=== PATIENT | female | born 1975 | race Caucasian/White ===

== ENCOUNTER → 2019-07-01 12:49 | Outpatient (CLI) | payer MEDICAID, SELFPAY | PROVIDERS: PCP Family Medicine; Referring Provider Physician Assistant; Visit Provider Physician Assistant | DX: R00.2 Palpitations (principal) | CPT/HCPCS: 93225; 93226 ==

== ENCOUNTER → 2019-07-08 13:19 | Outpatient (CLI) | payer MEDICAID, SELFPAY ==
[2015-08-18 11:45] VITALS: BMI 30.5
--- NOTE | 2019-07-08 13:21 | STE_ITS ---
Reason For Study: Palpitations, Chest Pain Stress Results Protocol: Gumaro Protocol Maximum Predicted HR: 176 bpm Target HR: 150 bpm % Maximum Predicted HR: 89 % Heart Stage Duration Rate BP Comment (mm:ss) (bpm) Baseline 70 114/70No Chest Pain Gumaro Protocol Stage I 3:00 117 120/72No Chest Pain Gumaro Protocol Stage II 3:00 134 146/62No Chest Pain Gumaro Protocol Stage III 3:00 151 160/58No Chest Pain; Mild Silverio Leg Pain Gumaro Protocol Stage IV 0:30 157 / No Chest Pain; Silverio Leg Pain Mild Chest Pain During Post Pictures, Resolved 2 Recovery 86 120/70Minutes Into Recovery Stress Duration: 9:30 mm:ss Maximum Stress HR: 157 bpm METS: 11 Baseline Echocardiogram Findings The estimated ejection fraction is 60 %. Stress Echo Wall motion Data Resting WM Intermediate WM Stress WM Resting Wall Motion Wall Motion Stress No regional wall motion No regional wall motion abnormalities noted. abnormalities noted. Ejection Fraction 65 %. EKG Data The baseline ECG displays normal sinus rhythm. During stress, there were no ST or T wave changes noted to suggest ischemia. Interpretation Summary The estimated ejection fraction is 60 %. Stress echo is negative for stress induced CP or EKG or echocardiographic changes of ischemia. Ordering Physician: Javier Duncan Referring Physician: Verónica Jamil Performed By: Syeda Linares, GENOVEVA
== END ==
PROVIDERS: PCP Family Medicine; Referring Provider Physician Assistant; Visit Provider Physician Assistant
DX: R07.2 Precordial pain (principal)
CPT/HCPCS: 93017; 93350

== ENCOUNTER 2020-11-10 14:15 | Emergency (ER) | payer MEDICAID, SELFPAY ==
[2020-11-10 14:18] VITALS: BP 127/93; PULSE 87; RESP 16; TEMP 36.2; O2SAT 98; BMI 28.8
--- NOTE | 2020-11-10 14:29 | EDS_ITS ---
HPI History of Present Illness Chief Complaint: Numb/Ting Informant: patient and EMS Onset/Context/Timing Onset: Today Context: Gradual Onset Timing: Continuous Quality: nausea, tingling Location: face, arms, legs Current Severity: Mild Maximum Severity: Severe Worsened by: unk Relieved by: nothing in particular Associated Symptoms Associated Symptoms: anxious but that came later Narrative Narrative: Patient has a significant history of anxiety and has been on 7 different medications for it, and as a result of that and weight gain and some other issues, her doctor had her discontinue buspirone, she stopped it 3 or 4 days ago. She had been feeling fine until today when she started feeling nauseated, then gradually started feeling tingling in her arms and legs then it went to her face, bilaterally simultaneously, no weakness or loss of consciousness, she started feeling anxious and hyperventilating but that came later. She states she only knew that she was anxious and hyperventilating because EMS told her. She thinks that she was feeling anxious due to her symptoms. She denies any palpitations or racing heartbeat or chest discomfort or shortness of breath. No recent illness except for one bout of loose diarrhea today nonbloody. No vomiting. [facility] Medical History Anxiety SLE (systemic lupus erythematosus) Home Medications albuterol sulfate [Ventolin HFA] 1 - 2 puff INHALATION Q4H PRN PRN #1 inhaler 01/29/15 [Rx Last Taken Unknown] citalopram 15 mg PO DAILY 01/29/15 [History Last Taken Unknown] Wellbutrin 08/18/15 [History Last Taken Unknown] hydroxyzine pamoate 25 - 50 mg PO TID PRN PRN #20 capsule 08/18/15 [Rx Last Taken Unknown] Allergy/AdvReac Type Severity Reaction Status Date / Time No Known Allergies Allergy Verified 08/18/15 11:48 Social History Smoking Status: Former smoker ROS ROS ED Constitutional Constitutional ED: Denies chills or fever(s) Eyes Eyes: Denies change in vision or diplopia ENT ENT ED: Denies rhinorrhea or sore throat Cardiovascular Cardiovascular: Denies chest pain or palpitations Respiratory/Chest Respiratory/Chest: Denies cough or dyspnea Gastrointestinal Gastrointestinal: Reports nausea; Denies abdominal pain, diarrhea or vomiting Genitourinary Genitourinary ED: Denies dysuria or hematuria Musculoskeletal Musculoskeletal: Denies back pain or neck pain Integumentary Denies abscess or rash Neurologic Neurologic: Reports paresthesias and tingling; Denies headache(s), syncope or weakness Psychiatric Psychiatric: Reports as per HPI and anxiety; Denies auditory hallucinations or suicidal thoughts EXAM Physical Exam Const Vital Signs: 11/10/20 14:18 Temperature 97.2 F L Temperature Source Temporal Pulse Rate 87 Respiratory Rate 16 Blood Pressure 127/93 H Blood Pressure Mean 104 Pulse Ox 98 Oxygen Delivery Method Room Air Positive well nourished and well developed General Appearance ED: well developed and NAD HEENT Reports moist mucous membranes normocephalic and atraumatic Eyes PERRL and EOMs intact bilaterally Neck full ROM and supple Resp normal respiratory effort and clear to auscultation bilaterally Cardio regular rate, regular rhythm and no murmurs GI non-tender and non-distended Auscultation: normoactive bowel sounds Palpation: soft Back/Spine no CVA tenderness General Back: other FROM Extremity normal to inspection General Extremety ED: Negative for edema, pulses abnormal or tenderness General Extremity: Negative for edema or pulses abnormal Neuro oriented x3, CN's II-XII intact bilaterally and no sensory deficits noted Sensorium / Orientation: awake and alert Motor Exam: strength 5/5 throughout Psych mental status grossly normal, thought process normal, cooperative, affect normal, speech normal and activity/motor behavior normal Attitude: calm and engaged Skin no rashes or lesions noted and no wounds MDM MDM MDM Narrative Medical decision making narrative: With time and some Zofran patient is feeling much better. Her potassium is 3.3, she states this has been the case before. I discussed with her the possibility of an acute respiratory alkalosis due to her hyperventilating and feeling anxious, but to err on the side of caution she was given a dose of potassium 40 mEq orally. We will discharge her home, I suppose it is possible she is having some mild withdrawal symptoms from the buspirone that she stopped 3 days ago, this is the right time frame to experience that, however I am not sure if she would experience that with her other psychiatric medication she is taking. I think it is fine to continue staying off of it along with her doctor's orders, if it is minor withdrawal symptoms they will not be dangerous and they will pass within several days. Lab Data Attestation: I reviewed the patient's lab results. Labs: Laboratory Results - last 24 hr 11/10/20 11/10/20 14:40 14:40 WBC 6.5 RBC 3.81 L Hgb 11.5 L Hct 34.6 L MCV 90.8 MCH 30.2 MCHC 33.2 RDW Std Deviation 41.3 RDW Coeff of Larry 12.5 Plt Count 245 MPV 9.5 Immature Gran % (Auto) 0.600 Neut % (Auto) 77.3 H Lymph % (Auto) 12.8 L [place] % (Auto) 6.5 Eos % (Auto) 2.0 Baso % (Auto) 0.8 Absolute Neuts (auto) 5.0 Absolute Lymphs (auto) 0.83 Nucleated RBC % 0 Sodium 138 Potassium 3.3 L Chloride 104 Carbon Dioxide 29.0 Anion Gap 5 BUN 17 Creatinine 0.77 Estim Creat Clear Calc 85.46 Est GFR (MDRD) Af Amer 103 Est GFR (MDRD) Non-Af 85 BUN/Creatinine Ratio 22.0 H Glucose 113 H Calcium 8.7 Discharge Plan Triage Chief Complaint: Numb/Ting ED Provider: King Chow Dx/Rx/DC Orders Clinical Impression: Paresthesias, Hypokalemia Instructions: ED Hypokalemia, ED Paraesthesias Prescriptions: No Action citalopram 20 MG tablet 15 mg PO DAILY RF: 0 albuterol sulfate [Ventolin HFA] 1 INHALER inhaler 1 - 2 puff inhalation Q4H PRN PRN (Reason: Wheezing) Qty: 1 RF: 0 Wellbutrin RF: 0 hydroxyzine pamoate 25 MG capsule 25 - 50 mg PO TID PRN PRN (Reason: Anxiety) Qty: 20 RF: 0 Primary Care Provider: Jus Gage Referrals: Jus Gage MD [Primary Care Provider] - 1 Week if not improving Disposition Disposition: Home, Self Care
[2020-11-10] MEDS: Ondansetron 4 MG/2 ML Vial IV (14:39)
[2020-11-10 14:49] LABS: Absolute Lymphocyte Count 0.83 X10^3/uL (0.83-4.51); Basophil# 0.05 X10^3/uL; Basophil% 0.8 % (0-1); Eosinophil# 0.13 X10^3/uL; Hematocrit 34.6 % (37-47); Hemoglobin 11.5 g/dL (12.0-15.0); Lymphocyte # 0.83 X10^3/ul (0.83-4.51); Lymphocyte % 12.8 % (19-41); Mean Corp Hgb Conc 33.2 g/dL (32-36); Mean Corpuscular Hgb 30.2 pg (27.0-32.0); Mean Corpuscular Volume 90.8 fL (81-99); Mean Platelet Vol. 9.5 fl (6.2-12.0); Monocyte# 0.42 X10^3/uL; Monocyte% 6.5 % (0-10); NRBC Flagged by Analyzer 0 % (0-5); Neutrophil # 5.01 X10^3/uL (2.7-7.7); Neutrophil % 77.3 % (47-70); Platelet Count 245 K/mm3 (150-450); RBC Distribution Width CV 12.5 % (11.6-14.6); RBC Distribution Width SD 41.3 fl (35.1-43.9); Red Blood Count 3.81 M/mm3 (4.2-5.4); White Blood Count 6.5 K/mm3 (4.4-11.0)
[2020-11-10 15:07] LABS: Anion Gap 5 (5-15); BUN 17 mg/dL (7-18); Calcium,Total 8.7 mg/dL (8.5-10.1); Chloride 104 mmol/L (98-107); Creatinine, Serum 0.77 mg/dL (0.55-1.02); EST Glomerular Filtration Rate 85 mL/min (>60); Est Glom Filt Rate - Afr Amer 103 mL/min (>60); Estimated Creatinine Clearance 85.46 ml/min; Glucose 113 mg/dL (74-106); Potassium 3.3 mmol/L (3.5-5.1); Sodium Level 138 mmol/L (136-145)
[2020-11-10] MEDS: Potassium Chloride Oral Tablet 20 MEQ 40 MEQ PO (16:03)
[2020-11-10 16:04] VITALS: BP 130/81; PULSE 104; RESP 16; O2SAT 99
== END 2020-11-10 16:06 | disposition home or self-care (01) ==
PROVIDERS: Emergency Provider Emergency Medicine; PCP Family Medicine
DX: E87.6 Hypokalemia (principal); R20.2 Paresthesia of skin; M32.9 Systemic lupus erythematosus, unspecified; F41.9 Anxiety disorder, unspecified; Z79.899 Other long term (current) drug therapy; Z87.891 Personal history of nicotine dependence
CPT/HCPCS: 80048; 85025; 96374; 99284; A4216; J2405

== ENCOUNTER 2021-10-12 15:49 | Emergency (ER) | payer OTHER, MEDICAID, SELFPAY ==
[2021-10-12 15:50] VITALS: BP 154/96; PULSE 95; RESP 18; TEMP 37.1; O2SAT 99; BMI 30.7
--- NOTE | 2021-10-12 16:21 | EKG12_ITS ---
Test Reason : HEAT EXHAUSTION Blood Pressure : / mmHG Vent. Rate : 073 BPM Atrial Rate : 073 BPM P-R Int : 152 ms QRS Dur : 094 ms QT Int : 372 ms P-R-T Axes : 038 020 065 degrees QTc Int : 409 ms Normal sinus rhythm with sinus arrhythmia Normal ECG Confirmed by VICKI ORTEGA, NICOLE ([id number]), mapping editor EULALIA ORTEZ ([id number]) on 10/14/2021 11:37:40 AM Referred By: LEV Confirmed By:NICOLE COHEN MD
--- NOTE | 2021-10-12 16:23 | EDS_ITS ---
HPI History of Present Illness Chief Complaint: Weakness Informant: patient Onset/Context/Timing Onset: Today Context: Gradual Onset Current Severity: Mild Maximum Severity: Moderate Narrative Narrative: Patient presents with generalized weakness that she believes is secondary to heat exhaustion. 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 She states there was no air conditioning in her truck today. Around noon she noted she had stopped sweating and was very hot. She stopped one of her customers homes and cooled off for about 15 minutes. -S-he then continued her route but again noted she stopped sweating, became lightheaded, and had tingling in her fingers. She felt like she was going to throw up. She stopped at another customer's home and cooled off there for approximately 1 hour. When she attempted to restart her route she was extremely nauseated and felt she could not continue. She arrived via EMS after receiving a liter of IV fluids. She states she still feels somewhat nauseated now but overall improved. [facility] Medical History Anxiety Depression SLE (systemic lupus erythematosus) Home Medications belimumab 200 mg/mL subcutaneous auto-injector (Benlysta) 1 ea subcut FR 10/12/21 [History Last Taken Unknown] cyclobenzaprine 10 mg tablet 0.5 tab PO QHS PRN Sleep 10/12/21 [History Last Taken Unknown] hydroxychloroquine 200 mg tablet 1.5 tab PO DAILY 10/12/21 [History Last Taken Unknown] hydroxyzine pamoate 25 mg capsule 25 mg PO 4X/DAY PRN Anxiety 10/12/21 [History Last Taken Unknown] mometasone 0.1 % topical cream 1 applic topical DAILY 10/12/21 [History Last Taken Unknown] multivit with minerals-iron 18 mg-folic ac 400 mcg-vit K 25 mcg tablet (One Daily Women's) 1 tab PO DAILY 10/12/21 [History Last Taken Unknown] oxaprozin 600 mg tablet 2 tab PO DAILY 10/12/21 [History Last Taken Unknown] oxybutynin chloride 10 mg tablet,extended release 24 hr 1 tab PO DAILY 10/12/21 [History Last Taken Unknown] venlafaxine 150 mg capsule,extended release 24 hr 150 cap PO DAILY 10/12/21 [History Last Taken Unknown] Allergy/AdvReac Type Severity Reaction Status Date / Time No Known Allergies Allergy Verified 10/12/21 15:50 Social History Smoking Status: Former smoker ROS ROS ED Constitutional Constitutional ED: Denies chills or fever(s) Eyes Eyes: Denies change in vision or discharge from eye(s) ENT ENT ED: Denies discharge from eye(s), rhinorrhea or sore throat Cardiovascular Cardiovascular: Denies chest pain or palpitations Respiratory/Chest Respiratory/Chest: Denies cough or dyspnea Gastrointestinal Gastrointestinal: Reports nausea; Denies abdominal pain, diarrhea or vomiting Genitourinary Genitourinary ED: Denies difficulty urinating or dysuria Musculoskeletal Musculoskeletal: Denies back pain or extremity pain Integumentary Denies Abrasions or rash Neurologic Neurologic: Reports paresthesias and weakness; Denies headache(s) Psychiatric Psychiatric: Denies anxiety or depression Allergic/Immunologic Allergic/Immunologic ED: Denies lip swelling or urticaria EXAM Physical Exam Const Vital Signs: 10/12/21 15:50 10/12/21 16:17 Temperature 98.7 F Temperature Source Temporal Pulse Rate 95 Respiratory Rate 18 Respiratory Effort Normal Non-Labored Respiratory Pattern Normal Blood Pressure 154/96 H Blood Pressure Mean 115 Pulse Ox 99 Oxygen Delivery Method Room Air Positive well nourished and well developed General Appearance ED: well developed HEENT Reports dry mucous membranes Mouth ED: Yes dry mucous membranes Mouth: dry mucous membranes Eyes PERRL and EOMs intact bilaterally Neck no lymphadenopathy Chest Wall inspection of chest normal and palpation of chest normal Resp normal respiratory effort and clear to auscultation bilaterally Cardio regular rate and regular rhythm GI non-tender Auscultation: normoactive bowel sounds Palpation: soft Neuro oriented x3, CN's II-XII intact bilaterally and no sensory deficits noted Motor Exam: strength 5/5 throughout Skin no rashes or lesions noted MDM MDM MDM Narrative Medical decision making narrative: Patient already received 1 L of IV fluid. IV fluids were run at 150 an hour. EKG and lab work obtained. Lab Data Attestation: I reviewed the patient's lab results. Labs: Laboratory Results - last 24 hr 10/12/21 10/12/21 16:47 16:47 WBC 8.0 RBC 3.95 L Hgb 12.0 Hct 35.0 L MCV 88.6 MCH 30.4 MCHC 34.3 RDW Std Deviation 42.2 RDW Coeff of Larry 12.9 Plt Count 256 MPV 9.3 Immature Gran % (Auto) 0.500 Neut % (Auto) 83.8 H Lymph % (Auto) 8.7 L [place] % (Auto) 5.9 Eos % (Auto) 0.4 Baso % (Auto) 0.7 Absolute Neuts (auto) 6.7 Absolute Lymphs (auto) 0.70 L Nucleated RBC % 0 Sodium 140 Potassium 3.5 Chloride 108 H Carbon Dioxide 25.0 Anion Gap 7 BUN 14 Creatinine 0.76 Estim Creat Clear Calc 86.59 Est GFR (MDRD) Af Amer 104 Est GFR (MDRD) Non-Af 86 BUN/Creatinine Ratio 18.3 Glucose 114 H Calcium 9.0 EKG Initial EKG: Attestation: I personally reviewed and interpreted this EKG as follows: Interpretation: Sinus Rhythm (Sinus at 73 with no acute ischemia.) Treatment and Re-Evaluation Narrative: Lab work is unremarkable. EKG is normal. On repeat evaluation patient feels back to baseline. She will be discharged home with family. Discharge Plan Triage Chief Complaint: Weakness ED Provider: Emily Ashley Dx/Rx/DC Orders Clinical Impression: Weakness, Nausea Instructions: ED Heat Exhaustion Prescriptions: No Action cyclobenzaprine 10 mg tablet 0.5 tab PO QHS PRN (Reason: Sleep) Label Comments: TAKE 1/2 TABLET BY MOUTH AT BEDTIME NEEDED oxybutynin chloride 10 mg tablet extended release 24hr 1 tab PO DAILY Label Comments: TAKE 1 TABLET BY MOUTH EVERY DAY venlafaxine 150 mg capsule,extended release 24hr 150 cap PO DAILY Label Comments: TAKE 1 CAPSULE BY MOUTH EVERY DAY hydroxychloroquine 200 mg tablet 1.5 tab PO DAILY Label Comments: TAKE 1 AND 1/2 TABLETS BY MOUTH ONCE DAILY oxaprozin 600 mg tablet 2 tab PO DAILY Label Comments: TAKE 2 TABLETS BY MOUTH EVERY DAY mometasone 0.1 % cream 1 applic TOPICAL DAILY One Daily Women's 18 mg iron-400 mcg-25 mcg Tablet 1 tab PO DAILY Benlysta 200 mg/mL auto-injector 1 ea SUBCUT FR hydroxyzine pamoate 25 MG capsule 25 mg PO 4X/DAY PRN (Reason: Anxiety) Primary Care Provider: Jus Gage Referrals: Jus Gage MD [Primary Care Provider] - As Needed Disposition Disposition: Home, Self Care
[2021-10-12] MEDS: 0.9% Normal Saline 1,000 ML 150 ML IV (16:53)
[2021-10-12 16:55] LABS: Absolute Neutrophil Count 6.7 X10^3/uL (2.0-7.7); Basophil# 0.06 X10^3/uL; Basophil% 0.7 % (0-1); Eosinophil# 0.03 X10^3/uL; Eosinophils% 0.4 % (0-5); Lymphocyte % 8.7 % (19-41); Mean Corp Hgb Conc 34.3 g/dL (32-36); Mean Corpuscular Hgb 30.4 pg (27.0-32.0); Mean Corpuscular Volume 88.6 fL (81-99); Mean Platelet Vol. 9.3 fl (6.2-12.0); Monocyte# 0.47 X10^3/uL; Monocyte% 5.9 % (0-10); NRBC Flagged by Analyzer 0 % (0-5); Neutrophil # 6.71 X10^3/uL (2.7-7.7); Neutrophil % 83.8 % (47-70); Platelet Count 256 K/mm3 (150-450); RBC Distribution Width CV 12.9 % (11.6-14.6); RBC Distribution Width SD 42.2 fl (35.1-43.9); Red Blood Count 3.95 M/mm3 (4.2-5.4)
[2021-10-12 17:09] LABS: Anion Gap 7 (5-15); BUN 14 mg/dL (7-18); BUN/Creat Ratio 18.3 RATIO (10-20); Chloride 108 mmol/L (98-107); Creatinine, Serum 0.76 mg/dL (0.55-1.02); EST Glomerular Filtration Rate 86 mL/min (>60); Est Glom Filt Rate - Afr Amer 104 mL/min (>60); Estimated Creatinine Clearance 86.59 ml/min; Glucose 114 mg/dL (74-106); Potassium 3.5 mmol/L (3.5-5.1); Sodium Level 140 mmol/L (136-145)
[2021-10-12 18:08] VITALS: PULSE 88; RESP 17; O2SAT 99
== END 2021-10-12 18:10 | disposition home or self-care (01) ==
PROVIDERS: Emergency Provider Emergency Medicine; PCP Family Medicine; Visit Provider Emergency Medicine
DX: R53.1 Weakness (principal); M32.9 Systemic lupus erythematosus, unspecified; F41.9 Anxiety disorder, unspecified; F32.A Depression, unspecified; Z79.899 Other long term (current) drug therapy; Z87.891 Personal history of nicotine dependence; R11.0 Nausea; T67.5XXA Heat exhaustion, unspecified, initial encounter; X30.XXXA Exposure to excessive natural heat, initial encounter
CPT/HCPCS: 80048; 85025; 93005; 96361; 96374; 99284; J7030; A4216; J2405

== ENCOUNTER → 2023-05-17 | Outpatient (CLI) | payer OTHER, SELFPAY ==
--- OUTSIDE RECORDS SUMMARY | 2023-05-17 09:19 | XMS RPT_ITS | CCD ---
Author Name Unknown Address [id number] [place] [address] Organization [facility] Care Team Providers Care Director Title Name Role Phone JAMESCONSUELOMASSIEL Unavailable Unavailable JUS PÉREZ Unavailable Unavailable Ollie ORTEGA, Ta Gibson Unavailable [phone] Jus Pérez MD Primary Care Provider Jus Pérez MD Primary Care Provider Jus Pérez MD Primary Care Provider Jus Pérez MD Primary Care Provider JUS PÉREZ Primary Care Unavailable FAWN SON Referring Unavailable CHON NEGRON Attending Unavailable JUS PÉREZ Primary Care Unavailable JUS PÉREZ Primary Care Unavailable FAWN SON Referring Unavailable JUS PÉREZ Primary Care Unavailable FAWN SON Referring Unavailable JUS PÉREZ Primary Care Unavailable FAWN SON Attending Unavailable CHON NEGRON Referring Unavailable JUS PÉREZ Primary Care Unavailable MAGDI ARRIAGA Attending Unavailable JUS PÉREZ Primary Care Unavailable JUS PÉREZ Referring Unavailable JUS PÉREZ Primary Care Unavailable FAWN SON Referring Unavailable JUS PÉREZ Primary Care Unavailable FAWN SON Attending Unavailable LISSET RIVERS Attending Unavailable JUS PÉREZ Primary Care Unavailable JSU PÉREZ Referring Unavailable MAGDI ARRIAGA Attending Unavailable JUS PÉREZ Primary Care Unavailable JUS PÉREZ Referring Unavailable MAGDI ARRIAGA Attending Unavailable JUS PÉREZ Primary Care Unavailable JUS PÉREZ Referring Unavailable JUS PÉREZ Primary Care Unavailable JUS PÉREZ Attending Unavailable JUS PÉREZ Referring Unavailable CHRISTINE RODRIGUEZ Referring Unavailable CAYLA ALVAREZ Attending Unavailable JUS PÉREZ Primary Care Unavailable BETO, JUS Blunt Primary Care Unavailable FAWN SON Referring Unavailable BETO, JUS Blunt Primary Care Unavailable BETO, JUS Blunt Referring Unavailable BETO, JUS Blunt Primary Care Unavailable FAWN SON Referring Unavailable LISSET RIVERS Referring Unavailable BETO, JUS Blunt Primary Care Unavailable BETO, JUS Blunt Primary Care Unavailable BETO, JUS Blunt Attending Unavailable CHRISTINE RODRIGUEZ Attending Unavailable BETO, JUS Blunt Primary Care Unavailable BETO, JUS Blunt Referring Unavailable BETO, JUS Blunt Primary Care Unavailable FAWN SON Referring Unavailable BETO, JUS Blunt Primary Care Unavailable FAWN SON Referring Unavailable MAGDI ARRIAGA Attending Unavailable BETO, JUS Blunt Primary Care Unavailable BETO, JUS Blunt Referring Unavailable CORINA, MAGDI Attending Unavailable BETO, JUS Blunt Primary Care Unavailable BETO, JUS Blunt Referring Unavailable CORINA, MAGDI Attending Unavailable BETO, JUS Blunt Primary Care Unavailable BETO, JUS Blunt Referring Unavailable CORINA, MAGDI Attending Unavailable BETO, JUS Blunt Primary Care Unavailable BETO, JUS Blunt Referring Unavailable BETO, JUS Blunt Primary Care Unavailable FAWN SON Referring Unavailable BETO, JUS Blunt Primary Care Unavailable FAWN SON Referring Unavailable BETO, JUS Blunt Primary Care Unavailable FAWN SON Referring Unavailable CHON NEGRON Attending Unavailable BETO, JUS Blunt Primary Care Unavailable BETO, JUS Blunt Referring Unavailable BETO, JUS Blunt Primary Care Unavailable DORCAS DÍAZ Referring Unavailable DORCAS DÍAZ Attending Unavailable BETO, JUS Blunt Primary Care Unavailable BETO, JUS Blunt Primary Care Unavailable FAWN SON Referring Unavailable BETO, JUS Blunt Primary Care Unavailable FAWN SON Referring Unavailable BETO, JUS Blunt Primary Care Unavailable FAWN SON Referring Unavailable Medications Current Medications Medication Drug Class(es) Dates Sig (Normalized) Sig (Original) famotidine 20 mg oral tablet (6 sources) Histamine-2 Receptor Antagonist Start: 12-05-2021 End: 01-04-2022 take 1 tablet by mouth at bedtime as needed famotidine (PEPCID) 20 mg tablet Indications: GERD without esophagitis Take 1 tablet by mouth at bedtime as needed. 30 tablet 0 12/05/2021 01/04/2022 Active Completed/Discontinued Medications Medication Drug Class(es) Dates Sig (Normalized) Sig (Original) 1 ml belimumab 200 mg/ml auto-injector (20 sources) B Lymphocyte Stimulator-specif ic Inhibitor Start: 11-10-2021 End: 12-13-2021 inject 200 mg by subcutaneous injection every week belimumab (BENLYSTA) 200 mg/mL Indications: Systemic lupus erythematosus, unspecified SLE type, unspecified organ involvement status (HCC) INJECT 200MG SUBCUTANEOUSLY WEEKLY 12 mL 3 12/13/2021 Active Problems Active Problems Problem Classification Problem Date Documented Date Episodic/Chronic Allergic reactions (2 sources) Inflammatory dermatosis; Translations: [Dermatitis, unspecified] Episodic Anxiety disorders (20 sources) Anxiety state; Translations: [Generalized anxiety disorder] Onset: 05-31-2006 06-08-2015 Chronic Cardiac dysrhythmias (20 sources) Supraventricular tachycardia; Translations: [Supraventricular tachycardia] Onset: 05-02-2022 05-02-2022 Chronic Cardiac dysrhythmias (3 sources) Palpitations; Translations: [Palpitations] Episodic Disorders of lipid metabolism (20 sources) Mixed hyperlipidemia; Translations: [Mixed hyperlipidemia] Onset: 08-19-2009 08-19-2009 Chronic Esophageal disorders (1 source) Gastroesophageal reflux disease without esophagitis; Translations: [Gastro-esophageal reflux disease without esophagitis] Chronic Essential hypertension (20 sources) Essential hypertension; Translations: [Essential (primary) hypertension] Onset: 03-30-2022 Chronic Headache; including migraine (20 sources) Migraine; Translations: [Migraine, unspecified, not intractable, without status migrainosus] Onset: 03-23-2010 04-18-2021 Chronic Intestinal infection (1 source) Viral gastroenteritis; Translations: [Viral intestinal infection, unspecified] Episodic Miscellaneous mental health disorders (3 sources) Chronic insomnia; Translations: [Psychophysiologic insomnia] Chronic Mood disorders (20 sources) Recurrent major depression in partial remission; Translations: [Major depressive disorder, recurrent, in partial remission] Onset: 05-31-2006 06-08-2015 Chronic Osteoarthritis (20 sources) Osteoarthritis of left hip joint; Translations: [Unilateral primary osteoarthritis, left hip] Onset: 08-10-2022 Chronic Other acquired deformities (1 source) Spondylolisthesis; Translations: [Spondylolisthesis, lumbar region] Onset: 02-28-2018 02-28-2018 Chronic Other aftercare (19 sources) Patient encounter status; Translations: [Other buttermaker continuous churn (current) drug therapy] Episodic Other aftercare (1 source) Drug therapy finding; Translations: [Other buttermaker continuous churn (current) drug therapy] Episodic Other aftercare (1 source) Long-term current use of immunosuppressive drug; Translations: [Long-term use of immunosuppressant medication] Episodic Other aftercare (1 source) Other buttermaker continuous churn (current) drug therapy; Translations: [Encounter for long-term (current) use of high-risk medication] Onset: 03-23-2023 Episodic Other circulatory disease (1 source) Elevated blood-pressure reading without diagnosis of hypertension; Translations: [Elevated blood-pressure reading, without diagnosis of hypertension] Episodic Other connective tissue disease (3 sources) Muscle pain; Translations: [Myalgia, unspecified site] Episodic Other hereditary and degenerative nervous system conditions (20 sources) Restless legs; Translations: [Restless legs syndrome] Onset: 04-07-2015 04-07-2015 Chronic Other non-traumatic joint disorders (2 sources) Hip pain; Translations: [Pain in left hip] Episodic Other non-traumatic joint disorders (1 source) Pain in left hip; Translations: [Pain in left hip] Onset: 05-07-2023 Episodic Other nutritional; endocrine; and metabolic disorders (20 sources) Obesity; Translations: [Obesity, unspecified] Onset: 03-22-2007 08-19-2009 Chronic Systemic lupus erythematosus and connective tissue disorders (20 sources) Systemic lupus erythematosus; Translations: [Systemic lupus erythematosus, unspecified] Onset: 08-30-2017 Chronic Unclassified (1 source) History of lumbar fusion; Translations: [Arthrodesis status] Onset: 07-05-2018 07-05-2018 Past or Other Problems Problem Classification Problem Date Documented Da te Episodic/Chronic Fluid and electrolyte disorders (20 sources) Hypokalemia; Translations: [Hypokalemia] Onset: 08-02-2022 08-02-2022 Episodic Immunizations and screening for infectious disease (2 sources) Needs influenza immunization; Translations: [Encounter for immunization] Onset: 02-06-2023 Episodic Other acquired deformities (20 sources) Spondylolisthesis; Translations: [Spondylolisthesis, site unspecified] Onset: 02-28-2018 08-02-2022 Episodic Other connective tissue disease (1 source) Synovial cyst of lumbar spine; Translations: [Other bursal cyst, other site] Onset: 02-28-2018 02-28-2018 Episodic Other connective tissue disease (20 sources) History of lumbar fusion; Translations: [Arthrodesis status] Onset: 07-05-2018 08-02-2022 Episodic Other connective tissue disease (1 source) Myalgia, unspecified site; Translations: [Myalgia] Onset: 09-27-2022 Episodic Other nervous system disorders (20 sources) Paresthesia; Translations: [Paresthesia of skin] Onset: 08-02-2022 08-02-2022 Episodic Other screening for suspected conditions (not mental disorders or infectious disease) (6 sources) Cancer cervix screening status; Translations: [Encounter for screening for malignant neoplasm of cervix] Onset: 08-08-2022 Episodic Residual codes; unclassified (20 sources) Family history of diabetes mellitus; Translations: [Family history of diabetes mellitus] Onset: 03-30-2009 08-19-2009 Episodic Spondylosis; intervertebral disc disorders; other back problems (20 sources) Spinal stenosis of lumbar region; Translations: [Sciatica] Onset: 11-12-2017 02-28-2018 Episodic Unclassified (1 source) Problem Results Test Name Value Interpretation Reference Range Facil ity Vital Signs Date Time Vital Sign Value Performing Clinician Facility 04-03-2023 13:24-0500 Diastolic blood pressure 61 mm[Hg] Treatment Wstr Work Phone: [facility] 04-03-2023 13:24-0500 Heart rate 81 /min Treatment Wstr Work Phone: [facility] 04-03-2023 13:24-0500 Systolic blood pressure 128 mm[Hg] Treatment Wstr Work Phone: [facility] 03-06-2023 13:54-0500 Body temperature 97 [degF] Treatment Wstr Work Phone: [facility] 03-06-2023 13:54-0500 Diastolic blood pressure 84 mm[Hg] Treatment Wstr Work Phone: [facility] 03-06-2023 13:54-0500 Heart rate 86 /min Treatment Wstr Work Phone: [facility] 03-06-2023 13:54-0500 Systolic blood pressure 135 mm[Hg] Treatment Wstr Work Phone: [facility] 02-06-2023 14:44-0400 Body height 167.6 cm Jus Pérez MD Work Phone: [facility] 02-06-2023 14:44-0400 Body weight 88.18 kg Jus Pérez MD Work Phone: [facility] 02-06-2023 14:44-0400 Diastolic blood pressure 74 mm[Hg] Jus Pérez MD Work Phone: [facility] 02-06-2023 14:44-0400 Heart rate 83 /min Jus Pérez MD Work Phone: [facility] 02-06-2023 14:44-0400 SaO2% (BldA) [Mass fraction] 97 % Jus Pérez MD Work Phone: [facility] 02-06-2023 14:44-0400 Systolic blood pressure 130 mm[Hg] Jus Pérez MD Work Phone: [facility] 02-05-2023 14:37-0400 Body temperature 96.8 [degF] Treatment Wstr Work Phone: [facility] 02-05-2023 14:37-0400 Diastolic blood pressure 74 mm[Hg] Treatment Wstr Work Phone: [facility] 02-05-2023 14:37-0400 Heart rate 88 /min Treatment Wstr Work Phone: [facility] 02-05-2023 14:37-0400 Systolic blood pressure 133 mm[Hg] Treatment Wstr Work Phone: [facility] 12-11-2022 14:07-0400 Body temperature 98.01 [degF] Treatment Wstr Work Phone: [facility] 12-11-2022 14:07-0400 Body weight 86.18 kg Treatment Wstr Work Phone: [facility] 12-11-2022 14:07-0400 Diastolic blood pressure 70 mm[Hg] Treatment Wstr Work Phone: [facility] 12-11-2022 14:07-0400 Heart rate 82 /min Treatment Wstr Work Phone: [facility] 12-11-2022 14:07-0400 Respiratory rate 18 /min Treatment Wstr Work Phone: [facility] 12-11-2022 14:07-0400 SaO2% (BldA) [Mass fraction] 99 % Treatment Wstr Work Phone: [facility] 12-11-2022 14:07-0400 Systolic blood pressure 132 mm[Hg] Treatment Wstr Work Phone: [facility] 11-28-2022 15:19-0400 Body height 167.6 cm Chon Negron MD Work Phone: [facility] 11-28-2022 15:19-0400 Body weight 85.23 kg Chon Negron MD Work Phone: [facility] 11-28-2022 15:19-0400 Diastolic blood pressure 79 mm[Hg] Chon Negron MD Work Phone: [facility] 11-28-2022 15:19-0400 Heart rate 91 /min Chon Negron MD Work Phone: [facility] 11-28-2022 15:19-0400 SaO2% (BldA) [Mass fraction] 100 % Chon Negron MD Work Phone: [facility] 11-28-2022 15:19-0400 Systolic blood pressure 120 mm[Hg] Chon Negron MD Work Phone: [facility] 11-07-2022 13:00-0400 Body temperature 98.1 [degF] Treatment Wstr Work Phone: [facility] 11-07-2022 13:00-0400 Diastolic blood pressure 78 mm[Hg] Treatment Wstr Work Phone: [facility] 11-07-2022 13:00-0400 Heart rate 90 /min Treatment Wstr Work Phone: [facility] 11-07-2022 13:00-0400 Systolic blood pressure 128 mm[Hg] Treatment Wstr Work Phone: [facility] 10-10-2022 13:45-0400 Body temperature 97.3 [degF] Treatment Wstr Work Phone: [facility] 10-10-2022 13:45-0400 Diastolic blood pressure 82 mm[Hg] Treatment Wstr Work Phone: [facility] 10-10-2022 13:45-0400 Heart rate 89 /min Treatment Wstr Work Phone: [facility] 10-10-2022 13:45-0400 Systolic blood pressure 144 mm[Hg] Treatment Wstr Work Phone: [facility] 10-03-2022 12:10-0400 Diastolic blood pressure 64 mm[Hg] Cayla Alvarez MD Work Phone: [facility] 10-03-2022 12:10-0400 Heart rate 72 /min Cayla Alvarez MD Work Phone: [facility] 10-03-2022 12:10-0400 Respiratory rate 16 /min Cayla Alvarez MD Work Phone: [facility] 10-03-2022 12:10-0400 SaO2% (BldA) [Mass fraction] 97 % Cayla Alvarez MD Work Phone: [facility] 10-03-2022 12:10-0400 Systolic blood pressure 122 mm[Hg] Cayla Alvarez MD Work Phone: [facility] 10-03-2022 10:05-0400 Body temperature 97.59 [degF] Cayla Alvarez MD Work Phone: [facility] 10-03-2022 10:05-0400 Body weight 91.6 kg Cayla Alvarez MD Work Phone: [facility] 08-15-2022 14:00-0400 Body temperature 98.1 [degF] Treatment Wstr Work Phone: [facility] 08-15-2022 14:00-0400 Body weight 91.63 kg Treatment Wstr Work Phone: [facility] 08-15-2022 14:00-0400 Diastolic blood pressure 73 mm[Hg] Treatment Wstr Work Phone: [facility] 08-15-2022 14:00-0400 Heart rate 76 /min Treatment Wstr Work Phone: [facility] 08-15-2022 14:00-0400 Respiratory rate 16 /min Treatment Wstr Work Phone: [facility] 08-15-2022 14:00-0400 SaO2% (BldA) [Mass fraction] 96 % Treatment Wstr Work Phone: [facility] 08-15-2022 14:00-0400 Systolic blood pressure 126 mm[Hg] Treatment Wstr Work Phone: [facility] 08-08-2022 15:31-0400 Body height 167.6 cm Christine Dona Ana PA-C Work Phone: [facility] 08-08-2022 15:31-0400 Body temperature 97.59 [degF] Christine Jaswinder PA-C Work Phone: [facility] 08-08-2022 15:31-0400 Body weight 91.17 kg Christine Dona Ana PA-C Work Phone: [facility] 08-08-2022 15:31-0400 Diastolic blood pressure 78 mm[Hg] Christine Jaswinder PA-C Work Phone: [facility] 08-08-2022 15:31-0400 Heart rate 118 /min Christine Jaswinder PA-C Work Phone: [facility] 08-08-2022 15:31-0400 SaO2% (BldA) [Mass fraction] 100 % Christine Dona Ana PA-C Work Phone: [facility] 08-08-2022 15:31-0400 Systolic blood pressure 130 mm[Hg] Christine Dona Ana PA-C Work Phone: [facility] 08-02-2022 10:24-0400 Body height 167.6 cm Jus Pérez MD Work Phone: [facility] 08-02-2022 10:24-0400 Body weight 89.99 kg Jus Pérez MD Work Phone: [facility] 08-02-2022 10:24-0400 Diastolic blood pressure 84 mm[Hg] Jus Pérez MD Work Phone: [facility] 08-02-2022 10:24-0400 Heart rate 76 /min Jus Pérez MD Work Phone: [facility] 08-02-2022 10:24-0400 Systolic blood pressure 135 mm[Hg] Jus Pérez MD Work Phone: [facility] 07-18-2022 14:00-0400 Body temperature 98.01 [degF] Treatment Wstr Work Phone: [facility] 07-18-2022 14:00-0400 Diastolic blood pressure 55 mm[Hg] Treatment Wstr Work Phone: [facility] 07-18-2022 14:00-0400 Heart rate 94 /min Treatment Wstr Work Phone: [facility] 07-18-2022 14:00-0400 Respiratory rate 18 /min Treatment Wstr Work Phone: [facility] 07-18-2022 14:00-0400 SaO2% (BldA) [Mass fraction] 100 % Treatment Wstr Work Phone: [facility] 07-18-2022 14:00-0400 Systolic blood pressure 121 mm[Hg] Treatment Wstr Work Phone: [facility] 06-20-2022 14:32-0500 Body temperature 98.29 [degF] Treatment Wstr Work Phone: [facility] 06-20-2022 14:32-0500 Diastolic blood pressure 70 mm[Hg] Treatment Wstr Work Phone: [facility] 06-20-2022 14:32-0500 Heart rate 94 /min Treatment Wstr Work Phone: [facility] 06-20-2022 14:32-0500 Systolic blood pressure 158 mm[Hg] Treatment Wstr Work Phone: [facility] 05-30-2022 15:15-0500 Body height 167.6 cm Chon Negron MD Work Phone: [facility] 05-30-2022 15:15-0500 Body weight 93.26 kg Chon Negron MD Work Phone: [facility] 05-30-2022 15:15-0500 Diastolic blood pressure 83 mm[Hg] Chon Negron MD Work Phone: [facility] 05-30-2022 15:15-0500 Heart rate 101 /min Chon Negron MD Work Phone: [facility] 05-30-2022 15:15-0500 SaO2% (BldA) [Mass fraction] 100 % Chon Negron MD Work Phone: [facility] 05-30-2022 15:15-0500 Systolic blood pressure 134 mm[Hg] Chon Negron MD Work Phone: [facility] 05-23-2022 14:45-0500 Body temperature 97.39 [degF] Treatment Wstr Work Phone: [facility] 05-23-2022 14:45-0500 Body weight 92.53 kg Treatment Wstr Work Phone: [facility] 05-23-2022 14:45-0500 Diastolic blood pressure 78 mm[Hg] Treatment Wstr Work Phone: [facility] 05-23-2022 14:45-0500 Heart rate 97 /min Treatment Wstr Work Phone: [facility] 05-23-2022 14:45-0500 Respiratory rate 16 /min Treatment Wstr Work Phone: [facility] 05-23-2022 14:45-0500 Systolic blood pressure 147 mm[Hg] Treatment Wstr Work Phone: [facility] 04-25-2022 13:33-0500 Body temperature 97 [degF] Treatment Wstr Work Phone: [facility] 04-25-2022 13:33-0500 Diastolic blood pressure 80 mm[Hg] Treatment Wstr Work Phone: [facility] 04-25-2022 13:33-0500 Heart rate 93 /min Treatment Wstr Work Phone: [facility] 04-25-2022 13:33-0500 Systolic blood pressure 143 mm[Hg] Treatment Wstr Work Phone: [facility] 03-30-2022 14:24-0500 Body weight 92.99 kg Jus Pérez MD Work Phone: [facility] 03-30-2022 14:24-0500 Diastolic blood pressure 98 mm[Hg] Jus Pérez MD Work Phone: [facility] 03-30-2022 14:24-0500 Heart rate 63 /min Jus Pérez MD Work Phone: [facility] 03-30-2022 14:24-0500 Respiratory rate 16 /min Jus Pérez MD Work Phone: [facility] 03-30-2022 14:24-0500 SaO2% (BldA) [Mass fraction] 98 % Jus Pérez MD Work Phone: [facility] 03-30-2022 14:24-0500 Systolic blood pressure 158 mm[Hg] Jus Pérez MD Work Phone: [facility] 03-28-2022 14:31-0500 Diastolic blood pressure 89 mm[Hg] Treatment Wstr Work Phone: [facility] 03-28-2022 14:31-0500 Heart rate 114 /min Treatment Wstr Work Phone: [facility] 03-28-2022 14:31-0500 Systolic blood pressure 146 mm[Hg] Treatment Wstr Work Phone: [facility] 03-28-2022 14:20-0500 Body temperature 97.11 [degF] Treatment Wstr Work Phone: [facility] 02-28-2022 14:04-0500 Body temperature 97.81 [degF] Treatment Wstr Work Phone: [facility] 02-28-2022 14:04-0500 Body weight 90.27 kg Treatment Wstr Work Phone: [facility] 02-28-2022 14:04-0500 Diastolic blood pressure 93 mm[Hg] Treatment Wstr Work Phone: [facility] 02-28-2022 14:04-0500 Heart rate 90 /min Treatment Wstr Work Phone: [facility] 02-28-2022 14:04-0500 Respiratory rate 16 /min Treatment Wstr Work Phone: [facility] 02-28-2022 14:04-0500 SaO2% (BldA) [Mass fraction] 100 % Treatment Wstr Work Phone: [facility] 02-28-2022 14:04-0500 Systolic blood pressure 152 mm[Hg] Treatment Wstr Work Phone: [facility] 01-31-2022 14:13-0400 Body temperature 97.5 [degF] Treatment Wstr Work Phone: [facility] 01-31-2022 14:13-0400 Diastolic blood pressure 84 mm[Hg] Treatment Wstr Work Phone: [facility] 01-31-2022 14:13-0400 Heart rate 94 /min Treatment Wstr Work Phone: [facility] 01-31-2022 14:13-0400 Systolic blood pressure 163 mm[Hg] Treatment Wstr Work Phone: [facility] 12-05-2021 18:08-0400 Body weight 86.64 kg Jus Pérez MD Work Phone: [facility] 12-05-2021 18:08-0400 Diastolic blood pressure 82 mm[Hg] Jus Pérez MD Work Phone: [facility] 12-05-2021 18:08-0400 Heart rate 88 /min Jus Pérez MD Work Phone: [facility] 12-05-2021 18:08-0400 Systolic blood pressure 136 mm[Hg] Jus Pérez MD Work Phone: [facility] 09-13-2021 07:38-0400 Body height 163.8 cm Rhonda Garza APRN.GRAINING OPERATOR Work Phone: [facility] 09-13-2021 07:38-0400 Body weight 87.64 kg Rhonda Garza APRN.GRAINING OPERATOR Work Phone: [facility] 09-13-2021 07:38-0400 Diastolic blood pressure 64 mm[Hg] Rhonda Garza APRN.GRAINING OPERATOR Work Phone: [facility] 09-13-2021 07:38-0400 Systolic blood pressure 118 mm[Hg] Rhonda Garza APRN.GRAINING OPERATOR Work Phone: [facility] NEGATED: Highlighted [id number] 11:03-0400 BMI (Body Mass Index) 27.21 kg/m2 Lilly Jacqueline CARPENTERN [facility] Work Phone: NEGATED: Highlighted [id number] 11:03-0400 Body weight 76.2 kg Lilly Jacqueline HAND WELT [employer]TER [facility] Work Phone: NEGATED: Highlighted [id number] 11:03-0400 Body weight 76 kg Lilly Jacqueline HAND WEL[employer] [facility] Work Phone: NEGATED: Highlighted [id number] 11:03-0400 BP Diastolic 87 mm[Hg] Lillyyeison Phillips HAND [employer] [facility] Work Phone: NEGATED: Highlighted [id number] 11:03-0400 BP Systolic 126 mm[Hg] Lilly Phillips [employer] [facility] Work Phone: NEGATED: Highlighted [id number] 11:03-0400 Heart rate 2+ Lilly Jacqueline HAND [employer] [facility] Work Phone: NEGATED: Highlighted [id number] Height 167.64 cm Lilly Phillips LPN [facility] Work Phone: NEGATED: Highlighted [id number] 11:0400 Height 168 cm Lilly Phillips LPN [facility] Work Phone: NEGATED: Highlighted [id number] 11:03-0400 Pulse (Heart Rate) 69 /min Lilly Phillips LPN [facility] Work Phone: Encounters Encounter Date Encounter Type Care Provider Facility Start: 05-07-2023 End: 05-07-2023 ambulatory LISSET VETOJACKSON Facility:[facility] [facility] Start: 05-01-2023 End: 05-01-2023 ambulatory [facility] Facility:[facility] Start: 04-03-2023 End: 04-03-2023 ambulatory [facility] Facility:[facility] Start: 04-03-2023 End: 04-03-2023 ambulatory Treatment 8 [facility] Work Phone: Hematology/Oncology Procedures Date Procedure Procedure Detail Performing Clinician Start: 04-03-2023 Blood count complete auto&auto difrntl wbc Fawn Son AUTOMOTIVE SERVICE PORTER.GRAINING OPERATOR Work Phone: Start: 04-03-2023 C-reactive protein Raúl Son AUTOMOTIVE SERVICE PORTER.GRAINING OPERATOR Work Phone: Start: 04-03-2023 Urnls dip stick/tabl et rgnt auto w/o microscopy Fawn Son AUTOMOTIVE SERVICE PORTER.GRAINING OPERATOR Work Phone: Start: 04-03-2023 Lipid 1996 panel - S mary or Plasma [facility] Work Phone: Start: 02-06-2023 INFLUENZA VACCINE, A GE 6 MO - 64 YR, QUADRIVALENT (AFLURIA, FLULAVAL, FLUZONE) Jus Pérez MD Work Phone: Start: 10-12-2022 End: 10-12-2022 Mammography Jus Pérez MD Work Phone: Start: 10-03-2022 Colonoscopy flx dx w/collj spec when pfrmd Christine Rodriguez PA-C Work Phone: Start: 10-03-2022 Colonoscopy Rhonda Yolanda pace AUTOMOTIVE SERVICE PORTER.GRAINING OPERATOR Work Phone: Start: 06-20-2022 Urnls dip stick/tabl et rgnt auto w/o microscopy Fawn Son AUTOMOTIVE SERVICE PORTER.GRAINING OPERATOR Work Phone: Start: 06-20-2022 Transferase alanine amino alt sgpt Fawn Son AUTOMOTIVE SERVICE PORTER.GRAINING OPERATOR Work Phone: Start: 05-30-2022 Ecg routine ecg w/le ast 12 lds i&r only Chon Negron MD Work Phone: Start: 03-30-2022 INFLUENZA VACCINE QUADRIVALENT 6 MO - 64 YRS IM Jus Pérez MD Work Phone: Start: 09-30-2021 MIRNA SCREENING W SHARIFA Am y Greg AUTOMOTIVE SERVICE PORTER.GRAINING OPERATOR Work Phone: Start: 09-30-2021 Mammography Screen Wst r Start: 09-17-2020 Mammography Fawn pickett AUTOMOTIVE SERVICE PORTER.GRAINING OPERATOR Work Phone: Start: 01-02-2019 Lipid 1996 panel - S mary or Plasma Fawn Son AUTOMOTIVE SERVICE PORTER.GRAINING OPERATOR Work Phone: Start: 11-01-2018 End: 11-01-2018 Blood pressure within normal parameters - no follow-up required Ta Levin MD Work Phone: Start: 11-01-2018 End: 11-01-2018 BMI outside of normal parameters - no follow-up plan/reason not given Ta Levin MD Work Phone: Start: 11-01-2018 End: 11-01-2018 Documentation of current medications Ta Levin MD Work Phone: Start: 11-01-2018 End: 11-01-2018 Pain assessment documented as negative - follow-up not required Ta Levin MD Work Phone: Start: 11-01-2018 End: 11-01-2018 Radex spine lumbosacral 2/3 views Ta Levin MD Work Phone: Start: 11-01-2018 End: 11-01-2018 Tobacco non-user Ta Levin MD Work Phone: NEGATED: Highlighted rowStart: 11-01-2018 End: 11-01-2018 Documentation of current medications Lilly Phillips LPN Plan of Treatment Date Care Activity Detail Author Start: 10-03-2032 Colonoscopy COLONOSCOPY [facility] Start: 10-03-2032 COLORECTAL CANCER SCREENING COLORECTAL CANCER SCREENING [facility] Start: 10-03-2032 Screening for malign ant neoplasm of colon [facility] Start: 09-13-2026 HPV TESTING HPV TESTING [facility] Start: 09-13-2026 PAP TESTING PAP TESTING [facility] Start: 09-13-2026 Screening for malign ant neoplasm of cervix 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 Start: 02-07-2024 Covid-19 Vaccine (#1) Covid-19 Vacci ne (#1) [facility] Immunizations Immunization Date Immunization Notes Care Provider Fa cility 02-06-2023 influenza, injectabl e, quadrivalent, contains preservative Jus Pérez MD Work Phone: [facility] 03-30-2022 influenza, injectabl e, quadrivalent, contains preservative Jus Pérez MD Work Phone: [facility] 03-30-2022 influenza virus vaccine, unspecified formulation Fawn Son AUTOMOTIVE SERVICE PORTER.GRAINING OPERATOR Work Phone: [facility] 01-01-2019 influenza, injectabl e, quadrivalent, contains preservative Fawn Son APRN.[facility] Work Phone: [facility] 06-06-2018 influenza, injectabl e, quadrivalent, contains preservative Fawn Son APRN.GRAINING OPERATOR Work Phone: [facility] 01-16-2014 influenza, seasonal, injectable Fawn Son APRN.GRAINING OPERATOR Work Phone: [facility] 03-23-2010 influenza virus vaccine, unspecified formulation Fawn Son APRN.GRAINING OPERATOR Work Phone: [facility] Work Phone: 03-07-2010 tetanus and diphther ia toxoids, adsorbed, preservative free, for adult use (2 Lf of tetanus toxoid and 2 Lf of diphtheria toxoid) Fawn Son APRN.GRAINING OPERATOR Work Phone: [facility] Work Phone: 02-11-2009 influenza virus vaccine, unspecified formulation Fawn Son APRN.GRAINING OPERATOR Work Phone: [facility] Work Phone: 06-09-1999 diphtheria and tetan us toxoids, adsorbed for pediatric use Fawn Son APRN.[facility] Work Phone: [facility] Work Phone: Payers Date Payer Category Payer Medicaid [id number] 2022 Unknown [id number] 2021 Medicaid [id number] 2021 Private Health Insurance [id number] 2020 Private Health Insurance [id number] 2020 Private Health Insurance [id number] 2020 Unknown [id number] 2019 Medicaid [id number] 2017 Private Health Insurance [id number] Social History Date Type Detail Facility Start: 11-01-2018 End: 11-01-2018 Assertion Unknown if ever smoked [facility] Work Phone: Start: 12-12-2011 End: 12-05-2021 Tobacco smoking status NHIS Ex-smoker [facility] End: 04-23-1998 History of tobacco use Current smoker [facility] Start: 02-03-2021 End: 02-06-2023 Alcohol intake Current drinker of alcohol (finding) [facility] Start: 03-12-2020 End: 05-02-2022 History SDOH Alcohol Frequency 1 [facility] Start: 03-12-2020 End: 05-02-2022 History SDOH Alcohol Std Drinks 98 [facility] Start: 12-19-2019 End: 05-02-2022 History SDOH Social Connections Phone 5 [facility] Start: 03-12-2020 History SDOH Social Connections Get Together 3 [facility] Start: 12-19-2019 End: 05-02-2022 History SDOH Social Connections Membership 2 [facility] Start: 12-19-2019 End: 05-02-2022 History SDOH Social Connections Living 8 [facility] Start: 03-12-2020 History SDOH Physical Activity MPS 4 [facility] Start: 12-18-2019 Education 21 [facility] Start: 1975 Sex Assigned At Not on file [facility] Start: 08-26-2021 End: 12-05-2021 Exposure to SARS-CoV-2 (event) Not sure [facility] Work Phone: End: 04-23-1998 History of tobacco use Cigarette Smoker [facility] Work Phone: Start: 12-12-2011 End: 12-05-2021 Tobacco use and exposure Smokeless tobacco non-user [facility] Work Phone: Start: 12-05-2021 Tobacco Comment quit 5 and 1/2 yrs ago. [facility] Start: 05-02-2022 History SDOH Physical Activity DPW 6 [facility] Start: 05-01-2022 End: 08-29-2022 History of Social function [facility] Start: 05-01-2022 End: 08-29-2022 Social connection and isolation panel [facility] How often do you get together with friends or relatives? Patient refused [facility] Do you belong to any clubs or organizations such as restorationist groups, unions, fraternal or athletic groups, or school groups? No [facility] Are you now , , , , never or living with a partner? Living with partner [facility] How often to you hav e a drink containing alcohol? Monthly or less [facility] How many standard dr inks containing alcohol do you have on a typical day? 1 or 2 [facility] How often do you hav e 6 or more drinks on 1 occasion? Never [facility] Do you feel stress - tense, restless, nervous, or anxious, or unable to sleep at night because your mind is troubled all the time - these days [OSQ] Very much [facility] (I/We) worried whe er (my/our) food would run out before (I/we) got money to buy more. Never true [facility] Clinical Notes 12-01-2014 to 05-07-2023 Telephone Encounter - Chace Modi - 03/12/2023 11:23 AM ESTTelephone Encounter - Azalea Medina LPN - 02/19/2023 12:57 PM Jus Bowie MD - 02/06/2023 2:40 PM EDT Note Date & Type Note Facility 05-07-2023 Note HNO ID: [id number] Author: ?, ?, ? Service: ? Author Type: ? Type: Progress Notes Filed: 05/08/2023 13:48 Note Text: Order faxed to [facility] scheduling, radiology and pharmacy. Referral done in computer. [facility] 05-07-2023 Note HNO ID: [id number] Author: LISSET RIVERS PA-C Service: ? Author Type: Physician Monomer Purification Operator Type: Progress Notes Filed: 05/08/2023 13:48 Note Text: Lisset Rviers PA-C Department of Orthopaedics Orthopaedics [address] [facility] [address] Dept: [phone] Dept May 07, 2023 CHIEF COMPLAINT: Pain and New of the Left Hip Ms. Char Madera is a 47 year old female who presents with pain in her left groin area which has been getting progressively worse over the past several months. 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 She has lupus, she already takes Plaquenil and Daypro on a regular basis. She did participate in physical therapy did get some relief with some of the traction exercises. About 1 year ago she had a L4-L5 lumbar fusion. She is getting this coming spring and is concerned as she does not want to have difficulties walking down the aisle. ASSESSMENT: M16.12 Primary osteoarthritis of left hip (primary encounter diagnosis) PLAN: She has left hip osteoarthritis, she is already on a regular oral NSAID. We discussed trying a corticosteroid injection into the hip. We also briefly discussed her options as far as a total hip arthroplasty. Ms. Char Madera was advised as to contrast therapies and/or to take analgesics/anti-inflammatories as needed and all contraindications were reviewed. OBJECTIVE: Ms. Char Madera is a pleasant 47 year old in no apparent distress. Gen:Ht 5' 6.5 (1.69m) Wt 190 lb (86.2kg) LMP 07/14/2019 BMI 30.21 kg/(m2). nl development, obese, no deformities ENT: Normocephalic, normal hearing, moist mucosa CV: Pulses:DP/PT= 2+ and symmetric, capillary refill < 2 secs, no peripheral edema/varicosities Skin: no rash, bruising or lesions. Good turgor. Psych: cooperative and appropriate, alert and oriented x 3, good mood and affect. Musculoskeletal: HIP EXAM: Left: ROM: Extension: full extension Flexion: 100 degrees Internal Rotation: 25 degrees External Rotation: 30 degrees Abduction: 30 degrees Adduction: 25 degrees Strength: Pain with resisted abduction and Pain with resisted hip flexion Palpation: Tenderness over left greater trochanter Log roll: non-painful. Straight leg raise: Negative Neurovascular Status: Sensation Intact, Moves foot and ankle up AND down, and 2+ dorsalis pedis Imaging: * * *Final Report* * * DATE OF EXAM: May 07 2023 12:41PM [id number] - XR HIP 3V PELV+ AP/LAT LT / PROCEDURE REASON: Pain in left hip * * * * Physician Interpretation * * * * Examination: XR HIP 3V PELV+ AP/LAT LT History: Pain in left hip Technique: XR HIP 3V PELV+ AP/LAT LT Comparison: 03/30/2022 RESULT: Progression of degenerative change. Moderate degenerative change involving the left hip with moderate joint space narrowing is now seen, with osteophytosis. No fracture or focal bony abnormality. Normal mineralization and alignment. Mild degenerative change involving the right hip. Postoperative change involving the lower lumbar region with pedicle plate and screw device at L4 and L5. IMPRESSION IMPRESSION: PROGRESSION OF DEGENERATIVE CHANGE INVOLVING THE LEFT HIP. MODERATE JOINT SPACE NARROWING Security Intern: WARREN Transcribe Date/Time: May 08 2023 1:34P Dictated by : JANI QUIROZ MD This examination was interpreted and the report reviewed and electronically signed by: JANI QUIROZ MD on May 08 2023 1:36PM EST Supporting Subjective Information Below: Past Surgical History: PAST SURGICAL HISTORY Procedure Laterality Date BACK SURGERY HX CARPAL TUNNEL RIGHT WRIST 04/23/2005 COLONOSCOPY 10/03/2022 repeat in 10 years COLPOSCOPY CERVIX UPPER/ADJACENT VAGINA 04/23/1998 WITH A BIOPSY DILATION AND CURETTAGE DXAND/THER NONOBSTETRIC EYE SURGERY HX INCISION THROMBOSED HEMORRHOID EXTERNAL 01/22/2013 Exc. left lateral thrombosed hemorrhoid, local LEEP PROCEDURE ([employer] DEPT)_*FL 04/23/2002 ERLINDA 1 PAST SURGICAL HISTORY OF 89, 99 planned AB X2 PAST SURGICAL HISTORY OF WISDOM TEETH REMOVAL S DEV ENOCH ENDOMETRIAL ABLATION N/A 2020 hysteroscopy, ablation in office with removal IUD Medications: Current Outpatient Medications Medication Sig metoprolol succinate ER (TOPROL XL) 25 mg 24 hr tablet Take 1 tablet by mouth once daily. melatonin 3 mg tablet Take 1 tablet by mouth at bedtime as needed for insomnia. hydrOXYzine HCl (ATARAX) 25 mg tablet Take 1 tablet by mouth four times a day as needed for anxiety. cyclobenzaprine (FLEXERIL) 10 mg tablet TAKE 1/2 TABLET BY MOUTH AT BEDTIME NEEDED venlafaxine ER (EFFEXOR XR) 150 mg 24 hr capsule Take 1 capsule by mouth once daily. hydrOXYchloroQUINE (PLAQUENIL) 200 mg tablet take 1 and 1/2 tablets by mouth once (more content not included)... [facility] 05-07-2023 Note HNO ID: [id number] Author: ?, ?, ? Service: ? Author Type: ? Type: Progress Notes Filed: 05/08/2023 13:48 Note Text: Patient presents with: Left Hip - Pain, New AMB ROOMING INTAKE FLOWSHEET DATA Pain Pain Level: 5 Pain Location: Hip-Left Description: Aching, Sharp Duration Amount of Time: 10 Duration Units: Months Frequency: Continuous Intervention/Comfort measure: Reposition Patient states her left hip pain has gotten progressively worse. She has pain daily now instead of occasionally. Her pain is deep into her groin. She is having difficulty getting up out of bed or a chair and pain will increase to a 7-8 on the pain scale. She is unable to lay in bed on her back if her left leg is straight out. 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 Taking Daypro for the pain and does not but does not take it completely away. She also takes Flexeril every night at bedtime. X-rays done today. [facility] 05-07-2023 Note HNO ID: [id number] Author: KYMBERLY FRAZIER RT(James) Service: ? Author Type: Defensive Secondary Coach Type: Progress Notes Filed: 05/07/2023 12:40 Note Text: Radiology Service Progress Note PATIENT NAME: Char Madera DATE OF SERVICE: May 07, 2023 TIME: 12:39 PM PATIENT IDENTITY VERIFICATION COMPLETED USING TWO (2) IDENTIFIERS: Name and Date of confirmed by patient verbally. FALL SCREENING: Has the patient had 2 falls in the last year or 1 fall with injury or currently using an Ambulatory Assistive Device (Walker, Cane, Wheelchair, Crutches, etc.)? No PATIENT GENDER DATA: Female. status: : No status: NO. PATIENT RELEVANT IMPLANT DATA REVIEWED: Yes RADIOLOGY DEPARTMENT: General X-ray: Exam(s) Completed: Pelvis X-Ray: Pelvis with Hip Left PERIPHERAL IV DATA: Not applicable SIGNED BY: RT Ryan(R) May 07, 2023 12:39 PM [facility] 03-23-2023 Note HNO ID: [id number] Author: Fawn Son APRN.DENISSE Service: ? Author Type: Nurse Practitioner Type: Progress Notes Filed: 03/23/2023 7:43 AM Note Text: HPI: To review, Char Tomas is a 47 year old female - In Dec, diagnosed with SLE per inflammatory arthritis (elbows, wrists, hands, knees, and feet) in the setting of a positive MATTHEW 1:640 and positive chromatin >8. - In Jan, started on HCQ 200mg bid - In Apr, stable - In Apr, reported 50-60% improvement in joint pain with HCQ. Continued to have pain in the L wrist, MCPs and PIP. Advised to decrease HCQ dose to keep in line with dosing guidelines. Also advised to consider MTX which she deferred. - In September, reported no change with HCQ dose decrease - In Jan, reported that joint pain and swelling had been progressing in the PIPs>>MCPs, knees (up stairs) and ankles. Also with worsened brain fog. Advised to start MTX PO. Stopped MTX after 4-6 weeks due to ARELLANO, fatigue, GERD and increased anxiety (did help joint pain some) - In June, started arava but stopped in August for weight gain and inefficacy - In August, advised to start AZA but she decided to hold off on starting it due to c/f potential side effects and FHx of cancer - In the interim, saw PCP for lupus rash, flare. Started on prednisone which helped by 40-45% - In Mar, reported that the left side was more painful: shoulder, elbow, hip and knee. Both hips felt like they're catching with a popping sensation when going to stand up. Knees had been painful for several years, progressively worsening. Remained on HCQ. - In August, started benlysta SC - In Dec, reported 65-75% improvement with benlysta. Said insurance will no longer cover benlysta SC so advised to do IV - In Jan, started first benlysta IV - in 05/2022, reports the benlysta IV is helping but taking longer to help than the SC - Last benlysta IV was 05/23/22 - Last plaquenil eye exam normal in August PAST MEDICAL HISTORY Diagnosis Date Abnormal Papanicolaou smear of vagina and vaginal HPV Arthritis Human papillomavirus in conditions classified elsewhere and of unspecified site Hyperlipidemia Irregular menstrual cycle PMH - PAST MEDICAL HISTORY OF POST DEPRESSION Premenstrual tension syndromes Reflex sympathetic dystrophy, unspecified RLS (restless legs syndrome) SLE (systemic lupus erythematosus) ([facility]) PAST SURGICAL HISTORY Procedure Laterality Date BACK SURGERY HX CARPAL TUNNEL RIGHT WRIST 04/23/2005 COLONOSCOPY 10/03/2022 repeat in 10 years COLPOSCOPY CERVIX UPPER/ADJACENT VAGINA 04/23/1998 WITH A BIOPSY DILATION AND CURETTAGE DXAND/THER NONOBSTETRIC EYE SURGERY HX INCISION THROMBOSED HEMORRHOID EXTERNAL 01/22/2013 Exc. left lateral thrombosed hemorrhoid, local LEEP PROCEDURE ([employer] DEPT)_*FL 04/23/2002 ERLINDA 1 PAST SURGICAL HISTORY OF 92, 99 planned AB X2 PAST SURGICAL HISTORY OF WISDOM TEETH REMOVAL S DEV ENOCH ENDOMETRIAL ABLATION N/A 2020 hysteroscopy, ablation in office with removal IUD ALLERGIES No Known Allergies INTERVAL HISTORY This Team Access Model visit is a virtual encounter. It required patient-provider interaction for the medical decision making as documented below. I have communicated my name and active licensure. The patient's identity and physical location were verified at the time of this visit. Either the patient or their legal support representative has been informed of the risks and benefits of -- and alternatives to -- treatment through a remote evaluation and consents to proceed with the evaluation remotely. She reports good and bad days. She is following with ortho for L hip pain. She reports fatigue the day of the benlysta infusion. Otherwise she tolerates it well. Sites of pain: L hip, pain rated 4/10 Joint swelling: fingers EMS: yes, lasting 30 minutes to two hours No recent infections. Tolerating meds. Answers submitted by the patient for this visit: Review of Systems Rheumatology (Submitted on 03/23/2023) Fever : No Recent unintentional weight change: No Eye pain: No Eye redness: No Vision Disturbance: No Eye Dryness: No Nosebleeds: No Sores in your mouth: No Trouble Swallowing: No Dry Mouth: No Chest pain: No Leg Swelling: Yes A cough: Yes Blood when you cough: No Shortness of breath: No Pain with breathing: No Heartburn: Yes Abdominal pain: No Diarrhea: No Black tarry stools: No Blood in urine: No Pain or burning with urination: No Joint pain or stiffness: Yes Muscle weakness: Yes Muscle aches: Yes Joint swelling: Yes Morning Stiffness in Joints: Yes A rash: No Skin Color Changes: No Hair Loss: No Nail Changes: No Headaches: No Numbness: No Memory Loss: No Swollen Glands: No Current Outpatient Medications Medication Sig hydrOXYchloroQUINE (PLAQUENIL) 200 mg tablet take 1 and 1/2 tablets by mouth once daily (more content not included)... [facility] 03-12-2023 Miscellaneous Notes Patient phones requesting refills as follows: Requested Prescriptions Pending Prescriptions Disp Refills hydrOXYzine HCl (ATARAX) 25 mg tablet 120 tablet 11 Sig: Take 1 tablet by mouth four times a day as needed for anxiety. [facility] 02/06/23 NOV 08/14/23 Please review and advise. Chace Modi documented in this encounter [facility] 02-19-2023 Miscellaneous Notes Patient has been identified by name and date of : Yes Requested Prescriptions Pending Prescriptions Disp Refills venlafaxine ER (EFFEXOR XR) 150 mg 24 hr capsule 90 capsule 1 Sig: Take 1 capsule by mouth once daily. RX INSTRUCTIONS: Patient aware RX will be sent to pharmacy. No need to notify patient. [facility] 02/06/23 Azalea Medina LPN documented in this encounter [facility] 02-06-2023 Note HNO ID: [id number] Author: Jus Pérez MD Service: ? Author Type: Physician Type: Progress Notes Filed: 02/06/2023 4:33 PM Note Text: Patient presents with: 6 Month Exam HPI: Patient presents today for office visit for follow up. LUPUS: Sees Rheum and follows with Hem/Onc for infusions. Had infusion on 02/05/23. Just had her eye exam with plaquenil. Completed PT on 11/10/22 for osteoarthritis left hip/pain. Continuing home exercises but still with pain. Refers to tired of being in pain. Would like to discuss other options Followed by Cardiology. Seen yearly. Palpitations have improved. Continues on Metoprolol. No syncope. HTN: Monitors BP occ Stable Denies chest pain No shortness of breath No headaches or dizziness PSYCH: Continues on Effexor 150 mg daily along with Hydroxyzine prn. Tolerating meds. Emotionally is doing well. MEDICATIONS: Current Outpatient Medications Medication Sig melatonin 3 mg tablet Take 1 tablet by mouth at bedtime as needed for for insomnia. hydrOXYchloroQUINE (PLAQUENIL) 200 mg tablet TAKE 1 AND 1/2 TABLETS BY MOUTH ONCE DAILY oxybutynin ER (DITROPAN XL) 10 mg 24 hr tablet Take 1 tablet by mouth once daily. oxaprozin (DAYPRO) 600 mg tablet Take 2 tablets by mouth once daily. venlafaxine ER (EFFEXOR XR) 150 mg 24 hr capsule Take 1 capsule by mouth once daily. belimumab (BENLYSTA INTRAVENOUS) Inject intravenously. metoprolol succinate ER (TOPROL XL) 25 mg 24 hr tablet Take 1 tablet by mouth once daily. Blood Pressure Monitor (BLOOD PRESSURE KIT) 1 Each once daily. cyclobenzaprine (FLEXERIL) 10 mg tablet Take 0.5 tablets by mouth at bedtime as needed. hydrOXYzine HCl (ATARAX) 25 mg tablet Take 1 tablet by mouth four times daily as needed for anxiety. mv-min/iron/folic/calcium/vitK (WOMEN'S MULTIVITAMIN ORAL) Take by mouth once daily. Pt takes bio cleanse by [facility] Current Facility-Administered Medications Medication Dose Route Frequency perflutren lipid microspheres 1.3 mL in NaCl (PF) 0.9% 10 mL injection (DEFINITY) INTRAVENOUS DIRECTED PRN sodium chloride 0.9 % (flush) 10 mL (BD POSIFLUSH) 10 mL INTRAVENOUS DIRECTED PRN ALLERGIES: ALLERGIES No Known Allergies PAST MEDICAL HISTORY Diagnosis Date Abnormal Papanicolaou smear of vagina and vaginal HPV Arthritis Human papillomavirus in conditions classified elsewhere and of unspecified site Hyperlipidemia Irregular menstrual cycle PMH - PAST MEDICAL HISTORY OF POST DEPRESSION Premenstrual tension syndromes Reflex sympathetic dystrophy, unspecified RLS (restless legs syndrome) SLE (systemic lupus erythematosus) ([facility]) PAST SURGICAL HISTORY Procedure Laterality Date BACK SURGERY HX CARPAL TUNNEL RIGHT WRIST 04/23/2005 COLONOSCOPY 10/03/2022 repeat in 10 years COLPOSCOPY CERVIX UPPER/ADJACENT VAGINA 04/23/1998 WITH A BIOPSY DILATION AND CURETTAGE DXAND/THER NONOBSTETRIC EYE SURGERY HX INCISION THROMBOSED HEMORRHOID EXTERNAL 01/22/2013 Exc. left lateral thrombosed hemorrhoid, local LEEP PROCEDURE ([employer])_*FL 04/23/2002 ERLINDA 1 PAST SURGICAL HISTORY OF 89, 99 planned AB X2 PAST SURGICAL HISTORY OF WISDOM TEETH REMOVAL S DEV ENOCH ENDOMETRIAL ABLATION N/A 2020 hysteroscopy, ablation in office with removal IUD FAMILY HISTORY Problem Relation Age of Onset Diabetes Mother Arthritis Mother Lipids Mother high other (Pre-cancerous breast tissue) Mother Bilateral mastectomies in her 50s other (MYOFACIAL PAIN SYNDROME) Mother other (neuropathy) Mother other (htn) Mother other (Migraine) Mother other (depression) Mother other (fibromyalgia) Mother Hypertension Father other (Migraine) Father other (depression) Father Prostate Cancer Father dx 50s Alcohol abuse Father Kidney Disease Brother Kidney transplant Brother Diabetes Maternal Grandmother Arthritis Maternal Grandmother Heart Maternal Grandfather Fibromyalgia Paternal Grandmother Colon Cancer Paternal Grandfather uncertain about this diagnosis other (Migraine) Daughter other (Migraine) Daughter other (Migraine) Daughter other (depression) Daughter 3 daughters diagnosed other (Migraine) Son Breast Cancer Other MATERNAL COUSIN WITH CERVICAL CA ALSO other (DOWNS SYNDROME) Other MATERNAL COUSIN Social History Tobacco Use Smoking status: Former Types: Cigarettes Quit date: 04/23/1998 Years since quittin.8 Smokeless tobacco: Never Tobacco comments: quit 5 and 1/2 yrs ago. Vaping Use Vaping Use: Never used Substance Use Topics Alcohol use: Yes Comment: RARELY Drug use: No Reviewed current medications, allergies, past medical history, surgical history, family history and social history today. REVIEW OF SYSTEMS All other reviewed and negative other than HPI. HEALTH MAINTENANCE: Reviewed health maintenance issues today and recommended the following in detail. Hepatitis (more content not included)... [facility] 02-06-2023 History of Presen t illness Narrative Patient presents with: 6 Month Exam HPI: Patient presents today for office visit for follow up. LUPUS: Sees Rheum and follows with Hem/Onc for infusions. Had infusion on 02/05/23. Just had her eye exam with plaquenil. Completed PT on 11/10/22 for osteoarthritis left hip/pain. Continuing home exercises but still with pain. Refers to tired of being in pain. Would like to discuss other options Followed by Cardiology. Seen yearly. Palpitations have improved. Continues on Metoprolol. No syncope. HTN: Monitors BP occ Stable Denies chest pain No shortness of breath No headaches or dizziness PSYCH: Continues on Effexor 150 mg daily along with Hydroxyzine prn. Tolerating meds. Emotionally is doing well. MEDICATIONS: Current Outpatient Medications Medication Sig melatonin 3 mg tablet Take 1 tablet by mouth at bedtime as needed for for insomnia. hydrOXYchloroQUINE (PLAQUENIL) 200 mg tablet TAKE 1 AND 1/2 TABLETS BY MOUTH ONCE DAILY oxybutynin ER (DITROPAN XL) 10 mg 24 hr tablet Take 1 tablet by mouth once daily. oxaprozin (DAYPRO) 600 mg tablet Take 2 tablets by mouth once daily. venlafaxine ER (EFFEXOR XR) 150 mg 24 hr capsule Take 1 capsule by mouth once daily. belimumab (BENLYSTA INTRAVENOUS) Inject intravenously. metoprolol succinate ER (TOPROL XL) 25 mg 24 hr tablet Take 1 tablet by mouth once daily. Blood Pressure Monitor (BLOOD PRESSURE KIT) 1 Each once daily. cyclobenzaprine (FLEXERIL) 10 mg tablet Take 0.5 tablets by mouth at bedtime as needed. hydrOXYzine HCl (ATARAX) 25 mg tablet Take 1 tablet by mouth four times daily as needed for anxiety. mv-min/iron/folic/calcium/vitK (WOMEN'S MULTIVITAMIN ORAL) Take by mouth once daily. Pt takes bio cleanse by [facility] Current Facility-Administered Medications Medication Dose Route Frequency perflutren lipid microspheres 1.3 mL in NaCl (PF) 0.9% 10 mL injection (DEFINITY) INTRAVENOUS DIRECTED PRN sodium chloride 0.9 % (flush) 10 mL (BD POSIFLUSH) 10 mL INTRAVENOUS DIRECTED PRN ALLERGIES: ALLERGIES No Known Allergies PAST MEDICAL HISTORY Diagnosis Date Abnormal Papanicolaou smear of vagina and vaginal HPV Arthritis Human papillomavirus in conditions classified elsewhere and of unspecified site Hyperlipidemia Irregular menstrual cycle PMH - PAST MEDICAL HISTORY OF POST DEPRESSION Premenstrual tension syndromes Reflex sympathetic dystrophy, unspecified RLS (restless legs syndrome) SLE (systemic lupus erythematosus) (HCC) PAST SURGICAL HISTORY Procedure Laterality Date BACK SURGERY HX CARPAL TUNNEL RIGHT WRIST 04/23/2005 COLONOSCOPY 10/03/2022 repeat in 10 years COLPOSCOPY CERVIX UPPER/ADJACENT VAGINA 04/23/1998 WITH A BIOPSY DILATION & CURETTAGE DX&/THER NONOBSTETRIC EYE SURGERY HX INCISION THROMBOSED HEMORRHOID EXTERNAL 01/22/2013 Exc. left lateral thrombosed hemorrhoid, local LEEP PROCEDURE ([employer])_*FL 04/23/2002 ERLINDA 1 PAST SURGICAL HISTORY OF 89, 99 planned AB X2 PAST SURGICAL HISTORY OF WISDOM TEETH REMOVAL S DEV ENOCH ENDOMETRIAL ABLATION N/A 2020 hysteroscopy, ablation in office with removal IUD FAMILY HISTORY Problem Relation Age of Onset Diabetes Mother Arthritis Mother Lipids Mother high other (Pre-cancerous breast tissue) Mother Bilateral mastectomies in her 50s other (MYOFACIAL PAIN SYNDROME) Mother other (neuropathy) Mother other (htn) Mother other (Migraine) Mother other (depression) Mother other (fibromyalgia) Mother Hypertension Father other (Migraine) Father other (depression) Father Prostate Cancer Father dx 50s Alcohol abuse Father Kidney Disease Brother Kidney transplant Brother Diabetes Maternal Grandmother Arthritis Maternal Grandmother Heart Maternal Grandfather Fibromyalgia Paternal Grandmother Colon Cancer Paternal Grandfather uncertain about this diagnosis other (Migraine) Daughter other (Migraine) Daughter other (Migraine) Daughter other (depression) Daughter 3 daughters diagnosed other (Migraine) Son Breast Cancer Other MATERNAL COUSIN WITH CERVICAL CA ALSO other (DOWNS SYNDROME) Other MATERNAL COUSIN Social History Tobacco Use Smoking status: Former Types: Cigarettes Quit date: 04/23/1998 Years since quittin.8 Smokeless tobacco: Never Tobacco comments: quit 5 and 1/2 yrs ago. Vaping Use Vaping Use: Never used Substance Use Topics Alcohol use: Yes Comment: RARELY Drug use: No Reviewed current medications, allergies, past medical history, surgical history, family history and social history today. REVIEW OF SYSTEMS All other reviewed and negative other than HPI. HEALTH MAINTENANCE: Reviewed health maintenance issues today and recommended the following in detail. Hepatitis B Vaccine(1 of 3 - 3-dose series) Never done Covid-19 Vaccine(1) Never done DTaP,Tdap,Td Vaccine(3 - Tdap) due on 03/07/2020 Influenza Vaccine(1) due on 12/22/2022 VITALS: BP 130/74 Pulse 83 Ht 167.6 cm (5' 6 ) Wt 88.2 kg (194 lb 6.4 oz) LMP 07/14/2019 SpO2 97% BMI 31.38 kg/m Last 4 Encounter Wt Readings: Date: Wt: 01/17/2023 86.2 kg (190 lb) 12/11/2022 86.2 kg (190 lb) 11/28/2022 85.2 kg (187 lb 14.4 oz) 10/03/2022 91.6 kg (201 lb 15.1 oz) PHYSICAL EXAMINATION: General appearance: Well appearing, alert, in no acute distress, well-hydrated, well nourished. Skin: Skin color, texture, turgor normal, no suspicious rashes or lesions Head: Normocephalic, no masses, lesions, tenderness or abnormalities Neck: Supple, no adenopathy; thyroid symmetric, normal size, no bruits Lungs: Lungs clear to auscultation. No wheezing, rhonchi, rales Heart: RRR without murmur, gallop, or rubs. No ectopy Abdomen: Normal abdominal exam, Abdomen soft, non-tender. Bowel sounds normal. No masses, organomegaly Extremities: No deformities, edema, skin discoloration, clubbing or cyanosis. Good capillary refill. Musculoskeletal: No joint swelling, deformity, or tenderness ASSESSMENT/PLAN: 1. Primary hypertension - ICD9: 401.9, ICD10: I10 (primary diagnosis) - Controlled - Continue current medications 2. Encounter for immunization - ICD9: V03.89, ICD10: Z23 - INFLUENZA VACCINE, AGE 6 MO - 64 YR, QUADRIVALENT (AFLURIA, FLULAVAL, FLUZONE) 3. RLS (restless legs syndrome) - ICD9: 333.94, ICD10: G25.81 - stable. 4. Paresthesia - ICD9: 782.0, ICD10: R20.2 - stablel. 5. Mixed hyperlipidemia - ICD9: 272.2, ICD10: E78.2 - Controlled - Continue current medications - Counseled on healthy diet and regular exercise 6. SVT (supraventricular tachycardia) - ICD9: 427.89, ICD10: I47.10 - stable. 7. Drug-induced systemic lupus erythematosus, unspecified organ involvement status (HCC) - ICD9: 710.0, E980.5, ICD10: M32.0 - per rheum. 8. Recurrent major depression in partial remission (HCC) - ICD9: 296.35, ICD10: F33.41 - continue meds. 9. Anxiety state - ICD9: 300.00, ICD10: F41.1 - continue meds. 10: hip oa See ortho Jus Pérez MD RTO in six months and prn. documented in this encounter [facility] 01-29-2023 Note HNO ID: [id number] Author: Magdi Arriaga PT Service: ? Author Type: Physical Therapist Type: Progress Notes Filed: 01/29/2023 2:27 PM Note Text: 01/29/2023 [facility] PHYSICAL THERAPY DISCONTINUANCE OF CARE Plan of Care Period: Start of Care Date: 08/10/22 Last Visit Date: 11/10/2022 Therapy Program: The following is a summary of the interventions provided for this episode of care; Therapeutic exercise, Manual therapy, and Self-nursing home management Assessment: The following is the goal status: Goals updated 11/10/2022 Goals for Episode of Care: created on 08/10/22 through 10/05/22 [place] in home exercise program. - Met so far Increase ROM of L hip by 10 degrees of flexion and IR for decreased pain and improved joint mechanics - Progressing , will continue Increased strength of LLE to 4+/5 via MMT for decreased pain with joint LoadingProgressing, will continue Normal gait. - Progressing , will continue Patient Goals: Take as much of the pain out of the hip as possible Based on the most recent progress report, patient was progressing as expected toward functional goals based on home exercise program compliance, documented subjective information on progress, and documented objective information regarding ADL's, range of motion, and strength. Reason for Discontinuation of Care: Patient has not returned to therapy or scheduled additional follow-up appointments. Magdi Arriaga PT [facility] 01-17-2023 Note HNO ID: [id number] Author: Chong Eller MD Service: ? Author Type: Physician Type: Progress Notes Filed: 01/17/2023 1:58 PM Note Text: Patient presents with: Sinus Problem: sinus pressure, drainage, headache, cough and right ear itching x 2 days HPI: Feeling sick starting 2 nights ago. She has a wedding to go to this weekend. Positive symptoms: Cough, Sinus pressure, Nasal Congestion, Rhinorrhea, Post nasal drainage, Headache, right ear pruritic, Chest tightness, Negative symptoms: Fever, Vomiting, Diarrhea, OTC: Mucinex for cough Her daughter was sick with croup and asthma recently, her COVID test was negative. MEDICATIONS: Current Outpatient Medications Medication Sig melatonin 3 mg tablet Take 1 tablet by mouth at bedtime as needed for for insomnia. hydrOXYchloroQUINE (PLAQUENIL) 200 mg tablet TAKE 1 AND 1/2 TABLETS BY MOUTH ONCE DAILY oxybutynin ER (DITROPAN XL) 10 mg 24 hr tablet Take 1 tablet by mouth once daily. oxaprozin (DAYPRO) 600 mg tablet Take 2 tablets by mouth once daily. venlafaxine ER (EFFEXOR XR) 150 mg 24 hr capsule Take 1 capsule by mouth once daily. belimumab (BENLYSTA INTRAVENOUS) Inject intravenously. metoprolol succinate ER (TOPROL XL) 25 mg 24 hr tablet Take 1 tablet by mouth once daily. Blood Pressure Monitor (BLOOD PRESSURE KIT) 1 Each once daily. cyclobenzaprine (FLEXERIL) 10 mg tablet Take 0.5 tablets by mouth at bedtime as needed. hydrOXYzine HCl (ATARAX) 25 mg tablet Take 1 tablet by mouth four times daily as needed for anxiety. mv-min/iron/folic/calcium/vitK (WOMEN'S MULTIVITAMIN ORAL) Take by mouth once daily. Pt takes bio cleanse by [facility] Current Facility-Administered Medications Medication Dose Route Frequency perflutren lipid microspheres 1.3 mL in NaCl (PF) 0.9% 10 mL injection (DEFINITY) INTRAVENOUS DIRECTED PRN sodium chloride 0.9 % (flush) 10 mL (BD POSIFLUSH) 10 mL INTRAVENOUS DIRECTED PRN ALLERGIES: ALLERGIES No Known Allergies VITALS: BP 128/70 Pulse 100 Temp 36.8 ?C (98.3 ?F) Resp 16 Wt 86.2 kg (190 lb) LMP 07/14/2019 SpO2 98% BMI 30.67 kg/m? PHYSICAL EXAM: GEN: mildly ill appearing HEENT: PERRL, EOMI, conjunctiva clear Ears: canals clear. TMs without erythema, bulge, or effusion Sinuses: tender frontal sinus, tender maxillary sinuses Throat: moist mucous membranes, mild erythema, no exudate Neck: supple, no thyromegaly, no lymphadenopathy HEART: regular rate and rhythm, no murmurs LUNGS: clear to auscultation, no wheezes or crackles, no increased WOB ASSESSMENT/PLAN: 1. URI, acute - ICD9: 465.9, ICD10: J06.9 - suspect viral URI, differential includes COVID-19. - Discussed supportive care treatment with home isolation/contagiousness, rest, cold medicine, and analgesia. - Red flags to seek further treatment include chest pain, shortness of breath, and lethargy; in the ER if severe. - COVID NAAT, UPPER RESPIRATORY, ROUTINE. Schedule virtual follow-up for antiviral treatment discussion if positive. Chong Eller MD [facility] 12-13-2022 Nurse Note PLQ eye exam done on 12/12/2022 at [facility]. No evidence of PLQ toxicity. Report sent for scanning. Floresita Coreas MA documented in this encounter [facility] 11-28-2022 Note HNO ID: [id number] Author: Chon Negron MD Service: ? Author Type: Physician Type: Progress Notes Filed: 11/28/2022 3:42 PM Note Text: PRIMARY CARE PHYSICIAN: Jus Pérez MD REFERRING PHYSICIAN: PCP CHIEF COMPLAINT: Patient presents with: Follow Up: Six month follow up. HISTORY OF PRESENT ILLNESS: Ms. Madera is a 47 year old female who presents today for cardiac follow up. She was referred because of SVT/atrial tachycardia. She wore 2-week patch monitor which showed short run of SVT and PVC burden of 4%. It was reported as 17 beat long but appears to be shorter Patient has a history of lupus and underlying depression and anxiety disorder. Palpitations are now improved, on metoprolol. . She drinks less than 16 ounces of coffee in the morning now, instead of 32. Denies any excessive alcohol use Patient is doing well from cardiac standpoint and denies having any chest pain, shortness of breath, orthopnea, PND, edema, lightheadedness, dizziness, near syncope or syncope. PAST CARDIAC HISTORY: Nonsustained SVT/atrial tachycardia seen on monitor, 17 beat Frequent PVCs, 4% Hyperlipidemia Anxiety Lupus PAST MEDICAL HISTORY Diagnosis Date Abnormal Papanicolaou smear of vagina and vaginal HPV Arthritis Human papillomavirus in conditions classified elsewhere and of unspecified site Hyperlipidemia Irregular menstrual cycle PMH - PAST MEDICAL HISTORY OF POST DEPRESSION Premenstrual tension syndromes Reflex sympathetic dystrophy, unspecified RLS (restless legs syndrome) SLE (systemic lupus erythematosus) (HCC) PAST SURGICAL HISTORY Procedure Laterality Date BACK SURGERY HX CARPAL TUNNEL RIGHT WRIST 04/23/2005 COLONOSCOPY 10/03/2022 repeat in 10 years COLPOSCOPY CERVIX UPPER/ADJACENT VAGINA 04/23/1998 WITH A BIOPSY DILATION AND CURETTAGE DXAND/THER NONOBSTETRIC EYE SURGERY HX INCISION THROMBOSED HEMORRHOID EXTERNAL 01/22/2013 Exc. left lateral thrombosed hemorrhoid, local LEEP PROCEDURE ([employer])_*FL 04/23/2002 ERLINDA 1 PAST SURGICAL HISTORY OF 89, 99 planned AB X2 PAST SURGICAL HISTORY OF WISDOM TEETH REMOVAL S DEV ENOCH ENDOMETRIAL ABLATION N/A 2020 hysteroscopy, ablation in office with removal IUD SOCIAL HISTORY Social History Tobacco Use Smoking status: Former Types: Cigarettes Quit date: 04/23/1998 Years since quittin.6 Smokeless tobacco: Never Tobacco comments: quit 5 and 1/2 yrs ago. Vaping Use Vaping Use: Never used Substance Use Topics Alcohol use: Yes Comment: RARELY Drug use: No FAMILY HISTORY Problem Relation Age of Onset Diabetes Mother Arthritis Mother Lipids Mother high other (Pre-cancerous breast tissue) Mother Bilateral mastectomies in her 50s other (MYOFACIAL PAIN SYNDROME) Mother other (neuropathy) Mother other (htn) Mother other (Migraine) Mother other (depression) Mother other (fibromyalgia) Mother Hypertension Father other (Migraine) Father other (depression) Father Prostate Cancer Father dx 50s Alcohol abuse Father Kidney Disease Brother Kidney transplant Brother Diabetes Maternal Grandmother Arthritis Maternal Grandmother Heart Maternal Grandfather Fibromyalgia Paternal Grandmother Colon Cancer Paternal Grandfather uncertain about this diagnosis other (Migraine) Daughter other (Migraine) Daughter other (Migraine) Daughter other (depression) Daughter 3 daughters diagnosed other (Migraine) Son Breast Cancer Other MATERNAL COUSIN WITH CERVICAL CA ALSO other (DOWNS SYNDROME) Other MATERNAL COUSIN ALLERGIES: ALLERGIES No Known Allergies MEDICATIONS: melatonin 3 mg tabletTake 1 tablet by mouth at bedtime as needed for for insomnia.Disp: 30 tabletRfl: 2 hydrOXYchloroQUINE (PLAQUENIL) 200 mg tabletTAKE 1 AND 1/2 TABLETS BY MOUTH ONCE DAILYDisp: 135 tabletRfl: 0 oxybutynin ER (DITROPAN XL) 10 mg 24 hr tabletTake 1 tablet by mouth once daily.Disp: 90 tabletRfl: 0 oxaprozin (DAYPRO) 600 mg tabletTake 2 tablets by mouth once daily.Disp: 60 tabletRfl: 11 venlafaxine ER (EFFEXOR XR) 150 mg 24 hr capsuleTake 1 capsule by mouth once daily.Disp: 90 capsuleRfl: 1 belimumab (BENLYSTA INTRAVENOUS)Inject intravenously.Disp: Rfl: metoprolol succinate ER (TOPROL XL) 25 mg 24 hr tabletTake 1 tablet by mouth once daily.Disp: 30 tabletRfl: 11 Blood Pressure Monitor (BLOOD PRESSURE KIT)1 Each once daily.Disp: 1 KitRfl: 0 cyclobenzaprine (FLEXERIL) 10 mg tabletTake 0.5 tablets by mouth at bedtime as needed.Disp: 30 tabletRfl: 5 hydrOXYzine HCl (ATARAX) 25 mg tabletTake 1 tablet by mouth four times daily as needed for anxiety.Disp: 120 tabletRfl: 11 mv-min/iron/folic/calcium/vitK (WOMEN'S MULTIVITAMIN ORAL)Take by mouth once daily. Pt takes bio cleanse by [facility] for bowel healthDisp: Rfl: REVIEW OF SYSTEMS: GENERAL: Negative for: Weight loss or gain, Fever or Chills, Weakness and Sleep difficulties and Fatigue. HEENT: Neg (more content not included)... [facility] 11-28-2022 History of Presen t illness Narrative PRIMARY CARE PHYSICIAN: Jus Pérez MD REFERRING PHYSICIAN: PCP CHIEF COMPLAINT: Patient presents with: Follow Up: Six month follow up. HISTORY OF PRESENT ILLNESS: Ms. Madera is a 47 year old female who presents today for cardiac follow up. She was referred because of SVT/atrial tachycardia. She wore 2-week patch monitor which showed short run of SVT and PVC burden of 4%. It was reported as 17 beat long but appears to be shorter Patient has a history of lupus and underlying depression and anxiety disorder. Palpitations are now improved, on metoprolol. . She drinks less than 16 ounces of coffee in the morning now, instead of 32. Denies any excessive alcohol use Patient is doing well from cardiac standpoint and denies having any chest pain, shortness of breath, orthopnea, PND, edema, lightheadedness, dizziness, near syncope or syncope. PAST CARDIAC HISTORY: Nonsustained SVT/atrial tachycardia seen on monitor, 17 beat Frequent PVCs, 4% Hyperlipidemia Anxiety Lupus PAST MEDICAL HISTORY Diagnosis Date Abnormal Papanicolaou smear of vagina and vaginal HPV Arthritis Human papillomavirus in conditions classified elsewhere and of unspecified site Hyperlipidemia Irregular menstrual cycle PMH - PAST MEDICAL HISTORY OF POST DEPRESSION Premenstrual tension syndromes Reflex sympathetic dystrophy, unspecified RLS (restless legs syndrome) SLE (systemic lupus erythematosus) (HCC) PAST SURGICAL HISTORY Procedure Laterality Date BACK SURGERY HX CARPAL TUNNEL RIGHT WRIST 04/23/2005 COLONOSCOPY 10/03/2022 repeat in 10 years COLPOSCOPY CERVIX UPPER/ADJACENT VAGINA 04/23/1998 WITH A BIOPSY DILATION & CURETTAGE DX&/THER NONOBSTETRIC EYE SURGERY HX INCISION THROMBOSED HEMORRHOID EXTERNAL 01/22/2013 Exc. left lateral thrombosed hemorrhoid, local LEEP PROCEDURE ([employer])_*FL 04/23/2002 ERLINDA 1 PAST SURGICAL HISTORY OF 89, 99 planned AB X2 PAST SURGICAL HISTORY OF WISDOM TEETH REMOVAL S DEV ENOCH ENDOMETRIAL ABLATION N/A 2020 hysteroscopy, ablation in office with removal IUD SOCIAL HISTORY Social History Tobacco Use Smoking status: Former Types: Cigarettes Quit date: 04/23/1998 Years since quittin.6 Smokeless tobacco: Never Tobacco comments: quit 5 and 1/2 yrs ago. Vaping Use Vaping Use: Never used Substance Use Topics Alcohol use: Yes Comment: RARELY Drug use: No FAMILY HISTORY Problem Relation Age of Onset Diabetes Mother Arthritis Mother Lipids Mother high other (Pre-cancerous breast tissue) Mother Bilateral mastectomies in her 50s other (MYOFACIAL PAIN SYNDROME) Mother other (neuropathy) Mother other (htn) Mother other (Migraine) Mother other (depression) Mother other (fibromyalgia) Mother Hypertension Father other (Migraine) Father other (depression) Father Prostate Cancer Father dx 50s Alcohol abuse Father Kidney Disease Brother Kidney transplant Brother Diabetes Maternal Grandmother Arthritis Maternal Grandmother Heart Maternal Grandfather Fibromyalgia Paternal Grandmother Colon Cancer Paternal Grandfather uncertain about this diagnosis other (Migraine) Daughter other (Migraine) Daughter other (Migraine) Daughter other (depression) Daughter 3 daughters diagnosed other (Migraine) Son Breast Cancer Other MATERNAL COUSIN WITH CERVICAL CA ALSO other (DOWNS SYNDROME) Other MATERNAL COUSIN ALLERGIES: ALLERGIES No Known Allergies MEDICATIONS: melatonin 3 mg tablet^Take 1 tablet by mouth at bedtime as needed for for insomnia.^Disp: 30 tablet^Rfl: 2 hydrOXYchloroQUINE (PLAQUENIL) 200 mg tablet^TAKE 1 AND 1/2 TABLETS BY MOUTH ONCE DAILY^Disp: 135 tablet^Rfl: 0 oxybutynin ER (DITROPAN XL) 10 mg 24 hr tablet^Take 1 tablet by mouth once daily.^Disp: 90 tablet^Rfl: 0 oxaprozin (DAYPRO) 600 mg tablet^Take 2 tablets by mouth once daily.^Disp: 60 tablet^Rfl: 11 venlafaxine ER (EFFEXOR XR) 150 mg 24 hr capsule^Take 1 capsule by mouth once daily.^Disp: 90 capsule^Rfl: 1 belimumab (BENLYSTA INTRAVENOUS)^Inject intravenously.^Disp: ^Rfl: metoprolol succinate ER (TOPROL XL) 25 mg 24 hr tablet^Take 1 tablet by mouth once daily.^Disp: 30 tablet^Rfl: 11 Blood Pressure Monitor (BLOOD PRESSURE KIT)^1 Each once daily.^Disp: 1 Kit^Rfl: 0 cyclobenzaprine (FLEXERIL) 10 mg tablet^Take 0.5 tablets by mouth at bedtime as needed.^Disp: 30 tablet^Rfl: 5 hydrOXYzine HCl (ATARAX) 25 mg tablet^Take 1 tablet by mouth four times daily as needed for anxiety.^Disp: 120 tablet^Rfl: 11 mv-min/iron/folic/calcium/vitK (WOMEN'S MULTIVITAMIN ORAL)^Take by mouth once daily. Pt takes bio cleanse by [facility] for bowel [facility]^Disp: ^Rfl: REVIEW OF SYSTEMS: GENERAL: Negative for: Weight loss or gain, Fever or Chills, Weakness and Sleep difficulties and Fatigue. HEENT: Negative for: Headache, Impaired Vision, Glasses, Hearing Impairment, Ringing in Ears, Nosebleeds, Poor dental care, Bleeding Gums, Dentures NECK: Negative for: Swelling, Pain, Stiffness RESPIRATORY: Negative for: Cough, Blood in Sputum, Shortness of breath, Wheezing, Apnea CARDIOVASCULAR: As noted in HPI GASTROINTESTINAL: Negative for: Trouble swallowing, Heartburn, Change in bowel habits, Blood in stool, Dark black stools MUSCULOSKELETAL: Negative for: Muscle or joint pain, Stiffness , Joint swelling NEUROLOGIC/PSYCHIATRIC: + depression and anxiety SKIN: Negative for: Rashes, Itching HEMATOLOGICAL/LYMPHATIC: Negative for: Easy bruising , Easy bleeding ENDOCRINE: Negative for: Heat or cold intolerance, Excessive sweating, Frequent urination, Frequent thirst PHYSICAL EXAMINATION: BP 120/79 Pulse 91 Ht 167.6 cm (5' 6 ) Wt 85.2 kg (187 lb 14.4 oz) LMP 07/14/2019 SpO2 100% BMI 30.33 kg/m General: Well appearing, in no acute distress. Skin: No clubbing, no cyanosis. Eyes: No conjunctival pallor or scleral icterus Oropharynx: Mucous membranes are moist Neck: No jugular venous distention, no carotid bruits, carotids have a normal upstroke, no palpable thyromegaly. Lungs: Clear to auscultation bilaterally, no wheezing or rhonchi. Heart: Regular rhythm, PMI not displaced, S1, S2 normal, no S3, no S4, no heaves, no rub and no murmur. Abdomen: Soft, nontender, bowel sounds normal, no palpable organomegaly, no bruits. Extremities: No peripheral edema . Grade 2/4 distal pulses bilaterally. Neuro: Oriented to person, place and time, alert, cooperative, gait coordinated. CARDIOVASCULAR MEDICINE TESTING: Electrocardiogram: 05/30/2022: Normal sinus rhythm, normal ECG I have personally reviewed the Electrocardiogram. [employer] heart monitor report, 12 days, March 2022: Predominantly sinus rhythm short run of nonsustained SVT/AT, frequent PVCs, 4% Echo 05/2022: CONCLUSIONS: - Exam indication: SVT - The left ventricle is normal in size. Left ventricular systolic function is normal. EF = 61 5% (2D biplane) Indeterminate left ventricular diastolic dysfunction. - The right ventricle is normal in size. Right ventricular systolic function is normal. - There are no significant valvular abnormalities. - The patient has not had a prior CC echocardiographic exam for comparison. Component Latest Ref Rng & Units 02/21/2022 03/30/2022 05/02/2022 WBC 3.70 - 11.00 k/uL 9.11 RBC 3.90 - 5.20 m/uL 4.29 Hemoglobin 11.5 - 15.5 g/dL 12.8 Hematocrit 36.0 - 46.0 % 38.8 MCV 80.0 - 100.0 fL 90.4 MCH 26.0 - 34.0 pg 29.8 MCHC 30.5 - 36.0 g/dL 33.0 RDW-CV 11.5 - 15.0 % 14.1 Platelet Count 150 - 400 k/uL 307 MPV 9.0 - 12.7 fL 10.0 Neut% % 47.8 Abs Neut (ANC) 1.45 - 7.50 k/uL 4.34 Lymph% % 28.6 Abs Lymph 1.00 - 4.00 k/uL 2.61 [place]% % 8.3 Abs [place] <0.87 k/uL 0.76 Eosin% % 13.6 Abs Eosin <0.46 k/uL 1.24 (H) Baso% % 1.5 Abs Baso <0.11 k/uL 0.14 (H) Immature Gran % % 0.2 IMMATURE GRANS (ABS) <0.10 k/uL <0.03 NRBC /100 WBC 0.0 Absolute nRBC <0.01 k/uL <0.01 DTYPE Auto Glucose 74 - 99 mg/dL 89 BUN 7 - 21 mg/dL 11 Creatinine 0.58 - 0.96 mg/dL 0.71 0.85 Sodium 136 - 144 mmol/L 140 Potassium 3.7 - 5.1 mmol/L 3.6 (L) 4.7 Chloride 97 - 105 mmol/L 100 CO2 22 - 30 mmol/L 27 Anion Gap 9 - 18 mmol/L 13 Calcium 8.5 - 10.2 mg/dL 9.7 eGFR >=60 mL/min/1.73m 106 85 AST 13 - 35 U/L 16 ALT 7 - 38 U/L 14 Albumin 3.9 - 4.9 g/dL 4.7 WSR 0 - 20 mm/hr 8 CRP <0.9 mg/dL <0.3 C3 86 - 166 mg/dL 150 C4 13 - 46 mg/dL 25 DNA Antibody <30 IU/mL <12 TSH 0.270 - 4.200 mIU/L 0.868 Cholesterol, Total (mg/dL) Date Value 01/02/2019 201 06/03/2018 242 HDL Cholesterol (mg/dL) Date Value 01/02/2019 51 06/03/2018 54 LDL Cholesterol (mg/dL) Date Value 01/02/2019 143 06/03/2018 177 Triglyceride (mg/dL) Date Value 01/02/2019 35 06/03/2018 54 IMPRESSION: Ms. Madera is a 47 year old female with the following cardiac issues. PLAN AND RECOMMENDATIONS: 1. Palpitations - ICD9: 785.1, ICD10: R00.2 (primary diagnosis) Patient wore a 2-week patch monitor which revealed short run of SVT/atrial tachycardia and frequent PVCs with a burden of 4%. She drinks less than 16 ounces of coffee a day now, down from 32 Normal echo May 2022 Advised to stay well-hydrated Symptoms are under control and improved. Continue with metoprolol 2. Atrial tachycardia (HCC) - ICD9: 427.89, ICD10: I47.1 Nonsustained, benign 3. Systemic lupus erythematosus, unspecified SLE type, unspecified organ involvement status (HCC) - ICD9: 710.0, ICD10: M32.9 On Plaquenil 4. PVC (premature ventricular contraction) - ICD9: 427.69, ICD10: I49.3 PVC burden 4%, symptomatic Cut down caffeine Stay well-hydrated Normal echo Continue with metoprolol Follow-up in 1 year Some elements were copied from my note dated 05/30/22 , which have been updated where appropriate, and all reflect current medical decision making from TODAY Chon Negron MD Please note: This note has been produced using speech recognition software and may contain errors related to that system including grammar, punctuation, spelling, gender and words and phrases that may be inappropriate. documented in this encounter [facility] 11-10-2022 Note HNO ID: [id number] Author: Magdi Arriaga PT Service: ? Author Type: Physical Therapist Type: Progress Notes Filed: 11/10/2022 3:11 PM Note Text: Episode Visit Count: 7 Therapist That Will Accept/Oversee The Plan Of Care: Magdi Arriaga Start of Care Date: 08/10/22 Onset Date: 08/10/21 Plan of Care Certification Date: 11/10/22 Next Certification Due Date: 12/15/22 Patient Identified by Name and Date of : Yes REHABILITATION AND SPORTS THERAPY PHYSICAL THERAPY PROGRESS REPORT PLAN OF CARE UPDATE: Assessment: Char Madera demonstrates difficulty with standing, walking in the house, and working and improvements in rising from a chair and walking. She has progressed toward goals. Patient continues to present with impairments in independence in exercise, range of motion, and strength that interfere with walking . Current prognosis is Good due to: current objective clinical presentation, good support system/ coping skills . She will benefit from continued skilled therapy services to meet the updated goals for this plan of care as noted below. Goals updated 10/13/2022 Goals for Episode of Care: created on 08/10/22 through 10/05/22 [employer] in home exercise program. - Met so far Increase ROM of L hip by 10 degrees of flexion and IR for decreased pain and improved joint mechanics - Progressing , will continue Increased strength of LLE to 4+/5 via MMT for decreased pain with joint LoadingProgressing, will continue Normal gait. - Progressing , will continue Patient Goals: Take as much of the pain out of the hip as possible Patient Goals: Take as much of the pain out of the hip as possible Planned Interventions, Frequency, and Duration: 1x every other week, 4 weeks Total Number of Visits Planned: 2 Patient to be seen for Therapeutic exercise (20953), Neuromuscular re-education (45004), Manual therapy (59449), Self-nursing home management (25597), Patient/Family/Caregiver Education PLAN FOR NEXT VISIT: Manual hip traction and strengthening exercises SUBJECTIVE: Patient Reason for Visit: Stood for a few hours and this really increased the pain. It feels like the hip is on fire. Patient Goals: Take as much of the pain out of the hip as possible Functional Limitations: walking Prior Level of Function: Independent without limitations Intake Information: Prescription present Previous Treatment: NSAIDs Pain: Pain Pain Level: 3 Pain Location: Hip - Left PROMIS Scales Higher is Better 10/25/2022 09/27/2022 05/30/2022 Phys Func - Score 41 (mild dysfunction) 39 (moderate dysfunction) 39 (moderate dysfunction) Phys Func - Percentile 18 % 14 % 14 % Self-Eff Symptom - Score 48 (Average) - - Self-Eff Symptom - Percentile 42 % - - T-scores: mean of general population = 50. 5 points is clinically meaningfully difference Percentiles provide an indication of how the patient's score ranks in relation to the general population. Higher percentile rankings indicate better function/quality of life. 50th percentile is the average of the general population and indicates half of respondents had a worse score. OBJECTIVE MEASURES WITH LEVEL OF FUNCTION: LE PROM L Hip Flexion: 85 Degrees L Hip Internal Rotation: 8 Degrees L Hip External Rotation: 55 Degrees LE Flexibility Flexibility: Hamstring Flexibility R Hamstring Flexibility: WNL L Hamstring Flexibility: WNL R Piriformis Flexibility: WNL L Piriformis Flexibility: WNL LE Strength L Hip Flexion (L2): 4/5 L Hip ABduction: 4/5 L Hip External Rotation: 4/5 TREATMENT: Therapeutic Exercise: 1: Squats with lateral band pool 3 x 10 reps 2: All objective measures taken this session Skilled Intervention: Patient was educated in proper exercise technique and purpose for exercises. Provided written instruction for home exercise program to facilitate proper performance and compliance. Correct performance of therapeutic exercises was facilitated with verbal and visual cuing. Manual Therapy: 1: FA traction in supine with strap assist around therapist's hands 3 x 5 min each Skilled Intervention: Manual skills to improve joint mobility, ROM, and decrease pain. Utilized anatomy knowledge of the therapist, and assessment of patient's response to intervention. Billing Therapeutic Exercise Treatment Minutes: 30 Manual TherapyTreatment Minutes: 15 Total Treatment Time Minutes (timed/untimed): 45 Session Start Time : 1414 Session Stop Time : 1455 Magdi Arriaga PT [facility] 10-27-2022 Note HNO ID: [id number] Author: Magdi Arriaga PT Service: ? Author Type: Physical Therapist Type: Progress Notes Filed: 10/27/2022 8:40 AM Note Text: Episode Visit Count: 6 Therapist That Will Accept/Oversee The Plan Of Care: Magdi Arriaga Start of Care Date: 08/10/22 Onset Date: 08/10/21 Plan of Care Certification Date: 10/13/22 Next Certification Due Date: 11/17/22 Patient Identified by Name and Date of : Yes REHABILITATION AND SPORTS THERAPY PHYSICAL THERAPY TREATMENT NOTE ASSESSMENT: Char Madera tolerated the session with expected muscle soreness. She demonstrated good tolerance to today's therapeutic exercises. The patient will continue to benefit from ongoing skilled physical therapy to progress toward set goals. PLAN FOR NEXT VISIT: Continue with strengthening exercises SLR, clamshell, squats SUBJECTIVE: Patient Reason for Visit: The side-stepping exercise feels like it increased pt's pain. Does get a catch in the hip with squats. Just doing on lately. Pain: Pain Pain Level: 4 Pain Location: Hip - Left OBJECTIVE MEASURES WITH LEVEL OF FUNCTION: Lateral pull with band during squats decreases the catch in the L FA joint TREATMENT: Therapeutic Exercise: 1: Squats with lateral band pool 3 x 10 reps 2: Supine SLR on bolster 1# on ankle 3 x 10 3: Hooklying bridge with strap assist 3 x 10 reps 4: Side-lying clamshell GTB 3 x 12 reps Skilled Intervention: Patient was educated in proper exercise technique and purpose for exercises. Provided written instruction for home exercise program to facilitate proper performance and compliance. Correct performance of therapeutic exercises was facilitated with verbal and visual cuing. Manual Therapy: 1: FA traction in supine with strap assist around therapist's hands 3 x 4 min each Skilled Intervention: Manual skills to improve joint mobility, ROM, and decrease pain. Utilized anatomy knowledge of the therapist, and assessment of patient's response to intervention. Billing Therapeutic Exercise Treatment Minutes: 30 Manual TherapyTreatment Minutes: 12 Total Treatment Time Minutes (timed/untimed): 42 Magdi Arriaga, PT [facility] 10-27-2022 History of Presen t illness Narrative Episode Visit Count: 6 Therapist That Will Accept/Oversee The Plan Of Care: Magdi Arriaga Start of Care Date: 08/10/22 Onset Date: 08/10/21 Plan of Care Certification Date: 10/13/22 Next Certification Due Date: 11/17/22 Patient Identified by Name and Date of : Yes REHABILITATION AND SPORTS THERAPY PHYSICAL THERAPY TREATMENT NOTE ASSESSMENT: Char Parker Vincentshan tolerated the session with expected muscle soreness. She demonstrated good tolerance to today's therapeutic exercises. The patient will continue to benefit from ongoing skilled physical therapy to progress toward set goals. PLAN FOR NEXT VISIT: Continue with strengthening exercises SLR, clamshell, squats SUBJECTIVE: Patient Reason for Visit: The side-stepping exercise feels like it increased pt's pain. Does get a catch in the hip with squats. Just doing on lately. Pain: Pain Pain Level: 4 Pain Location: Hip - Left OBJECTIVE MEASURES WITH LEVEL OF FUNCTION: Lateral pull with band during squats decreases the catch in the L FA joint TREATMENT: Therapeutic Exercise: 1: Squats with lateral band pool 3 x 10 reps 2: Supine SLR on bolster 1# on ankle 3 x 10 3: Hooklying bridge with strap assist 3 x 10 reps 4: Side-lying clamshell GTB 3 x 12 reps Skilled Intervention: Patient was educated in proper exercise technique and purpose for exercises. Provided written instruction for home exercise program to facilitate proper performance and compliance. Correct performance of therapeutic exercises was facilitated with verbal and visual cuing. Manual Therapy: 1: FA traction in supine with strap assist around therapist's hands 3 x 4 min each Skilled Intervention: Manual skills to improve joint mobility, ROM, and decrease pain. Utilized anatomy knowledge of the therapist, and assessment of patient's response to intervention. Billing Therapeutic Exercise Treatment Minutes: 30 Manual TherapyTreatment Minutes: 12 Total Treatment Time Minutes (timed/untimed): 42 Magdi Arriaga PT documented in this encounter [facility] 10-13-2022 Note HNO ID: [id number] Author: Magdi Arriaga PT Service: ? Author Type: Physical Therapist Type: Progress Notes Filed: 10/13/2022 3:47 PM Note Text: Episode Visit Count: 5 Therapist That Will Accept/Oversee The Plan Of Care: Magdi Arriaga Start of Care Date: 08/10/22 Onset Date: 08/10/21 Plan of Care Certification Date: 10/13/22 Next Certification Due Date: 11/17/22 Patient Identified by Name and Date of : Yes REHABILITATION AND SPORTS THERAPY PHYSICAL THERAPY PROGRESS REPORT PLAN OF CARE UPDATE: Assessment: Char Madera demonstrates difficulty with rising from a chair, walking, and working and improvements in LE strength and ROM. She has progressed toward goals. Patient continues to present with impairments in gait, independence in exercise, range of motion, and strength that interfere with walking . Current prognosis is Good due to: current objective clinical presentation, good support system/ coping skills . She will benefit from continued skilled therapy services to meet the updated goals for this plan of care as noted below. Goals updated 10/13/2022 Goals for Episode of Care: created on 08/10/22 through 10/05/22 [employer] in home exercise program. - Met so far Increase ROM of L hip by 10 degrees of flexion and IR for decreased pain and improved joint mechanics - Progressing , will continue Increased strength of LLE to 4+/5 via MMT for decreased pain with joint LoadingProgressing, will continue Normal gait. - Progressing , will continue Patient Goals: Take as much of the pain out of the hip as possible Patient Goals: Take as much of the pain out of the hip as possible Planned Interventions, Frequency, and Duration: 1x every other week, 4 weeks Total Number of Visits Planned: 2 Patient to be seen for Therapeutic exercise (70568), Neuromuscular re-education (29988), Manual therapy (23461), Self-nursing home management (95945), Patient/Family/Caregiver Education PLAN FOR NEXT VISIT: Continue with hip strengthening SUBJECTIVE: Patient Reason for Visit: Not feeling horrible. Some days are better than others. Does not want to let things get back like it was. Pt feels that she is 50% overall improvement. Dull aching consistent pain with occasional flare-ups. Patient Goals: Take as much of the pain out of the hip as possible Functional Limitations: walking Prior Level of Function: Independent without limitations Intake Information: Prescription present Previous Treatment: NSAIDs Pain: Pain Pain Level: 4 Pain Location: Hip - Left PROMIS Scales Higher is Better 09/27/2022 05/30/2022 01/11/2022 Phys Func - Score 39 (moderate dysfunction) 39 (moderate dysfunction) 42 (mild dysfunction) Phys Func - Percentile 14 % 14 % 21 % T-scores: mean of general population = 50. 5 points is clinically meaningfully difference Percentiles provide an indication of how the patient's score ranks in relation to the general population. Higher percentile rankings indicate better function/quality of life. 50th percentile is the average of the general population and indicates half of respondents had a worse score. OBJECTIVE MEASURES WITH LEVEL OF FUNCTION: LE PROM L Hip Flexion: 90 Degrees L Hip Internal Rotation: 10 Degrees L Hip External Rotation: 55 Degrees LE Strength L Hip Flexion (L2): 4/5 L Hip ABduction: 4-/5 L Hip External Rotation: 4/5 TREATMENT: Therapeutic Exercise: 1: All objective measures taken this session 2: Squats 2 x 10 3: Side-stepping to fatigue each way with BTB x 2 sets Skilled Intervention: Patient was educated in proper exercise technique and purpose for exercises. Correct performance of therapeutic exercises was facilitated with verbal and visual cuing. Billing Therapeutic Exercise Treatment Minutes: 45 Total Treatment Time Minutes (timed/untimed): 45 Magdi Arriaga PT [facility] 10-13-2022 History of Presen t illness Narrative Episode Visit Count: 5 Therapist That Will Accept/Oversee The Plan Of Care: Magdi Arriaga Start of Care Date: 08/10/22 Onset Date: 08/10/21 Plan of Care Certification Date: 10/13/22 Next Certification Due Date: 11/17/22 Patient Identified by Name and Date of : Yes REHABILITATION AND SPORTS THERAPY PHYSICAL THERAPY PROGRESS REPORT PLAN OF CARE UPDATE: Assessment: Char Madera demonstrates difficulty with rising from a chair, walking, and working and improvements in LE strength and ROM. She has progressed toward goals. Patient continues to present with impairments in gait, independence in exercise, range of motion, and strength that interfere with walking . Current prognosis is Good due to: current objective clinical presentation, good support system/ coping skills . She will benefit from continued skilled therapy services to meet the updated goals for this plan of care as noted below. Goals updated 10/13/2022 Goals for Episode of Care: created on 08/10/22 through 10/05/22 [employer] in home exercise program. - Met so far Increase ROM of L hip by 10 degrees of flexion and IR for decreased pain and improved joint mechanics - Progressing , will continue Increased strength of LLE to 4+/5 via MMT for decreased pain with joint LoadingProgressing, will continue Normal gait. - Progressing , will continue Patient Goals: Take as much of the pain out of the hip as possible Patient Goals: Take as much of the pain out of the hip as possible Planned Interventions, Frequency, and Duration: 1x every other week, 4 weeks Total Number of Visits Planned: 2 Patient to be seen for Therapeutic exercise (38313), Neuromuscular re-education (28428), Manual therapy (18270), Self-nursing home management (17616), Patient/Family/Caregiver Education PLAN FOR NEXT VISIT: Continue with hip strengthening SUBJECTIVE: Patient Reason for Visit: Not feeling horrible. Some days are better than others. Does not want to let things get back like it was. Pt feels that she is 50% overall improvement. Dull aching consistent pain with occasional flare-ups. Patient Goals: Take as much of the pain out of the hip as possible Functional Limitations: walking Prior Level of Function: Independent without limitations Intake Information: Prescription present Previous Treatment: NSAIDs Pain: Pain Pain Level: 4 Pain Location: Hip - Left PROMIS Scales Higher is Better 09/27/2022 05/30/2022 01/11/2022 Phys Func - Score 39 (moderate dysfunction) 39 (moderate dysfunction) 42 (mild dysfunction) Phys Func - Percentile 14 % 14 % 21 % T-scores: mean of general population = 50. 5 points is clinically meaningfully difference Percentiles provide an indication of how the patient's score ranks in relation to the general population. Higher percentile rankings indicate better function/quality of life. 50th percentile is the average of the general population and indicates half of respondents had a worse score. OBJECTIVE MEASURES WITH LEVEL OF FUNCTION: LE PROM L Hip Flexion: 90 Degrees L Hip Internal Rotation: 10 Degrees L Hip External Rotation: 55 Degrees LE Strength L Hip Flexion (L2): 4/5 L Hip ABduction: 4-/5 L Hip External Rotation: 4/5 TREATMENT: Therapeutic Exercise: 1: All objective measures taken this session 2: Squats 2 x 10 3: Side-stepping to fatigue each way with BTB x 2 sets Skilled Intervention: Patient was educated in proper exercise technique and purpose for exercises. Correct performance of therapeutic exercises was facilitated with verbal and visual cuing. Billing Therapeutic Exercise Treatment Minutes: 45 Total Treatment Time Minutes (timed/untimed): 45 Magdi Arriaga PT documented in this encounter [facility] 10-13-2022 Miscellaneous Notes October 16, 2022 PID: [id number] Char Madera [address] [place] [address] Dear Ms. Madera, We are pleased to inform you that the results of your recent breast imaging exam on 10/12/2022 are normal. Your mammogram demonstrates that you have dense breast tissue, which could hide abnormalities. Dense breast tissue, in and of itself, is a relatively common condition. Therefore, this information is not provided to cause undue concern; rather, it is to raise your awareness and promote discussion with your health care provider regarding the presence of dense breast tissue in addition to other risk factors. Early detection of cancer is very important. We also understand recommendations regarding breast cancer screening are controversial. Please discuss with your primary care provider which strategy is best for you and whether a mammogram is right for you. Your imaging studies and report will be kept on file at [facility] as part of your permanent medical record and are available for your continuing care. Thank you for allowing us to help in meeting your health care needs. Sincerely, Dr. Morales Interpreting Radiologist [facility] (Normal over 40) documented in this encounter [facility] 10-12-2022 Note HNO ID: [id number] Author: RT Alison(R) Service: ? Author Type: Technologist Type: Progress Notes Filed: 10/12/2022 2:33 PM Note Text: Radiology Service Progress Note PATIENT NAME: Char Madera DATE OF SERVICE: October 12, 2022 TIME: 2:32 PM PATIENT IDENTITY VERIFICATION COMPLETED USING TWO (2) IDENTIFIERS: Name and Date of confirmed by patient verbally. FALL SCREENING: Has the patient had 2 falls in the last year or 1 fall with injury or currently using an Ambulatory Assistive Device (Walker, Cane, Wheelchair, Crutches, etc.)? No PATIENT GENDER DATA: Female. status: : No status: NO. PATIENT RELEVANT IMPLANT DATA REVIEWED: Not Applicable RADIOLOGY DEPARTMENT: Mammography PERIPHERAL IV DATA: Not applicable SIGNED BY: RT Alison(R) October 12, 2022 2:32 PM [facility] 10-12-2022 History of Presen t illness Narrative Radiology Service Progress Note PATIENT NAME: Char Madera DATE OF SERVICE: October 12, 2022 TIME: 2:32 PM PATIENT IDENTITY VERIFICATION COMPLETED USING TWO (2) IDENTIFIERS: Name and Date of confirmed by patient verbally. FALL SCREENING: Has the patient had 2 falls in the last year or 1 fall with injury or currently using an Ambulatory Assistive Device (Walker, Cane, Wheelchair, Crutches, etc.)? No PATIENT GENDER DATA: Female. status: : No status: NO. PATIENT RELEVANT IMPLANT DATA REVIEWED: Not Applicable RADIOLOGY DEPARTMENT: Mammography PERIPHERAL IV DATA: Not applicable SIGNED BY: RT Alison(R) October 12, 2022 2:32 PM documented in this encounter [facility] 10-03-2022 Nurse Note Pt. arrived in left lateral position. Resting, abd soft, non-tender. Will Continue to monitor. Carrie Mena RN documented in this encounter [facility] 10-03-2022 History and physical note UPDATED PROCEDURAL SEDATION HISTORY AND PHYSICAL EXAMINATION SERVICE DATE: 10/03/2022 SERVICE TIME: 10:01 AM PHYSICAL EXAM MUST BE COMPLETED ON ADMISSION PROCEDURE: Procedure Indications: The History and Physical (completed in the past 30 days) has been reviewed and the patient has been examined. The contents accurately reflect the patient's condition with the following additions or revisions since the H&P was completed. ASA Class: ASA Class:: Patient with mild systemic disease Examination indicates no changes. AIRWAY: Airway Visualization of Uvula: Yes Mouth opening greater than 2 fingerbreadths: Yes Neck Full Range of Motion: Yes LUNGS: Lungs clear to auscultation CARDIAC: Regular rhythm,Regular rate Provisional Diagnosis/Treatment Plan: screening colonoscopy SEDATION GOAL: Moderate This H&P can be found in the attached. SIGNATURE: Cayla Alvarez MD PATIENT NAME: Char Kaurshan DATE: October 03, 2022 TIME: 10:01 AM Source Note - Cayla Alvarez MD - 10/03/2022 10:30 AM EDT Images from the original note were not included. HISTORY AND PHYSICAL Char A Santy 1975 REFERRING PHYSICIAN: Jus Pérez MD CHIEF COMPLAINT: Consult (colonoscopy) HPI: The patient is a 46 year old female referred for endoscopy. Char notes no colon complaints. Patient denies any change in bowel habits, weight changes, blood in stools, black tarry stools or abdominal pain. Denies family history of colon issues. The patient notes no upper GI complaints. Char has not undergone prior endoscopy. PAST MEDICAL HISTORY PAST MEDICAL HISTORY Diagnosis Date Abnormal Papanicolaou smear of vagina and vaginal HPV Human papillomavirus in conditions classified elsewhere and of unspecified site Hyperlipidemia Irregular menstrual cycle PMH - PAST MEDICAL HISTORY OF POST DEPRESSION Premenstrual tension syndromes Reflex sympathetic dystrophy, unspecified RLS (restless legs syndrome) SLE (systemic lupus erythematosus) ([facility]) PAST SURGICAL HISTORY PAST SURGICAL HISTORY Procedure Laterality Date CARPAL TUNNEL RIGHT WRIST 04/23/2005 COLPOSCOPY CERVIX UPPER/ADJACENT VAGINA 04/23/1998 WITH A BIOPSY DILATION & CURETTAGE DX&/THER NONOBSTETRIC INCISION THROMBOSED HEMORRHOID EXTERNAL 01/22/2013 Exc. left lateral thrombosed hemorrhoid, local LEEP PROCEDURE ([facility])_*FL 04/23/2002 ERLINDA 1 PAST SURGICAL HISTORY OF 92, 99 planned AB X2 PAST SURGICAL HISTORY OF WISDOM TEETH REMOVAL S DEV ENOCH ENDOMETRIAL ABLATION N/A 2020 hysteroscopy, ablation in office with removal IUD CURRENT MEDICATIONS Current Outpatient Medications Medication Sig melatonin 3 mg tablet Take 1 tablet by mouth at bedtime as needed for for insomnia. belimumab (BENLYSTA INTRAVENOUS) Inject intravenously. oxybutynin ER (DITROPAN XL) 10 mg 24 hr tablet TAKE 1 TABLET BY MOUTH EVERY DAY metoprolol succinate ER (TOPROL XL) 25 mg 24 hr tablet Take 1 tablet by mouth once daily. Blood Pressure Monitor (BLOOD PRESSURE KIT) 1 Each once daily. venlafaxine ER (EFFEXOR XR) 150 mg 24 hr capsule Take 1 capsule by mouth once daily. oxaprozin (DAYPRO) 600 mg tablet Take 1,200 mg by mouth once daily. cyclobenzaprine (FLEXERIL) 10 mg tablet Take 0.5 tablets by mouth at bedtime as needed. hydrOXYchloroQUINE (PLAQUENIL) 200 mg tablet Take 1.5 tablets by mouth once daily. hydrOXYzine HCl (ATARAX) 25 mg tablet Take 1 tablet by mouth four times daily as needed for anxiety. mv-min/iron/folic/calcium/vitK (WOMEN'S MULTIVITAMIN ORAL) Take by mouth once daily. Pt takes bio cleanse by plexus for bowel health Current Facility-Administered Medications Medication Dose Route Frequency perflutren lipid microspheres 1.3 mL in NaCl (PF) 0.9% 10 mL injection (DEFINITY) INTRAVENOUS DIRECTED PRN sodium chloride 0.9 % (flush) 10 mL (BD POSIFLUSH) 10 mL INTRAVENOUS DIRECTED PRN ALLERGIES: Patient has no known allergies. PERSONAL HISTORY: SOCIAL HISTORY Social History Tobacco Use Smoking status: Former Types: Cigarettes Quit date: 04/23/1998 Years since quittin.3 Smokeless tobacco: Never Tobacco comments: quit 5 and 1/2 yrs ago. Vaping Use Vaping Use: Never used Substance Use Topics Alcohol use: Yes Comment: RARELY Drug use: No FAMILY HISTORY: FAMILY HISTORY FAMILY HISTORY Problem Relation Age of Onset Diabetes Mother Arthritis Mother Lipids Mother high other (Pre-cancerous breast tissue) Mother Bilateral mastectomies in her 50s other (MYOFACIAL PAIN SYNDROME) Mother other (neuropathy) Mother other (htn) Mother other (Migraine) Mother other (depression) Mother other (fibromyalgia) Mother Hypertension Father other (Migraine) Father other (depression) Father Prostate Cancer Father dx 50s Alcohol abuse Father Kidney Disease Brother Kidney transplant Brother Diabetes Maternal Grandmother Arthritis Maternal Grandmother Heart Maternal Grandfather Fibromyalgia Paternal Grandmother Colon Cancer Paternal Grandfather uncertain about this diagnosis other (Migraine) Daughter other (Migraine) Daughter other (Migraine) Daughter other (depression) Daughter 3 daughters diagnosed other (Migraine) Son Breast Cancer Other MATERNAL COUSIN WITH CERVICAL CA ALSO other (DOWNS SYNDROME) Other MATERNAL COUSIN REVIEW OF SYMPTOMS: The review of systems data was entered by the nurse and reviewed by wv Nursing Notes: Leyla De Leon RN 08/08/2022 3:30 PM Signed REVIEW OF SYSTEMS: General: The patient NOTES fatigue, denies weight loss, denies weight gain, NOTES feeling hot, and NOTES feelings of cold. Eyes: The patient denies glaucoma, NOTES eye injury/surgery, does not wear glasses or contacts. Ear/Nose/Throat: The patient denies allergies, denies hayfever, denies ear infections, and denies bloody noses. Cardiovascular: The patient denies chest pain, denies heart disease, denies high blood pressure,denies cardiac stent, denies prior heart attack, NOTES irregular heart beat, denies high cholesterol, denies poor circulation, denies heart failure, other cardiac issues, denies claudication, denies cold feet, denies peripheral arterial stent. Respiratory: The patient denies tuberculosis, denies pneumonia, denies frequent cough, denies pulmonary embolism, denies shortness of breath, and denies coughing up blood. Gastrointestinal: The patient denies difficulty swallowing, denies acid reflux, denies ulcers, denies vomiting, denies jaundice/hepatitis, denies gallbladder problems, denies black or tarry stools, NOTES hemorrhoids, denies bleeding from rectum, denies diverticulitis, NOTES constipation, denies diarrhea, denies loss of stool control, and denies hernias. Kidney/Bladder: The patient denies kidney stones, denies urine infections, and denies bloody urine. Skin: The patient denies a history of skin cancer, denies bleeding/changing moles, and denies a history of skin rash. Neurologic: The patient denies a history of epilepsy/convulsions, denies headaches, denies head/spinal injuries, and denies stroke/TIA. Psychiatric: The patient denies psychiatric medications, denies depression, and denies voices, denies substance abuse. Endocrine: The patient denies thyroid disorders, denies diabetes, and denies hormonal problems. Hematologic: The patient denies a history of bruising, denies bleeding, and denies anemia, denies blood clots. Infections: The patient denies a history of measles and mumps, denies rheumatic fever, and denies sexually transmitted diseases. Musculoskeletal: The patient denies back pain/injury, NOTES back problems, denies sciatica, denies knee/foot trouble, NOTES arthritis, or denies gout. When was patient's last Mammogram screening? 2021 Last Colonoscopy: NONE Leyla De Leon RN I have confirmed and edited as necessary, the PFSH and ROS obtained by others. Christine Rodriguez PA-C PHYSICAL EXAMINATION: General: The patient is 46 year old female, well nourished, well hydrated in no acute distress. The patient is oriented to time, place, and person. VITALS: Last menstrual period 07/14/2019. There is no height or weight on file to calculate BMI. HEENT: Normal cephalic, ataumatic, pupils are equally round, sclera are anicteric, mucous membranes are moist, oropharynx is clear. Neck has no masses, asymmetry or lymphadenopathy. Respiratory: Clear to auscultation and percussion. Normal respiratory excursion and pattern. Cardiac: Examination is regular rate and rhythm. Normal S1/S2 Abdominal exam: Soft, nontender, with no palpable masses. No hepatosplenomegaly. No palpable hernias. Extremities: no clubbing, cyanosis or edema. No adenopathy. LABORATORY VALUES: As Noted RADIOLOGIC STUDIES: As Noted Assessment IMPRESSION: encounter for screening colonoscopy PLAN: I have reviewed my findings with the surgeon. Will plan for lower endoscopy. We discussed the risks and benefits of the planned endoscopy. I have informed the patient that complications can occur including failure to complete the endoscopy and perforation. The patient had the opportunity to ask questions concerning the planned endoscopy. My staff has also explained the procedure to the patient in understandable terms and has given the patient printed material concerning the procedure. The patient freely consents to surgery. The patient was offered a surgery/procedure at a [facility] facility. I have counseled the patient regarding the risk of exposure to and/or potential harm posed by the COVID-19 virus with having a surgery/procedure at this time versus the risk of delaying the surgery/procedure. It is not possible to know either the risk of delaying the surgery or procedure or chance of getting an infection with perfect accuracy, but a joint decision was made between the patient and myself to proceed at this time with endoscopy. I plan to use Golytely bowel preparation I have explained to the patient the difference between IV conscious sedation and MAC anesthesia - and I have offered either, according to the patient's wishes. I have explained that with IV conscious sedation there is no anesthesia provider available and therefore there is a limitation of the amount of IV medications that can be given and that the patient may wake up in the middle of the procedure and/or experience pain/discomfort during the procedure. Further discussion was done and the patient was given the opportunity to ask questions and all questions were answered. The patient chooses IV conscious sedation. Patient requesting no fentanyl d/t losing son to overdose. Does not want to travel for MAC. Patient to receive Demerol, no Fentanyl-reviewed with Dr. Alvarez Diagnoses: (Z12.11) Screening for colon cancer Consultation requested by Dr. Pérez for an opinion regarding screening colonoscopy. My final recommendations will be communicated back to the requesting physician by way of shared Medical record or letter to requesting physician via US mail. Christine Rodriguez PA-C Images from the original note were not included. HISTORY AND PHYSICAL Char Kaurshan 1975 REFERRING PHYSICIAN: Jus Pérez MD CHIEF COMPLAINT: Consult (colonoscopy) HPI: The patient is a 46 year old female referred for endoscopy. Char notes no colon complaints. Patient denies any change in bowel habits, weight changes, blood in stools, black tarry stools or abdominal pain. Denies family history of colon issues. The patient notes no upper GI complaints. Char has not undergone prior endoscopy. PAST MEDICAL HISTORY PAST MEDICAL HISTORY Diagnosis Date Abnormal Papanicolaou smear of vagina and vaginal HPV Human papillomavirus in conditions classified elsewhere and of unspecified site Hyperlipidemia Irregular menstrual cycle PMH - PAST MEDICAL HISTORY OF POST DEPRESSION Premenstrual tension syndromes Reflex sympathetic dystrophy, unspecified RLS (restless legs syndrome) SLE (systemic lupus erythematosus) ([facility]) PAST SURGICAL HISTORY PAST SURGICAL HISTORY Procedure Laterality Date CARPAL TUNNEL RIGHT WRIST 04/23/2005 COLPOSCOPY CERVIX UPPER/ADJACENT VAGINA 04/23/1998 WITH A BIOPSY DILATION & CURETTAGE DX&/THER NONOBSTETRIC INCISION THROMBOSED HEMORRHOID EXTERNAL 01/22/2013 Exc. left lateral thrombosed hemorrhoid, local LEEP PROCEDURE ([facility])_*FL 04/23/2002 ERLINDA 1 PAST SURGICAL HISTORY OF 92, 99 planned AB X2 PAST SURGICAL HISTORY OF WISDOM TEETH REMOVAL S DEV ENOCH ENDOMETRIAL ABLATION N/A 2020 hysteroscopy, ablation in office with removal IUD CURRENT MEDICATIONS Current Outpatient Medications Medication Sig melatonin 3 mg tablet Take 1 tablet by mouth at bedtime as needed for for insomnia. belimumab (BENLYSTA INTRAVENOUS) Inject intravenously. oxybutynin ER (DITROPAN XL) 10 mg 24 hr tablet TAKE 1 TABLET BY MOUTH EVERY DAY metoprolol succinate ER (TOPROL XL) 25 mg 24 hr tablet Take 1 tablet by mouth once daily. Blood Pressure Monitor (BLOOD PRESSURE KIT) 1 Each once daily. venlafaxine ER (EFFEXOR XR) 150 mg 24 hr capsule Take 1 capsule by mouth once daily. oxaprozin (DAYPRO) 600 mg tablet Take 1,200 mg by mouth once daily. cyclobenzaprine (FLEXERIL) 10 mg tablet Take 0.5 tablets by mouth at bedtime as needed. hydrOXYchloroQUINE (PLAQUENIL) 200 mg tablet Take 1.5 tablets by mouth once daily. hydrOXYzine HCl (ATARAX) 25 mg tablet Take 1 tablet by mouth four times daily as needed for anxiety. mv-min/iron/folic/calcium/vitK (WOMEN'S MULTIVITAMIN ORAL) Take by mouth once daily. Pt takes bio cleanse by plexus for bowel health Current Facility-Administered Medications Medication Dose Route Frequency perflutren lipid microspheres 1.3 mL in NaCl (PF) 0.9% 10 mL injection (DEFINITY) INTRAVENOUS DIRECTED PRN sodium chloride 0.9 % (flush) 10 mL (BD POSIFLUSH) 10 mL INTRAVENOUS DIRECTED PRN ALLERGIES: Patient has no known allergies. PERSONAL HISTORY: SOCIAL HISTORY Social History Tobacco Use Smoking status: Former Types: Cigarettes Quit date: 04/23/1998 Years since quittin.3 Smokeless tobacco: Never Tobacco comments: quit 5 and 1/2 yrs ago. Vaping Use Vaping Use: Never used Substance Use Topics Alcohol use: Yes Comment: RARELY Drug use: No FAMILY HISTORY: FAMILY HISTORY FAMILY HISTORY Problem Relation Age of Onset Diabetes Mother Arthritis Mother Lipids Mother high other (Pre-cancerous breast tissue) Mother Bilateral mastectomies in her 50s other (MYOFACIAL PAIN SYNDROME) Mother other (neuropathy) Mother other (htn) Mother other (Migraine) Mother other (depression) Mother other (fibromyalgia) Mother Hypertension Father other (Migraine) Father other (depression) Father Prostate Cancer Father dx 50s Alcohol abuse Father Kidney Disease Brother Kidney transplant Brother Diabetes Maternal Grandmother Arthritis Maternal Grandmother Heart Maternal Grandfather Fibromyalgia Paternal Grandmother Colon Cancer Paternal Grandfather uncertain about this diagnosis other (Migraine) Daughter other (Migraine) Daughter other (Migraine) Daughter other (depression) Daughter 3 daughters diagnosed other (Migraine) Son Breast Cancer Other MATERNAL COUSIN WITH CERVICAL CA ALSO other (DOWNS SYNDROME) Other MATERNAL COUSIN REVIEW OF SYMPTOMS: The review of systems data was entered by the nurse and reviewed by me Nursing Notes: Leyla De Leon RN 08/08/2022 3:30 PM Signed REVIEW OF SYSTEMS: General: The patient NOTES fatigue, denies weight loss, denies weight gain, NOTES feeling hot, and NOTES feelings of cold. Eyes: The patient denies glaucoma, NOTES eye injury/surgery, does not wear glasses or contacts. Ear/Nose/Throat: The patient denies allergies, denies hayfever, denies ear infections, and denies bloody noses. Cardiovascular: The patient denies chest pain, denies heart disease, denies high blood pressure,denies cardiac stent, denies prior heart attack, NOTES irregular heart beat, denies high cholesterol, denies poor circulation, denies heart failure, other cardiac issues, denies claudication, denies cold feet, denies peripheral arterial stent. Respiratory: The patient denies tuberculosis, denies pneumonia, denies frequent cough, denies pulmonary embolism, denies shortness of breath, and denies coughing up blood. Gastrointestinal: The patient denies difficulty swallowing, denies acid reflux, denies ulcers, denies vomiting, denies jaundice/hepatitis, denies gallbladder problems, denies black or tarry stools, NOTES hemorrhoids, denies bleeding from rectum, denies diverticulitis, NOTES constipation, denies diarrhea, denies loss of stool control, and denies hernias. Kidney/Bladder: The patient denies kidney stones, denies urine infections, and denies bloody urine. Skin: The patient denies a history of skin cancer, denies bleeding/changing moles, and denies a history of skin rash. Neurologic: The patient denies a history of epilepsy/convulsions, denies headaches, denies head/spinal injuries, and denies stroke/TIA. Psychiatric: The patient denies psychiatric medications, denies depression, and denies voices, denies substance abuse. Endocrine: The patient denies thyroid disorders, denies diabetes, and denies hormonal problems. Hematologic: The patient denies a history of bruising, denies bleeding, and denies anemia, denies blood clots. Infections: The patient denies a history of measles and mumps, denies rheumatic fever, and denies sexually transmitted diseases. Musculoskeletal: The patient denies back pain/injury, NOTES back problems, denies sciatica, denies knee/foot trouble, NOTES arthritis, or denies gout. When was patient's last Mammogram screening? 2021 Last Colonoscopy: NONE Leyla De Leon RN I have confirmed and edited as necessary, the PFSH and ROS obtained by others. Christine Rodriguez PA-C PHYSICAL EXAMINATION: General: The patient is 46 year old female, well nourished, well hydrated in no acute distress. The patient is oriented to time, place, and person. VITALS: Last menstrual period 07/14/2019. There is no height or weight on file to calculate BMI. HEENT: Normal cephalic, ataumatic, pupils are equally round, sclera are anicteric, mucous membranes are moist, oropharynx is clear. Neck has no masses, asymmetry or lymphadenopathy. Respiratory: Clear to auscultation and percussion. Normal respiratory excursion and pattern. Cardiac: Examination is regular rate and rhythm. Normal S1/S2 Abdominal exam: Soft, nontender, with no palpable masses. No hepatosplenomegaly. No palpable hernias. Extremities: no clubbing, cyanosis or edema. No adenopathy. LABORATORY VALUES: As Noted RADIOLOGIC STUDIES: As Noted Assessment IMPRESSION: encounter for screening colonoscopy PLAN: I have reviewed my findings with the surgeon. Will plan for lower endoscopy. We discussed the risks and benefits of the planned endoscopy. I have informed the patient that complications can occur including failure to complete the endoscopy and perforation. The patient had the opportunity to ask questions concerning the planned endoscopy. My staff has also explained the procedure to the patient in understandable terms and has given the patient printed material concerning the procedure. The patient freely consents to surgery. The patient was offered a surgery/procedure at a [facility] facility. I have counseled the patient regarding the risk of exposure to and/or potential harm posed by the COVID-19 virus with having a surgery/procedure at this time versus the risk of delaying the surgery/procedure. It is not possible to know either the risk of delaying the surgery or procedure or chance of getting an infection with perfect accuracy, but a joint decision was made between the patient and myself to proceed at this time with endoscopy. I plan to use Golytely bowel preparation I have explained to the patient the difference between IV conscious sedation and MAC anesthesia - and I have offered either, according to the patient's wishes. I have explained that with IV conscious sedation there is no anesthesia provider available and therefore there is a limitation of the amount of IV medications that can be given and that the patient may wake up in the middle of the procedure and/or experience pain/discomfort during the procedure. Further discussion was done and the patient was given the opportunity to ask questions and all questions were answered. The patient chooses IV conscious sedation. Patient requesting no fentanyl d/t losing son to overdose. Does not want to travel for MAC. Patient to receive Demerol, no Fentanyl-reviewed with Dr. Alvarez Diagnoses: (Z12.11) Screening for colon cancer Consultation requested by Dr. Pérez for an opinion regarding screening colonoscopy. My final recommendations will be communicated back to the requesting physician by way of shared Medical record or letter to requesting physician via US mail. Christine Rodriguez PA-C documented in this encounter [facility] 09-27-2022 Note HNO ID: [id number] Author: Fawn Son APRN.GRAINING OPERATOR Service: ? Author Type: Nurse Practitioner Type: Progress Notes Filed: 09/27/2022 8:14 AM Note Text: HPI: To review, Char Tomas is a 46 year old female - In Dec, diagnosed with SLE per inflammatory arthritis (elbows, wrists, hands, knees, and feet) in the setting of a positive MATTHEW 1:640 and positive chromatin >8. - In Jan, started on HCQ 200mg bid - In Apr, stable - In Apr, reported 50-60% improvement in joint pain with HCQ. Continued to have pain in the L wrist, MCPs and PIP. Advised to decrease HCQ dose to keep in line with dosing guidelines. Also advised to consider MTX which she deferred. - In September, reported no change with HCQ dose decrease - In Jan, reported that joint pain and swelling had been progressing in the PIPs>>MCPs, knees (up stairs) and ankles. Also with worsened brain fog. Advised to start MTX PO. Stopped MTX after 4-6 weeks due to ARELLANO, fatigue, GERD and increased anxiety (did help joint pain some) - In June, started arava but stopped in August for weight gain and inefficacy - In August, advised to start AZA but she decided to hold off on starting it due to c/f potential side effects and FHx of cancer - In the interim, saw PCP for lupus rash, flare. Started on prednisone which helped by 40-45% - In Mar, reported that the left side was more painful: shoulder, elbow, hip and knee. Both hips felt like they're catching with a popping sensation when going to stand up. Knees had been painful for several years, progressively worsening. Remained on HCQ. - In August, started benlysta SC - In Dec, reported 65-75% improvement with benlysta. Said insurance will no longer cover benlysta SC so advised to do IV - In Jan, started first benlysta IV - at [facility], reports the benlysta IV is helping but taking longer to help than the SC - Last benlysta IV was 05/23/22 - Last plaquenil eye exam normal in August PAST MEDICAL HISTORY Diagnosis Date Abnormal Papanicolaou smear of vagina and vaginal HPV Human papillomavirus in conditions classified elsewhere and of unspecified site Hyperlipidemia Irregular menstrual cycle PMH - PAST MEDICAL HISTORY OF POST DEPRESSION Premenstrual tension syndromes Reflex sympathetic dystrophy, unspecified RLS (restless legs syndrome) SLE (systemic lupus erythematosus) ([facility]) PAST SURGICAL HISTORY Procedure Laterality Date CARPAL TUNNEL RIGHT WRIST 04/23/2005 COLPOSCOPY CERVIX UPPER/ADJACENT VAGINA 04/23/1998 WITH A BIOPSY DILATION AND CURETTAGE DXAND/THER NONOBSTETRIC INCISION THROMBOSED HEMORRHOID EXTERNAL 01/22/2013 Exc. left lateral thrombosed hemorrhoid, local LEEP PROCEDURE ([facility] [facility])_*FL 04/23/2002 ERLINDA 1 PAST SURGICAL HISTORY OF 92, 99 planned AB X2 PAST SURGICAL HISTORY OF WISDOM TEETH REMOVAL S DEV ENOCH ENDOMETRIAL ABLATION N/A 2020 hysteroscopy, ablation in office with removal IUD ALLERGIES No Known Allergies INTERVAL HISTORY This Team Access Model visit is a virtual encounter. It required patient-provider interaction for the medical decision making as documented below. I have communicated my name and active licensure. The patient's identity and physical location were verified at the time of this visit. Either the patient or their legal support representative has been informed of the risks and benefits of -- and alternatives to -- treatment through a remote evaluation and consents to proceed with the evaluation remotely. She feels a little better since the CARLOS. She reports fatigue the day of the benlysta infusion. Otherwise she tolerates it well and feels it is helping. Pain is worst in the morning. She is not taking anything for pain. Sites of pain: knees, ankles, fingers, wrists, L hip, pain rated 4/10 Joint swelling: ankles, fingers EMS: yes, lasting 30-60 minutes No recent infections. Tolerating meds. Answers submitted by the patient for this visit: Review of Systems Rheumatology (Submitted on 09/27/2022) Fever : No Recent Unintentional Weight Change: No Eye Pain: No Eye Redness: No Vision Disturbance: No Eye Dryness: No Nose Bleeds: No Sores in your Mouth: No Trouble Swallowing: No Dry Mouth: No A Cough: Yes Blood when you Cough: No Shortness of Breath: No Pain with Breathing: No Heartburn: No Abdominal Pain: No Diarrhea: No Black Tarry Stools: No Blood in Urine: No Pain or Burning with Urination: No Joint Pain or Stiffness: Yes Muscle Weakness: Yes Muscle Aches: Yes Joint Swelling: Yes Morning Stiffness in Joints: Yes A Rash: Yes-no current rash Do you have sun sensitive rashes?: Yes Skin Color Changes: No Hair Loss: No Nail Changes: No Memory Loss: Yes Swollen Glands: No Current Outpatient Medications Medication Sig venlafaxine ER (EFFEXOR XR) 150 mg 24 hr capsule Take 1 capsule by mouth once daily. melatonin 3 mg tablet T (more content not included)... [facility] 09-27-2022 History of Presen t illness Narrative HPI: To review, Char Tomas is a 46 year old female - In Dec, diagnosed with SLE per inflammatory arthritis (elbows, wrists, hands, knees, and feet) in the setting of a positive MATTHEW 1:640 and positive chromatin >8. - In Jan, started on HCQ 200mg bid - In Apr, stable - In Apr, reported 50-60% improvement in joint pain with HCQ. Continued to have pain in the L wrist, MCPs and PIP. Advised to decrease HCQ dose to keep in line with dosing guidelines. Also advised to consider MTX which she deferred. - In September, reported no change with HCQ dose decrease - In Jan, reported that joint pain and swelling had been progressing in the PIPs>>MCPs, knees (up stairs) and ankles. Also with worsened brain fog. Advised to start MTX PO. Stopped MTX after 4-6 weeks due to ARELLANO, fatigue, GERD and increased anxiety (did help joint pain some) - In June, started arava but stopped in August for weight gain and inefficacy - In August, advised to start AZA but she decided to hold off on starting it due to c/f potential side effects and FHx of cancer - In the interim, saw PCP for lupus rash, flare. Started on prednisone which helped by 40-45% - In Mar, reported that the left side was more painful: shoulder, elbow, hip and knee. Both hips felt like they're catching with a popping sensation when going to stand up. Knees had been painful for several years, progressively worsening. Remained on HCQ. - In August, started benlysta SC - In Dec, reported 65-75% improvement with benlysta. Said insurance will no longer cover benlysta SC so advised to do IV - In Jan, started first benlysta IV - at [facility], reports the benlysta IV is helping but taking longer to help than the SC - Last benlysta IV was 05/23/22 - Last plaquenil eye exam normal in August PAST MEDICAL HISTORY Diagnosis Date Abnormal Papanicolaou smear of vagina and vaginal HPV Human papillomavirus in conditions classified elsewhere and of unspecified site Hyperlipidemia Irregular menstrual cycle PMH - PAST MEDICAL HISTORY OF POST DEPRESSION Premenstrual tension syndromes Reflex sympathetic dystrophy, unspecified RLS (restless legs syndrome) SLE (systemic lupus erythematosus) ([facility]) PAST SURGICAL HISTORY Procedure Laterality Date CARPAL TUNNEL RIGHT WRIST 04/23/2005 COLPOSCOPY CERVIX UPPER/ADJACENT VAGINA 04/23/1998 WITH A BIOPSY DILATION & CURETTAGE DX&/THER NONOBSTETRIC INCISION THROMBOSED HEMORRHOID EXTERNAL 01/22/2013 Exc. left lateral thrombosed hemorrhoid, local LEEP PROCEDURE ([facility] [facility])_*[place] 04/23/2002 ERLINDA 1 PAST SURGICAL HISTORY OF 89, 99 planned AB X2 PAST SURGICAL HISTORY OF WISDOM TEETH REMOVAL S DEV ENOCH ENDOMETRIAL ABLATION N/A 2020 hysteroscopy, ablation in office with removal IUD ALLERGIES No Known Allergies INTERVAL HISTORY This Team Access Model visit is a virtual encounter. It required patient-provider interaction for the medical decision making as documented below. I have communicated my name and active licensure. The patient's identity and physical location were verified at the time of this visit. Either the patient or their legal support representative has been informed of the risks and benefits of -- and alternatives to -- treatment through a remote evaluation and consents to proceed with the evaluation remotely. She feels a little better since the CARLOS. She reports fatigue the day of the benlysta infusion. Otherwise she tolerates it well and feels it is helping. Pain is worst in the morning. She is not taking anything for pain. Sites of pain: knees, ankles, fingers, wrists, L hip, pain rated 4/10 Joint swelling: ankles, fingers EMS: yes, lasting 30-60 minutes No recent infections. Tolerating meds. Answers submitted by the patient for this visit: Review of Systems Rheumatology (Submitted on 09/27/2022) Fever : No Recent Unintentional Weight Change: No Eye Pain: No Eye Redness: No Vision Disturbance: No Eye Dryness: No Nose Bleeds: No Sores in your Mouth: No Trouble Swallowing: No Dry Mouth: No A Cough: Yes Blood when you Cough: No Shortness of Breath: No Pain with Breathing: No Heartburn: No Abdominal Pain: No Diarrhea: No Black Tarry Stools: No Blood in Urine: No Pain or Burning with Urination: No Joint Pain or Stiffness: Yes Muscle Weakness: Yes Muscle Aches: Yes Joint Swelling: Yes Morning Stiffness in Joints: Yes A Rash: Yes-no current rash Do you have sun sensitive rashes?: Yes Skin Color Changes: No Hair Loss: No Nail Changes: No Memory Loss: Yes Swollen Glands: No Current Outpatient Medications Medication Sig venlafaxine ER (EFFEXOR XR) 150 mg 24 hr capsule Take 1 capsule by mouth once daily. melatonin 3 mg tablet Take 1 tablet by mouth at bedtime as needed for for insomnia. belimumab (BENLYSTA INTRAVENOUS) Inject intravenously. oxybutynin ER (DITROPAN XL) 10 mg 24 hr tablet TAKE 1 TABLET BY MOUTH EVERY DAY metoprolol succinate ER (TOPROL XL) 25 mg 24 hr tablet Take 1 tablet by mouth once daily. Blood Pressure Monitor (BLOOD PRESSURE KIT) 1 Each once daily. oxaprozin (DAYPRO) 600 mg tablet Take 1,200 mg by mouth once daily. cyclobenzaprine (FLEXERIL) 10 mg tablet Take 0.5 tablets by mouth at bedtime as needed. hydrOXYchloroQUINE (PLAQUENIL) 200 mg tablet Take 1.5 tablets by mouth once daily. hydrOXYzine HCl (ATARAX) 25 mg tablet Take 1 tablet by mouth four times daily as needed for anxiety. mv-min/iron/folic/calcium/vitK (WOMEN'S MULTIVITAMIN ORAL) Take by mouth once daily. Pt takes bio cleanse by plexus for bowel health Current Facility-Administered Medications Medication Dose Route Frequency perflutren lipid microspheres 1.3 mL in NaCl (PF) 0.9% 10 mL injection (DEFINITY) INTRAVENOUS DIRECTED PRN sodium chloride 0.9 % (flush) 10 mL (BD POSIFLUSH) 10 mL INTRAVENOUS DIRECTED PRN FAMILY HISTORY Problem Relation Age of Onset Diabetes Mother Arthritis Mother Lipids Mother high other (Pre-cancerous breast tissue) Mother Bilateral mastectomies in her 50s other (MYOFACIAL PAIN SYNDROME) Mother other (neuropathy) Mother other (htn) Mother other (Migraine) Mother other (depression) Mother other (fibromyalgia) Mother Hypertension Father other (Migraine) Father other (depression) Father Prostate Cancer Father dx 50s Alcohol abuse Father Kidney Disease Brother Kidney transplant Brother Diabetes Maternal Grandmother Arthritis Maternal Grandmother Heart Maternal Grandfather Fibromyalgia Paternal Grandmother Colon Cancer Paternal Grandfather uncertain about this diagnosis other (Migraine) Daughter other (Migraine) Daughter other (Migraine) Daughter other (depression) Daughter 3 daughters diagnosed other (Migraine) Son Breast Cancer Other MATERNAL COUSIN WITH CERVICAL CA ALSO other (DOWNS SYNDROME) Other MATERNAL COUSIN SOCIAL HISTORY: Lives in [place]. 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 Has grandkids. Tobacco: none Alcohol: none PHYSICAL EXAM: CONSTITUTIONAL: Well-appearing, in NAD. SKIN: No rash. EYES: No scleral icterus or conjunctivitis NEURO: Awake, alert and oriented Labs reviewed and discussed with the patient: Component Latest Ref Rng & Units 06/20/2022 WBC 3.70 - 11.00 k/uL 9.45 RBC 3.90 - 5.20 m/uL 4.61 Hemoglobin 11.5 - 15.5 g/dL 14.0 Hematocrit 36.0 - 46.0 % 41.3 MCV 80.0 - 100.0 fL 89.6 MCH 26.0 - 34.0 pg 30.4 MCHC 30.5 - 36.0 g/dL 33.9 RDW-CV 11.5 - 15.0 % 13.8 Platelet Count 150 - 400 k/uL 304 MPV 9.0 - 12.7 fL 9.2 Neut% % 61.7 Abs Neut (ANC) 1.45 - 7.50 k/uL 5.83 Lymph% % 25.6 Abs Lymph 1.00 - 4.00 k/uL 2.42 [place]% % 6.6 Abs [place] <0.87 k/uL 0.62 Eosin% % 4.3 Abs Eosin <0.46 k/uL 0.41 Baso% % 1.2 Abs Baso <0.11 k/uL 0.11 (H) Immature Gran % % 0.6 IMMATURE GRANS (ABS) <0.10 k/uL 0.06 NRBC /100 WBC 0.0 Absolute nRBC <0.01 k/uL <0.01 DTYPE Auto Color Yellow Colorless Clarity Clear Clear Glucose, Urine Trace, Negative Negative Bilirubin, Urine Negative Negative Ketones, Urine Trace, Negative Negative Specific [place], Ur 1.005 - 1.030 1.012 Hemoglobin/Blood,Ur Negative, Trace Negative pH, Urine 5.0 - 8.0 6.5 Protein, Urine Trace, Negative Negative Urobilinogen Negative Negative Nitrites Negative Negative Leukest Negative, 25 Francine/uL Negative Protein, Urine Random 0 - 20 mg/dL 5 Creatinine, Ur Random (UCRR) 20.0 - 300.0 mg/dL 37.3 Protein/Creat Ratio <0.15 mg/mg 0.13 Creatinine 0.58 - 0.96 mg/dL 0.76 eGFR >=60 mL/min/1.73m 97 AST 13 - 35 U/L 23 ALT 7 - 38 U/L 27 Albumin 3.9 - 4.9 g/dL 4.7 WSR 0 - 20 mm/hr 15 CRP <0.9 mg/dL 0.3 C3 86 - 166 mg/dL 190 (H) C4 13 - 46 mg/dL 28 DNA Antibody <30 IU/mL <12 Component Latest Ref Rng & Units 05/23/2019 06/15/2020 TB Nil IU/mL 0.05 TB1 Ag minus Nil <0.35 IU/mL 0.00 TB2 Ag minus Nil <0.35 IU/mL 0.00 Mitogen minus Nil >10 TB Result Negative Negative TB Interpretation No evidence of current or previous infection with Mycobacterium tuberculosis. Hep B Core Ab, Total Negative Negative Hep C Antibody IA Negative Positive (A) Hep B Surface Ag Negative Negative Hep B Surface Ab, Qual Negative Negative Component Latest Ref Rng & Units 12/12/2011 05/23/2019 Hep B Core Ab, Total Negative Negative Hep C Antibody IA Negative Positive (A) Hep B Surface Ag Negative Negative Hep B Surface Ab, Qual Negative Negative HCV RNA by PCR IU/mL Negative for HCV RNA by PCR. HCV RNA not detected by PCR. Component Latest Ref Rng & Units 01/08/2017 05/23/2017 PT Sec 9.7 - 13.0 sec 10.2 PT INR 0.9 - 1.3 1.0 APTT 23.0 - 32.4 sec 29.5 Platelet Neut Negative Negative DRVVT Screen 32.7 - 46.7 sec 38.2 DRVVT Confirm Ratio <1.21 1.07 DRVVT 1:1 Mix 32.7 - 46.7 sec 38.2 Hex Phase Screen 48.9 - 70.2 sec 58.2 Hex Phase Confirm 45.1 - 64.1 sec 56.2 Hex Phase Delta <9.0 delta sec 2.0 APTT Screen 24.4 - 33.4 sec 31.9 Immediate PTT 1:1 Mix <33.5 sec 29.8 Incubated PTT 1:1 Mix <37.3 sec 32.6 Thrombin Time <18.6 sec 17.0 Interpretation(Lupus Anticoagulant) (NOTE) Cardiolipin Ab, IgG 0 - 9 GPL <9 Cardiolipin Ab, IgM 0 - 11 MPL <9 Cardiolipin Ab, IgA 0 - 11 APL <9 Beta 2 Glycoprotein, IgG <20 SGU 32 (H) Beta 2 Glycoprotein, IgM <20 SMU <9 Sm Antibody <1.0 AI <0.2 COMMERCIAL LOAN MANAGER Antibody <1.0 AI <0.2 SSA Antibody <1.0 AI <0.2 SSB Antibody <1.0 AI <0.2 Centromere Ab <1.0 AI <0.2 Scleroderma Ab, IgG <1.0 AI <0.2 Teresa 1 Antibody <1.0 AI <0.2 Ribosomal COMMERCIAL LOAN MANAGER <1.0 AI <0.2 Chromatin Antibody <1.0 AI >8.0 (H) MATTHEW Negative Positive (A) MATTHEW Titer Negative 1:640 (A) MATTHEW Pattern Homogeneous CCP Antibody, IgG <20 Units <15 Rheumatoid Factor <16 IU/mL <10 WSR 0 - 20 mm/hr 29 (H) CRP <0.9 mg/dL 1.3 (H) DNA Antibody w/Confirmation <30 IU/mL <12 STUDIES: *Nov CXR- no acute changes *Apr xray hands- normal *October xray L hand- no acute changes IMPRESSION and PLAN: 1. SLE: Inflammatory arthritis (elbows, wrists, hands, knees, and feet) in the setting of a positive MATTHEW 1:640 and positive chromatin >8. Lack other typically associated features including rash, photosensitivity, mouth sores and hair loss but will still pursue treatment as such given that inflammatory arthritis is clearly present. HCQ with partial improvement, MTX with SE/some improvement and arava without improvement. Declined AZA initiation given FHx cancer. Stable. - Continue HCQ 300mg/day along with routine monitoring eye exams, last normal in August. She states she is scheduled for another exam in 10/2022. - Continue benlysta IV every 4 weeks - r/b/a of meds discussed - Check labs now. Notify of results via [facility] - Strongly advised sun protective measures in the past 2. Myalgia: She is concerned she has fibromyalgia especially as her mother has the condition with similar symptoms as she does. Sometimes flexeril helps - Continue flexeril 5mg qhs. 3. L hip pain: Center of joint, sometimes pops and feels better. X-ray with mild OA. - continue PT 4. General health maintenance: - Advised to continue follow-up with PCP for routine health maintenance and malignancy screening Follow-up in 4 months or sooner if needed. Patient was instructed to call if any questions or concerns. Thank you for allowing me to participate in the care of your patient. Visit time was 8 minutes Fawn Son APRN.CNP documented in this encounter [facility] 09-26-2022 Miscellaneous Notes Patient has been identified by name and date of : Yes Patient phones for refill(s): Requested Prescriptions Pending Prescriptions Disp Refills oxaprozin (DAYPRO) 600 mg tablet Sig: Take 2 tablets by mouth once daily. Date of last office visit in primary care: 08/02/2022 Please advise. Thank you. Hetal Mattson LPN documented in this encounter [facility] 09-05-2022 Note HNO ID: [id number] Author: Magdi Arriaga PT Service: ? Author Type: Physical Therapist Type: Progress Notes Filed: 09/05/2022 3:00 PM Note Text: Episode Visit Count: 4 Therapist That Will Accept/Oversee The Plan Of Care: Magdi Arriaga Start of Care Date: 08/10/22 Onset Date: 08/10/21 Plan of Care Certification Date: 08/10/22 Next Certification Due Date: 09/14/22 Patient Identified by Name and Date of : Yes REHABILITATION AND SPORTS THERAPY PHYSICAL THERAPY TREATMENT NOTE ASSESSMENT: Char Madera tolerated the session with no issues. She demonstrated good tolerance to newly added therapeutic exercises. The patient will continue to benefit from ongoing skilled physical therapy to progress toward set goals and for reassessment by supervising therapist. PLAN FOR NEXT VISIT: POC update SUBJECTIVE: Patient Reason for Visit: Pretty painful after putting together a swing set. Been working on the swingset for days now. Pain: Pain Pain Location: Hip - Left OBJECTIVE MEASURES WITH LEVEL OF FUNCTION: TREATMENT: Therapeutic Exercise: 1: *Sidelying hip abd, 3 x 10 reps 2: *Sidelying hip clamshell GTB 3: Supine Hip SLR modified height (bolster) 3 x 10 reps Skilled Intervention: Patient was educated in proper exercise technique and purpose for exercises. Correct performance of therapeutic exercises was facilitated with verbal and visual cuing. Manual Therapy: 1: FA traction in supine with strap assist around therapist's hands 3 x 4 min each Skilled Intervention: Manual skills to improve joint mobility, ROM, and decrease pain. Utilized anatomy knowledge of the therapist, and assessment of patient's response to intervention. Billing Therapeutic Exercise Treatment Minutes: 30 Manual TherapyTreatment Minutes: 12 Total Treatment Time Minutes (timed/untimed): 42 Magdi Arriaga PT [facility] 08-29-2022 Note HNO ID: [id number] Author: Magdi Arriaga PT Service: ? Author Type: Physical Therapist Type: Progress Notes Filed: 08/29/2022 5:10 PM Note Text: Episode Visit Count: 3 Therapist That Will Accept/Oversee The Plan Of Care: Magdi Arriaga Start of Care Date: 08/10/22 Onset Date: 08/10/21 Plan of Care Certification Date: 08/10/22 Next Certification Due Date: 09/14/22 Patient Identified by Name and Date of : Yes REHABILITATION AND SPORTS THERAPY PHYSICAL THERAPY TREATMENT NOTE ASSESSMENT: Char Madera tolerated the session with no issues. She demonstrated decreased pain with long-axis distraction of the L FA joint. The patient will continue to benefit from ongoing skilled physical therapy to progress toward set goals. PLAN FOR NEXT VISIT: MT as needed. L hip mobility exercises SUBJECTIVE: Patient Reason for Visit: Doing better this week. Execises are good for the most part. Pain: Pain Pain Level: 3 Pain Location: Hip - Left OBJECTIVE MEASURES WITH LEVEL OF FUNCTION: TREATMENT: Therapeutic Exercise: 1: Supine SLR (bolster under heel for modified range of motion) x 10 then 2 x 5 reps reps 2: Supine heel slides 2 x 10 with strap assist 3: Hip ABD/ADD slides knee bent 65 degrees approx x 20 4: Hip IR/ER with lateral ban pull 3 x 10 Skilled Intervention: Patient was educated in proper exercise technique and purpose for exercises. Correct performance of therapeutic exercises was facilitated with verbal cuing. Manual Therapy: 1: Inferior glide with fip flexion x 15 2: Long axis distraction sustained x 3 min x 2 rounds Skilled Intervention: Manual skills to improve joint mobility, ROM, and decrease pain. Utilized anatomy knowledge of the therapist, and assessment of patient's response to intervention. Billing Therapeutic Exercise Treatment Minutes: 31 Manual TherapyTreatment Minutes: 10 Total Treatment Time Minutes (timed/untimed): 41 Magdi Arriaga PT [facility] 08-29-2022 History of Presen t illness Narrative Episode Visit Count: 3 Therapist That Will Accept/Oversee The Plan Of Care: Magdi Arriaga Start of Care Date: 08/10/22 Onset Date: 08/10/21 Plan of Care Certification Date: 08/10/22 Next Certification Due Date: 09/14/22 Patient Identified by Name and Date of : Yes REHABILITATION AND SPORTS THERAPY PHYSICAL THERAPY TREATMENT NOTE ASSESSMENT: Char Madera tolerated the session with no issues. She demonstrated decreased pain with long-axis distraction of the L FA joint. The patient will continue to benefit from ongoing skilled physical therapy to progress toward set goals. PLAN FOR NEXT VISIT: MT as needed. L hip mobility exercises SUBJECTIVE: Patient Reason for Visit: Doing better this week. Execises are good for the most part. Pain: Pain Pain Level: 3 Pain Location: Hip - Left OBJECTIVE MEASURES WITH LEVEL OF FUNCTION: TREATMENT: Therapeutic Exercise: 1: Supine SLR (bolster under heel for modified range of motion) x 10 then 2 x 5 reps reps 2: Supine heel slides 2 x 10 with strap assist 3: Hip ABD/ADD slides knee bent 65 degrees approx x 20 4: Hip IR/ER with lateral ban pull 3 x 10 Skilled Intervention: Patient was educated in proper exercise technique and purpose for exercises. Correct performance of therapeutic exercises was facilitated with verbal cuing. Manual Therapy: 1: Inferior glide with fip flexion x 15 2: Long axis distraction sustained x 3 min x 2 rounds Skilled Intervention: Manual skills to improve joint mobility, ROM, and decrease pain. Utilized anatomy knowledge of the therapist, and assessment of patient's response to intervention. Billing Therapeutic Exercise Treatment Minutes: 31 Manual TherapyTreatment Minutes: 10 Total Treatment Time Minutes (timed/untimed): 41 Magdi Arriaga PT documented in this encounter [facility] 08-24-2022 Miscellaneous Notes MUNIR ling has been approved through 08/24/2023. Approval letter send to scanning. Anjelica Peter MA Clinical notes faxed to [facility]. Confirmation received. Anjelica Peter MA Caller looking for additional information relating to prior authorization: Chart notes of positive clinical response to the medication - Benlysta. MUNIR No.: [id number] documented in this encounter [facility] 08-22-2022 Note HNO ID: [id number] Author: Magdi Arriaga PT Service: ? Author Type: Physical Therapist Type: Progress Notes Filed: 08/22/2022 4:26 PM Note Text: Episode Visit Count: 2 Therapist That Will Accept/Oversee The Plan Of Care: Magdi Arriaga Start of Care Date: 08/10/22 Onset Date: 08/10/21 Plan of Care Certification Date: 08/10/22 Next Certification Due Date: 09/14/22 Patient Identified by Name and Date of : Yes REHABILITATION AND SPORTS THERAPY PHYSICAL THERAPY TREATMENT NOTE ASSESSMENT: Char Madera tolerated the session with no issues. She demonstrated better tolerance to today's therapeutic exercises. The patient will continue to benefit from ongoing skilled physical therapy to progress toward set goals. PLAN FOR NEXT VISIT: Assess reaction to HEP. MT as needed SUBJECTIVE: Patient Reason for Visit: The hip fired up in pain after the last session and was more painful for days. Feeling not as painful now. Still limping. Could not remember what to do with the band with the exercises. Pain: Pain Pain Level: 5 Pain Location: Hip - Left OBJECTIVE MEASURES WITH LEVEL OF FUNCTION: Antalgic gait pattern on the LLE TREATMENT: Therapeutic Exercise: 1: Heel slides 2 x 10 reps focusing more ext 2: Heel slides strap assist 2 x 10 through hip flexion bias 3: Hip ABD/ADD slides knee bent 65 degrees approx x 20 4: Hip IR/ER with lateral ban pull 2 x 10 Skilled Intervention: Patient was educated in proper exercise technique and purpose for exercises. Correct performance of therapeutic exercises was facilitated with verbal and visual cuing. Manual Therapy: 1: Long axis distraction mabs x 20 2: Long axis distraction sustained x 2 min x 2 rounds (this is preferred method) Skilled Intervention: Manual skills to improve joint mobility, ROM, and decrease pain. Utilized anatomy knowledge of the therapist, and assessment of patient's response to intervention. Billing Therapeutic Exercise Treatment Minutes: 30 Manual TherapyTreatment Minutes: 15 Total Treatment Time Minutes (timed/untimed): 45 Magdi Arriaga PT [facility] 08-18-2022 Miscellaneous Notes Patient has been identified by name and date of : Yes, Patient phones for refill(s): Requested Prescriptions Pending Prescriptions Disp Refills venlafaxine ER (EFFEXOR XR) 150 mg 24 hr capsule 90 capsule 1 Sig: Take 1 capsule by mouth once daily. Date of last office visit in primary care: CARLOS 08/02/22 Appointment scheduled 02/06/23 Last 2 Encounter Wt Readings: Date: Wt: 08/15/2022 91.6 kg (202 lb) 08/08/2022 91.2 kg (201 lb) Please advise. Thank you. WEI Gunter documented in this encounter [facility] 08-10-2022 Note HNO ID: [id number] Author: Magdi Arriaga PT Service: ? Author Type: Physical Therapist Type: Progress Notes Filed: 08/10/2022 2:44 PM Note Text: Episode Visit Count: 1 Therapist That Will Accept/Oversee The Plan Of Care: Magdi Arriaga Start of Care Date: 08/10/22 Onset Date: 08/10/21 Plan of Care Certification Date: 08/10/22 Next Certification Due Date: 09/14/22 Patient Identified by Name and Date of : Yes REHABILITATION AND SPORTS THERAPY PHYSICAL THERAPY EVALUATION PLAN OF CARE: Assessment: Char Madera presents with chief complaint of L hip pain that interferes with walking . She presents with impairments in gait, joint mobility, range of motion, and strength. Patient did not complete the PROMIS? (Patient Reported Outcome Measures Information System). Prognosis for therapy is Good due to: current objective clinical presentation, good support system/ coping skills . Pt demonstrates hypomobility and pain at the L FA joint at end ranges of motion and WB. Pt may benefit from a hip mobility program and strengthening program. She will benefit from skilled therapy services to meet the goals established for this plan of care as noted below. Goals for Episode of Care: created on 08/10/22 through 10/05/22 [place] in home exercise program. Increase ROM of L hip by 10 degrees of flexion and IR for decreased pain and improved joint mechanics Increased strength of LLE to 4+/5 via MMT for decreased pain with joint loading Normal gait. Patient Goals: Take as much of the pain out of the hip as possible Planned Interventions, Frequency, and Duration: Current Frequency: 1x/week Duration: 4 weeks Total Number of Visits Planned: 4 Planned Treatment Interventions: Therapeutic exercise (48200), Neuromuscular re-education (80553), Manual therapy (59319), Self-nursing home management (58346), Patient/Family/Caregiver Education PLAN FOR NEXT VISIT: Assess reaction to HEP. Trial clamshells with pillow between the knees and do if tolerated. Pt may benefit from manual therapy using belt to distract the FA joint. Patient demonstrates good understanding of plan of care and treatment. The above goals and plan of care were discussed and agreed upon by patient/family. SUBJECTIVE: Char Madera is a 46 year old female seen today for L hip pain for 1 year. Consistent pain right in the joint. Numbness in the LLE due to back. Did have back surgery. Typically limping on the L side. Pain causes the limp. 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 Sleeps with a pillow between the legs to keep the hip with a separation keeps her more comfortable. Patient Goals: Take as much of the pain out of the hip as possible Functional Limitations: walking Prior Level of Function: Independent without limitations Intake Information: Prescription present Previous Treatment: NSAIDs Pain: Pain Pain Level: 0 (when sitting 3-4/10 when walking) Pain Location: Hip - Left Description: Sharp PROMIS Scales Higher is Better 05/30/2022 01/11/2022 10/10/2021 Phys Func - Score 39 (moderate dysfunction) 42 (mild dysfunction) 41 (mild dysfunction) Phys Func - Percentile 14 % 21 % 18 % T-scores: mean of general population = 50. 5 points is clinically meaningfully difference Percentiles provide an indication of how the patient's score ranks in relation to the general population. Higher percentile rankings indicate better function/quality of life. 50th percentile is the average of the general population and indicates half of respondents had a worse score. OBJECTIVE MEASURES WITH LEVEL OF FUNCTION: LE AROM Lumbar Spine Evaluated?: Yes LE PROM L Hip Flexion: 90 Degrees (pain at end range) L Hip Internal Rotation: 5 Degrees (pain at end range) L Hip External Rotation: 55 Degrees (Pain at end range) LE Flexibility Flexibility: Hamstring Flexibility R Hamstring Flexibility: WNL L Hamstring Flexibility: WNL Joint Mobility - Hip Hip Joint Mobility Comments: Hypomobile LE Strength L Hip Extension: 3+/5 L Hip Flexion (L2): 3+/5 L Hip ABduction: 3+/5 L Hip External Rotation: 3+/5 Special Tests - Hip and Spine Hip and Spine Special Tests: WILLIAM Test, FADDIR Test WILLIAM Test: Left Positive FADDIR Test: Left Positive Gait Gait Observation: LLE antalgic gait pattern Education: Education Learning Preferences: Demonstration, Explanation, Performance, Printed Materials Barriers: None Learning/educational needs: Home exercise program, Plan of Care Education Provided: Yes, see treatment interventions for education provided Education Provided To: Patient Education Mode/Type: Demonstration, Explanation/Discussion, Literature/Printed Materials, Performance Response to Education/Teach Back: States/Identifies, Return Demonstration TREATMENT: PT Treatment Interventions: Therapeutic Exercise Evaluation Therapeutic Exercise: 1: Discussed therapy goals, exam findings, purpose of the HEP. Discussed (more content not included)... [facility] 08-10-2022 History of Presen t illness Narrative Episode Visit Count: 1 Therapist That Will Accept/Oversee The Plan Of Care: Magdi Arriaga Start of Care Date: 08/10/22 Onset Date: 08/10/21 Plan of Care Certification Date: 08/10/22 Next Certification Due Date: 09/14/22 Patient Identified by Name and Date of : Yes [facility] PHYSICAL THERAPY EVALUATION PLAN OF CARE: Assessment: Char Madera presents with chief complaint of L hip pain that interferes with walking . She presents with impairments in gait, joint mobility, range of motion, and strength. Patient did not complete the PROMIS (Patient Reported Outcome Measures Information System). Prognosis for therapy is Good due to: current objective clinical presentation, good support system/ coping skills . Pt demonstrates hypomobility and pain at the L FA joint at end ranges of motion and WB. Pt may benefit from a hip mobility program and strengthening program. She will benefit from skilled therapy services to meet the goals established for this plan of care as noted below. Goals for Episode of Care: created on 08/10/22 through 10/05/22 [place] in home exercise program. Increase ROM of L hip by 10 degrees of flexion and IR for decreased pain and improved joint mechanics Increased strength of LLE to 4+/5 via MMT for decreased pain with joint loading Normal gait. Patient Goals: Take as much of the pain out of the hip as possible Planned Interventions, Frequency, and Duration: Current Frequency: 1x/week Duration: 4 weeks Total Number of Visits Planned: 4 Planned Treatment Interventions: Therapeutic exercise (57708), Neuromuscular re-education (52554), Manual therapy (29798), Self-nursing home management (08014), Patient/Family/Caregiver Education PLAN FOR NEXT VISIT: Assess reaction to HEP. Trial clamshells with pillow between the knees and do if tolerated. Pt may benefit from manual therapy using belt to distract the FA joint. Patient demonstrates good understanding of plan of care and treatment. The above goals and plan of care were discussed and agreed upon by patient/family. SUBJECTIVE: Char Madera is a 46 year old female seen today for L hip pain for 1 year. Consistent pain right in the joint. Numbness in the LLE due to back. Did have back surgery. Typically limping on the L side. Pain causes the limp. 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 Sleeps with a pillow between the legs to keep the hip with a separation keeps her more comfortable. Patient Goals: Take as much of the pain out of the hip as possible Functional Limitations: walking Prior Level of Function: Independent without limitations Intake Information: Prescription present Previous Treatment: NSAIDs Pain: Pain Pain Level: 0 (when sitting 3-4/10 when walking) Pain Location: Hip - Left Description: Sharp PROMIS Scales Higher is Better 05/30/2022 01/11/2022 10/10/2021 Phys Func - Score 39 (moderate dysfunction) 42 (mild dysfunction) 41 (mild dysfunction) Phys Func - Percentile 14 % 21 % 18 % T-scores: mean of general population = 50. 5 points is clinically meaningfully difference Percentiles provide an indication of how the patient's score ranks in relation to the general population. Higher percentile rankings indicate better function/quality of life. 50th percentile is the average of the general population and indicates half of respondents had a worse score. OBJECTIVE MEASURES WITH LEVEL OF FUNCTION: LE AROM Lumbar Spine Evaluated?: Yes LE PROM L Hip Flexion: 90 Degrees (pain at end range) L Hip Internal Rotation: 5 Degrees (pain at end range) L Hip External Rotation: 55 Degrees (Pain at end range) LE Flexibility Flexibility: Hamstring Flexibility R Hamstring Flexibility: WNL L Hamstring Flexibility: WNL Joint Mobility - Hip Hip Joint Mobility Comments: Hypomobile LE Strength L Hip Extension: 3+/5 L Hip Flexion (L2): 3+/5 L Hip ABduction: 3+/5 L Hip External Rotation: 3+/5 Special Tests - Hip and Spine Hip and Spine Special Tests: WILLIAM Test, FADDIR Test WILLIAM Test: Left Positive FADDIR Test: Left Positive Gait Gait Observation: LLE antalgic gait pattern Education: Education Learning Preferences: Demonstration, Explanation, Performance, Printed Materials Barriers: None Learning/educational needs: Home exercise program, Plan of Care Education Provided: Yes, see treatment interventions for education provided Education Provided To: Patient Education Mode/Type: Demonstration, Explanation/Discussion, Literature/Printed Materials, Performance Response to Education/Teach Back: States/Identifies, Return Demonstration TREATMENT: PT Treatment Interventions: Therapeutic Exercise Evaluation Therapeutic Exercise: 1: Discussed therapy goals, exam findings, purpose of the HEP. Discussed need to increase L hip mobility and strengthen gluteal muscles to decrease pain with ADL's. 2: Prone lying hip IR/ER in tolerated ROM with purple TB providing distraction at the FA joint x 10 3: Prone hip ext knee bent 80 degrees x 10 Skilled Intervention: Patient was educated in proper exercise technique and purpose for exercises. Skilled judgment was provided in selection of appropriate interventions. Provided written instruction for home exercise program to facilitate proper performance and compliance. Correct performance of therapeutic exercises was facilitated with verbal cuing. Billing * Evaluation Low Complexity: 1 Unit Therapeutic Exercise Treatment Minutes: 24 Total Treatment Time Minutes (timed/untimed): 42 Magdi Arriaga PT documented in this encounter [facility] 08-08-2022 Note HNO ID: [id number] Author: Christine Rodriguez PA-C Service: ? Author Type: Physician Monomer Purification Operator Type: Progress Notes Filed: 08/13/2022 10:59 PM Note Text: HISTORY AND PHYSICAL Char Madera 1975 REFERRING PHYSICIAN: Jus Pérez MD CHIEF COMPLAINT: Consult (colonoscopy) HPI: The patient is a 46 year old female referred for endoscopy. Char notes no colon complaints. Patient denies any change in bowel habits, weight changes, blood in stools, black tarry stools or abdominal pain. Denies family history of colon issues. The patient notes no upper GI complaints. Char has not undergone prior endoscopy. PAST MEDICAL HISTORY Diagnosis Date Abnormal Papanicolaou smear of vagina and vaginal HPV Human papillomavirus in conditions classified elsewhere and of unspecified site Hyperlipidemia Irregular menstrual cycle PMH - PAST MEDICAL HISTORY OF POST DEPRESSION Premenstrual tension syndromes Reflex sympathetic dystrophy, unspecified RLS (restless legs syndrome) SLE (systemic lupus erythematosus) ([facility]) PAST SURGICAL HISTORY Procedure Laterality Date CARPAL TUNNEL RIGHT WRIST 04/23/2005 COLPOSCOPY CERVIX UPPER/ADJACENT VAGINA 04/23/1998 WITH A BIOPSY DILATION AND CURETTAGE DXAND/THER NONOBSTETRIC INCISION THROMBOSED HEMORRHOID EXTERNAL 01/22/2013 Exc. left lateral thrombosed hemorrhoid, local LEEP PROCEDURE ([facility])_*FL 04/23/2002 ERLINDA 1 PAST SURGICAL HISTORY OF 92, 99 planned AB X2 PAST SURGICAL HISTORY OF WISDOM TEETH REMOVAL S DEV ENOCH ENDOMETRIAL ABLATION N/A 2020 hysteroscopy, ablation in office with removal IUD Current Outpatient Medications Medication Sig melatonin 3 mg tablet Take 1 tablet by mouth at bedtime as needed for for insomnia. belimumab (BENLYSTA INTRAVENOUS) Inject intravenously. oxybutynin ER (DITROPAN XL) 10 mg 24 hr tablet TAKE 1 TABLET BY MOUTH EVERY DAY metoprolol succinate ER (TOPROL XL) 25 mg 24 hr tablet Take 1 tablet by mouth once daily. Blood Pressure Monitor (BLOOD PRESSURE KIT) 1 Each once daily. venlafaxine ER (EFFEXOR XR) 150 mg 24 hr capsule Take 1 capsule by mouth once daily. oxaprozin (DAYPRO) 600 mg tablet Take 1,200 mg by mouth once daily. cyclobenzaprine (FLEXERIL) 10 mg tablet Take 0.5 tablets by mouth at bedtime as needed. hydrOXYchloroQUINE (PLAQUENIL) 200 mg tablet Take 1.5 tablets by mouth once daily. hydrOXYzine HCl (ATARAX) 25 mg tablet Take 1 tablet by mouth four times daily as needed for anxiety. mv-min/iron/folic/calcium/vitK (WOMEN'S MULTIVITAMIN ORAL) Take by mouth once daily. Pt takes bio cleanse by plexus for bowel health Current Facility-Administered Medications Medication Dose Route Frequency perflutren lipid microspheres 1.3 mL in NaCl (PF) 0.9% 10 mL injection (DEFINITY) INTRAVENOUS DIRECTED PRN sodium chloride 0.9 % (flush) 10 mL (BD POSIFLUSH) 10 mL INTRAVENOUS DIRECTED PRN ALLERGIES: Patient has no known allergies. PERSONAL HISTORY: Social History Tobacco Use Smoking status: Former Types: Cigarettes Quit date: 04/23/1998 Years since quittin.3 Smokeless tobacco: Never Tobacco comments: quit 5 and 1/2 yrs ago. Vaping Use Vaping Use: Never used Substance Use Topics Alcohol use: Yes Comment: RARELY Drug use: No FAMILY HISTORY: FAMILY HISTORY Problem Relation Age of Onset Diabetes Mother Arthritis Mother Lipids Mother high other (Pre-cancerous breast tissue) Mother Bilateral mastectomies in her 50s other (MYOFACIAL PAIN SYNDROME) Mother other (neuropathy) Mother other (htn) Mother other (Migraine) Mother other (depression) Mother other (fibromyalgia) Mother Hypertension Father other (Migraine) Father other (depression) Father Prostate Cancer Father dx 50s Alcohol abuse Father Kidney Disease Brother Kidney transplant Brother Diabetes Maternal Grandmother Arthritis Maternal Grandmother Heart Maternal Grandfather Fibromyalgia Paternal Grandmother Colon Cancer Paternal Grandfather uncertain about this diagnosis other (Migraine) Daughter other (Migraine) Daughter other (Migraine) Daughter other (depression) Daughter 3 daughters diagnosed other (Migraine) Son Breast Cancer Other MATERNAL COUSIN WITH CERVICAL CA ALSO other (DOWNS SYNDROME) Other MATERNAL COUSIN REVIEW OF SYMPTOMS: The review of systems data was entered by the nurse and reviewed by wv Nursing Notes: Leyla De Leon RN 08/08/2022 3:30 PM Signed REVIEW OF SYSTEMS: General: The patient NOTES fatigue, denies weight loss, denies weight gain, NOTES feeling hot, and NOTES feelings of cold. Eyes: The patient denies glaucoma, NOTES eye injury/surgery, does not wear glasses or contacts. Ear/Nose/Throat: The patient denies allergies, denies hayfever, denies ear infections, and denies bloody noses. Cardiovascular: The patient denies chest pain, denies heart disease, denies high blood pressure,denies cardiac stent, kylie (more content not included)... [facility] 08-08-2022 History of Presen t illness Narrative HISTORY AND PHYSICAL Char Madera 1975 REFERRING PHYSICIAN: Jus Pérez MD CHIEF COMPLAINT: Consult (colonoscopy) HPI: The patient is a 46 year old female referred for endoscopy. Char notes no colon complaints. Patient denies any change in bowel habits, weight changes, blood in stools, black tarry stools or abdominal pain. Denies family history of colon issues. The patient notes no upper GI complaints. Char has not undergone prior endoscopy. PAST MEDICAL HISTORY Diagnosis Date Abnormal Papanicolaou smear of vagina and vaginal HPV Human papillomavirus in conditions classified elsewhere and of unspecified site Hyperlipidemia Irregular menstrual cycle PMH - PAST MEDICAL HISTORY OF POST DEPRESSION Premenstrual tension syndromes Reflex sympathetic dystrophy, unspecified RLS (restless legs syndrome) SLE (systemic lupus erythematosus) ([facility]) PAST SURGICAL HISTORY Procedure Laterality Date CARPAL TUNNEL RIGHT WRIST 04/23/2005 COLPOSCOPY CERVIX UPPER/ADJACENT VAGINA 04/23/1998 WITH A BIOPSY DILATION & CURETTAGE DX&/THER NONOBSTETRIC INCISION THROMBOSED HEMORRHOID EXTERNAL 01/22/2013 Exc. left lateral thrombosed hemorrhoid, local LEEP PROCEDURE ([facility])_*FL 04/23/2002 ERLINDA 1 PAST SURGICAL HISTORY OF 92, 99 planned AB X2 PAST SURGICAL HISTORY OF WISDOM TEETH REMOVAL S DEV ENOCH ENDOMETRIAL ABLATION N/A 2020 hysteroscopy, ablation in office with removal IUD Current Outpatient Medications Medication Sig melatonin 3 mg tablet Take 1 tablet by mouth at bedtime as needed for for insomnia. belimumab (BENLYSTA INTRAVENOUS) Inject intravenously. oxybutynin ER (DITROPAN XL) 10 mg 24 hr tablet TAKE 1 TABLET BY MOUTH EVERY DAY metoprolol succinate ER (TOPROL XL) 25 mg 24 hr tablet Take 1 tablet by mouth once daily. Blood Pressure Monitor (BLOOD PRESSURE KIT) 1 Each once daily. venlafaxine ER (EFFEXOR XR) 150 mg 24 hr capsule Take 1 capsule by mouth once daily. oxaprozin (DAYPRO) 600 mg tablet Take 1,200 mg by mouth once daily. cyclobenzaprine (FLEXERIL) 10 mg tablet Take 0.5 tablets by mouth at bedtime as needed. hydrOXYchloroQUINE (PLAQUENIL) 200 mg tablet Take 1.5 tablets by mouth once daily. hydrOXYzine HCl (ATARAX) 25 mg tablet Take 1 tablet by mouth four times daily as needed for anxiety. mv-min/iron/folic/calcium/vitK (WOMEN'S MULTIVITAMIN ORAL) Take by mouth once daily. Pt takes bio cleanse by plexus for bowel health Current Facility-Administered Medications Medication Dose Route Frequency perflutren lipid microspheres 1.3 mL in NaCl (PF) 0.9% 10 mL injection (DEFINITY) INTRAVENOUS DIRECTED PRN sodium chloride 0.9 % (flush) 10 mL (BD POSIFLUSH) 10 mL INTRAVENOUS DIRECTED PRN ALLERGIES: Patient has no known allergies. PERSONAL HISTORY: Social History Tobacco Use Smoking status: Former Types: Cigarettes Quit date: 04/23/1998 Years since quittin.3 Smokeless tobacco: Never Tobacco comments: quit 5 and 1/2 yrs ago. Vaping Use Vaping Use: Never used Substance Use Topics Alcohol use: Yes Comment: RARELY Drug use: No FAMILY HISTORY: FAMILY HISTORY Problem Relation Age of Onset Diabetes Mother Arthritis Mother Lipids Mother high other (Pre-cancerous breast tissue) Mother Bilateral mastectomies in her 50s other (MYOFACIAL PAIN SYNDROME) Mother other (neuropathy) Mother other (htn) Mother other (Migraine) Mother other (depression) Mother other (fibromyalgia) Mother Hypertension Father other (Migraine) Father other (depression) Father Prostate Cancer Father dx 50s Alcohol abuse Father Kidney Disease Brother Kidney transplant Brother Diabetes Maternal Grandmother Arthritis Maternal Grandmother Heart Maternal Grandfather Fibromyalgia Paternal Grandmother Colon Cancer Paternal Grandfather uncertain about this diagnosis other (Migraine) Daughter other (Migraine) Daughter other (Migraine) Daughter other (depression) Daughter 3 daughters diagnosed other (Migraine) Son Breast Cancer Other MATERNAL COUSIN WITH CERVICAL CA ALSO other (DOWNS SYNDROME) Other MATERNAL COUSIN REVIEW OF SYMPTOMS: The review of systems data was entered by the nurse and reviewed by wv Nursing Notes: Leyla De Leon RN 08/08/2022 3:30 PM Signed REVIEW OF SYSTEMS: General: The patient NOTES fatigue, denies weight loss, denies weight gain, NOTES feeling hot, and NOTES feelings of cold. Eyes: The patient denies glaucoma, NOTES eye injury/surgery, does not wear glasses or contacts. Ear/Nose/Throat: The patient denies allergies, denies hayfever, denies ear infections, and denies bloody noses. Cardiovascular: The patient denies chest pain, denies heart disease, denies high blood pressure,denies cardiac stent, denies prior heart attack, NOTES irregular heart beat, denies high cholesterol, denies poor circulation, denies heart failure, other cardiac issues, denies claudication, denies cold feet, denies peripheral arterial stent. Respiratory: The patient denies tuberculosis, denies pneumonia, denies frequent cough, denies pulmonary embolism, denies shortness of breath, and denies coughing up blood. Gastrointestinal: The patient denies difficulty swallowing, denies acid reflux, denies ulcers, denies vomiting, denies jaundice/hepatitis, denies gallbladder problems, denies black or tarry stools, NOTES hemorrhoids, denies bleeding from rectum, denies diverticulitis, NOTES constipation, denies diarrhea, denies loss of stool control, and denies hernias. Kidney/Bladder: The patient denies kidney stones, denies urine infections, and denies bloody urine. Skin: The patient denies a history of skin cancer, denies bleeding/changing moles, and denies a history of skin rash. Neurologic: The patient denies a history of epilepsy/convulsions, denies headaches, denies head/spinal injuries, and denies stroke/TIA. Psychiatric: The patient denies psychiatric medications, denies depression, and denies voices, denies substance abuse. Endocrine: The patient denies thyroid disorders, denies diabetes, and denies hormonal problems. Hematologic: The patient denies a history of bruising, denies bleeding, and denies anemia, denies blood clots. Infections: The patient denies a history of measles and mumps, denies rheumatic fever, and denies sexually transmitted diseases. Musculoskeletal: The patient denies back pain/injury, NOTES back problems, denies sciatica, denies knee/foot trouble, NOTES arthritis, or denies gout. When was patient's last Mammogram screening? 2021 Last Colonoscopy: NONE Leyla De Leon RN I have confirmed and edited as necessary, the PFSH and ROS obtained by others. Christine Rodriguez PA-C PHYSICAL EXAMINATION: General: The patient is 46 year old female, well nourished, well hydrated in no acute distress. The patient is oriented to time, place, and person. VITALS: Last menstrual period 07/14/2019. There is no height or weight on file to calculate BMI. HEENT: Normal cephalic, ataumatic, pupils are equally round, sclera are anicteric, mucous membranes are moist, oropharynx is clear. Neck has no masses, asymmetry or lymphadenopathy. Respiratory: Clear to auscultation and percussion. Normal respiratory excursion and pattern. Cardiac: Examination is regular rate and rhythm. Normal S1/S2 Abdominal exam: Soft, nontender, with no palpable masses. No hepatosplenomegaly. No palpable hernias. Extremities: no clubbing, cyanosis or edema. No adenopathy. LABORATORY VALUES: As Noted RADIOLOGIC STUDIES: As Noted Assessment IMPRESSION: encounter for screening colonoscopy PLAN: I have reviewed my findings with the surgeon. Will plan for lower endoscopy. We discussed the risks and benefits of the planned endoscopy. I have informed the patient that complications can occur including failure to complete the endoscopy and perforation. The patient had the opportunity to ask questions concerning the planned endoscopy. My staff has also explained the procedure to the patient in understandable terms and has given the patient printed material concerning the procedure. The patient freely consents to surgery. The patient was offered a surgery/procedure at a [facility] facility. I have counseled the patient regarding the risk of exposure to and/or potential harm posed by the COVID-19 virus with having a surgery/procedure at this time versus the risk of delaying the surgery/procedure. It is not possible to know either the risk of delaying the surgery or procedure or chance of getting an infection with perfect accuracy, but a joint decision was made between the patient and myself to proceed at this time with endoscopy. I plan to use Golytely bowel preparation I have explained to the patient the difference between IV conscious sedation and MAC anesthesia - and I have offered either, according to the patient's wishes. I have explained that with IV conscious sedation there is no anesthesia provider available and therefore there is a limitation of the amount of IV medications that can be given and that the patient may wake up in the middle of the procedure and/or experience pain/discomfort during the procedure. Further discussion was done and the patient was given the opportunity to ask questions and all questions were answered. The patient chooses IV conscious sedation. Patient requesting no fentanyl d/t losing son to overdose. Does not want to travel for MAC. Patient to receive Demerol, no Fentanyl-reviewed with Dr. Alvarez Diagnoses: (Z12.11) Screening for colon cancer Consultation requested by Dr. Pérez for an opinion regarding screening colonoscopy. My final recommendations will be communicated back to the requesting physician by way of shared Medical record or letter to requesting physician via [place] mail. Christine Rodriguez PA-C documented in this encounter [facility] 08-08-2022 Nurse Note REVIEW OF SYSTEMS: General: The patient NOTES fatigue, denies weight loss, denies weight gain, NOTES feeling hot, and NOTES feelings of cold. Eyes: The patient denies glaucoma, NOTES eye injury/surgery, does not wear glasses or contacts. Ear/Nose/Throat: The patient denies allergies, denies hayfever, denies ear infections, and denies bloody noses. Cardiovascular: The patient denies chest pain, denies heart disease, denies high blood pressure,denies cardiac stent, denies prior heart attack, NOTES irregular heart beat, denies high cholesterol, denies poor circulation, denies heart failure, other cardiac issues, denies claudication, denies cold feet, denies peripheral arterial stent. Respiratory: The patient denies tuberculosis, denies pneumonia, denies frequent cough, denies pulmonary embolism, denies shortness of breath, and denies coughing up blood. Gastrointestinal: The patient denies difficulty swallowing, denies acid reflux, denies ulcers, denies vomiting, denies jaundice/hepatitis, denies gallbladder problems, denies black or tarry stools, NOTES hemorrhoids, denies bleeding from rectum, denies diverticulitis, NOTES constipation, denies diarrhea, denies loss of stool control, and denies hernias. Kidney/Bladder: The patient denies kidney stones, denies urine infections, and denies bloody urine. Skin: The patient denies a history of skin cancer, denies bleeding/changing moles, and denies a history of skin rash. Neurologic: The patient denies a history of epilepsy/convulsions, denies headaches, denies head/spinal injuries, and denies stroke/TIA. Psychiatric: The patient denies psychiatric medications, denies depression, and denies voices, denies substance abuse. Endocrine: The patient denies thyroid disorders, denies diabetes, and denies hormonal problems. Hematologic: The patient denies a history of bruising, denies bleeding, and denies anemia, denies blood clots. Infections: The patient denies a history of measles and mumps, denies rheumatic fever, and denies sexually transmitted diseases. Musculoskeletal: The patient denies back pain/injury, NOTES back problems, denies sciatica, denies knee/foot trouble, NOTES arthritis, or denies gout. When was patient's last Mammogram screening? 2021 Last Colonoscopy: NONE Leyla De Leon RN documented in this encounter [facility] documented as of this encounter (statuses as of 08/03/2022) [facility]04-12-2023 History of Past illness Narrative* Problem Noted Date Resolved Date Nausea 08/02/2022 08/02/2022 Left carpal tunnel syndrome 12/01/201405/25 Hip pain, left 12/29/2013 06/06/2018 Low back pain 12/29/2013 06/06/2018 Thrombosed hemorrhoids 01/22/2013 9 Routine general medical exam ination at a health care facility 01/20/2009 12/08/2011 Overview: 01/21/09, from Dr. Saravia (retired) Routine gynecological examination 01/20/2009 12/08/2011 Overview: [facility] [place] documented as of this encounter (statuses as of 08/11/2022) [facility]04-12-2023 History of Past illness Narrative* Problem Noted Date Resolved Date Nausea 08/02/2022 08/02/2022 Left carpal tunnel syndrome 12/01/201405/25 Hip pain, left 12/29/2013 06/06/2018 Low back pain 12/29/2013 06/06/2018 Thrombosed hemorrhoids 01/22/2013 9 Routine general medical exam ination at a health care facility 01/20/2009 12/08/2011 Overview: 01/21/09, from Dr. Saravia (retired) Routine gynecological examination 01/20/2009 12/08/2011 Overview: [facility] documented as of this encounter (statuses as of 08/14/2022) [facility]04-12-2023 History of Past illness Narrative* Problem Noted Date Resolved Date Nausea 08/02/2022 08/02/2022 Left carpal tunnel syndrome 12/01/201405/25 Hip pain, left 12/29/2013 06/06/2018 Low back pain 12/29/2013 06/06/2018 Thrombosed hemorrhoids 01/22/2013 9 Routine general medical exam ination at a health care facility 01/20/2009 12/08/2011 Overview: 01/21/09, from Dr. Saravia (retired) Routine gynecological examination 01/20/2009 12/08/2011 Overview: [facility], [facility] documented as of this encounter (statuses as of 08/16/2022) [facility]04-12-2023 History of Past illness Narrative* Problem Noted Date Resolved Date Nausea 08/02/2022 08/02/2022 Left carpal tunnel syndrome 12/01/201405/25 Hip pain, left 12/29/2013 06/06/2018 Low back pain 12/29/2013 06/06/2018 Thrombosed hemorrhoids 01/22/2013 9 Routine general medical exam ination at a health care facility 01/20/2009 12/08/2011 Overview: 01/21/09, from Dr. Saravia (retired) Routine gynecological examination 01/20/2009 12/08/2011 Overview: [facility] documented as of this encounter (statuses as of 08/18/2022) [facility]04-12-2023 History of Past illness Narrative* Problem Noted Date Resolved Date Nausea 08/02/2022 08/02/2022 Left carpal tunnel syndrome 12/01/201405/25 Hip pain, left 12/29/2013 06/06/2018 Low back pain 12/29/2013 06/06/2018 Thrombosed hemorrhoids 01/22/2013 9 Routine general medical exam ination at a health care facility 01/20/2009 12/08/2011 Overview: 01/21/09, from Dr. Saravia (retired) Routine gynecological examination 01/20/2009 12/08/2011 Overview: [facility], [facility] documented as of this encounter (statuses as of 08/24/2022) [facility]04-12-2023 History of Past illness Narrative* Problem Noted Date Resolved Date Nausea 08/02/2022 08/02/2022 Left carpal tunnel syndrome 12/01/201405/25 Hip pain, left 12/29/2013 06/06/2018 Low back pain 12/29/2013 06/06/2018 Thrombosed hemorrhoids 01/22/2013 9 Routine general medical exam ination at a health care facility 01/20/2009 12/08/2011 Overview: 01/21/09, from Dr. Saravia (retired) Routine gynecological examination 01/20/2009 12/08/2011 Overview: [facility], [facility] documented as of this encounter (statuses as of 08/30/2022) [facility]04-12-2023 History of Past illness Narrative* Problem Noted Date Resolved Date Nausea 08/02/2022 08/02/2022 Left carpal tunnel syndrome 12/01/201405/25 Hip pain, left 12/29/2013 06/06/2018 Low back pain 12/29/2013 06/06/2018 Thrombosed hemorrhoids 01/22/2013 9 Routine general medical exam ination at a health care facility 01/20/2009 12/08/2011 Overview: 01/21/09, from Dr. Saravia (retired) Routine gynecological examination 01/20/2009 12/08/2011 Overview: [facility] documented as of this encounter (statuses as of 09/26/2022) [facility]04-12-2023 History of Past illness Narrative* Problem Noted Date Resolved Date Nausea 08/02/2022 08/02/2022 Left carpal tunnel syndrome 12/01/201405/25 Hip pain, left 12/29/2013 06/06/2018 Low back pain 12/29/2013 06/06/2018 Thrombosed hemorrhoids 01/22/2013 9 Routine general medical exam ination at a health care facility 01/20/2009 12/08/2011 Overview: 01/21/09, from Dr. Saravia (retired) Routine gynecological examination 01/20/2009 12/08/2011 Overview: [facility], [facility] documented as of this encounter (statuses as of 09/27/2022) [facility]04-12[facility]20[facility] History of Past illness Narrative* Problem Noted Date Resolved Date Nausea 08/02/2022 08/02/2022 Left carpal tunnel syndrome 12/01/201405/25 Hip pain, left 12/29/2013 06/06/2018 Low back pain 12/29/2013 06/06/2018 Thrombosed hemorrhoids 01/22/2013 9 Routine general medical exam ination at a health care facility 01/20/2009 12/08/2011 Overview: 01/21/09, from Dr. Saravia (retired) Routine gynecological examination 01/20/2009 12/08/2011 Overview: [facility] documented as of this encounter (statuses as of 10/04/2022) [facility]04-12-20[facility] History of Past illness Narrative* Problem Noted Date Resolved Date Nausea 08/02/2022 08/02/2022 Left carpal tunnel syndrome 12/01/201405/25 Hip pain, left 12/29/2013 06/06/2018 Low back pain 12/29/2013 06/06/2018 Thrombosed hemorrhoids 01/22/2013 9 Routine general medical exam ination at a health care facility 01/20/2009 12/08/2011 Overview: 01/21/09, from Dr. Saravia (retired) Routine gynecological examination 01/20/2009 12/08/2011 Overview: [facility] documented as of this encounter (statuses as of 10/11/2022) [facility]04-12-20[facility] History of Past illness Narrative* Problem Noted Date Resolved Date Nausea 08/02/2022 08/02/2022 Left carpal tunnel syndrome 12/01/201405/25 Hip pain, left 12/29/2013 06/06/2018 Low back pain 12/29/2013 06/06/2018 Thrombosed hemorrhoids 01/22/2013 9 Routine general medical exam ination at a health care facility 01/20/2009 12/08/2011 Overview: 01/21/09, from Dr. Saravia (retired) Routine gynecological examination 01/20/2009 12/08/2011 Overview: [facility] documented as of this encounter (statuses as of 10/13/2022) [facility]04[facility]12[facility]20[facility] History of Past illness Narrative* Problem Noted Date Resolved Date Nausea 08/02/2022 08/02/2022 Left carpal tunnel syndrome 12/01/201405/25 Hip pain, left 12/29/2013 06/06/2018 Low back pain 12/29/2013 06/06/2018 Thrombosed hemorrhoids 01/22/2013 9 Routine general medical exam ination at a health care facility 01/20/2009 12/08/2011 Overview: 01/21/09, from Dr. Saravia (retired) Routine gynecological examination 01/20/2009 12/08/2011 Overview: [facility] documented as of this encounter (statuses as of 10/17/2022) [facility]04-12-20[facility] History of Past illness Narrative* Problem Noted Date Resolved Date Nausea 08/02/2022 08/02/2022 Left carpal tunnel syndrome 12/01/201405/25 Hip pain, left 12/29/2013 06/06/2018 Low back pain 12/29/2013 06/06/2018 Thrombosed hemorrhoids 01/22/2013 9 Routine general medical exam ination at a health care facility 01/20/2009 12/08/2011 Overview: 01/21/09, from Dr. Saravia (retired) Routine gynecological examination 01/20/2009 12/08/2011 Overview: [facility] documented as of this encounter (statuses as of 10/27/2022) [facility]04-12[facility]20[facility] History of Past illness Narrative* Problem Noted Date Diagnosed Date Resolved Date Nausea 08/02/2022 08/02/2022 Left carpal tunnel syndrome 12/01/2014 06/19/2016 Hip pain, left 12/29/2013 06/06/2018 Low back pain 12/29/2013 06/06/2018 Thrombosed hemorrhoids 01/22/201306/06 Routine general medical exam ination at a health care facility 01/20/2009 12/08/2011 Overview: 01/21/09, from Dr. Saravia (retired) Routine gynecological examination 01/20/2009 12/08/2011 Overview: [facility] documented as of this encounter (statuses as of 11/08/2022) [facility]04-12-2023 History of Past illness Narrative* Problem Noted Date Diagnosed Date Resolved Date Nausea 08/02/2022 08/02/2022 Left carpal tunnel syndrome 12/01/2014 06/19/2016 Hip pain, left 12/29/2013 06/06/2018 Low back pain 12/29/2013 06/06/2018 Thrombosed hemorrhoids 01/22/201306/06 Routine general medical exam ination at a health care facility 01/20/2009 12/08/2011 Overview: 01/21/09, from Dr. Saravia (retired) Routine gynecological examination 01/20/2009 12/08/2011 Overview: [facility] documented as of this encounter (statuses as of 11/27/2022) [facility]04-12[facility]20[facility] History of Past illness Narrative* Problem Noted Date Diagnosed Date Resolved Date Nausea 08/02/2022 08/02/2022 Left carpal tunnel syndrome 12/01/2014 06/19/2016 Hip pain, left 12/29/2013 06/06/2018 Low back pain 12/29/2013 06/06/2018 Thrombosed hemorrhoids 01/22/201306/06 Routine general medical exam ination at a health care facility 01/20/2009 12/08/2011 Overview: 01/21/09, from Dr. Saravia (retired) Routine gynecological examination 01/20/2009 12/08/2011 Overview: [facility] documented as of this encounter (statuses as of 11/28/2022) [facility]04-12[facility]2023 History of Past illness Narrative* Problem Noted Date Diagnosed Date Resolved Date Nausea 08/02/2022 08/02/2022 Left carpal tunnel syndrome 12/01/2014 06/19/2016 Hip pain, left 12/29/2013 06/06/2018 Low back pain 12/29/2013 06/06/2018 Thrombosed hemorrhoids 01/22/201306/06 Routine general medical exam ination at a health care facility 01/20/2009 12/08/2011 Overview: 01/21/09, from Dr. Saravia (retired) Routine gynecological examination 01/20/2009 12/08/2011 Overview: [facility] documented as of this encounter (statuses as of 11/29/2022) [facility]04[facility]12[facility]20[facility] History of Past illness Narrative* Problem Noted Date Diagnosed Date Resolved Date Nausea 08/02/2022 08/02/2022 Left carpal tunnel syndrome 12/01/2014 06/19/2016 Hip pain, left 12/29/2013 06/06/2018 Low back pain 12/29/2013 06/06/2018 Thrombosed hemorrhoids 01/22/201306/06 Routine general medical exam ination at a health care facility 01/20/2009 12/08/2011 Overview: 01/21/09, from Dr. Saravia (retired) Routine gynecological examination 01/20/2009 12/08/2011 Overview: [facility] documented as of this encounter (statuses as of 12/12/2022) [facility]04[facility]20[facility] History of Past illness Narrative* Problem Noted Date Diagnosed Date Resolved Date Nausea 08/02/2022 08/02/2022 Left carpal tunnel syndrome 12/01/2014 06/19/2016 Hip pain, left 12/29/2013 06/06/2018 Low back pain 12/29/2013 06/06/2018 Thrombosed hemorrhoids 01/22/201306/06 Routine general medical exam ination at a health care facility 01/20/2009 12/08/2011 Overview: 01/21/09, from Dr. Saravia (retired) Routine gynecological examination 01/20/2009 12/08/2011 Overview: [facility] documented as of this encounter (statuses as of 12/13/2022) [facility]04[facility]12[facility]20[facility] History of Past illness Narrative* Problem Noted Date Diagnosed Date Resolved Date Nausea 08/02/2022 08/02/2022 Left carpal tunnel syndrome 12/01/2014 06/19/2016 Hip pain, left 12/29/2013 06/06/2018 Low back pain 12/29/2013 06/06/2018 Thrombosed hemorrhoids 01/22/201306/06 Routine general medical exam ination at a health care facility 01/20/2009 12/08/2011 Overview: 01/21/09, from Dr. Saravia (retired) Routine gynecological examination 01/20/2009 12/08/2011 Overview: [facility] documented as of this encounter (statuses as of 01/03/2023) [facility]04[facility]12-20[facility] History of Past illness Narrative* Problem Noted Date Diagnosed Date Resolved Date Nausea 08/02/2022 08/02/2022 Left carpal tunnel syndrome 12/01/2014 06/19/2016 Hip pain, left 12/29/2013 06/06/2018 Low back pain 12/29/2013 06/06/2018 Thrombosed hemorrhoids 01/22/201306/06 Routine general medical exam ination at a health care facility 01/20/2009 12/08/2011 Overview: 01/21/09, from Dr. Saravia (retired) Routine gynecological examination 01/20/2009 12/08/2011 Overview: [facility] documented as of this encounter (statuses as of 01/11/2023) [facility]04[facility]12[facility]20[facility] History of Past illness Narrative* Problem Noted Date Diagnosed Date Resolved Date Nausea 08/02/2022 08/02/2022 Left carpal tunnel syndrome 12/01/2014 06/19/2016 Hip pain, left 12/29/2013 06/06/2018 Low back pain 12/29/2013 06/06/2018 Thrombosed hemorrhoids 01/22/201306/06 Routine general medical exam ination at a health care facility 01/20/2009 12/08/2011 Overview: 01/21/09, from Dr. Saravia (retired) Routine gynecological examination 01/20/2009 12/08/2011 Overview: [facility] documented as of this encounter (statuses as of 02/06/2023) [facility]04[facility]12[facility]20[facility] History of Past illness Narrative* Problem Noted Date Diagnosed Date Resolved Date Nausea 08/02/2022 08/02/2022 Anxiety with depression 03/12/202001/21 Left carpal tunnel syndrome 12/01/2014 06/19/2016 Hip pain, left 12/29/2013 06/06/2018 Low back pain 12/29/2013 06/06/2018 Thrombosed hemorrhoids 01/22/201306/06 Routine general medical exam ination at a health care facility 01/20/2009 12/08/2011 Overview: 01/21/09, from Dr. Saravia (retired) Routine gynecological examination 01/20/2009 12/08/2011 Overview: [facility] documented as of this encounter (statuses as of 02/07/2023) [facility]04-12-20[facility] History of Past illness Narrative* Problem Noted Date Diagnosed Date Resolved Date Nausea 08/02/2022 08/02/2022 Anxiety with depression 03/12/202001/21 Left carpal tunnel syndrome 12/01/2014 06/19/2016 Hip pain, left 12/29/2013 06/06/2018 Low back pain 12/29/2013 06/06/2018 Thrombosed hemorrhoids 01/22/201306/06 Routine general medical exam ination at a health care facility 01/20/2009 12/08/2011 Overview: 01/21/09, from Dr. Saravia (retired) Routine gynecological examination 01/20/2009 12/08/2011 Overview: [facility] documented as of this encounter (statuses as of 02/19/2023) [facility]04[facility] History of Past illness Narrative* Problem Noted Date Diagnosed Date Resolved Date Nausea 08/02/2022 08/02/2022 Anxiety with depression 03/12/202001/21 Left carpal tunnel syndrome 12/01/2014 06/19/2016 Hip pain, left 12/29/2013 06/06/2018 Low back pain 12/29/2013 06/06/2018 Thrombosed hemorrhoids 01/22/201306/06 Routine general medical exam ination at a health care facility 01/20/2009 12/08/2011 Overview: 01/21/09, from Dr. Saravia (retired) Routine gynecological examination 01/20/2009 12/08/2011 Overview: [facility] [place] documented as of this encounter (statuses as of 02/25/2023) [facility]04[facility]20[facility] History of Past illness Narrative* Problem Noted Date Diagnosed Date Resolved Date Nausea 08/02/2022 08/02/2022 Anxiety with depression 03/12/202001/21 Left carpal tunnel syndrome 12/01/2014 06/19/2016 Hip pain, left 12/29/2013 06/06/2018 Low back pain 12/29/2013 06/06/2018 Thrombosed hemorrhoids 01/22/201306/06 Routine general medical exam ination at a health care facility 01/20/2009 12/08/2011 Overview: 01/21/09, from Dr. Saravia (retired) Routine gynecological examination 01/20/2009 12/08/2011 Overview: [facility] documented as of this encounter (statuses as of 03/07/2023) [facility] History of Past illness Narrative* Problem Noted Date Diagnosed Date Resolved Date Nausea 08/02/2022 08/02/2022 Anxiety with depression 03/12/202001/21 Left carpal tunnel syndrome 12/01/2014 06/19/2016 Hip pain, left 12/29/2013 06/06/2018 Low back pain 12/29/2013 06/06/2018 Thrombosed hemorrhoids 01/22/201306/06 Routine general medical exam ination at a health care facility 01/20/2009 12/08/2011 Overview: 01/21/09, from Dr. Saravia (retired) Routine gynecological examination 01/20/2009 12/08/2011 Overview: [facility] documented as of this encounter (statuses as of 03/12/2023) [facility]04[facility] History of Past illness Narrative* Problem Noted Date Diagnosed Date Resolved Date Nausea 08/02/2022 08/02/2022 Anxiety with depression 03/12/202001/21 Left carpal tunnel syndrome 12/01/2014 06/19/2016 Hip pain, left 12/29/2013 06/06/2018 Low back pain 12/29/2013 06/06/2018 Thrombosed hemorrhoids 01/22/201306/06 Routine general medical exam ination at a health care facility 01/20/2009 12/08/2011 Overview: 01/21/09, from Dr. Saravia (retired) Routine gynecological examination 01/20/2009 12/08/2011 Overview: [facility] documented as of this encounter (statuses as of 03/30/2023) [facility]04[facility] History of Past illness Narrative* Problem Noted Date Diagnosed Date Resolved Date Nausea 08/02/2022 08/02/2022 Anxiety with depression 03/12/202001/21 Left carpal tunnel syndrome 12/01/2014 06/19/2016 Hip pain, left 12/29/2013 06/06/2018 Low back pain 12/29/2013 06/06/2018 Thrombosed hemorrhoids 01/22/201306/06 Routine general medical exam ination at a health care facility 01/20/2009 12/08/2011 Overview: 01/21/09, from Dr. Saravia (retired) Routine gynecological examination 01/20/2009 12/08/2011 Overview: [facility], [facility] documented as of this encounter (statuses as of 04/04/2023) [facility]04-12-2023 NoteHNO ID: [id number] Author: Jus Pérez MD Service: ? Author Type: Physician Type: Progress Notes Filed: 08/02/2022 1:28 PM Note Text: Patient presents with: Follow Up HPI: Patient presents today for office visit for follow up. HTN: occasional monitor Bp at home. States Bp was 150s/90s and is now back down to low 120-140s systolic. So has noticed an improvement. Denies chest pain, shortness of breath, headaches, dizziness Palpitations: Still getting occasional palpitations. Not as often as before. States beta blockers have helped. No syncope Follows with Dr. Negron, Cardiology. Last seen 05/30/22. Taking Metoprolol at bedtime due to it causes drowsiness. Okay'd per Dr. Negron for her to take 2 tablets if needed. Echo completed. Shows normal LV function with no significant valve disease. Denies any orthostatic complaints. PSYCH: Endorses tolerating effexor well, denies GI sideffects. States feels this dose is adequate and does not feel anythign should be added at this time. State has a good support system. Patient endorses difficulty with sleep- Both falling and staying asleep. Is getting 4-5 hrs without sleep aids. Is currently taking Nyquil- states has improved is sleeping closer 6-7 hrs. Rheum: Patient endorses intermittent pain all over. Patient endorses constant left hip pain.pain is localized in hip, denies radiation of pain down leg. States feels hip gets stuck and has trouble ambulating from sitting to standing. Recently had X ray left hip which showed mild degenerative arthritis in hip. Does not want Physical therapy, but would be willing to see ortho. Gait is antalgic upon physical exam. MEDICATIONS: Current Outpatient Medications Medication Sig belimumab (BENLYSTA INTRAVENOUS) Inject intravenously. oxybutynin ER (DITROPAN XL) 10 mg 24 hr tablet TAKE 1 TABLET BY MOUTH EVERY DAY metoprolol succinate ER (TOPROL XL) 25 mg 24 hr tablet Take 1 tablet by mouth once daily. Blood Pressure Monitor (BLOOD PRESSURE KIT) 1 Each once daily. venlafaxine ER (EFFEXOR XR) 150 mg 24 hr capsule Take 1 capsule by mouth once daily. oxaprozin (DAYPRO) 600 mg tablet Take 1,200 mg by mouth once daily. cyclobenzaprine (FLEXERIL) 10 mg tablet Take 0.5 tablets by mouth at bedtime as needed. hydrOXYchloroQUINE (PLAQUENIL) 200 mg tablet Take 1.5 tablets by mouth once daily. hydrOXYzine HCl (ATARAX) 25 mg tablet Take 1 tablet by mouth four times daily as needed for anxiety. mv-min/iron/folic/calcium/vitK (WOMEN'S MULTIVITAMIN ORAL) Take by mouth once daily. Current Facility-Administered Medications Medication Dose Route Frequency perflutren lipid microspheres 1.3 mL in NaCl (PF) 0.9% 10 mL injection (DEFINITY) INTRAVENOUS DIRECTED PRN sodium chloride 0.9 % (flush) 10 mL (BD POSIFLUSH) 10 mL INTRAVENOUS DIRECTED PRN ALLERGIES: ALLERGIES No Known Allergies PAST MEDICAL HISTORY Diagnosis Date Abnormal Papanicolaou smear of vagina and vaginal HPV Human papillomavirus in conditions classified elsewhere and of unspecified site Hyperlipidemia Irregular menstrual cycle PMH - PAST MEDICAL HISTORY OF POST DEPRESSION Premenstrual tension syndromes Reflex sympathetic dystrophy, unspecified RLS (restless legs syndrome) SLE (systemic lupus erythematosus) ([facility]) PAST SURGICAL HISTORY Procedure Laterality Date CARPAL TUNNEL RIGHT WRIST 04/23/2005 COLPOSCOPY CERVIX UPPER/ADJACENT VAGINA 04/23/1998 WITH A BIOPSY DILATION AND CURETTAGE DXAND/THER NONOBSTETRIC INCISION THROMBOSED HEMORRHOID EXTERNAL 01/22/2013 Exc. left lateral thrombosed hemorrhoid, local LEEP PROCEDURE ([facility])_*[place] 04/23/2002 ERLINDA 1 PAST SURGICAL HISTORY OF 89, 89 planned AB X2 PAST SURGICAL HISTORY OF WISDOM TEETH REMOVAL S DEV ENOCH ENDOMETRIAL ABLATION N/A 2020 hysteroscopy, ablation in office with removal IUD FAMILY HISTORY Problem Relation Age of Onset Diabetes Mother Arthritis Mother Lipids Mother high other (Pre-cancerous breast tissue) Mother Bilateral mastectomies in her 50s other (MYOFACIAL PAIN SYNDROME) Mother other (neuropathy) Mother other (htn) Mother other (Migraine) Mother other (depression) Mother other (fibromyalgia) Mother Hypertension Father other (Migraine) Father other (depression) Father Prostate Cancer Father dx 50s Alcohol abuse Father Kidney Disease Brother Kidney transplant Brother Diabetes Maternal Grandmother Arthritis Maternal Grandmother Heart Maternal Grandfather Fibromyalgia Paternal Grandmother Colon Cancer Paternal Grandfather uncertain about this diagnosis other (Migraine) Daughter other (Migraine) Daughter other (Migraine) Daughter other (depression) Daughter 3 daughters diagnosed other (Migraine) Son Breast Cancer Other MATERNAL COUSIN WITH CERVICAL CA ALSO other (DOWNS SYNDROME) Other MATERNAL COUSIN Social History Tobacco Use Smoking status: Former Types: [employer] (more content not included)...[facility]04-12-2023 History of Present illness Narrative* Jus Pérez MD - 08/02/2022 10:25 AM EDT Patient presents with: Follow Up HPI: Patient presents today for office visit for follow up. HTN: occasional monitor Bp at home. States Bp was 150s/90s and is now back down to low 120-140s systolic. So has noticed an improvement. Denies chest pain, shortness of breath, headaches, dizziness Palpitations: Still getting occasional palpitations. Not as often as before. States beta blockers have helped. No syncope Follows with Dr. Negron, Cardiology. Last seen 05/30/22. Taking Metoprolol at bedtime due to it causes drowsiness. Okay'd per Dr. Negron for her to take 2 tablets if needed. Echo completed. Shows normal LV function with no significant valve disease. Denies any orthostatic complaints. PSYCH: Endorses tolerating effexor well, denies GI sideffects. States feels this dose is adequate and does not feel anythign should be added at this time. State has a good support system. Patient endorses difficulty with sleep- Both falling and staying asleep. Is getting 4-5 hrs withoutsleep aids. Is currently taking Nyquil- states has improved is sleeping closer 6-7 hrs. Rheum: Patient endorses intermittent pain all over. Patient endorses constant left hip pain.pain islocalized in hip, denies radiation of pain down leg. States feels hip gets stuck and has trouble ambulating from sitting to standing. Recently had X ray left hip which showed mild degenerative arthritis in hip. Does not want Physical therapy, but would be willing to see ortho. Gait is antalgic upon physical exam. MEDICATIONS: Current Outpatient Medications Medication Sig belimumab (BENLYSTA INTRAVENOUS) Inject intravenously. oxybutynin ER (DITROPAN XL) 10 mg 24 hr tablet TAKE 1 TABLET BY MOUTH EVERY DAY metoprolol succinate ER (TOPROL XL) 25 mg 24 hr tablet Take 1 tablet by mouth once daily. Blood Pressure Monitor (BLOOD PRESSURE KIT) 1 Each once daily. venlafaxine ER (EFFEXOR XR) 150 mg 24 hr capsule Take 1 capsule by mouth once daily. oxaprozin (DAYPRO) 600 mg tablet Take 1,200 mg by mouth once daily. cyclobenzaprine (FLEXERIL) 10 mg tablet Take 0.5 tablets by mouth at bedtime as needed. hydrOXYchloroQUINE (PLAQUENIL) 200 mg tablet Take 1.5 tablets by mouth once daily. hydrOXYzine HCl (ATARAX) 25 mg tablet Take 1 tablet by mouth four times daily as needed for anxiety. mv-min/iron/folic/calcium/vitK (WOMEN'S MULTIVITAMIN ORAL) Take by mouth once daily. Current Facility-Administered Medications Medication Dose Route Frequency perflutren lipid microspheres 1.3 mL in NaCl (PF) 0.9% 10 mL injection (DEFINITY) INTRAVENOUS DIRECTED PRN sodium chloride 0.9 % (flush) 10 mL (BD POSIFLUSH) 10 mL INTRAVENOUS DIRECTED PRN ALLERGIES: ALLERGIES No Known Allergies PAST MEDICAL HISTORY Diagnosis Date Abnormal Papanicolaou smear of vagina and vaginal HPV Human papillomavirus in conditions classified elsewhere and of unspecified site Hyperlipidemia Irregular menstrual cycle PMH - PAST MEDICAL HISTORY OF POST DEPRESSION Premenstrual tension syndromes Reflex sympathetic dystrophy, unspecified RLS (restless legs syndrome) SLE (systemic lupus erythematosus) ([facility]) PAST SURGICAL HISTORY Procedure Laterality Date CARPAL TUNNEL RIGHT WRIST 04/23/2005 COLPOSCOPY CERVIX UPPER/ADJACENT VAGINA 04/23/1998 WITH A BIOPSY DILATION & CURETTAGE DX&/THER NONOBSTETRIC INCISION THROMBOSED HEMORRHOID EXTERNAL 01/22/2013 Exc. left lateral thrombosed hemorrhoid, local LEEP PROCEDURE ([employer] DEPT)_*FL 04/23/2002 ERLINDA 1 PAST SURGICAL HISTORY OF 92, 99 planned AB X2 PAST SURGICAL HISTORY OF WISDOM TEETH REMOVAL S DEV ENOCH ENDOMETRIAL ABLATION N/A 2020 hysteroscopy, ablation in office with removal IUD FAMILY HISTORY Problem Relation Age of Onset Diabetes Mother Arthritis Mother Lipids Mother high other (Pre-cancerous breast tissue) Mother Bilateral mastectomies in her 50s other (MYOFACIAL PAIN SYNDROME) Mother other (neuropathy) Mother other (htn) Mother other (Migraine) Mother other (depression) Mother other (fibromyalgia) Mother Hypertension Father other (Migraine) Father other (depression) Father Prostate Cancer Father dx 50s Alcohol abuse Father Kidney Disease Brother Kidney transplant Brother Diabetes Maternal Grandmother Arthritis Maternal Grandmother Heart Maternal Grandfather Fibromyalgia Paternal Grandmother Colon Cancer Paternal Grandfather uncertain about this diagnosis other (Migraine) Daughter other (Migraine) Daughter other (Migraine) Daughter other (depression) Daughter 3 daughters diagnosed other (Migraine) Son Breast Cancer Other MATERNAL COUSIN WITH CERVICAL CA ALSO other (DOWNS SYNDROME) Other MATERNAL COUSIN Social History Tobacco Use Smoking status: Former Types: Cigarettes Quit date: 04/23/1998 Years since quittin.2 Smokeless tobacco: Never Tobacco comments: quit 5 and 1/2 yrs ago. Vaping Use Vaping Use: Never used Substance Use Topics Alcohol use: Yes Comment: RARELY Drug use: No Reviewed current medications, allergies, past medical history, surgical history, family history andsocial history today. REVIEW OF SYSTEMS GENERAL: No weight loss, malaise or fevers HEENT: Negative for frequent or significant headaches, No changes in hearing or vision, no nose bleeds or other nasal problems NECK: Negative for lumps, goiter, pain and significant neck swelling RESPIRATORY: Negative for cough, hemoptysis, wheezing, COPD, dyspnea or shortness of breath CARDIOVASCULAR: Endorses chest pressure with palpitations, denies pain, denies radiation. GI: Intermittent nasuea with heart burn, denies constipation and diarrhea- no blood in stool : No history of dysuria, frequency or incontinence MUSCULOSKELETAL: Let hip pain- see HPI. SKIN: Negative for lesions, rash, and itching PSYCH: Patient endorses difficulty with sleep- Both falling and staying asleep. Is getting 4-5 hrs without sleep aids. Is currently taking Nyquil- states has improved is sleeping closer 6-7 hrs. HEMATOLOGY/LYMPHOLOGY: Negative for prolonged bleeding, bruising easily or swollen nodes ENDOCRINE: Negative for cold or heat intolerance, polyuria, polydipsia and goiter NEURO: No history of headaches, syncope, paralysis, seizures or tremors All other reviewed and negative other than HPI. HEALTH MAINTENANCE: Reviewed health maintenance issues today and recommended the following in detail. HEPATITIS B(1 of 3 - 3-dose series) Never done COVID-19 VACCINE(1) Never done BP CONTROLLED (<130/80) Never done COLORECTAL CANCER SCREENING Never done DTAP,TDAP,TD(3 - Tdap) due on 03/07/2020 MAMMOGRAM due on 09/30/2022 VITALS: BP 135/84 Pulse 76 Ht 167.6 cm (5' 6 ) Wt 90 kg (198 lb 6.4 oz) LMP 07/14/2019 BMI 32.02 kg/m Last 4 Encounter Wt Readings: Date: Wt: 05/30/2022 93.3 kg (205 lb 9.6 oz) 05/23/2022 92.5 kg (204 lb) 05/02/2022 93 kg (205 lb) 03/30/2022 93 kg (205 lb) PHYSICAL EXAMINATION: General appearance: Well appearing, alert, in no acute distress, well-hydrated, well nourished. Skin: Skin color, texture, turgor normal, no suspicious rashes or lesions Head: Normocephalic, no masses, lesions, tenderness or abnormalities Eyes: Anicteric sclera. Pupils are equally round and reactive to light. Extraocular movements are intact. Ears: External ears normal, canals clear Nose/Sinuses: Nares normal, septum midline, mucosa normal, no drainage or sinus tenderness Oropharynx: Lips, mucosa, and tongue normal, teeth and gums normal, oropharynx normal Neck: Supple, no adenopathy; thyroid symmetric, normal size, no bruits Back: Normal exam Lungs: Lungs clear to auscultation. No wheezing, rhonchi, rales Heart: RRR without murmur, gallop, or rubs. No ectopy Abdomen: Normal abdominal exam, Abdomen soft, non-tender. Bowel sounds normal. No masses, organomegaly Extremities: No deformities, edema, skin discoloration, clubbing or cyanosis. Good capillary refill. Musculoskeletal: Positive findings: joint location: on left hip pain, painful movement, loss of ROM, and stiffness, Joint pain: Hips. Tender over greater trochanter. Peripheral pulses: Normal Neuro: Sensations grossly intact. Gait is antalgic. ASSESSMENT/PLAN: 1. Mixed hyperlipidemia - ICD9: 272.2, ICD10: E78.2 (primary diagnosis) - stable. 2. Primary hypertension - ICD9: 401.9, ICD10: I10 - good control - Continue current medication(s) - Goal of BP <130/80 3. SVT (supraventricular tachycardia) (HCC) - ICD9: 427.89, ICD10: I47.1 - stable. 4. Drug-induced systemic lupus erythematosus, unspecified organ involvement status (HCC) - ICD9: 710.0, E980.5, ICD10: M32.0 - per rheum. 5. RLS (restless legs syndrome) - ICD9: 333.94, ICD10: G25.81 6. Anxiety with depression - ICD9: 300.4, ICD10: F41.8 - continue meds. 7. Anxiety state - ICD9: 300.00, ICD10: F41.1 Continue meds. 8. Encounter for screening mammogram for malignant neoplasm of breast - ICD9: V76.12, ICD10: Z12.31 - Follow up for annual exam in one year. - MIRNA SCREENING W SHARIFA 9. Osteoarthritis of left hip, unspecified osteoarthritis type - ICD9: 715.95, ICD10: M16.12 - CONSULT TO PHYSICAL THERAPY 10. Screening for colon cancer - ICD9: V76.51, ICD10: Z12.11 - CONSULT TO GENERAL SURGERY 11. Chronic insomnia - ICD9: 780.52, ICD10: F51.04 Discussed risks and benefits of new medication with the patient. Advised them to call if any side effects or questions. - MELATONIN 3 MG TABLET Jus Pérez MD [facility] Miscellaneous Notes* Telephone Encounter - Anjelica Peter MA - 06/06/2022 2:18 PM EST PA for Benlysta has been approved. Anjelica Peter MA * Telephone Encounter - Anjelica Peter MA - 06/05/2022 10:04 AM EST Email send to pharm auth team. Anjelica Peter MA * Telephone Encounter - Dorcas Díaz MD - 06/05/2022 9:58 AM EST Please verify that benlysta IV is approved (when I'm looking it up it says authorization is pending)-she gets them in [place]. Thanks. * Telephone Encounter - Dorcas Díaz MD - 06/05/2022 9:56 AM EST Please verify that benlysta IV is approved (says authorization is pending)-she gets them in [place]. Thanks. documented in this encounterJ[facility]. [facility] NoteHNO ID: [id number] Author: Dorcas Díaz MD Service: ? Author Type: Physician Type: Progress Notes Filed: 06/05/2022 9:56 AM Note Text: On 06/05/2022, I had the pleasure of evaluating Char Madera in a [facility]up [facility] for lupus. This Team Access Model visit is a virtual encounter utilizing both video and audio components. It required patient-provider interaction for the medical decision making as documented below. HPI: To review, Char Tomas is a 46 year old female - In Dec, diagnosed with SLE per inflammatory arthritis (elbows, wrists, hands, knees, and feet) in the setting of a positive MATTHEW 1:640 and positive chromatin >8. - In Jan, started on HCQ 200mg bid - In Apr, stable - In Apr, reported 50-60% improvement in joint pain with HCQ. Continued to have pain in the L wrist, MCPs and PIP. Advised to decrease HCQ dose to keep in line with dosing guidelines. Also advised to consider MTX which she deferred. - In September, reported no change with HCQ dose decrease - In Jan, reported that joint pain and swelling had been progressing in the PIPs>>MCPs, knees (up stairs) and ankles. Also with worsened brain fog. Advised to start MTX PO. Stopped MTX after 4-6 weeks due to ARELLANO, fatigue, GERD and increased anxiety (did help joint pain some) - In June, started arava but stopped in August for weight gain and inefficacy - In August, advised to start AZA but she decided to hold off on starting it due to c/f potential side effects and FHx of cancer - In the interim, saw PCP for lupus rash, flare. Started on prednisone which helped by 40-45% - In Mar, reported that the left side was more painful: shoulder, elbow, hip and knee. Both hips felt like they're catching with a popping sensation when going to stand up. Knees had been painful for several years, progressively worsening. Remained on HCQ. - In August, started benlysta SC - In Dec, reported 65-75% improvement with benlysta. Said insurance will no longer cover benlysta SC so advised to do IV - In Jan, started first benlysta IV - Today, reports the benlysta IV is helping but taking longer to help than the SC - Last benlysta IV was 05/23/22 - Last plaquenil eye exam normal in August PAST MEDICAL HISTORY Diagnosis Date Abnormal Papanicolaou smear of vagina and vaginal HPV Human papillomavirus in conditions classified elsewhere and of unspecified site Hyperlipidemia Irregular menstrual cycle PMH - PAST MEDICAL HISTORY OF POST DEPRESSION Premenstrual tension syndromes Reflex sympathetic dystrophy, unspecified RLS (restless legs syndrome) SLE (systemic lupus erythematosus) ([facility]) PAST SURGICAL HISTORY Procedure Laterality Date CARPAL TUNNEL RIGHT WRIST 04/23/2005 COLPOSCOPY CERVIX UPPER/ADJACENT VAGINA 04/23/1998 WITH A BIOPSY DILATION AND CURETTAGE DXAND/THER NONOBSTETRIC INCISION THROMBOSED HEMORRHOID EXTERNAL 01/22/2013 Exc. left lateral thrombosed hemorrhoid, local LEEP PROCEDURE ([employer] DEPT)_*FL 04/23/2002 ERLINDA 1 PAST SURGICAL HISTORY OF 92, 99 planned AB X2 PAST SURGICAL HISTORY OF WISDOM TEETH REMOVAL S DEV ENOCH ENDOMETRIAL ABLATION N/A 2020 hysteroscopy, ablation in office with removal IUD ALLERGIES No Known Allergies MEDICATIONS: Current Outpatient Medications Medication Sig belimumab (BENLYSTA INTRAVENOUS) Inject intravenously. oxybutynin ER (DITROPAN XL) 10 mg 24 hr tablet TAKE 1 TABLET BY MOUTH EVERY DAY metoprolol succinate ER (TOPROL XL) 25 mg 24 hr tablet Take 1 tablet by mouth once daily. Blood Pressure Monitor (BLOOD PRESSURE KIT) 1 Each once daily. venlafaxine ER (EFFEXOR XR) 150 mg 24 hr capsule Take 1 capsule by mouth once daily. oxaprozin (DAYPRO) 600 mg tablet Take 1,200 mg by mouth once daily. cyclobenzaprine (FLEXERIL) 10 mg tablet Take 0.5 tablets by mouth at bedtime as needed. hydrOXYchloroQUINE (PLAQUENIL) 200 mg tablet Take 1.5 tablets by mouth once daily. hydrOXYzine HCl (ATARAX) 25 mg tablet Take 1 tablet by mouth four times daily as needed for anxiety. mv-min/iron/folic/calcium/vitK (WOMEN'S MULTIVITAMIN ORAL) Take by mouth once daily. Current Facility-Administered Medications Medication Dose Route Frequency perflutren lipid microspheres 1.3 mL in NaCl (PF) 0.9% 10 mL injection (DEFINITY) INTRAVENOUS DIRECTED PRN sodium chloride 0.9 % (flush) 10 mL (BD POSIFLUSH) 10 mL INTRAVENOUS DIRECTED PRN FAMILY HISTORY Problem Relation Age of Onset Diabetes Mother Arthritis Mother Lipids Mother high other (Pre-cancerous breast tissue) Mother Bilateral mastectomies in her 50s other (MYOFACIAL PAIN SYNDROME) Mother other (neuropathy) Mother other (htn) Mother other (Migraine) Mother other (depression) Mother other (fibromyalgia) Mother Hypertension Father other (Migraine) Father other (depression) Father Prostate Cancer Father dx (more content not included)...[facility]02-13-2023 History of Present illness Narrative* Dorcas Díaz MD - 06/05/2022 9:36 AM EST On 06/05/2022, I had the pleasure of evaluating Char Madera in a [facility] for lupus. This Team Access Model visit is a virtual encounter utilizing both video and audio components. It required patient-provider interaction for the medical decision making as documented below. HPI: To review, Char Tomas is a 46 year old female - In Dec, diagnosed with SLE per inflammatory arthritis (elbows, wrists, hands, knees, and feet) in the setting of a positive MATTHEW 1:640 and positive chromatin >8. - In Jan, started on HCQ 200mg bid - In Apr, stable - In Apr, reported 50-60% improvement in joint pain with HCQ. Continued to have pain in the L wrist, MCPs and PIP. Advised to decrease HCQ dose to keep in line with dosing guidelines. Also advised to consider MTX which she deferred. - In September, reported no change with HCQ dose decrease - In Jan, reported that joint pain and swelling had been progressing in the PIPs>>MCPs, knees (up stairs) and ankles. Also with worsened brain fog. Advised to start MTX PO. Stopped MTX after 4-6 weeks due to ARELLANO, fatigue, GERD and increased anxiety (did help joint pain some) - In June, started arava but stopped in August for weight gain and inefficacy - In August, advised to start AZA but she decided to hold off on starting it due to c/f potential side effects and FHx of cancer - In the interim, saw PCP for lupus rash, flare. Started on prednisone which helped by 40-45% - In Mar, reported that the left side was more painful: shoulder, elbow, hip and knee. Both hips felt like they're catching with a popping sensation when going to stand up. Knees had been painfulfor several years, progressively worsening. Remained on HCQ. - In August, started benlysta SC - In Dec, reported 65-75% improvement with benlysta. Said insurance will no longer cover benlysta SC so advised to do IV - In Jan, started first benlysta IV - Today, reports the benlysta IV is helping but taking longer to help than the SC - Last benlysta IV was 05/23/22 - Last plaquenil eye exam normal in August PAST MEDICAL HISTORY Diagnosis Date Abnormal Papanicolaou smear of vagina and vaginal HPV Human papillomavirus in conditions classified elsewhere and of unspecified site Hyperlipidemia Irregular menstrual cycle PMH - PAST MEDICAL HISTORY OF POST DEPRESSION Premenstrual tension syndromes Reflex sympathetic dystrophy, unspecified RLS (restless legs syndrome) SLE (systemic lupus erythematosus) ([facility]) PAST SURGICAL HISTORY Procedure Laterality Date CARPAL TUNNEL RIGHT WRIST 04/23/2005 COLPOSCOPY CERVIX UPPER/ADJACENT VAGINA 04/23/1998 WITH A BIOPSY DILATION & CURETTAGE DX&/THER NONOBSTETRIC INCISION THROMBOSED HEMORRHOID EXTERNAL 01/22/2013 Exc. left lateral thrombosed hemorrhoid, local LEEP PROCEDURE ([employer] DEPT)_*FL 04/23/2002 ERILNDA 1 PAST SURGICAL HISTORY OF 92, 99 planned AB X2 PAST SURGICAL HISTORY OF WISDOM TEETH REMOVAL S DEV ENOCH ENDOMETRIAL ABLATION N/A 2020 hysteroscopy, ablation in office with removal IUD ALLERGIES No Known Allergies MEDICATIONS: Current Outpatient Medications Medication Sig belimumab (BENLYSTA INTRAVENOUS) Inject intravenously. oxybutynin ER (DITROPAN XL) 10 mg 24 hr tablet TAKE 1 TABLET BY MOUTH EVERY DAY metoprolol succinate ER (TOPROL XL) 25 mg 24 hr tablet Take 1 tablet by mouth once daily. Blood Pressure Monitor (BLOOD PRESSURE KIT) 1 Each once daily. venlafaxine ER (EFFEXOR XR) 150 mg 24 hr capsule Take 1 capsule by mouth once daily. oxaprozin (DAYPRO) 600 mg tablet Take 1,200 mg by mouth once daily. cyclobenzaprine (FLEXERIL) 10 mg tablet Take 0.5 tablets by mouth at bedtime as needed. hydrOXYchloroQUINE (PLAQUENIL) 200 mg tablet Take 1.5 tablets by mouth once daily. hydrOXYzine HCl (ATARAX) 25 mg tablet Take 1 tablet by mouth four times daily as needed for anxiety. mv-min/iron/folic/calcium/vitK (WOMEN'S MULTIVITAMIN ORAL) Take by mouth once daily. Current Facility-Administered Medications Medication Dose Route Frequency perflutren lipid microspheres 1.3 mL in NaCl (PF) 0.9% 10 mL injection (DEFINITY) INTRAVENOUS DIRECTED PRN sodium chloride 0.9 % (flush) 10 mL (BD POSIFLUSH) 10 mL INTRAVENOUS DIRECTED PRN FAMILY HISTORY Problem Relation Age of Onset Diabetes Mother Arthritis Mother Lipids Mother high other (Pre-cancerous breast tissue) Mother Bilateral mastectomies in her 50s other (MYOFACIAL PAIN SYNDROME) Mother other (neuropathy) Mother other (htn) Mother other (Migraine) Mother other (depression) Mother other (fibromyalgia) Mother Hypertension Father other (Migraine) Father other (depression) Father Prostate Cancer Father dx 50s Alcohol abuse Father Kidney Disease Brother Kidney transplant Brother Diabetes Maternal Grandmother Arthritis Maternal Grandmother Heart Maternal Grandfather Fibromyalgia Paternal Grandmother Colon Cancer Paternal Grandfather uncertain about this diagnosis other (Migraine) Daughter other (Migraine) Daughter other (Migraine) Daughter other (depression) Daughter 3 daughters diagnosed other (Migraine) Son Breast Cancer Other MATERNAL COUSIN WITH CERVICAL CA ALSO other (DOWNS SYNDROME) Other MATERNAL COUSIN SOCIAL HISTORY: Lives in [place]. 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 Has grandkids. Tobacco: none Alcohol: none REVIEW OF SYSTEMS: reviewed 02/03 systems, as above PHYSICAL EXAM: CONSTITUTIONAL: Well-appearing, in NAD. SKIN: No rash. EYES: No scleral icterus or conjunctivitis NEURO: Awake, alert and oriented LABORATORY: Component Latest Ref Rng & Units 02/21/2022 WBC 3.70 - 11.00 k/uL 9.11 RBC 3.90 - 5.20 m/uL 4.29 Hemoglobin 11.5 - 15.5 g/dL 12.8 Platelet Count 150 - 400 k/uL 307 Hemoglobin/Blood,Ur Negative Negative Protein, Urine Random 0 - 20 mg/dL 8 Creatinine, Ur Random (UCRR) 20.0 - 300.0 mg/dL 124.0 Protein/Creat Ratio <0.15 mg/mg 0.06 Creatinine 0.58 - 0.96 mg/dL 0.71 eGFR >=60 mL/min/1.73m 106 AST 13 - 35 U/L 16 ALT 7 - 38 U/L 14 WSR 0 - 20 mm/hr 8 CRP <0.9 mg/dL <0.3 C3 86 - 166 mg/dL 150 C4 13 - 46 mg/dL 25 DNA Antibody <30 IU/mL <12 Component Latest Ref Rng & Units 05/23/2019 06/15/2020 TB Nil IU/mL 0.05 TB1 Ag minus Nil <0.35 IU/mL 0.00 TB2 Ag minus Nil <0.35 IU/mL 0.00 Mitogen minus Nil >10 TB Result Negative Negative TB Interpretation No evidence of current or previous infection with Mycobacterium tuberculosis. Hep B Core Ab, Total Negative Negative Hep C Antibody IA Negative Positive (A) Hep B Surface Ag Negative Negative Hep B Surface Ab, Qual Negative Negative Component Latest Ref Rng & Units 12/12/2011 05/23/2019 Hep B Core Ab, Total Negative Negative Hep C Antibody IA Negative Positive (A) Hep B Surface Ag Negative Negative Hep B Surface Ab, Qual Negative Negative HCV RNA by PCR IU/mL Negative for HCV RNA by PCR. HCV RNA not detected by PCR. Component Latest Ref Rng & Units 01/08/2017 05/23/2017 PT Sec 9.7 - 13.0 sec 10.2 PT INR 0.9 - 1.3 1.0 APTT 23.0 - 32.4 sec 29.5 Platelet Neut Negative Negative DRVVT Screen 32.7 - 46.7 sec 38.2 DRVVT Confirm Ratio <1.21 1.07 DRVVT 1:1 Mix 32.7 - 46.7 sec 38.2 Hex Phase Screen 48.9 - 70.2 sec 58.2 Hex Phase Confirm 45.1 - 64.1 sec 56.2 Hex Phase Delta <9.0 delta sec 2.0 APTT Screen 24.4 - 33.4 sec 31.9 Immediate PTT 1:1 Mix <33.5 sec 29.8 Incubated PTT 1:1 Mix <37.3 sec 32.6 Thrombin Time <18.6 sec 17.0 Interpretation(Lupus Anticoagulant) (NOTE) Cardiolipin Ab, IgG 0 - 9 GPL <9 Cardiolipin Ab, IgM 0 - 11 MPL <9 Cardiolipin Ab, IgA 0 - 11 APL <9 Beta 2 Glycoprotein, IgG <20 SGU 32 (H) Beta 2 Glycoprotein, IgM <20 SMU <9 Sm Antibody <1.0 AI <0.2 COMMERCIAL LOAN MANAGER Antibody <1.0 AI <0.2 SSA Antibody <1.0 AI <0.2 SSB Antibody <1.0 AI <0.2 Centromere Ab <1.0 AI <0.2 Scleroderma Ab, IgG <1.0 AI <0.2 Teresa 1 Antibody <1.0 AI <0.2 Ribosomal COMMERCIAL LOAN MANAGER <1.0 AI <0.2 Chromatin Antibody <1.0 AI >8.0 (H) MATTHEW Negative Positive (A) MATTHEW Titer Negative 1:640 (A) MATTHEW Pattern Homogeneous CCP Antibody, IgG <20 Units <15 Rheumatoid Factor <16 IU/mL <10 WSR 0 - 20 mm/hr 29 (H) CRP <0.9 mg/dL 1.3 (H) DNA Antibody w/Confirmation <30 IU/mL <12 STUDIES: *Nov CXR- no acute changes *Apr xray hands- normal *October xray L hand- no acute changes IMPRESSION and PLAN: 1. SLE: Inflammatory arthritis (elbows, wrists, hands, knees, and feet) in the setting of a positive MATTHEW 1:640 and positive chromatin >8. Lack other typically associated features including rash, photosensitivity, mouth sores and hair loss but will still pursue treatment as such given that inflammatory arthritis is clearly present. HCQ with partial improvement, MTX with SE/some improvement and arava without improvement. Declined AZA initiation given FHx cancer. Benlysta SC with significant improvement, IV with some relief but not the same. - Continue HCQ 300mg/day along with routine monitoring eye exams, last normal in August. Reminded to have exam done in August this year. - Continue benlysta IV every 4 weeks - Check labs (advised orders are in the system by [facility] Son from Feb). Notify of results via [employer] - Strongly advised sun protective measures in the past 2. Myalgia: She is concerned she has fibromyalgia especially as her mother has the condition with similar symptoms as she does. Sometimes flexeril helps - Continue flexeril 5mg qhs. 3. L hip pain: Center of joint, sometimes pops and feels better. X-ray with mild OA - Advised that symptoms are not necessarily from OA but other soft tissue pathology that wouldn't show up on an x-ray. Advised to pursue PT, explained the benefits as she was reluctant about trying it-didn't help her back in the past. She'll think about it. Referral is in place by PCP (from Mar) 4. General health maintenance: - Advised to continue follow-up with PCP for routine health maintenance and malignancy screening Follow-up in 4, 8 & 16 months with [facility] and 12 months with me or sooner if needed. Patient was instructed to call if any questions or concerns. Thank you for allowing me to participate in the care of your patient. Dorcas Díaz MD documented in this encounterJ.W. [facility]-07-[facility]23 NoteHNO ID: [id number] Author: Chon Negron MD Service: ? Author Type: Physician Type: Progress Notes Filed: 05/30/2022 3:40 PM Note Text: PRIMARY CARE PHYSICIAN: Jus Pérez MD REFERRING PHYSICIAN: PCP CHIEF COMPLAINT: Patient presents with: New Patient: Feels like her heart is beating out of her chest and neck. Happens often throughout the week. Usually when lying down or her anxiety is high HISTORY OF PRESENT ILLNESS: Ms. Madera is a 46 year old female who presents today for cardiac evaluation. She has been referred because of SVT/atrial tachycardia. Patient has a history of lupus and underlying depression and anxiety disorder. Lately she has been having palpitations which she describes as heart pounding sensation. It occurs mainly at nighttime when things are quieter. Is short lasting and feels like heart racing and pounding. It happens on a daily basis. Denies any associated symptoms. She wore 2-week patch monitor which showed short run of SVT and PVC burden of 4%. It was reported as 17 beat long but appears to be shorter. She drinks less than 32 ounces of coffee in the morning. Denies any excessive alcohol use She denies chest pain, shortness of breath, orthopnea, cough, edema, , PND, lightheadedness or syncope. PAST CARDIAC HISTORY: Nonsustained SVT/atrial tachycardia seen on monitor, 17 beat Frequent PVCs, 4% Hyperlipidemia Anxiety Lupus PAST MEDICAL HISTORY Diagnosis Date Abnormal Papanicolaou smear of vagina and vaginal HPV Human papillomavirus in conditions classified elsewhere and of unspecified site Hyperlipidemia Irregular menstrual cycle PMH - PAST MEDICAL HISTORY OF POST DEPRESSION Premenstrual tension syndromes Reflex sympathetic dystrophy, unspecified RLS (restless legs syndrome) SLE (systemic lupus erythematosus) ([facility]) PAST SURGICAL HISTORY Procedure Laterality Date CARPAL TUNNEL RIGHT WRIST 04/23/2005 COLPOSCOPY CERVIX UPPER/ADJACENT VAGINA 04/23/1998 WITH A BIOPSY DILATION AND CURETTAGE DXAND/THER NONOBSTETRIC INCISION THROMBOSED HEMORRHOID EXTERNAL 01/22/2013 Exc. left lateral thrombosed hemorrhoid, local LEEP PROCEDURE ([employer]PT)_*FL 04/23/2002 ERLINDA 1 PAST SURGICAL HISTORY OF 92, 99 planned AB X2 PAST SURGICAL HISTORY OF WISDOM TEETH REMOVAL S DEV ENOCH ENDOMETRIAL ABLATION N/A 2020 hysteroscopy, ablation in office with removal IUD SOCIAL HISTORY Social History Tobacco Use Smoking status: Former Types: Cigarettes Quit date: 04/23/1998 Years since quittin.1 Smokeless tobacco: Never Tobacco comments: quit 5 and 1/2 yrs ago. Vaping Use Vaping Use: Never used Substance Use Topics Alcohol use: Yes Comment: RARELY Drug use: No FAMILY HISTORY Problem Relation Age of Onset Diabetes Mother Arthritis Mother Lipids Mother high other (Pre-cancerous breast tissue) Mother Bilateral mastectomies in her 50s other (MYOFACIAL PAIN SYNDROME) Mother other (neuropathy) Mother other (htn) Mother other (Migraine) Mother other (depression) Mother other (fibromyalgia) Mother Hypertension Father other (Migraine) Father other (depression) Father Prostate Cancer Father dx 50s Alcohol abuse Father Kidney Disease Brother Kidney transplant Brother Diabetes Maternal Grandmother Arthritis Maternal Grandmother Heart Maternal Grandfather Fibromyalgia Paternal Grandmother Colon Cancer Paternal Grandfather uncertain about this diagnosis other (Migraine) Daughter other (Migraine) Daughter other (Migraine) Daughter other (depression) Daughter 3 daughters diagnosed other (Migraine) Son Breast Cancer Other MATERNAL COUSIN WITH CERVICAL CA ALSO other (DOWNS SYNDROME) Other MATERNAL COUSIN ALLERGIES: ALLERGIES No Known Allergies MEDICATIONS: belimumab (BENLYSTA INTRAVENOUS) Inject intravenously. oxybutynin ER (DITROPAN XL) 10 mg 24 hr tablet TAKE 1 TABLET BY MOUTH EVERY DAY metoprolol succinate ER (TOPROL XL) 25 mg 24 hr tablet Take 1 tablet by mouth once daily. Blood Pressure Monitor (BLOOD PRESSURE KIT) 1 Each once daily. venlafaxine ER (EFFEXOR XR) 150 mg 24 hr capsule Take 1 capsule by mouth once daily. oxaprozin (DAYPRO) 600 mg tablet Take 1,200 mg by mouth once daily. cyclobenzaprine (FLEXERIL) 10 mg tablet Take 0.5 tablets by mouth at bedtime as needed. hydrOXYchloroQUINE (PLAQUENIL) 200 mg tablet Take 1.5 tablets by mouth once daily. hydrOXYzine HCl (ATARAX) 25 mg tablet Take 1 tablet by mouth four times daily as needed for anxiety. mv-min/iron/folic/calcium/vitK (WOMEN'S MULTIVITAMIN ORAL) Take by mouth once daily. REVIEW OF SYSTEMS: GENERAL: Negative for: Weight loss or gain, Fever or Chills, Weakness and Sleep difficulties and Fatigue. HEENT: Negative for: Headache, Impaired Vision, Glasses, Hearing Impairment, Ringing in Ears, Nosebleeds, Poor dental care, Bleeding Gums, Dentures NECK: Negative for: Swelling, Pain, St (more content not included)...[facility]02-07-2023 History of Present illness Narrative* Chon Negron MD - 05/30/2022 3:08 PM EST PRIMARY CARE PHYSICIAN: Jus Pérez MD REFERRING PHYSICIAN: PCP CHIEF COMPLAINT: Patient presents with: New Patient: Feels like her heart is beating out of her chest and neck. Happens often throughout the week. Usually when lying down or her anxiety is high HISTORY OF PRESENT ILLNESS: Ms. Madera is a 46 year old female who presents today for cardiac evaluation. She has been referredbecause of SVT/atrial tachycardia. Patient has a history of lupus and underlying depression and anxiety disorder. Lately she has been having palpitations which she describes as heart pounding sensation. It occurs mainly at nighttime when things are quieter. Is short lasting and feels like heart racing and pounding. It happens on a daily basis. Denies any associated symptoms. She wore 2-week patch monitor which showed short run of SVT and PVC burden of 4%. It was reported as 17 beat long but appears to be shorter. She drinks less than 32 ounces of coffee in the morning. Denies any excessive alcohol use She denies chest pain, shortness of breath, orthopnea, cough, edema, , PND, lightheadedness or syncope. PAST CARDIAC HISTORY: Nonsustained SVT/atrial tachycardia seen on monitor, 17 beat Frequent PVCs, 4% Hyperlipidemia Anxiety Lupus PAST MEDICAL HISTORY Diagnosis Date Abnormal Papanicolaou smear of vagina and vaginal HPV Human papillomavirus in conditions classified elsewhere and of unspecified site Hyperlipidemia Irregular menstrual cycle PMH - PAST MEDICAL HISTORY OF POST DEPRESSION Premenstrual tension syndromes Reflex sympathetic dystrophy, unspecified RLS (restless legs syndrome) SLE (systemic lupus erythematosus) ([facility]) PAST SURGICAL HISTORY Procedure Laterality Date CARPAL TUNNEL RIGHT WRIST 04/23/2005 COLPOSCOPY CERVIX UPPER/ADJACENT VAGINA 04/23/1998 WITH A BIOPSY DILATION & CURETTAGE DX&/THER NONOBSTETRIC INCISION THROMBOSED HEMORRHOID EXTERNAL 01/22/2013 Exc. left lateral thrombosed hemorrhoid, local LEEP PROCEDURE ([employer] DEPT)_*FL 04/23/2002 ERLINDA 1 PAST SURGICAL HISTORY OF 92, 99 planned AB X2 PAST SURGICAL HISTORY OF WISDOM TEETH REMOVAL S DEV ENOCH ENDOMETRIAL ABLATION N/A 2020 hysteroscopy, ablation in office with removal IUD SOCIAL HISTORY Social History Tobacco Use Smoking status: Former Types: Cigarettes Quit date: 04/23/1998 Years since quittin.1 Smokeless tobacco: Never Tobacco comments: quit 5 and 1/2 yrs ago. Vaping Use Vaping Use: Never used Substance Use Topics Alcohol use: Yes Comment: RARELY Drug use: No FAMILY HISTORY Problem Relation Age of Onset Diabetes Mother Arthritis Mother Lipids Mother high other (Pre-cancerous breast tissue) Mother Bilateral mastectomies in her 50s other (MYOFACIAL PAIN SYNDROME) Mother other (neuropathy) Mother other (htn) Mother other (Migraine) Mother other (depression) Mother other (fibromyalgia) Mother Hypertension Father other (Migraine) Father other (depression) Father Prostate Cancer Father dx 50s Alcohol abuse Father Kidney Disease Brother Kidney transplant Brother Diabetes Maternal Grandmother Arthritis Maternal Grandmother Heart Maternal Grandfather Fibromyalgia Paternal Grandmother Colon Cancer Paternal Grandfather uncertain about this diagnosis other (Migraine) Daughter other (Migraine) Daughter other (Migraine) Daughter other (depression) Daughter 3 daughters diagnosed other (Migraine) Son Breast Cancer Other MATERNAL COUSIN WITH CERVICAL CA ALSO other (DOWNS SYNDROME) Other MATERNAL COUSIN ALLERGIES: ALLERGIES No Known Allergies MEDICATIONS: belimumab (BENLYSTA INTRAVENOUS) Inject intravenously. oxybutynin ER (DITROPAN XL) 10 mg 24 hr tablet TAKE 1 TABLET BY MOUTH EVERY DAY metoprolol succinate ER (TOPROL XL) 25 mg 24 hr tablet Take 1 tablet by mouth once daily. Blood Pressure Monitor (BLOOD PRESSURE KIT) 1 Each once daily. venlafaxine ER (EFFEXOR XR) 150 mg 24 hr capsule Take 1 capsule by mouth once daily. oxaprozin (DAYPRO) 600 mg tablet Take 1,200 mg by mouth once daily. cyclobenzaprine (FLEXERIL) 10 mg tablet Take 0.5 tablets by mouth at bedtime as needed. hydrOXYchloroQUINE (PLAQUENIL) 200 mg tablet Take 1.5 tablets by mouth once daily. hydrOXYzine HCl (ATARAX) 25 mg tablet Take 1 tablet by mouth four times daily as needed for anxiety. mv-min/iron/folic/calcium/vitK (WOMEN'S MULTIVITAMIN ORAL) Take by mouth once daily. REVIEW OF SYSTEMS: GENERAL: Negative for: Weight loss or gain, Fever or Chills, Weakness and Sleep difficulties and Fatigue. HEENT: Negative for: Headache, Impaired Vision, Glasses, Hearing Impairment, Ringing in Ears, Nosebleeds, Poor dental care, Bleeding Gums, Dentures NECK: Negative for: Swelling, Pain, Stiffness RESPIRATORY: Negative for: Cough, Blood in Sputum, Shortness of breath, Wheezing, Apnea CARDIOVASCULAR: As noted in HPI GASTROINTESTINAL: Negative for: Trouble swallowing, Heartburn, Change in bowel habits, Blood in stool, Dark black stools MUSCULOSKELETAL: Negative for: Muscle or joint pain, Stiffness , Joint swelling NEUROLOGIC/PSYCHIATRIC: + depression and anxiety SKIN: Negative for: Rashes, Itching HEMATOLOGICAL/LYMPHATIC: Negative for: Easy bruising , Easy bleeding ENDOCRINE: Negative for: Heat or cold intolerance, Excessive sweating, Frequent urination, Frequentthirst PHYSICAL EXAMINATION: BP 134/83 Pulse 101 Ht 167.6 cm (5' 6 ) Wt 93.3 kg (205 lb 9.6 oz) LMP 07/14/2019 SpO2 100% BMI 33.18 kg/m General: Well appearing, in no acute distress. Skin: No clubbing, no cyanosis. Eyes: No conjunctival pallor or scleral icterus Oropharynx: Mucous membranes are moist Neck: No jugular venous distention, no carotid bruits, carotids have a normal upstroke, no palpablethyromegaly. Lungs: Clear to auscultation bilaterally, no wheezing or rhonchi. Heart: Regular rhythm, PMI not displaced, S1, S2 normal, no S3, no S4, no heaves, no rub and no murmur. Abdomen: Soft, nontender, bowel sounds normal, no palpable organomegaly, no bruits. Extremities: No peripheral edema . Grade 2/4 distal pulses bilaterally. Neuro: Oriented to person, place and time, alert, cooperative, gait coordinated. CARDIOVASCULAR MEDICINE TESTING: Electrocardiogram: 05/30/2022: Normal sinus rhythm, normal ECG I have personally reviewed the Electrocardiogram. [employer] heart monitor report, 12 days, March 2022: Predominantly sinus rhythm short run of nonsustained SVT/AT, frequent PVCs, 4% Component Latest Ref Rng & Units 02/21/2022 03/30/2022 05/02/2022 WBC 3.70 - 11.00 k/uL 9.11 RBC 3.90 - 5.20 m/uL 4.29 Hemoglobin 11.5 - 15.5 g/dL 12.8 Hematocrit 36.0 - 46.0 % 38.8 MCV 80.0 - 100.0 fL 90.4 MCH 26.0 - 34.0 pg 29.8 MCHC 30.5 - 36.0 g/dL 33.0 RDW-CV 11.5 - 15.0 % 14.1 Platelet Count 150 - 400 k/uL 307 MPV 9.0 - 12.7 fL 10.0 Neut% % 47.8 Abs Neut (ANC) 1.45 - 7.50 k/uL 4.34 Lymph% % 28.6 Abs Lymph 1.00 - 4.00 k/uL 2.61 [place]% % 8.3 Abs [place] <0.87 k/uL 0.76 Eosin% % 13.6 Abs Eosin <0.46 k/uL 1.24 (H) Baso% % 1.5 Abs Baso <0.11 k/uL 0.14 (H) Immature Gran % % 0.2 IMMATURE GRANS (ABS) <0.10 k/uL <0.03 NRBC /100 WBC 0.0 Absolute nRBC <0.01 k/uL <0.01 DTYPE Auto Glucose 74 - 99 mg/dL 89 BUN 7 - 21 mg/dL 11 Creatinine 0.58 - 0.96 mg/dL 0.71 0.85 Sodium 136 - 144 mmol/L 140 Potassium 3.7 - 5.1 mmol/L 3.6 (L) 4.7 Chloride 97 - 105 mmol/L 100 CO2 22 - 30 mmol/L 27 Anion Gap 9 - 18 mmol/L 13 Calcium 8.5 - 10.2 mg/dL 9.7 eGFR >=60 mL/min/1.73m 106 85 AST 13 - 35 U/L 16 ALT 7 - 38 U/L 14 Albumin 3.9 - 4.9 g/dL 4.7 WSR 0 - 20 mm/hr 8 CRP <0.9 mg/dL <0.3 C3 86 - 166 mg/dL 150 C4 13 - 46 mg/dL 25 DNA Antibody <30 IU/mL <12 TSH 0.270 - 4.200 mIU/L 0.868 Cholesterol, Total (mg/dL) Date Value 01/02/2019 201 06/03/2018 242 HDL Cholesterol (mg/dL) Date Value 01/02/2019 51 06/03/2018 54 LDL Cholesterol (mg/dL) Date Value 01/02/2019 143 06/03/2018 177 Triglyceride (mg/dL) Date Value 01/02/2019 35 06/03/2018 54 IMPRESSION: Ms. Madera is a 46 year old female with the following cardiac issues. PLAN AND RECOMMENDATIONS: 1. Palpitations - ICD9: 785.1, ICD10: R00.2 (primary diagnosis) Patient wore a 2-week patch monitor which revealed short run of SVT/atrial tachycardia and frequentPVCs with a burden of 4%. She drinks less than 32 ounces of coffee a day which I advised to cut down She has been started on metoprolol XL 25 mg a day recently. She is not sure if it is helping. I have asked her to increase the dose if needed. We will get an echocardiogram to rule out any underlying structural heart disease Advised to stay well-hydrated Her anxiety may be contributory as well 2. Atrial tachycardia (HCC) - ICD9: 427.89, ICD10: I47.1 Nonsustained, benign - ECG COMPLETE - ECHO - PERFLUTREN LIPID MICROSPHERES 1.1 MG/ML INJECTION IN NS 10 ML 3. Systemic lupus erythematosus, unspecified SLE type, unspecified organ involvement status (HCC) -ICD9: 710.0, ICD10: M32.9 On Plaquenil 4. PVC (premature ventricular contraction) - ICD9: 427.69, ICD10: I49.3 PVC burden 4%, symptomatic Cut down caffeine Stay well-hydrated We will get an echocardiogram Continue with metoprolol - ECHO - PERFLUTREN LIPID MICROSPHERES 1.1 MG/ML INJECTION IN NS 10 ML - SODIUM CHLORIDE 0.9 % (FLUSH) INJECTION SYRINGE Follow-up in 6 months Chon Negron MD Please note: This note has been produced using speech recognition software and may contain errors related to that system including grammar, punctuation, spelling, gender and words and phrases that may be inappropriate. documented in this encounterJ.W. Ruby [facility]01-31-2023 NoteHNO ID: [id number] Author: Elizabeth Willoughby RN Service: ? Author Type: ? Type: Progress Notes Filed: 05/23/2022 4:55 PM Note Text: .[facility]01-31-[facility] History of Present illness Narrative* Elizabeth Willoughby RN - 05/23/2022 2:57 PM EST . documented in this encounterJ.W. Ruby [facility] Hospital01-05-2023 Miscellaneous Notes* Telephone Encounter - Kerline Stuart - 04/27/2022 11:20 AM ESTSummary: Consult to Cardiology Called PT to schedule consult to cardiology, Lvm for PT to call back and ask for a education site manager. Thanks, CLAUDE Celestin * Telephone Encounter - Chelly Burnett - 04/26/2022 12:59 PM EST Patient informed and verbalized understanding. Sending to PSS's to schedule Cardio consult. Chelly Burnett * Telephone Encounter - Jus Pérez MD - 04/26/2022 12:36 PM EST Zio shows extra beats from her upper chambers called atrial tachycardia or svt. It is not life threatening but can cause a lot of symptoms. Recommend seeing cardiology. Should not be months out. documented in this encounterJ.W. Ruby [facility] Hospital12-09-2022 Miscellaneous Notes* Telephone Encounter - Chace Modi LPN - 03/31/2022 2:54 PM EST TC to pt, notified of results/provider response. Pt denies vomiting, diarrhea. She states she is inpeak season at work (works for [employer]) so she is not able to do PT at this time. Advisedpt that if she would like to consider PT that the order will still be in if she decides to do it when she is less busy. Pt agreeable to this. Chace Modi LPN * Telephone Encounter - Chace Modi LPN - 03/31/2022 2:51 PM EST Jus Pérez MD 8:42 AM Note Xray shows some mild degenerative changes of her hip. Recommend physical therapy. * Telephone Encounter - Jus Pérez MD - 03/31/2022 12:53 PM EST Potassium is low. Rest of labs ok. Eat potassium containing food. Recheck potassium in two weeks. Make sure not vomiting or diarrhea. documented in this encounterJ.W. Ruby [facility] Hospital12-09-2022 Miscellaneous Notes* Telephone Encounter - Chace Modi LPN - 03/31/2022 2:51 PM EST See other TE regarding lab results. Chace Modi LPN * Telephone Encounter - Inna Valero RN - 03/31/2022 10:25 AM EST Attempted to reach patient at listed phone number x 3 attempts. Each time, phone number states call did not go through-try again later . Please try contacting patient again. Thank you. * Telephone Encounter - Jus Pérez MD - 03/31/2022 8:41 AM EST Xray shows some mild degenerative changes of her hip. Recommend physical therapy. documented in this encounterJ.W. Ruby [facility]12-08-2022 History of Present illness Narrative* Jus Pérez MD - 03/30/2022 2:28 PM EST Patient presents with: Blood Pressure: Follow up Left Hip Pain: X 2 months Immunizations: Flu vaccination HPI: Patient presents today for office visit for follow up. Saw [facility] in the past for palpitations. Had negative stress echo. Holter showed pvc's Has gained weight. Has had them still. Her bp has been up recently. She has not had chest pain No shortness of breath. No new edema. MEDICATIONS: Current Outpatient Medications Medication Sig Blood Pressure Monitor (BLOOD PRESSURE KIT) 1 Each once daily. venlafaxine ER (EFFEXOR XR) 150 mg 24 hr capsule Take 1 capsule by mouth once daily. oxaprozin (DAYPRO) 600 mg tablet Take 1,200 mg by mouth once daily. cyclobenzaprine (FLEXERIL) 10 mg tablet Take 0.5 tablets by mouth at bedtime as needed. hydrOXYchloroQUINE (PLAQUENIL) 200 mg tablet Take 1.5 tablets by mouth once daily. oxybutynin ER (DITROPAN XL) 10 mg 24 hr tablet TAKE 1 TABLET BY MOUTH EVERY DAY hydrOXYzine HCl (ATARAX) 25 mg tablet Take 1 tablet by mouth four times daily as needed for anxiety. mv-min/iron/folic/calcium/vitK (WOMEN'S MULTIVITAMIN ORAL) Take by mouth once daily. No current facility-administered medications for this visit. ALLERGIES: ALLERGIES No Known Allergies PAST MEDICAL HISTORY Diagnosis Date Abnormal Papanicolaou smear of vagina and vaginal HPV Human papillomavirus in conditions classified elsewhere and of unspecified site Hyperlipidemia Irregular menstrual cycle PMH - PAST MEDICAL HISTORY OF POST DEPRESSION Premenstrual tension syndromes Reflex sympathetic dystrophy, unspecified RLS (restless legs syndrome) SLE (systemic lupus erythematosus) ([facility]) PAST SURGICAL HISTORY Procedure Laterality Date CARPAL TUNNEL RIGHT WRIST 04/23/2005 COLPOSCOPY CERVIX UPPER/ADJACENT VAGINA 04/23/1998 WITH A BIOPSY DILATION & CURETTAGE DX&/THER NONOBSTETRIC INCISION THROMBOSED HEMORRHOID EXTERNAL 01/22/2013 Exc. left lateral thrombosed hemorrhoid, local LEEP PROCEDURE ([employer] DEPT)_*FL 04/23/2002 ERLINDA 1 PAST SURGICAL HISTORY OF 92, 99 planned AB X2 PAST SURGICAL HISTORY OF WISDOM TEETH REMOVAL S DEV ENOCH ENDOMETRIAL ABLATION N/A 2020 hysteroscopy, ablation in office with removal IUD FAMILY HISTORY Problem Relation Age of Onset Diabetes Mother Arthritis Mother Lipids Mother high other (Pre-cancerous breast tissue) Mother Bilateral mastectomies in her 50s other (MYOFACIAL PAIN SYNDROME) Mother other (neuropathy) Mother other (htn) Mother other (Migraine) Mother other (depression) Mother other (fibromyalgia) Mother Hypertension Father other (Migraine) Father other (depression) Father Prostate Cancer Father dx 50s Alcohol abuse Father Kidney Disease Brother Kidney transplant Brother Diabetes Maternal Grandmother Arthritis Maternal Grandmother Heart Maternal Grandfather Fibromyalgia Paternal Grandmother Colon Cancer Paternal Grandfather uncertain about this diagnosis other (Migraine) Daughter other (Migraine) Daughter other (Migraine) Daughter other (depression) Daughter 3 daughters diagnosed other (Migraine) Son Breast Cancer Other MATERNAL COUSIN WITH CERVICAL CA ALSO other (DOWNS SYNDROME) Other MATERNAL COUSIN Social History Tobacco Use Smoking status: Former Types: Cigarettes Quit date: 04/23/1998 Years since quittin.9 Smokeless tobacco: Never Tobacco comments: quit 5 and 1/2 yrs ago. Vaping Use Vaping Use: Never used Substance Use Topics Alcohol use: Yes Comment: RARELY Drug use: No Reviewed current medications, allergies, past medical history, surgical history, family history andsocial history today. REVIEW OF SYSTEMS Having left hip pain. Feels like it is an issue inside no trauma. Sees rheum next month. All other reviewed and negative other than HPI. HEALTH MAINTENANCE: Reviewed health maintenance issues today and recommended the following in detail. INFLUENZA(1) due on 12/22/2021 VITALS: BP 158/98 Temp (!) 17.2 C (63 F) Resp 16 Wt 93 kg (205 lb) LMP 07/14/2019 SpO2 98% BMI 34.64 kg/m Last 4 Encounter Wt Readings: Date: Wt: 03/30/2022 93 kg (205 lb) 02/28/2022 90.3 kg (199 lb) 12/05/2021 86.6 kg (191 lb) 09/13/2021 87.6 kg (193 lb 3.2 oz) PHYSICAL EXAMINATION: General appearance: Well appearing, alert, in no acute distress, well-hydrated, well nourished. Skin: Skin color, texture, turgor normal, no suspicious rashes or lesions Head: Normocephalic, no masses, lesions, tenderness or abnormalities Lungs: Lungs clear to auscultation. No wheezing, rhonchi, rales Heart: RRR without murmur, gallop, or rubs. No ectopy Abdomen: Normal abdominal exam, Abdomen soft, non-tender. Bowel sounds normal. No masses, organomegaly Extremities: No deformities, edema, skin discoloration, clubbing or cyanosis. Good capillary refill. Musculoskeletal: No joint swelling, deformity, or tenderness Hip Is nontender. Discomfort with internal rotation. ASSESSMENT/PLAN: 1. Primary hypertension - ICD9: 401.9, ICD10: I10 (primary diagnosis) - suboptimal control - add toprol - Goal of BP <130/80 - BASIC METABOLIC PNL - TSH BLD - METOPROLOL SUCCINATE ER 25 MG TABLET,EXTENDED RELEASE 24 HR 2. Need for influenza vaccination - ICD9: V04.81, ICD10: Z23 - INFLUENZA VACCINE QUADRIVALENT 6 MO - 64 YRS IM 3. Palpitations - ICD9: 785.1, ICD10: R00.2 - check labs and zio. Last time it appears to be pvc which betablocker will help. - BASIC METABOLIC PNL - TSH BLD - OUTSIDE VENDOR CARDIAC OUTPATIENT EXTENDED RHYTHM RECORDING (WITHOUT TELEMETRY) - METOPROLOL SUCCINATE ER 25 MG TABLET,EXTENDED RELEASE 24 HR 4. Hip pain Start with xray and follow up with rheum. Jus Pérez MD documented in this encounterJ.W. Ruby [facility] Hospital12-06-2022 Miscellaneous Notes* Telephone Encounter - Hetal Mattson LPN - 03/28/2022 4:38 PM EST Patient scheduled 03/30/2022 at 2:20 * Telephone Encounter - Jus Pérez MD - 03/28/2022 3:48 PM EST See previous notes, needs appt. * Telephone Encounter - Dotty Rodriguez RN - 03/28/2022 2:31 PM EST Pt in our office today for Benlysta infusion. Following up on previous documentation regarding BP. Pt's first BP today was 163/88 P116 After 10 minutes of rest, pt's BP was 146/89 P114 Pt states she often feels like her heart is going to pump out of her chest. Notices this more so at rest. This nurse advised pt to f/u with Dr. Pérez and his office for further instructions. * Telephone Encounter - Jus Pérez MD - 03/01/2022 12:08 PM EST Can we do bp check here . if still up, needs meds documented in this [facility]10-28-2022 Miscellaneous Notes* Telephone Encounter - Paige Duncan PA-C - 02/17/2022 8:32 AM EDT The following approved medication requests have been transmitted electronically. Requested Prescriptions Signed Prescriptions Disp Refills venlafaxine ER (EFFEXOR XR) 150 mg 24 hr capsule 90 capsule 1 Sig: Take 1 capsule by mouth once daily. Authorizing Provider: Paige DUNCAN PA-C documented in this encounterJ.W. Ruby [facility] Miscellaneous Notes* Telephone Encounter - Dotty Odell - 02/01/2022 5:28 PM EDT Treatment schedule verified to be no later than 2:30 and noted in appointment notes the same. Dotty Odell * Telephone Encounter - Dotty Rodriguez RN - 01/31/2022 2:35 PM EDT Please reschedule all future appts for no later than 230 pm. Per pharmacy, this medication takes time to mix and prepare for administration. Please allow extra time when scheduling appointment for this. Thank you. documented in this [facility]10-04-2022 Miscellaneous Notes* Telephone Encounter - Fawn Son APRN.DENISSE - 01/24/2022 2:59 PM EDT Correction: Benlysta dosing should be every 4 weeks, as she was already taking the SC injections. ThanksFawn * Telephone Encounter - Brenda Lamas RN - 01/24/2022 2:39 PM EDT Please clarify Orders for BENLYSTA. D1, D15 or just Q28 days? Start date- 01/31 or 02/14? Brenda Lamas RN documented in this encounterJ.W. [facility] Miscellaneous Notes* Telephone Encounter - Dotty Odell - 01/17/2022 2:34 PM EDT Spoke with patient and scheduled. Dotty Odell . * Telephone Encounter - Floresita Coreas MA - 01/17/2022 12:36 PM EDT Patient is notified of message below and verbalized understanding of instructions. Floresita Coreas MA * Telephone Encounter - Fawn Son APRN.CNP - 01/17/2022 12:22 PM EDT Please call the patient and advise her to contact the [place] [facility] to schedule her benlysta infusions every 4 weeks at [place]. She is due now. ThanksFawn APRN.DENISSE * Telephone Encounter - Anjelica Peter MA - 01/12/2022 9:56 AM EDT Patient has been notified of message below and verbalized understanding. Keegan/Onco PSS: Please assist with scheduling her benlysta infusions every 4 weeks at [place]. She is due now Thanks Anjelica Peter MA * Telephone Encounter - Fawn Son APRN.CNP - 01/12/2022 9:33 AM EDT Please call and inform the patient that she can receive the Benlysta in [place]. Please assist with scheduling her benlysta infusions every 4 weeks at [place]. She is due now. Thanks, Fawn Son APRN.CNP documented in this encounterJ.W. Ruby [facility]09-[facility] History of Present illness Narrative* Fawn Son APRN.CNP - 01/12/2022 7:30 AM EDT Follow-up of SLE. HPI: To review, Char Tomas is a 46 year old female - In Dec, diagnosed with SLE per inflammatory arthritis (elbows, wrists, hands, knees, and feet) in the setting of a positive MATTHEW 1:640 and positive chromatin >8. - In Jan, started on HCQ 200mg bid - In Apr, stable - In Apr, reported 50-60% improvement in joint pain with HCQ. Continued to have pain in the L wrist, MCPs and PIP. Advised to decrease HCQ dose to keep in line with dosing guidelines. Also advised to consider MTX which she deferred. - In September, reported no change with HCQ dose decrease - In Jan, reported that joint pain and swelling had been progressing in the PIPs>>MCPs, knees (up stairs) and ankles. Also with worsened brain fog. Advised to start MTX PO. Stopped MTX after 4-6 weeks due to ARELLANO, fatigue, GERD and increased anxiety (did help joint pain some) - In June, started arava but stopped in August for weight gain and inefficacy - In August, advised to start AZA but she decided to hold off on starting it due to c/f potential side effects and FHx of cancer - In the interim, saw PCP for lupus rash, flare. Started on prednisone which helped by 40-45% -in 03/2021, reports that the left side is more painful: shoulder, elbow, hip and knee. Both hips feel like they're catching with a popping sensation when going to stand up. Knees have been painful for several years, progressively worsening. Feels 'zapping' sensation in thighs and legs, sometimes in forearms. Remains on HCQ. - Has a facial rash worse at night daily - Last plaquenil eye exam normal in June PAST MEDICAL HISTORY Diagnosis Date Abnormal Papanicolaou smear of vagina and vaginal HPV Human papillomavirus in conditions classified elsewhere and of unspecified site Hyperlipidemia Irregular menstrual cycle PMH - PAST MEDICAL HISTORY OF POST DEPRESSION Premenstrual tension syndromes Reflex sympathetic dystrophy, unspecified RLS (restless legs syndrome) SLE (systemic lupus erythematosus) ([facility]) PAST SURGICAL HISTORY Procedure Laterality Date CARPAL TUNNEL RIGHT WRIST 04/23/2005 COLPOSCOPY CERVIX UPPER/ADJACENT VAGINA 04/23/1998 WITH A BIOPSY DILATION & CURETTAGE DX&/THER NONOBSTETRIC INCISION THROMBOSED HEMORRHOID EXTERNAL 01/22/2013 Exc. left lateral thrombosed hemorrhoid, local LEEP PROCEDURE ([employer] DEPT)_*[place] 04/23/2002 ERLINDA 1 PAST SURGICAL HISTORY OF 89, 99 planned AB X2 PAST SURGICAL HISTORY OF WISDOM TEETH REMOVAL S DEV ENOCH ENDOMETRIAL ABLATION N/A 2020 hysteroscopy, ablation in office with removal IUD ALLERGIES No Known Allergies INTERVAL HISTORY This Team Access Model visit is a virtual encounter. It required patient- provider interaction for the medical decision making as documented below. Reports 65%-75% improvement of her symptoms with Benlysta. Her insurance will no longer cover Benlysta. Last Benlysta dose was 3-4 weeks ago. She reports worsening of her joint symptoms off the Benlysta. Just took a steroid course for an eczema flare a month ago per her pcp. Pain is not worse any certain time of day. She is not taking anything for pain. She states tylenol and motrin are not effective. Sites of pain: fingers, knees, L shoulders, hips, wrists, pain rated 5/10 Joint swelling: ankles, hands, wrists EMS: yes, lasting 60 minutes No recent infections. Tolerating meds. Answers submitted by the patient for this visit: Review of Systems Rheumatology (Submitted on 01/11/2022) Fever : No Recent Unintentional Weight Change: Yes Eye Pain: No Eye Redness: No Vision Disturbance: No Eye Dryness: No Nose Bleeds: No Sores in your Mouth: No Trouble Swallowing: No Dry Mouth: No Chest Pain: No Leg Swelling: Yes A Cough: No Shortness of Breath: No Pain with Breathing: No Heartburn: Yes Abdominal Pain: No Diarrhea: No Black Tarry Stools: No Blood in Urine: No Pain or Burning with Urination: No Joint Pain or Stiffness: Yes Muscle Weakness: Yes Muscle Aches: Yes Joint Swelling: Yes Morning Stiffness in Joints: Yes A Rash: Yes- face, chin, neck, chest Do you have sun sensitive rashes?: Yes Skin Color Changes: No Hair Loss: No Nail Changes: No Headaches: No Numbness: Yes Memory Loss: Yes Swollen Glands: No Current Outpatient Medications Medication Sig venlafaxine ER (EFFEXOR XR) 150 mg 24 hr capsule Take 1 capsule by mouth once daily. cyclobenzaprine (FLEXERIL) 10 mg tablet Take 0.5 tablets by mouth at bedtime as needed. hydrOXYchloroQUINE (PLAQUENIL) 200 mg tablet Take 1.5 tablets by mouth once daily. oxybutynin ER (DITROPAN XL) 10 mg 24 hr tablet TAKE 1 TABLET BY MOUTH EVERY DAY hydrOXYzine HCl (ATARAX) 25 mg tablet Take 1 tablet by mouth four times daily as needed for anxiety. mv-min/iron/folic/calcium/vitK (WOMEN'S MULTIVITAMIN ORAL) Take by mouth once daily. No current facility-administered medications for this visit. FAMILY HISTORY Problem Relation Age of Onset Diabetes Mother Arthritis Mother Lipids Mother high other (Pre-cancerous breast tissue) Mother Bilateral mastectomies in her 50s other (MYOFACIAL PAIN SYNDROME) Mother other (neuropathy) Mother other (htn) Mother other (Migraine) Mother other (depression) Mother other (fibromyalgia) Mother Hypertension Father other (Migraine) Father other (depression) Father Prostate Cancer Father dx 50s Alcohol abuse Father Kidney Disease Brother Kidney transplant Brother Diabetes Maternal Grandmother Arthritis Maternal Grandmother Heart Maternal Grandfather Fibromyalgia Paternal Grandmother Colon Cancer Paternal Grandfather uncertain about this diagnosis other (Migraine) Daughter other (Migraine) Daughter other (Migraine) Daughter other (depression) Daughter 3 daughters diagnosed other (Migraine) Son Breast Cancer Other MATERNAL COUSIN WITH CERVICAL CA ALSO other (DOWNS SYNDROME) Other MATERNAL COUSIN SOCIAL HISTORY: Lives in [place]. 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 Has grandkids. Tobacco: none Alcohol: none PHYSICAL EXAM: CONSTITUTIONAL: Well-appearing, in NAD. SKIN: No rash. No alopecia. EYES: No scleral icterus or conjunctivitis NEURO: Awake, alert and oriented Blister noted to hand Labs reviewed and discussed with the patient: Component Latest Ref Rng & Units 10/21/2021 WBC 3.70 - 11.00 k/uL 5.62 RBC 3.90 - 5.20 m/uL 4.22 Hemoglobin 11.5 - 15.5 g/dL 12.6 Hematocrit 36.0 - 46.0 % 38.0 MCV 80.0 - 100.0 fL 90.0 MCH 26.0 - 34.0 pg 29.9 MCHC 30.5 - 36.0 g/dL 33.2 RDW-CV 11.5 - 15.0 % 13.0 Platelet Count 150 - 400 k/uL 278 MPV 9.0 - 12.7 fL 9.7 Neut% % 51.8 Abs Neut (ANC) 1.45 - 7.50 k/uL 2.91 Lymph% % 33.3 Abs Lymph 1.00 - 4.00 k/uL 1.87 [place]% % 8.2 Abs [place] <0.87 k/uL 0.46 Eosin% % 5.3 Abs Eosin <0.46 k/uL 0.30 Baso% % 1.2 Abs Baso <0.11 k/uL 0.07 Immature Gran % % 0.2 IMMATURE GRANS (ABS) <0.10 k/uL <0.03 NRBC /100 WBC 0.0 Absolute nRBC <0.01 k/uL <0.01 DTYPE Auto Color Yellow Light Yellow Clarity Clear Slightly Cloudy (A) Glucose, Urine Negative Negative Bilirubin, Urine Negative Negative Ketones, Urine Negative Negative Specific [place], Ur 1.005 - 1.030 1.016 Hemoglobin/Blood,Ur Negative Negative pH, Urine 5.0 - 8.0 6.0 Protein, Urine Negative Negative Urobilinogen Negative Negative Nitrites Negative Negative Leukest Negative Negative Protein, Urine Random 0 - 20 mg/dL 5 Creatinine, Ur Random (UCRR) 20.0 - 300.0 mg/dL 92.5 Protein/Creat Ratio <0.2 0.1 Creatinine 0.58 - 0.96 mg/dL 0.82 eGFR >=60 mL/min/1.73m 89 AST 13 - 35 U/L 16 ALT 7 - 38 U/L 11 Albumin 3.9 - 4.9 g/dL 4.8 WSR 0 - 20 mm/hr 5 CRP <0.9 mg/dL <0.3 C3 86 - 166 mg/dL 136 C4 13 - 46 mg/dL 22 DNA Antibody <30 IU/mL <12 Component Latest Ref Rng & Units 08/16/2021 TB Nil <=8.00 IU/mL 0.01 TB Interpretation Infection with M. tuberculosis complex is unlikely. If latent tuberculosis infection is highly suspected, a negative result does not rule out the infection. Specimens from immunocompromised patients and those <5 years of age may show false negative results. In case of a contactinvestigation, please repeat 8-12 weeks after a known exposure. TB1 Ag minus Nil <0.35 IU/mL 0.00 TB2 Ag minus Nil <0.35 IU/mL 0.01 TB Result Negative Mitogen minus Nil >=0.50 IU/mL >9.99 Component Latest Ref Rng & Units 05/23/2019 06/15/2020 TB Nil IU/mL 0.05 TB1 Ag minus Nil <0.35 IU/mL 0.00 TB2 Ag minus Nil <0.35 IU/mL 0.00 Mitogen minus Nil >10 TB Result Negative Negative TB Interpretation No evidence of current or previous infection with Mycobacterium tuberculosis. Hep B Core Ab, Total Negative Negative Hep C Antibody IA Negative Positive (A) Hep B Surface Ag Negative Negative Hep B Surface Ab, Qual Negative Negative Component Latest Ref Rng & Units 12/12/2011 05/23/2019 Hep B Core Ab, Total Negative Negative Hep C Antibody IA Negative Positive (A) Hep B Surface Ag Negative Negative Hep B Surface Ab, Qual Negative Negative HCV RNA by PCR IU/mL Negative for HCV RNA by PCR. HCV RNA not detected by PCR. Component Latest Ref Rng & Units 01/08/2017 05/23/2017 PT Sec 9.7 - 13.0 sec 10.2 PT INR 0.9 - 1.3 1.0 APTT 23.0 - 32.4 sec 29.5 Platelet Neut Negative Negative DRVVT Screen 32.7 - 46.7 sec 38.2 DRVVT Confirm Ratio <1.21 1.07 DRVVT 1:1 Mix 32.7 - 46.7 sec 38.2 Hex Phase Screen 48.9 - 70.2 sec 58.2 Hex Phase Confirm 45.1 - 64.1 sec 56.2 Hex Phase Delta <9.0 delta sec 2.0 APTT Screen 24.4 - 33.4 sec 31.9 Immediate PTT 1:1 Mix <33.5 sec 29.8 Incubated PTT 1:1 Mix <37.3 sec 32.6 Thrombin Time <18.6 sec 17.0 Interpretation(Lupus Anticoagulant) (NOTE) Cardiolipin Ab, IgG 0 - 9 GPL <9 Cardiolipin Ab, IgM 0 - 11 MPL <9 Cardiolipin Ab, IgA 0 - 11 APL <9 Beta 2 Glycoprotein, IgG <20 SGU 32 (H) Beta 2 Glycoprotein, IgM <20 SMU <9 Sm Antibody <1.0 AI <0.2 COMMERCIAL LOAN MANAGER Antibody <1.0 AI <0.2 SSA Antibody <1.0 AI <0.2 SSB Antibody <1.0 AI <0.2 Centromere Ab <1.0 AI <0.2 Scleroderma Ab, IgG <1.0 AI <0.2 Teresa 1 Antibody <1.0 AI <0.2 Ribosomal COMMERCIAL LOAN MANAGER <1.0 AI <0.2 Chromatin Antibody <1.0 AI >8.0 (H) MATTHEW Negative Positive (A) MATTHEW Titer Negative 1:640 (A) MATTHEW Pattern Homogeneous CCP Antibody, IgG <20 Units <15 Rheumatoid Factor <16 IU/mL <10 WSR 0 - 20 mm/hr 29 (H) CRP <0.9 mg/dL 1.3 (H) DNA Antibody w/Confirmation <30 IU/mL <12 STUDIES: *Nov CXR- no acute changes *Apr xray hands- normal *October xray L hand- no acute changes IMPRESSION and PLAN: 1. SLE: Inflammatory arthritis (elbows, wrists, hands, knees, and feet) in the setting of a positive MATTHEW 1:640 and positive chromatin >8. Lack other typically associated features including rash, photosensitivity, mouth sores and hair loss but will still pursue treatment as such given that inflammatory arthritis is clearly present. HCQ with partial improvement, MTX with SE/some improvement and arava without improvement. Declined AZA initiation given FHx cancer. Improved on Benlysta, but now with worsening of symptoms due to running out of medication. - Continue HCQ 300mg/day along with routine monitoring eye exams, last normal in 08/2021. -her insurance will no longer cover Benlysta SA. Will plan to start Benlysta IV. She would like theinfusions done in [place] if possible. Will discuss with pharmacist. - Check labs. Notify of results via [employer] - Strongly advised sun protective measures in the past -declines steroid course 2. Myalgia: She is concerned she has fibromyalgia especially as her mother has the condition with similar symptoms as she does -previously explained the condition in detail, link with more info sent via [employer] Advised we can't officially diagnose until she is in person at a visit to take the questionnaire for it - continue flexeril 5 mg qhs. R/B/A discussed, including potential for ARELLANO, n/v, grogginess, confusion and fatigue. 3. General health maintenance: - Advised to continue follow-up with PCP for routine health maintenance and malignancy screening -she has not received the covid vaccine -advised she f/u with her pcp if blister on hand persists Follow-up in 5 months or sooner if needed. Patient was instructed to call if any questions or concerns. Thank you for allowing me to participate in the care of your patient. Visit time was 8 minutes Fawn Son APRN.GRAINING OPERATOR documented in this encounterJ.W. Ruby [facility]08-29-2022 Miscellaneous Notes* Telephone Encounter - Chelly Burnett - 12/19/2021 8:53 AM EDT Called and spoke with patient. Our records indicate [facility] Pended. Thanks. Chelly Burnett documented in this encounterJ.W. Ruby [facility]08-23-2022 Miscellaneous Notes* Telephone Encounter - Dorcas Díaz MD - 12/13/2021 8:56 AM EDT Benlysta rx sent * Telephone Encounter - Anjelica Peter MA - 12/13/2021 7:49 AM EDT Patient has been identified by name and date of : Yes RX INSTRUCTIONS: Patient aware RX will be sent to pharmacy. No need to notify patient. LAST APPOINTMENT: 05/23/2019 UPCOMING APPOINTMENT: 01/12/2022 LABS: Hemoglobin (g/dL) Date Value 10/21/2021 12.6 04/13/2021 12.9 Hematocrit (%) Date Value 10/21/2021 38.0 04/13/2021 39.6 WBC (k/uL) Date Value 10/21/2021 5.62 04/13/2021 5.77 Platelet Count (k/uL) Date Value 10/21/2021 278 04/13/2021 310 AST Date Value Ref Range Status 10/21/2021 16 13 - 35 U/L Final ALT Date Value Ref Range Status 10/21/2021 11 7 - 38 U/L Final Creatinine Date Value Ref Range Status 10/21/2021 0.82 0.58 - 0.96 mg/dL Final No results found for: URICACID Anjelica Peter MA documented in this encounterJ.W. Ruby [facility]08-22-2022 Miscellaneous Notes* Telephone Encounter - Fawn Son APRN.CNP - 12/12/2021 8:27 AM EDT The following approved medication requests have been transmitted electronically. Requested Prescriptions Signed Prescriptions Disp Refills cyclobenzaprine (FLEXERIL) 10 mg tablet 30 tablet 5 Sig: Take 0.5 tablets by mouth at bedtime as needed. Authorizing Provider: FAWN SON APRN.CNP * Telephone Encounter - Floresita Coreas MA - 12/12/2021 8:11 AM EDT Patient has been identified by name and date of : Yes RX INSTRUCTIONS: Patient aware RX will be sent to pharmacy. No need to notify patient. LAST APPOINTMENT: 05/23/2019 UPCOMING APPOINTMENT: 01/12/2022 LABS: Hemoglobin (g/dL) Date Value 10/21/2021 12.6 04/13/2021 12.9 Hematocrit (%) Date Value 10/21/2021 38.0 04/13/2021 39.6 WBC (k/uL) Date Value 10/21/2021 5.62 04/13/2021 5.77 Platelet Count (k/uL) Date Value 10/21/2021 278 04/13/2021 310 AST Date Value Ref Range Status 10/21/2021 16 13 - 35 U/L Final ALT Date Value Ref Range Status 10/21/2021 11 7 - 38 U/L Final Creatinine Date Value Ref Range Status 10/21/2021 0.82 0.58 - 0.96 mg/dL Final No results found for: URICACID Floresita Coreas MA documented in this encounterJ.W. Ruby [facility]08-18-2022 Miscellaneous Notes* Telephone Encounter - Fawn Son APRN.CNP - 12/08/2021 3:58 PM EDT The following approved medication requests have been transmitted electronically. Requested Prescriptions Signed Prescriptions Disp Refills belimumab (BENLYSTA) 200 mg/mL 12 mL 1 Sig: INJECT 200MG SUBCUTANEOUSLY WEEKLY Authorizing Provider: FAWN SON APRN.CNP * Telephone Encounter - Anjelica Peter MA - 12/08/2021 3:52 PM EDT Patient has been identified by name and date of : Yes RX INSTRUCTIONS: Patient aware RX will be sent to pharmacy. No need to notify patient. LAST APPOINTMENT: 10/12/2021 UPCOMING APPOINTMENT: 01/12/2022 LABS: Hemoglobin (g/dL) Date Value 10/21/2021 12.6 04/13/2021 12.9 Hematocrit (%) Date Value 10/21/2021 38.0 04/13/2021 39.6 WBC (k/uL) Date Value 10/21/2021 5.62 04/13/2021 5.77 Platelet Count (k/uL) Date Value 10/21/2021 278 04/13/2021 310 AST Date Value Ref Range Status 10/21/2021 16 13 - 35 U/L Final ALT Date Value Ref Range Status 10/21/2021 11 7 - 38 U/L Final Creatinine Date Value Ref Range Status 10/21/2021 0.82 0.58 - 0.96 mg/dL Final No results found for: URICACID Anjelica Peter MA * Telephone Encounter - Rhonda Francisco - 12/08/2021 3:49 PM EDT Patient has been identified by name and date of : Yes Requested Prescriptions Pending Prescriptions Disp Refills belimumab (BENLYSTA) 200 mg/mL 4 mL 11 RX INSTRUCTIONS: Patient aware RX will be sent to pharmacy. No need to notify patient. Rhonda Francisco documented in this encounterJ.W. Ruby [facility]08-15-2022 History of Present illness Narrative* Jus Pérez MD - 12/05/2021 6:19 PM EDT Patient presents with: Rash: Right buttock-same as had before used mometasone on it but took quite awhile to go away. Follow Up HPI: Patient presents today for office visit for follow up. Seen virtually in September and had a rash. Used steroids nad seemed to go away. Is now back again. Started up this am. No pain. Itches. No changes in soaps or detergents. Is in the same spot. Has not used anything on it yet. Otherwise has not been doing well. Her son overdosed and . Feeling very stressed. Feels the medication has been doing ok. Using vistaril well. Does not want to do counseling No suicidal ideation. Has nausea and reflux symptoms. No black or bloody stools. MEDICATIONS: Current Outpatient Medications Medication Sig venlafaxine ER (EFFEXOR XR) 150 mg 24 hr capsule Take 1 capsule by mouth once daily. BENLYSTA 200 mg/mL INJECT 200MG SUBCUTANEOUSLY WEEKLY hydrOXYchloroQUINE (PLAQUENIL) 200 mg tablet Take 1.5 tablets by mouth once daily. mometasone (ELOCON) 0.1 % cream Apply 1 application to affected area once daily. oxybutynin ER (DITROPAN XL) 10 mg 24 hr tablet TAKE 1 TABLET BY MOUTH EVERY DAY cyclobenzaprine (FLEXERIL) 10 mg tablet Take 0.5 tablets by mouth at bedtime as needed. hydrOXYzine HCl (ATARAX) 25 mg tablet Take 1 tablet by mouth four times daily as needed for anxiety. mv-min/iron/folic/calcium/vitK (WOMEN'S MULTIVITAMIN ORAL) Take by mouth once daily. No current facility-administered medications for this visit. ALLERGIES: ALLERGIES No Known Allergies PAST MEDICAL HISTORY Diagnosis Date Abnormal Papanicolaou smear of vagina and vaginal HPV Human papillomavirus in conditions classified elsewhere and of unspecified site Hyperlipidemia Irregular menstrual cycle PMH - PAST MEDICAL HISTORY OF POST DEPRESSION Premenstrual tension syndromes Reflex sympathetic dystrophy, unspecified RLS (restless legs syndrome) SLE (systemic lupus erythematosus) ([facility]) PAST SURGICAL HISTORY Procedure Laterality Date CARPAL TUNNEL RIGHT WRIST 04/23/2005 COLPOSCOPY CERVIX UPPER/ADJACENT VAGINA 04/23/1998 WITH A BIOPSY DILATION & CURETTAGE DX&/THER NONOBSTETRIC INCISION THROMBOSED HEMORRHOID EXTERNAL 01/22/2013 Exc. left lateral thrombosed hemorrhoid, local LEEP PROCEDURE ([employer] DEPT)_*[place] 04/23/2002 ERLINDA 1 PAST SURGICAL HISTORY OF 89, 99 planned AB X2 PAST SURGICAL HISTORY OF WISDOM TEETH REMOVAL S DEV ENOCH ENDOMETRIAL ABLATION N/A 2020 hysteroscopy, ablation in office with removal IUD FAMILY HISTORY Problem Relation Age of Onset Diabetes Mother Arthritis Mother Lipids Mother high other (Pre-cancerous breast tissue) Mother Bilateral mastectomies in her 50s other (MYOFACIAL PAIN SYNDROME) Mother other (neuropathy) Mother other (htn) Mother other (Migraine) Mother other (depression) Mother other (fibromyalgia) Mother Hypertension Father other (Migraine) Father other (depression) Father Prostate Cancer Father dx 50s Alcohol abuse Father Kidney Disease Brother Kidney transplant Brother Diabetes Maternal Grandmother Arthritis Maternal Grandmother Heart Maternal Grandfather Fibromyalgia Paternal Grandmother Colon Cancer Paternal Grandfather uncertain about this diagnosis other (Migraine) Daughter other (Migraine) Daughter other (Migraine) Daughter other (depression) Daughter 3 daughters diagnosed other (Migraine) Son Breast Cancer Other MATERNAL COUSIN WITH CERVICAL CA ALSO other (DOWNS SYNDROME) Other MATERNAL COUSIN Social History Tobacco Use Smoking status: Former Types: Cigarettes Quit date: 04/23/1998 Years since quittin.6 Smokeless tobacco: Never Tobacco comments: quit 5 and 1/2 yrs ago. Vaping Use Vaping Use: Never used Substance Use Topics Alcohol use: Yes Comment: RARELY Drug use: No Reviewed current medications, allergies, past medical history, surgical history, family history andsocial history today. REVIEW OF SYSTEMS All other reviewed and negative other than HPI. VITALS: BP 136/82 Pulse 88 Wt 86.6 kg (191 lb) LMP 07/14/2019 BMI 32.28 kg/m Last 4 Encounter Wt Readings: Date: Wt: 12/05/2021 86.6 kg (191 lb) 09/13/2021 87.6 kg (193 lb 3.2 oz) 02/03/2021 79.8 kg (176 lb) 12/16/2020 82.6 kg (182 lb) PHYSICAL EXAMINATION: General appearance: Well appearing, alert, in no acute distress, well-hydrated, well nourished. Skin: two pink patches. No vesicles on right hip. No central clearing. No plaques. ASSESSMENT/PLAN: 1. Dermatitis - ICD9: 692.9, ICD10: L30.9 (primary diagnosis) - Discussed risks and benefits of new medication with the patient. Advised them to call if any sideeffects or questions. Red flags for re-assessment reviewed with patient in detail. Call if symptoms worsen at all or if not better in one to two weeks Reviewed diagnosis and treatment options in detail. Questions were answered. Patient expressed understanding of treatment plan. - METHYLPREDNISOLONE 4 MG TABLETS IN A DOSE PACK 2. Sciatica of left side - ICD9: 724.3, ICD10: M54.32 - OXAPROZIN 600 MG TABLET 3. GERD: Add pepcid. Discussed risks and benefits of new medication with the patient. Advised them to call if any side effects or questions. Red flags for re-assessment reviewed with patient in detail. Call if symptoms worsen at all or if not better in one to two weeks Reviewed diagnosis and treatment options in detail. Questions were answered. Patient expressed understanding of treatment plan. Jus Pérez documented in this encounterJ.W. Ruby [facility]08-12-2022 Miscellaneous Notes* Telephone Encounter - Azalea Medina LPN - 12/02/2021 1:42 PM EDT Patient has been identified by name and date of : Yes Requested Prescriptions Pending Prescriptions Disp Refills venlafaxine ER (EFFEXOR XR) 150 mg 24 hr capsule 30 capsule 1 Sig: Take 1 capsule by mouth once daily. RX INSTRUCTIONS: Patient aware RX will be sent to pharmacy. No need to notify patient. Azalea Medina LPN documented in this encounterJ.W. Ruby [facility]07-25-2022 Miscellaneous Notes* Telephone Encounter - Dorcas Díaz MD - 11/14/2021 9:58 AM EDT rx sent * Telephone Encounter - Floresita Coreas MA - 11/14/2021 8:16 AM EDT Patient has been identified by name and date of : Yes RX INSTRUCTIONS: Patient aware RX will be sent to pharmacy. No need to notify patient. LAST APPOINTMENT: 05/23/2019 UPCOMING APPOINTMENT: 11/14/2021 LABS: Hemoglobin (g/dL) Date Value 10/21/2021 12.6 04/13/2021 12.9 Hematocrit (%) Date Value 10/21/2021 38.0 04/13/2021 39.6 WBC (k/uL) Date Value 10/21/2021 5.62 04/13/2021 5.77 Platelet Count (k/uL) Date Value 10/21/2021 278 04/13/2021 310 AST Date Value Ref Range Status 10/21/2021 16 13 - 35 U/L Final ALT Date Value Ref Range Status 10/21/2021 11 7 - 38 U/L Final Creatinine Date Value Ref Range Status 10/21/2021 0.82 0.58 - 0.96 mg/dL Final No results found for: URICACID Floresita Coreas MA documented in this encounterJ.W. Ruby [facility]07-25-2022 Miscellaneous Notes* Telephone Encounter - Dorcas Díaz MD - 11/14/2021 9:57 AM EDT rx sent * Telephone Encounter - Floresita Coreas MA - 11/14/2021 8:42 AM EDT Patient has been identified by name and date of : Yes RX INSTRUCTIONS: Patient aware RX will be sent to pharmacy. No need to notify patient. PLQ eye exam done on 08/25/2021 at [facility]. No evidence of PLQ toxicity. LAST APPOINTMENT: 05/23/2019 UPCOMING APPOINTMENT: 01/12/2022 LABS: Hemoglobin (g/dL) Date Value 10/21/2021 12.6 04/13/2021 12.9 Hematocrit (%) Date Value 10/21/2021 38.0 04/13/2021 39.6 WBC (k/uL) Date Value 10/21/2021 5.62 04/13/2021 5.77 Platelet Count (k/uL) Date Value 10/21/2021 278 04/13/2021 310 AST Date Value Ref Range Status 10/21/2021 16 13 - 35 U/L Final ALT Date Value Ref Range Status 10/21/2021 11 7 - 38 U/L Final Creatinine Date Value Ref Range Status 10/21/2021 0.82 0.58 - 0.96 mg/dL Final No results found for: URICACID Floresita Coreas MA documented in this encounterJ.W. Ruby [facility] Hospital07-21-2022 History of Present illness Narrative* Deja Dayana - 11/10/2021 11:13 AM EDT [facility](s[facility] for Benlysta from Dr. Díaz's office. Benefits investigation was conducted, indicating that a prior authorization was previously required and approved. Covers current medication strength/dose based on adjudication / claim rejections: Yes (YES OR NO) Change in insurance: No Approval thru: 08/22/22 However, s/he is required to use [facility] to fill this medication. Will queue prescription(s) to go to designated specialty pharmacy. For reference, their pharmacy phone number is [phone]. No further action by [facility]. Deja Anne [facility] [phone] documented in this encounterJ.W. Ruby [facility]06-20-2022 History of Present illness Narrative* Jus Pérez MD - 10/10/2021 3:34 PM EDT Patient presents with: Acute Visit HPI:This Team Access Model visit is a virtual encounter. It required patient- provider interaction for the medical decision making as documented below. Patient was offered a virtual/telemedicine appointment in lieu of an office visit due to recommendations to reduce patient exposure to COVID-19. Patient is aware of limitations of performing the visit without a face to face visit in the office setting and agrees. Has an issue with a rash. Started last Sunday or Sunday. Wondered it it started as a bug bit. Rash had now spread. Itches No drainage. Is red. No pain. Is patchy. Does not burn. No changes In soaps or detergents. No fever or sore throat. Has tried aloe vera with lidocaine. Has tried poison estephania tx and pink salve. MEDICATIONS: Current Outpatient Medications Medication Sig oxybutynin ER (DITROPAN XL) 10 mg 24 hr tablet TAKE 1 TABLET BY MOUTH EVERY DAY belimumab (BENLYSTA) 200 mg/mL Inject 200mg (1 pen) subcutaneously once a week. hydrOXYchloroQUINE (PLAQUENIL) 200 mg tablet Take 1.5 tablets by mouth once daily. cyclobenzaprine (FLEXERIL) 10 mg tablet Take 0.5 tablets by mouth at bedtime as needed. venlafaxine ER (EFFEXOR XR) 150 mg 24 hr capsule Take 1 capsule by mouth once daily. hydrOXYzine HCl (ATARAX) 25 mg tablet Take 1 tablet by mouth four times daily as needed for anxiety. mv-min/iron/folic/calcium/vitK (WOMEN'S MULTIVITAMIN ORAL) Take by mouth once daily. No current facility-administered medications for this visit. ALLERGIES: ALLERGIES No Known Allergies PAST MEDICAL HISTORY Diagnosis Date Abnormal Papanicolaou smear of vagina and vaginal HPV Human papillomavirus in conditions classified elsewhere and of unspecified site Hyperlipidemia Irregular menstrual cycle PMH - PAST MEDICAL HISTORY OF POST DEPRESSION Premenstrual tension syndromes Reflex sympathetic dystrophy, unspecified RLS (restless legs syndrome) SLE (systemic lupus erythematosus) ([facility]) PAST SURGICAL HISTORY Procedure Laterality Date CARPAL TUNNEL RIGHT WRIST 04/23/2005 COLPOSCOPY CERVIX UPPER/ADJACENT VAGINA 04/23/1998 WITH A BIOPSY DILATION & CURETTAGE DX&/THER NONOBSTETRIC INCISION THROMBOSED HEMORRHOID EXTERNAL 01/22/2013 Exc. left lateral thrombosed hemorrhoid, local LEEP PROCEDURE ([employer] DEPT)_*FL 04/23/2002 ERLINDA 1 PAST SURGICAL HISTORY OF 89, 89 planned AB X2 PAST SURGICAL HISTORY OF WISDOM TEETH REMOVAL S DEV ENOCH ENDOMETRIAL ABLATION N/A 2020 hysteroscopy, ablation in office with removal IUD FAMILY HISTORY Problem Relation Age of Onset Diabetes Mother Arthritis Mother Lipids Mother high other (Pre-cancerous breast tissue) Mother Bilateral mastectomies in her 50s other (MYOFACIAL PAIN SYNDROME) Mother other (neuropathy) Mother other (htn) Mother other (Migraine) Mother other (depression) Mother other (fibromyalgia) Mother Hypertension Father other (Migraine) Father other (depression) Father Prostate Cancer Father dx 50s Alcohol abuse Father Kidney Disease Brother Kidney transplant Brother Diabetes Maternal Grandmother Arthritis Maternal Grandmother Heart Maternal Grandfather Fibromyalgia Paternal Grandmother Colon Cancer Paternal Grandfather uncertain about this diagnosis other (Migraine) Daughter other (Migraine) Daughter other (Migraine) Daughter other (depression) Daughter 3 daughters diagnosed other (Migraine) Son Breast Cancer Other MATERNAL COUSIN WITH CERVICAL CA ALSO other (DOWNS SYNDROME) Other MATERNAL COUSIN Social History Tobacco Use Smoking status: Former Smoker Quit date: 04/23/1998 Years since quittin.4 Smokeless tobacco: Never Used Tobacco comment: quit 5 and 1/2 yrs ago. Vaping Use Vaping Use: Never used Substance Use Topics Alcohol use: Yes Comment: RARELY Drug use: No Reviewed current medications, allergies, past medical history, surgical history, family history andsocial history today. REVIEW OF SYSTEMS All other reviewed and negative other than HPI. VITALS: LMP 07/14/2019 Last 4 Encounter Wt Readings: Date: Wt: 09/13/2021 87.6 kg (193 lb 3.2 oz) 02/03/2021 79.8 kg (176 lb) 12/16/2020 82.6 kg (182 lb) 11/11/2020 80.3 kg (177 lb) PHYSICAL EXAMINATION: Patient is alert and oriented during visit. Answers appropriately. Red patch over hip. No vesicles seen. A smaller satellite patch. No red streaks. No pain or warmth per patient. ASSESSMENT/PLAN: 1. Dermatitis - ICD9: 692.9, ICD10: L30.9 - rash is somewhat limited by camera. Discussed risks and benefits of new medication with the patient. Advised them to call if any side effects or questions. - if not better later this week or worsens, needs seen in office for better exam. - MOMETASONE 0.1 % TOPICAL CREAM Jus Pérez documented in this encounterJ.W. Ruby [facility] Hospital06-10-2022 History of Present illness Narrative* RT Javed(R) - 09/30/2021 2:30 PM EDT Radiology Service Progress Note PATIENT NAME: Char Madera DATE OF SERVICE: September 30, 2021 TIME: 2:27 PM PATIENT IDENTITY VERIFICATION COMPLETED USING TWO (2) IDENTIFIERS: Name and Date of confirmedby patient verbally. FALL SCREENING: Has the patient had 2 falls in the last year or 1 fall with injury or currently using an Ambulatory Assistive Device (Walker, Cane, Wheelchair, Crutches, etc.)? No PATIENT GENDER DATA: Female. status: : No status: NO. PATIENT RELEVANT IMPLANT DATA REVIEWED: Not Applicable RADIOLOGY DEPARTMENT: Mammography PERIPHERAL IV DATA: Not applicable SIGNED BY: RT Javed(R) September 30, 2021 2:27 PM documented in this encounterJ.W. Ruby [facility] Hospital06-07-2022 Miscellaneous Notes* Telephone Encounter - Chelly Iraheta RN - 09/27/2021 10:54 AM EDT Refill request received from pharmacy for patients Ditropan Rx. Patient last seen for annual exam on 09/13/21. Please file pended Rx in providers absence. Chelly Iraheta RN documented in this encounterJ.W. Ruby [facility] Hospital05-26-2022 History of Present illness Narrative* Adelita Goldsmith RN - 09/15/2021 10:42 AM EDT AMBULATORY PATIENT EDUCATION NOTE TOPIC: SURVIVAL SKILLS: Medication Administration Benlysta READINESS TO LEARN COGNITIVE ABILITY: Alert and oriented MOTIVATION TO LEARN: Eager FAMILY SUPPORT: None - Unavailable/disinterested INSTRUCTION PROVIDED TO: Patient PATIENT LEARNS BEST BY: Individual Instruction Demonstration FACTORS AFFECTING LEARNING: None PHYSICAL LIMITATIONS AFFECTING LEARNING: None LEARNING RESPONSE DIAGNOSIS: Lupus METHOD OF INSTRUCTION: Demonstration-Hands on Learning PATIENT / FAMILY RESPONSE: Verbalizes understanding of: MEDICAL REGIMEN- Importance of following prescribed medical regimen FOLLOW-UP PLAN: Complete - No need for follow-up Patient instructed to call with any further issues SUPPLEMENTAL MATERIAL: None REFERRAL (RECOMMENDATION): None Electronically Signed By: Adelita Goldsmith RN In Department: HEMATOLOGY/ONCOLOGY Time spent on patient education: 30 minutes. documented in this encounterJ.W. Ruby [facility] Hospital05-24-2022 Miscellaneous Notes* Telephone Encounter - Mahad Little - 09/13/2021 1:58 PM EDT 1st time treatment report. The patient is currently being seen for a non- oncology regimen. No navigator services needed at this time documented in this encounterJ.W. Ruby [facility] Hospital05-24-2022 History of Present illness Narrative* Rhonda Garza APRN.GRAINING OPERATOR - 09/13/2021 7:43 AM EDT Char is a 45 year old who presents for an annual gynecologic exam without complaints. Raising 2 of her grandchildren - keeps her moving with her lupus! Menses: Ablation 2020 Contraception: vasectomy HPV vaccine: No Last Pap: 06/26/2016 normal HPV: 06/22/2016 negative History of abnormal pap: Yes, LEEP 2002 Last mammogram: 2020normal Sexually active: Yes History of STDS: None Patient concerns for STD exposure: No. Time with current partner: 9 years Pain with intercourse: No Postcoital bleeding: No Hot flashes: No Night sweats: No OB History T4 L4 SAB0 IAB2 Ectopic0 Multiple0 Live Births0 [employer] History LMP: 07/14/2019, Ablation Age at Menarche: Age at First : Age at Menopause: [employer] History Comments: Sexual Activity: Yes; Male; one partner Contraception: I.U.D. PAST MEDICAL HISTORY Diagnosis Date Abnormal Papanicolaou smear of vagina and vaginal HPV Human papillomavirus in conditions classified elsewhere and of unspecified site Hyperlipidemia Irregular menstrual cycle PMH - PAST MEDICAL HISTORY OF POST DEPRESSION Premenstrual tension syndromes Reflex sympathetic dystrophy, unspecified RLS (restless legs syndrome) SLE (systemic lupus erythematosus) ([facility]) PAST SURGICAL HISTORY Procedure Laterality Date CARPAL TUNNEL RIGHT WRIST 04/23/2005 COLPOSCOPY CERVIX UPPER/ADJACENT VAGINA 04/23/1998 WITH A BIOPSY DILATION & CURETTAGE DX&/THER NONOBSTETRIC INCISION THROMBOSED HEMORRHOID EXTERNAL 01/22/2013 Exc. left lateral thrombosed hemorrhoid, local LEEP PROCEDURE ([employer] DEPT)_*FL 04/23/2002 ERLINDA 1 PAST SURGICAL HISTORY OF 89, 89 planned AB X2 PAST SURGICAL HISTORY OF WISDOM TEETH REMOVAL S DEV ENOCH ENDOMETRIAL ABLATION N/A hysteroscopy, ablation in office with removal IUD FAMILY HISTORY Problem Relation Age of Onset Diabetes Mother Arthritis Mother Lipids Mother high other (Pre-cancerous breast tissue) Mother Bilateral mastectomies in her 50s other (MYOFACIAL PAIN SYNDROME) Mother other (neuropathy) Mother other (htn) Mother other (Migraine) Mother other (depression) Mother other (fibromyalgia) Mother Hypertension Father other (Migraine) Father other (depression) Father Prostate Cancer Father dx 50s Alcohol abuse Father Kidney Disease Brother Kidney transplant Brother Diabetes Maternal Grandmother Arthritis Maternal Grandmother Heart Maternal Grandfather Fibromyalgia Paternal Grandmother Colon Cancer Paternal Grandfather uncertain about this diagnosis other (Migraine) Daughter other (Migraine) Daughter other (Migraine) Daughter other (depression) Daughter 3 daughters diagnosed other (Migraine) Son Breast Cancer Other MATERNAL COUSIN WITH CERVICAL CA ALSO other (DOWNS SYNDROME) Other MATERNAL COUSIN SOCIAL HISTORY Social History Tobacco Use Smoking status: Former Smoker Quit date: 04/23/1998 Years since quittin.4 Smokeless tobacco: Never Used Tobacco comment: quit 5 and 1/2 yrs ago. Vaping Use Vaping Use: Never used Substance Use Topics Alcohol use: Yes Comment: RARELY Drug use: No REVIEW OF SYSTEMS Abdomen: No abdominal pain, nausea, vomiting, diarrhea, or constipation. No bloating, early satiety, indigestion, or increased flatulence. Bladder: No dysuria, gross hematuria, urinary frequency, urinary urgency, or incontinence. Breast: No breast lumps, nipple d/c, overlying skin changes, redness or skin retraction. Allergies and current medication updated:Yes EXAM: BP 118/64 Ht 5' 4.5 (1.64m) Wt 193 lb 3.2 oz (87.6kg) LMP 07/14/2019 BMI 32.66 kg/(m^2). GENERAL: pleasant, female in no apparent distress HEENT: Normocephalic, atraumatic, mucus membranes moist and no lesions NECK: Supple, full range of motion, no adenopathy and thyroid normal DERMATOLOGY: Normal, without lesions, non-icteric and non-hirsute BREAST: soft, non-tender, symmetric, no dominant mass, normal nipple-areolar complex, no lymphadenopathy and no nipple discharge CHEST: Normal inspiratory effort ABDOMEN: soft, non-tender and no masses PELVIC: external genitalia normal, normal Bartholin's glands, urethra, Montreal's glands, no vulvar lesions, no cervical lesions, physiologic discharge present, normal appearing perineal body and perianal region BIMANUAL: uterus normal size, shape and consistency, no adnexal masses and non-tender RECTOVAGINAL: deferred. NEURO: alert and oriented x3,exam grossly non-focal EXTREMITIES: normal ASSESSMENT/PLAN: 1) Health maintenance: Pap done with HPV. Mammogram up to date . Nutrition, exercise and routine health maintenance exams reviewed. Calcium/Vitamin D supplementation information provided. 2) Contraception: vasectomy. Contraceptive options reviewed and information provided. 3) STD screening: Declined STD check. 4) Follow up one year or sooner as needed Rhonda Garza APRN.DENISSE documented in this encounterJ.W. Ruby [facility] Hospital05-20-2022 Miscellaneous Notes* Telephone Encounter - Anamaria Do Ma - 09/09/2021 2:13 PM EDT Spoke to nurse who advised she does not do these injections patient aware appointment canceled Anamaria Do Ma * Telephone Encounter - Anamaria Do Ma - 09/09/2021 10:28 AM EDT Patient was notified and was requesting nurse appointment to teach on injections. Put note into nurse to make sure this is acceptable and patient aware will call back Anamaria Do Ma * Telephone Encounter - Jus Pérez MD - 09/09/2021 10:20 AM EDT We do not prescribe. Would have to contact rheum * Telephone Encounter - Lana Grey LPN - 09/09/2021 10:10 AM EDT Pt. Contacted, informed we are oncology dept. , she needs to get instruction from her PCP, or Therapist'S Assistant concerning injectable Benlysta. Lana Grey LPN * Telephone Encounter - Dotty Odell - 09/09/2021 9:50 AM EDT Spoke with patient. Patient states that she will be giving herself the injections and that she justneeds instructed on how to do that. Please advise if we can assist patient with this. Dotty Odell * Telephone Encounter - Dotty Odell - 09/09/2021 9:06 AM EDT Please advise if this is something we can do here for this patient. Dotty Odell * Telephone Encounter - Inna Ruffin Pss - 09/09/2021 8:46 AM EDT Patient was advised by [employer] nurse to call us and schedule benlysta injection if we can get worked into schedule. Please advise patient as she is looking for first available opening. documented in this encounterJ.W. Ruby [facility] Hospital05-13-2022 Miscellaneous Notes* Telephone Encounter - Asha Lim LPN - 09/02/2021 6:51 AM EDT See pharmacy generated refill request. Pt was last seen in the office on 11/11/20. Freeppie message sent asking pt to schedule a yearly exam. Please advise. Asha Lim LPN documented in this encounterJ.W. Ruby [facility] Hospital05-10-2022 Miscellaneous Notes* Telephone Encounter - Fawn Son APRN.CNP - 08/30/2021 8:45 AM EDT The following approved medication requests have been transmitted electronically. Signed Prescriptions Disp Refills belimumab (BENLYSTA) 200 mg/mL 12 mL 0 Sig: Inject 200mg (1 pen) subcutaneously once a week. DON: No Fawn Son APRN.DENISSE * Telephone Encounter - Anjelica Peter MA - 08/30/2021 8:25 AM EDT Spoke to [facility] specialty. They received script for Benlysta on 08/24/21 however patient did not have secondary insurance. Pharmacy called patient and patient wanted this script send to [facility] pharmacy. [facility] specialty transferred script to [facility] pharmacy. Called [facility] pharmacy. Per pharmacy: please send script for belimumab (BENLYSTA) 200 mg/mL to [facility]. Anjelica Peter MA documented in this encounterJ.W. Ruby [facility] Hospital05-04-2022 Miscellaneous Notes* Telephone Encounter - Fawn Son APRN.CNP - 08/24/2021 6:41 AM EDT The following approved medication requests have been transmitted electronically. Signed Prescriptions Disp Refills belimumab (BENLYSTA) 200 mg/mL 12 mL 0 Sig: Inject 200mg (1 pen) subcutaneously once a week. DON: No Authorizing Provider: FAWN SON APRN.CNP * Telephone Encounter - Connie Ruiz RPh - 08/23/2021 9:00 PM EDT Benlysta prior authorization has been approved; however, due to insurance restrictions Rx must be filled at [facility]. If refill request approved, Rx will be sent to [facility] for processing. Thanks Pending Prescriptions Disp Refills BENLYSTA 200 MG/ML SUBCUTANEOUS AUTO-INJECTOR 12 mL 0 Sig: Inject 200mg (1 pen) subcutaneously once a week. DON: No Sonam Ruiz PharmD Clinical Pharmacist, Biologics, Neurology, and Hepatology [facility] ; Pool: [facility] Pool #: [id number] documented in this encounterJ.W. Ruby [facility] Hospital05-02-2022 History of Present illness Narrative* Deja Anne - 08/22/2021 1:56 PM EDT [facility] received prescription(s) for Benlysta from [facility]'s office. Benefits investigation was conducted, indicating that a prior authorization is required. PA was approved with details listed below. Plan Name: [employer] Medicaid Plan Agent/Burrell: M Phone/Fax: - / - PA reference number: [id number] Approval Dates: 08/22/21-08/22/22 Prescriptions will now be processed through [facility] for determination of next steps. Deja Anne [facility] [phone] * [facility] - 08/22/2021 1:56 PM EDT [facility] received prescription(s) for Benlysta from [facility]'s office. Benefits investigation was conducted, indicating that a prior authorization is required. PA was initiated and pending review. Plan Name: [employer] Medicaid Plan Agent/Burrell: [facility]/[id number] Phone/Fax: - / - Case: [id number] Timeline: Standard Deja Anne [facility] [phone] * Deja vadim - 08/22/2021 1:56 PM EDT [facility] received prescription(s) for Benlysta from [facility]'s office. Benefits investigation was conducted, indicating that a prior authorization is required. PA was initiated and pending review. Plan Name: M2G Plan Agent/Burrell: [facility]/ [id number] Phone/Fax: - / - Case: [id number] Timeline: Standard Deja vadim [facility] [phone] * [facility] - 08/22/2021 1:56 PM EDT [facility] received prescription(s) for Benlysta from Fawn Son's office. Benefits investigation was conducted, indicating that a prior authorization is required by patient's insurance plan with [facility] and [facility] Medicaid. Encounter will be updated once prior authorization has been submitted by [facility]. Deja Anne CPhT [facility] [phone] documented in this encounterJ.W. Ruby [facility] Hospital05-02-2022 Miscellaneous Notes* Telephone Encounter - Floresita Coreas MA - 08/22/2021 8:10 AM EDT Patient is notified of message below and verbalized understanding of instructions. Floresita Coreas MA * Telephone Encounter - Fawn Son APRN.CNP - 08/22/2021 7:29 AM EDT Please call and inform the patient that I sent the script for Benlysta to our specialty pharmacy, who will handle the prior authorization process. She should contact us if she does not hear from the pharmacy within the next two weeks. Once she receives the medication she should contact our office so we can arrange for injection teaching with one of our nurses. The following approved medication requests have been transmitted electronically. Signed Prescriptions Disp Refills belimumab (BENLYSTA) 200 mg/mL 12 Pen 0 Sig: Inject 1 mL subcutaneously one time a week. Authorizing Provider: FAWN SON APRN.CNP documented in this encounterJ.W. Ruby [facility] Hospital04-26-2022 Miscellaneous Notes* Telephone Encounter - Fawn Son APRN.CNP - 08/16/2021 10:35 AM EDT Get Medical Advice on 08/16/21 BLOOD TB SCREEN Fawn Son APRN.CNP documented in this encounterJ.W. Ruby [facility] Hospital04-26-2022 Miscellaneous Notes* Telephone Encounter - Jus Pérez MD - 08/16/2021 7:04 AM EDT See other message documented in this encounterJ.W. Ruby [facility] Hospital04-13-2022 History of Present illness Narrative* Laney Ivory APRN.GRAINING OPERATOR - 08/03/2021 8:55 AM EDT Chief Complaint Patient presents with: Telemedicine Patient was offered a virtual/telemedicine appointment in lieu of an office visit due to recommendations to reduce patient exposure to COVID-19. Video was used for evaluation of this patient. Patient is aware of limitations of performing the visit without a face to face visit in the office setting and agrees. Patient agrees to the visit: Yes Patient Location: [facility] Char Madera is a 45 year old female who is contacted today for a virtual visit This is an established patient of Dr. Jus Pérez MD Reports: stomach bug. Refers that daughter and grandson both had stomach bug. She started vomited Sunday night. Granddaughter started with symptoms Sunday morning. + fatigue. Refers continues with nausea. Refers that she is tolerating water. Refers she has not taking in much food because of the nausea. Last vomit was on Sunday. Some looser stools, but not really diarrhea. Slight headache on Sunday. No fever. No abdominal pain. Denies hematochezia or hematemesis. She did try some zofran that she had on hand, which was not effective. Past medical history, appointments, medications, allergies reviewed 08/03/2021 Previous Medical History PAST MEDICAL HISTORY Diagnosis Date Abnormal Papanicolaou smear of vagina and vaginal HPV Human papillomavirus in conditions classified elsewhere and of unspecified site Hyperlipidemia Irregular menstrual cycle PMH - PAST MEDICAL HISTORY OF POST DEPRESSION Premenstrual tension syndromes Reflex sympathetic dystrophy, unspecified RLS (restless legs syndrome) SLE (systemic lupus erythematosus) (HCC) Previous Surgical History PAST SURGICAL HISTORY Procedure Laterality Date CARPAL TUNNEL RIGHT WRIST 04/23/2005 COLPOSCOPY (VAGINOSCOPY) 04/23/1998 WITH A BIOPSY D&C, DIAG AND/OR THERAPEUTIC INCISE EXTERNAL HEMORRHOID 01/22/2013 Exc. left lateral thrombosed hemorrhoid, local LEEP PROCEDURE ([employer] DEPT)_*FL 04/23/2002 ERLINDA 1 PAST SURGICAL HISTORY OF 89, 99 planned AB X2 PAST SURGICAL HISTORY OF WISDOM TEETH REMOVAL S DEV ENOCH ENDOMETRIAL ABLATION N/A hysteroscopy, ablation in office with removal IUD Family History FAMILY HISTORY Problem Relation Age of Onset Diabetes Mother Arthritis Mother Lipids Mother high other (Pre-cancerous breast tissue) Mother Bilateral mastectomies in her 50s other (MYOFACIAL PAIN SYNDROME) Mother other (neuropathy) Mother other (htn) Mother other (Migraine) Mother other (depression) Mother other (fibromyalgia) Mother Hypertension Father other (Migraine) Father other (depression) Father Prostate Cancer Father dx 50s Alcohol abuse Father Kidney Disease Brother Kidney transplant Brother Diabetes Maternal Grandmother Arthritis Maternal Grandmother Heart Maternal Grandfather Fibromyalgia Paternal Grandmother Colon Cancer Paternal Grandfather uncertain about this diagnosis other (Migraine) Daughter other (Migraine) Daughter other (Migraine) Daughter other (depression) Daughter 3 daughters diagnosed other (Migraine) Son Breast Cancer Other MATERNAL COUSIN WITH CERVICAL CA ALSO other (DOWNS SYNDROME) Other MATERNAL COUSIN Patient Allergies ALLERGIES No Known Allergies Current Medications Current Outpatient Medications on File Prior to Visit Medication Sig hydrOXYchloroQUINE (PLAQUENIL) 200 mg tablet Take 1.5 tablets by mouth once daily. cyclobenzaprine (FLEXERIL) 10 mg tablet Take 0.5 tablets by mouth at bedtime as needed. oxybutynin ER (DITROPAN XL) 10 mg 24 hr tablet TAKE 1 TABLET BY MOUTH EVERY DAY venlafaxine ER (EFFEXOR XR) 150 mg 24 hr capsule Take 1 capsule by mouth once daily. hydrOXYzine HCl (ATARAX) 25 mg tablet Take 1 tablet by mouth four times daily as needed for anxiety. mv-min/iron/folic/calcium/vitK (WOMEN'S MULTIVITAMIN ORAL) Take by mouth once daily. No current facility-administered medications on file prior to visit. Social History Social History Tobacco Use Smoking status: Former Smoker Quit date: 04/23/1998 Years since quittin.2 Smokeless tobacco: Never Used Tobacco comment: quit 5 and 1/2 yrs ago. Substance Use Topics Alcohol use: Yes Comment: RARELY Drug use: No EXAM: LMP 07/14/2019 Limited exam as visit was completed over the virtual platform. Virtual visit completed using video, limited exam completed. Patient sounds or appears ill: Yes, non-toxic General Appearance: Well appearing, alert, in no acute distress, well-hydrated, well nourished. Skin: Skin color normal Head: Normocephalic. No facial swelling or redness. EENT: Eyes nonreddened. No discharge. External ears nonreddened and no swelling. Neck: No mass or lesions. No swelling. FROM Patient is unable to speak in complete sentences: No Patient has labored breathing: No. Patient is audibly coughing: No Psych: Attitude - cooperative, easily engaged in conversation Affect - Euthymic, normal mood Mental status: Alert. Speech is clear and fluent with good repetition, comprehension Appearance - Normal hygiene and grooming appropriate Coordination: No abnormal or extraneous movements. Gait/Stance: Posture is normal. Health Maintenance List COLORECTAL CANCER SCREENING Never done DTAP,TDAP,TD(3 - Tdap) due on 03/07/2020 PAP TESTING due on 06/19/2021 HPV TESTING due on 06/19/2021 MAMMOGRAM due on 09/17/2021 COVID-19 VACCINE(1) due on 12/16/2021 INFLUENZA(Season Ended) due on 12/22/2021 DIABETES SCREEN due on 12/24/2022 LIPID SCREEN due on 01/03/2024 HEPATITIS C SCREENING Completed HIV SCREENING Completed MENINGOCOCCAL CONJUGATE Aged Out Data reviewed Last 5 Encounter BP Readings: Date: BP: 02/03/2021 122/86 12/16/2020 120/68 11/11/2020 140/74 11/02/2020 110/68 09/13/2020 122/74 BMI Readings from Last 5 Encounters: 02/03/21 : 28.41 kg/m 12/16/20 : 29.38 kg/m 11/11/20 : 28.57 kg/m 11/02/20 : 28.57 kg/m 09/13/20 : 28.57 kg/m Last 5 Encounter Wt Readings: Date: Wt: 02/03/2021 79.8 kg (176 lb) 12/16/2020 82.6 kg (182 lb) 11/11/2020 80.3 kg (177 lb) 11/02/2020 80.3 kg (177 lb) 09/13/2020 80.3 kg (177 lb) Medication and allergy list reviewed, reconciled and updated 08/03/2021 ASSESSMENT/PLAN: 1. Viral gastroenteritis - ICD9: 008.8, ICD10: A08.4 Start the phenergan. Discussed potential side effects of ordered medications. Patient voices understanding. Discussed to stay well-hydrated. Discussed starting with a bland diet and advancing as tolerated. Discussed that if she develops any worsening symptoms, inability to tolerate liquids, fevers/chills, abdominal pain, or vomiting or passing blood, she should proceed to the emergency room. Patient voices understanding. - PROMETHAZINE 12.5 MG TABLET Discussed treatment plan and patient voices understanding. Patient's questions answered appropriately. Medications and potential side effects were discussed and patient voices understanding. Return to the office as scheduled or as needed for worsening/no improvement. Laney Ivory APRN.DENISSE This note was partially generated using [employer] voice recognition system. Note was reviewed for accuracy. There may be minor misspellings or grammar miscues with [employer] voice recognition. documented in this encounterJ.W. [facility] History of Present illness Narrative* Fawn Son APRN.CNP - 07/11/2021 7:30 AM EDT Follow-up of SLE. HPI: To review, Char Tomas is a 45 year old female - In Dec, diagnosed with SLE per inflammatory arthritis (elbows, wrists, hands, knees, and feet) in the setting of a positive MATTHEW 1:640 and positive chromatin >8. - In Jan, started on HCQ 200mg bid - In Apr, stable - In Apr, reported 50-60% improvement in joint pain with HCQ. Continued to have pain in the L wrist, MCPs and PIP. Advised to decrease HCQ dose to keep in line with dosing guidelines. Also advised to consider MTX which she deferred. - In September, reported no change with HCQ dose decrease - In Jan, reported that joint pain and swelling had been progressing in the PIPs>>MCPs, knees (up stairs) and ankles. Also with worsened brain fog. Advised to start MTX PO. Stopped MTX after 4-6 weeks due to ARELLANO, fatigue, GERD and increased anxiety (did help joint pain some) - In June, started arava but stopped in August for weight gain and inefficacy - In August, advised to start AZA but she decided to hold off on starting it due to c/f potential side effects and FHx of cancer - In the interim, saw PCP for lupus rash, flare. Started on prednisone which helped by 40-45% -at [facility], reports that the left side is more painful: shoulder, elbow, hip and knee. Both hips feel like they're catching with a popping sensation when going to stand up. Knees have been painful for several years, progressively worsening. Feels 'zapping' sensation in thighs and legs, sometimes in forearms. Remains on HCQ. - Has a facial rash worse at night daily - Last plaquenil eye exam normal in June PAST MEDICAL HISTORY Diagnosis Date Abnormal Papanicolaou smear of vagina and vaginal HPV Human papillomavirus in conditions classified elsewhere and of unspecified site Hyperlipidemia Irregular menstrual cycle PMH - PAST MEDICAL HISTORY OF POST DEPRESSION Premenstrual tension syndromes Reflex sympathetic dystrophy, unspecified RLS (restless legs syndrome) SLE (systemic lupus erythematosus) ([facility]) PAST SURGICAL HISTORY Procedure Laterality Date CARPAL TUNNEL RIGHT WRIST 04/23/2005 COLPOSCOPY (VAGINOSCOPY) 04/23/1998 WITH A BIOPSY D&C, DIAG AND/OR THERAPEUTIC INCISE EXTERNAL HEMORRHOID 01/22/2013 Exc. left lateral thrombosed hemorrhoid, local LEEP PROCEDURE ([employer] DEPT)_*FL 04/23/2002 ERLINDA 1 PAST SURGICAL HISTORY OF 89, 99 planned AB X2 PAST SURGICAL HISTORY OF WISDOM TEETH REMOVAL S DEV ENOCH ENDOMETRIAL ABLATION N/A hysteroscopy, ablation in office with removal IUD ALLERGIES No Known Allergies INTERVAL HISTORY This Team Access Model visit is a virtual encounter. It required patient- provider interaction for the medical decision making as documented below. She reports increased joint pain since the last office visit. She started flexeril after the [facility]. She reports improvement of muscle twinges. Pain is not worse any certain time of day. She states tylenol and motrin are not effective. Sites of pain: knees, shoulders, L elbow, pain rated 4/10 Joint swelling: b/l knees EMS: yes, lasting 30 minutes No recent infections. Tolerating meds. Answers for HPI/ROS submitted by the patient on 07/11/2021 Fever : No Recent Unintentional Weight Change: No Eye Pain: No Eye Redness: No Vision Disturbance: No Eye Dryness: Yes Nose Bleeds: No Sores in your Mouth: No Trouble Swallowing: No Dry Mouth: No Chest Pain: No Leg Swelling: Yes A Cough: No Shortness of Breath: No Pain with Breathing: No Heartburn: No Abdominal Pain: No Diarrhea: No Black Tarry Stools: No Blood in Urine: No Pain or Burning with Urination: No Joint Pain or Stiffness: Yes Muscle Weakness: Yes Muscle Aches: Yes Joint Swelling: Yes Morning Stiffness in Joints: Yes A Rash: Yes- no current rash Do you have sun sensitive rashes?: Yes Skin Color Changes: Yes Hair Loss: No Nail Changes: No Headaches: No Numbness: No Memory Loss: Yes Swollen Glands: No Current Outpatient Medications Medication Sig oxybutynin ER (DITROPAN XL) 10 mg 24 hr tablet TAKE 1 TABLET BY MOUTH EVERY DAY cyclobenzaprine (FLEXERIL) 10 mg tablet Take 0.5 tablets by mouth at bedtime as needed. hydrOXYchloroQUINE (PLAQUENIL) 200 mg tablet take 1 and 1/2 tablet by mouth once daily venlafaxine ER (EFFEXOR XR) 150 mg 24 hr capsule Take 1 capsule by mouth once daily. hydrOXYzine HCl (ATARAX) 25 mg tablet Take 1 tablet by mouth four times daily as needed for anxiety. mv-min/iron/folic/calcium/vitK (WOMEN'S MULTIVITAMIN ORAL) Take by mouth once daily. No current facility-administered medications for this visit. FAMILY HISTORY Problem Relation Age of Onset Diabetes Mother Arthritis Mother Lipids Mother high other (Pre-cancerous breast tissue) Mother Bilateral mastectomies in her 50s other (MYOFACIAL PAIN SYNDROME) Mother other (neuropathy) Mother other (htn) Mother other (Migraine) Mother other (depression) Mother other (fibromyalgia) Mother Hypertension Father other (Migraine) Father other (depression) Father Prostate Cancer Father dx 50s Alcohol abuse Father Kidney Disease Brother Kidney transplant Brother Diabetes Maternal Grandmother Arthritis Maternal Grandmother Heart Maternal Grandfather Fibromyalgia Paternal Grandmother Colon Cancer Paternal Grandfather uncertain about this diagnosis other (Migraine) Daughter other (Migraine) Daughter other (Migraine) Daughter other (depression) Daughter 3 daughters diagnosed other (Migraine) Son Breast Cancer Other MATERNAL COUSIN WITH CERVICAL CA ALSO other (DOWNS SYNDROME) Other MATERNAL COUSIN SOCIAL HISTORY: Lives in [place]. 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 Has grandCeltaxsys. Tobacco: none Alcohol: none PHYSICAL EXAM: CONSTITUTIONAL: Well-appearing, in NAD. SKIN: No rash. No alopecia. EYES: No scleral icterus or conjunctivitis NEURO: Awake, alert and oriented Labs reviewed and discussed with the patient: Component Latest Ref Rng & Units 04/13/2021 WBC 3.70 - 11.00 k/uL 5.77 RBC 3.90 - 5.20 m/uL 4.35 Hemoglobin 11.5 - 15.5 g/dL 12.9 Hematocrit 36.0 - 46.0 % 39.6 MCV 80.0 - 100.0 fL 91.0 MCH 26.0 - 34.0 pG 29.7 MCHC 30.5 - 36.0 g/dL 32.6 RDW-CV 11.5 - 15.0 % 13.7 Platelet Count 150 - 400 k/uL 310 MPV 9.0 - 12.7 fL 9.4 Absolute nRBC <0.01 k/uL <0.01 Hep B Core Ab, Total Negative Negative Hep C Antibody IA Negative Negative Hep B Surface Ag Negative Negative Hep B Surface Ab, Qual Negative Negative Creatinine 0.58 - 0.96 mg/dL 0.66 eGFR- >60 eGFR-All Other Races . >60 Protein, Urine Random 0 - 20 mg/dL 6 Creatinine, Ur Random (UCRR) 20 - 300 mg/dL 67.8 Protein/Creat Ratio <0.2 0.1 ALT 7 - 38 U/L 34 AST 13 - 35 U/L 29 Hemoglobin/Blood,Ur Negative Negative DNA Antibody w/Confirmation <30 IU/mL <12 C3 86 - 166 mg/dL 124 C4 13 - 46 mg/dL 17 WSR 0 - 20 mm/hr 8 CRP <0.9 mg/dL <0.3 HCV RNA by PCR IU/mL HCV RNA not detected by PCR. Component Latest Ref Rng & Units 05/23/2019 06/15/2020 TB Nil IU/mL 0.05 TB1 Ag minus Nil <0.35 IU/mL 0.00 TB2 Ag minus Nil <0.35 IU/mL 0.00 Mitogen minus Nil >10 TB Result Negative Negative TB Interpretation No evidence of current or previous infection with Mycobacterium tuberculosis. Hep B Core Ab, Total Negative Negative Hep C Antibody IA Negative Positive (A) Hep B Surface Ag Negative Negative Hep B Surface Ab, Qual Negative Negative Component Latest Ref Rng & Units 12/12/2011 05/23/2019 Hep B Core Ab, Total Negative Negative Hep C Antibody IA Negative Positive (A) Hep B Surface Ag Negative Negative Hep B Surface Ab, Qual Negative Negative HCV RNA by PCR IU/mL Negative for HCV RNA by PCR. HCV RNA not detected by PCR. Component Latest Ref Rng & Units 01/08/2017 05/23/2017 PT Sec 9.7 - 13.0 sec 10.2 PT INR 0.9 - 1.3 1.0 APTT 23.0 - 32.4 sec 29.5 Platelet Neut Negative Negative DRVVT Screen 32.7 - 46.7 sec 38.2 DRVVT Confirm Ratio <1.21 1.07 DRVVT 1:1 Mix 32.7 - 46.7 sec 38.2 Hex Phase Screen 48.9 - 70.2 sec 58.2 Hex Phase Confirm 45.1 - 64.1 sec 56.2 Hex Phase Delta <9.0 delta sec 2.0 APTT Screen 24.4 - 33.4 sec 31.9 Immediate PTT 1:1 Mix <33.5 sec 29.8 Incubated PTT 1:1 Mix <37.3 sec 32.6 Thrombin Time <18.6 sec 17.0 Interpretation(Lupus Anticoagulant) (NOTE) Cardiolipin Ab, IgG 0 - 9 GPL <9 Cardiolipin Ab, IgM 0 - 11 MPL <9 Cardiolipin Ab, IgA 0 - 11 APL <9 Beta 2 Glycoprotein, IgG <20 SGU 32 (H) Beta 2 Glycoprotein, IgM <20 SMU <9 Sm Antibody <1.0 AI <0.2 COMMERCIAL LOAN MANAGER Antibody <1.0 AI <0.2 SSA Antibody <1.0 AI <0.2 SSB Antibody <1.0 AI <0.2 Centromere Ab <1.0 AI <0.2 Scleroderma Ab, IgG <1.0 AI <0.2 Teresa 1 Antibody <1.0 AI <0.2 Ribosomal COMMERCIAL LOAN MANAGER <1.0 AI <0.2 Chromatin Antibody <1.0 AI >8.0 (H) MATTHEW Negative Positive (A) MATTHEW Titer Negative 1:640 (A) MATTHEW Pattern Homogeneous CCP Antibody, IgG <20 Units <15 Rheumatoid Factor <16 IU/mL <10 WSR 0 - 20 mm/hr 29 (H) CRP <0.9 mg/dL 1.3 (H) DNA Antibody w/Confirmation <30 IU/mL <12 STUDIES: *Nov CXR- no acute changes *Apr xray hands- normal *October xray L hand- no acute changes IMPRESSION and PLAN: 1. SLE: Inflammatory arthritis (elbows, wrists, hands, knees, and feet) in the setting of a positive MATTHEW 1:640 and positive chromatin >8. Lack other typically associated features including rash, photosensitivity, mouth sores and hair loss but will still pursue treatment as such given that inflammatory arthritis is clearly present. HCQ with partial improvement, MTX with SE/some improvement and arava without improvement. Declined AZA initiation given FHx cancer. With persistent joint pain. - Continue HCQ 300mg/day along with routine monitoring eye exams, last normal in June. She wasreminded to schedule for this year. -again discussed adding benlysta SC for better inflammatory control (advised this would help in theory as much as past steroid courses). Advised about potential for increased infection risk, decreased blood counts and injection site reaction. Link with more info previously sent. She will consider this option further. -will prescribe steroid course. She was advised to avoid NSAIDS while taking the steroids. I asked that she contact me if her symptoms persist. - Check labs. Notify of results via [employer] - Strongly advised sun protective measures in the past 2. Myalgia: She is concerned she has fibromyalgia especially as her mother has the condition with similar symptoms as she does -previously explained the condition in detail, link with more info sent via [employer] Advised we can't officially diagnose until she is in person at a visit to take the questionnaire for it - continue flexeril 5 mg qhs. R/B/A discussed, including potential for ARELLANO, n/v, grogginess, confusion and fatigue. 3. General health maintenance: - Advised to continue follow-up with PCP for routine health maintenance and malignancy screening -she has not received the covid vaccine Follow-up in 3 months with me or sooner if needed. Patient was instructed to call if any questions or concerns. Thank you for allowing me to participate in the care of your patient. Visit time was 9 minutes Fawn Son APRN.DENISSE documented in this encounterJ.W. [facility]08-[facility] History of Past illness Narrative* Problem Noted Date Resolved Date Left carpal tunnel syndrome 12/01/201405/25 Hip pain, left 12/29/2013 06/06/2018 Low back pain 12/29/2013 06/06/2018 Thrombosed hemorrhoids 01/22/2013 9 Routine general medical exam ination at a health care facility 01/20/2009 12/08/2011 Overview: 01/21/09, from Dr. Saravia (retired) Routine gynecological examination 01/20/2009 12/08/2011 Overview: [facility], [facility] documented as of this encounter (statuses as of 07/11/2021) [facility] of Past illness Narrative* Problem Noted Date Resolved Date Left carpal tunnel syndrome 12/01/201405/25 Hip pain, left 12/29/2013 06/06/2018 Low back pain 12/29/2013 06/06/2018 Thrombosed hemorrhoids 01/22/2013 9 Routine general medical exam ination at a health care facility 01/20/2009 12/08/2011 Overview: 01/21/09, from Dr. Saravia (retired) Routine gynecological examination 01/20/2009 12/08/2011 Overview: [facility], [facility] documented as of this encounter (statuses as of 08/03/2021) [facility] of Past illness Narrative* Problem Noted Date Resolved Date Left carpal tunnel syndrome 12/01/201405/25 Hip pain, left 12/29/2013 06/06/2018 Low back pain 12/29/2013 06/06/2018 Thrombosed hemorrhoids 01/22/2013 9 Routine general medical exam ination at a health care facility 01/20/2009 12/08/2011 Overview: 01/21/09, from Dr. Saravia (retired) Routine gynecological examination 01/20/2009 12/08/2011 Overview: [facility], [facility] documented as of this encounter (statuses as of 08/16/2021) [facility] of Past illness Narrative* Problem Noted Date Resolved Date Left carpal tunnel syndrome 12/01/201405/25 Hip pain, left 12/29/2013 06/06/2018 Low back pain 12/29/2013 06/06/2018 Thrombosed hemorrhoids 01/22/2013 9 Routine general medical exam ination at a health care facility 01/20/2009 12/08/2011 Overview: 01/21/09, from Dr. Saravia (retired) Routine gynecological examination 01/20/2009 12/08/2011 Overview: [facility], [facility] documented as of this encounter (statuses as of 08/16/2021) [facility] of Past illness Narrative* Problem Noted Date Resolved Date Left carpal tunnel syndrome 12/01/201405/25 Hip pain, left 12/29/2013 06/06/2018 Low back pain 12/29/2013 06/06/2018 Thrombosed hemorrhoids 01/22/2013 9 Routine general medical exam ination at a health care facility 01/20/2009 12/08/2011 Overview: 01/21/09, from Dr. Saravia (retired) Routine gynecological examination 01/20/2009 12/08/2011 Overview: [facility], [facility] documented as of this encounter (statuses as of 08/22/2021) [facility] of Past illness Narrative* Problem Noted Date Resolved Date Left carpal tunnel syndrome 12/01/201405/25 Hip pain, left 12/29/2013 06/06/2018 Low back pain 12/29/2013 06/06/2018 Thrombosed hemorrhoids 01/22/2013 9 Routine general medical exam ination at a health care facility 01/20/2009 12/08/2011 Overview: 01/21/09, from Dr. Saravia (retired) Routine gynecological examination 01/20/2009 12/08/2011 Overview: [facility], [facility] documented as of this encounter (statuses as of 08/22/2021) [facility] of Past illness Narrative* Problem Noted Date Resolved Date Left carpal tunnel syndrome 12/01/201405/25 Hip pain, left 12/29/2013 06/06/2018 Low back pain 12/29/2013 06/06/2018 Thrombosed hemorrhoids 01/22/2013 9 Routine general medical exam ination at a health care facility 01/20/2009 12/08/2011 Overview: 01/21/09, from Dr. Saravia (retired) Routine gynecological examination 01/20/2009 12/08/2011 Overview: [facility], [facility] documented as of this encounter (statuses as of 08/24/2021) [facility] illness Narrative* Problem Noted Date Resolved Date Left carpal tunnel syndrome 12/01/201405/25 Hip pain, left 12/29/2013 06/06/2018 Low back pain 12/29/2013 06/06/2018 Thrombosed hemorrhoids 01/22/2013 9 Routine general medical exam ination at a health care facility 01/20/2009 12/08/2011 Overview: 01/21/09, from Dr. Saravia (retired) Routine gynecological examination 01/20/2009 12/08/2011 Overview: [facility], [facility] documented as of this encounter (statuses as of 08/30/2021) [facility] illness Narrative* Problem Noted Date Resolved Date Left carpal tunnel syndrome 12/01/201405/25 Hip pain, left 12/29/2013 06/06/2018 Low back pain 12/29/2013 06/06/2018 Thrombosed hemorrhoids 01/22/2013 9 Routine general medical exam ination at a health care facility 01/20/2009 12/08/2011 Overview: 01/21/09, from Dr. Saravia (retired) Routine gynecological examination 01/20/2009 12/08/2011 Overview: [facility], Batsheva Fisher documented as of this encounter (statuses as of 09/01/2021) [facility] Narrative* Problem Noted Date Resolved Date Left carpal tunnel syndrome 12/01/201405/25 Hip pain, left 12/29/2013 06/06/2018 Low back pain 12/29/2013 06/06/2018 Thrombosed hemorrhoids 01/22/2013 9 Routine general medical exam ination at a health care facility 01/20/2009 12/08/2011 Overview: 01/21/09, from Dr. Saravia (retired) Routine gynecological examination 01/20/2009 [facility]08[facility]2011 [facility] (statuses as of 09/02/2021) [facility] Narrative* Problem Noted Date Resolved Date Left carpal tunnel syndrome 12/01/201405/25 Hip pain, left 12/29/2013 06/06/2018 Low back pain 12/29/2013 06/06/2018 Thrombosed hemorrhoids 01/22/2013 9 Routine general medical exam ination at a health care facility 01/20/2009 12/08/2011 Overview: 01/21/09, from Dr. Saravia (retired) Routine gynecological examination 01/20/2009 12/08/2011 Overview: [facility], [facility] documented as of this encounter (statuses as of 09/09/2021) [facility] Narrative* Problem Noted Date Resolved Date Left carpal tunnel syndrome 12/01/201405/25 Hip pain, left 12/29/2013 06/06/2018 Low back pain 12/29/2013 06/06/2018 Thrombosed hemorrhoids 01/22/2013 9 Routine general medical exam ination at a health care facility 01/20/2009 12/08/2011 Overview: 01/21/09, from Dr. Saravia (retired) Routine gynecological examination 01/20/2009 12/08/2011 Overview: [facility], [facility] documented as of this encounter (statuses as of 09/13/2021) [facility] illness Narrative* Problem Noted Date Resolved Date Left carpal tunnel syndrome 12/01/201405/25 Hip pain, left 12/29/2013 06/06/2018 Low back pain 12/29/2013 06/06/2018 Thrombosed hemorrhoids 01/22/2013 9 Routine general medical exam ination at a health care facility 01/20/2009 12/08/2011 Overview: 01/21/09, from Dr. Saravia (retired) Routine gynecological examination 01/20/2009 12/08/2011 Overview: [facility], [facility] documented as of this encounter (statuses as of 09/13/2021) [facility] illness Narrative* Problem Noted Date Resolved Date Left carpal tunnel syndrome 12/01/201405/25 Hip pain, left 12/29/2013 06/06/2018 Low back pain 12/29/2013 06/06/2018 Thrombosed hemorrhoids 01/22/2013 9 Routine general medical exam ination at a health care facility 01/20/2009 12/08/2011 Overview: 01/21/09, from Dr. Saravia (retired) Routine gynecological examination 01/20/2009 12/08/2011 Overview: [facility], [facility] documented as of this encounter (statuses as of 09/15/2021) [facility] History of Past illness Narrative* Problem Noted Date Resolved Date Left carpal tunnel syndrome 12/01/201405/25 Hip pain, left 12/29/2013 06/06/2018 Low back pain 12/29/2013 06/06/2018 Thrombosed hemorrhoids 01/22/2013 9 Routine general medical exam ination at a health care facility 01/20/2009 12/08/2011 Overview: 01/21/09, from Dr. Saravia (retired) Routine gynecological examination 01/20/2009 12/08/2011 Overview: [facility], [facility] documented as of this encounter (statuses as of 09/27/2021) [facility] History of Past illness Narrative* Problem Noted Date Resolved Date Left carpal tunnel syndrome 12/01/201405/25 Hip pain, left 12/29/2013 06/06/2018 Low back pain 12/29/2013 06/06/2018 Thrombosed hemorrhoids 01/22/2013 9 Routine general medical exam ination at a health care facility 01/20/2009 12/08/2011 Overview: 01/21/09, from Dr. Saravia (retired) Routine gynecological examination 01/20/2009 12/08/2011 Overview: [facility], [facility] documented as of this encounter (statuses as of 10/01/2021) [facility] History of Past illness Narrative* Problem Noted Date Resolved Date Left carpal tunnel syndrome 12/01/201405/25 Hip pain, left 12/29/2013 06/06/2018 Low back pain 12/29/2013 06/06/2018 Thrombosed hemorrhoids 01/22/2013 9 Routine general medical exam ination at a health care facility 01/20/2009 12/08/2011 Overview: 01/21/09, from Dr. Saravia (retired) Routine gynecological examination 01/20/2009 12/08/2011 Overview: [facility], [facility] documented as of this encounter (statuses as of 10/10/2021) [facility] History of Past illness Narrative* Problem Noted Date Resolved Date Left carpal tunnel syndrome 12/01/201405/25 Hip pain, left 12/29/2013 06/06/2018 Low back pain 12/29/2013 06/06/2018 Thrombosed hemorrhoids 01/22/2013 9 Routine general medical exam ination at a health care facility 01/20/2009 12/08/2011 Overview: 01/21/09, from Dr. Saravia (retired) Routine gynecological examination 01/20/2009 12/08/2011 Overview: [facility], [facility] documented as of this encounter (statuses as of 11/10/2021) [facility] History of Past illness Narrative* Problem Noted Date Resolved Date Left carpal tunnel syndrome 12/01/201405/25 Hip pain, left 12/29/2013 06/06/2018 Low back pain 12/29/2013 06/06/2018 Thrombosed hemorrhoids 01/22/2013 9 Routine general medical exam ination at a health care facility 01/20/2009 12/08/2011 Overview: 01/21/09, from Dr. Saravia (retired) Routine gynecological examination 01/20/2009 12/08/2011 Overview: [facility], [facility] documented as of this encounter (statuses as of 11/14/2021) [facility] History of Past illness Narrative* Problem Noted Date Resolved Date Left carpal tunnel syndrome 12/01/201405/25 Hip pain, left 12/29/2013 06/06/2018 Low back pain 12/29/2013 06/06/2018 Thrombosed hemorrhoids 01/22/2013 9 Routine general medical exam ination at a health care facility 01/20/2009 12/08/2011 Overview: 01/21/09, from Dr. Saravia (retired) Routine gynecological examination 01/20/2009 12/08/2011 Overview: [facility] documented as of this encounter (statuses as of 11/14/2021) [facility] History of Past illness Narrative* Problem Noted Date Resolved Date Left carpal tunnel syndrome 12/01/201405/25 Hip pain, left 12/29/2013 06/06/2018 Low back pain 12/29/2013 06/06/2018 Thrombosed hemorrhoids 01/22/2013 9 Routine general medical exam ination at a health care facility 01/20/2009 12/08/2011 Overview: 01/21/09, from Dr. Saravia (retired) Routine gynecological examination 01/20/2009 12/08/2011 Overview: [facility], [facility] documented as of this encounter (statuses as of 11/14/2021) [facility] History of Past illness Narrative* Problem Noted Date Resolved Date Left carpal tunnel syndrome 12/01/201405/25 Hip pain, left 12/29/2013 06/06/2018 Low back pain 12/29/2013 06/06/2018 Thrombosed hemorrhoids 01/22/2013 9 Routine general medical exam ination at a health care facility 01/20/2009 12/08/2011 Overview: 01/21/09, from Dr. Saravia (retired) Routine gynecological examination 01/20/2009 12/08/2011 Overview: [facility], [facility] documented as of this encounter (statuses as of 12/05/2021) [facility] History of Past illness Narrative* Problem Noted Date Resolved Date Left carpal tunnel syndrome 12/01/201405/25 Hip pain, left 12/29/2013 06/06/2018 Low back pain 12/29/2013 06/06/2018 Thrombosed hemorrhoids 01/22/2013 9 Routine general medical exam ination at a health care facility 01/20/2009 12/08/2011 Overview: 01/21/09, from Dr. Saravia (retired) Routine gynecological examination 01/20/2009 12/08/2011 Overview: [facility], [facility] documented as of this encounter (statuses as of 12/05/2021) [facility] History of Past illness Narrative* Problem Noted Date Resolved Date Left carpal tunnel syndrome 12/01/201405/25 Hip pain, left 12/29/2013 06/06/2018 Low back pain 12/29/2013 06/06/2018 Thrombosed hemorrhoids 01/22/2013 9 Routine general medical exam ination at a health care facility 01/20/2009 12/08/2011 Overview: 01/21/09, from Dr. Saravia (retired) Routine gynecological examination 01/20/2009 12/08/2011 Overview: [facility], [facility] documented as of this encounter (statuses as of 12/08/2021) [facility] History of Past illness Narrative* Problem Noted Date Resolved Date Left carpal tunnel syndrome 12/01/201405/25 Hip pain, left 12/29/2013 06/06/2018 Low back pain 12/29/2013 06/06/2018 Thrombosed hemorrhoids 01/22/2013 9 Routine general medical exam ination at a health care facility 01/20/2009 12/08/2011 Overview: 01/21/09, from Dr. Saravia (retired) Routine gynecological examination 01/20/2009 12/08/2011 Overview: [facility], [facility] documented as of this encounter (statuses as of 12/12/2021) [facility] History of Past illness Narrative* Problem Noted Date Resolved Date Left carpal tunnel syndrome 12/01/201405/25 Hip pain, left 12/29/2013 06/06/2018 Low back pain 12/29/2013 06/06/2018 Thrombosed hemorrhoids 01/22/2013 9 Routine general medical exam ination at a health care facility 01/20/2009 12/08/2011 Overview: 01/21/09, from Dr. Saravia (retired) Routine gynecological examination 01/20/2009 12/08/2011 Overview: [facility], [facility] documented as of this encounter (statuses as of 12/13/2021) [facility] History of Past illness Narrative* Problem Noted Date Resolved Date Left carpal tunnel syndrome 12/01/201405/25 Hip pain, left 12/29/2013 06/06/2018 Low back pain 12/29/2013 06/06/2018 Thrombosed hemorrhoids 01/22/2013 9 Routine general medical exam ination at a health care facility 01/20/2009 12/08/2011 Overview: 01/21/09, from Dr. Saravia (retired) Routine gynecological examination 01/20/2009 12/08/2011 Overview: [facility], [facility] documented as of this encounter (statuses as of 12/19/2021) [facility] History of Past illness Narrative* Problem Noted Date Resolved Date Left carpal tunnel syndrome 12/01/201405/25 Hip pain, left 12/29/2013 06/06/2018 Low back pain 12/29/2013 06/06/2018 Thrombosed hemorrhoids 01/22/2013 9 Routine general medical exam ination at a health care facility 01/20/2009 12/08/2011 Overview: 01/21/09, from Dr. Saarvia (retired) Routine gynecological examination 01/20/2009 12/08/2011 Overview: [facility], [facility] documented as of this encounter (statuses as of 12/28/2021) [facility] History of Past illness Narrative* Problem Noted Date Resolved Date Left carpal tunnel syndrome 12/01/201405/25 Hip pain, left 12/29/2013 06/06/2018 Low back pain 12/29/2013 06/06/2018 Thrombosed hemorrhoids 01/22/2013 9 Routine general medical exam ination at a health care facility 01/20/2009 12/08/2011 Overview: 01/21/09, from Dr. Saravia (retired) Routine gynecological examination 01/20/2009 12/08/2011 Overview: [facility], [facility] documented as of this encounter (statuses as of 01/12/2022) [facility] History of Past illness Narrative* Problem Noted Date Resolved Date Left carpal tunnel syndrome 12/01/201405/25 Hip pain, left 12/29/2013 06/06/2018 Low back pain 12/29/2013 06/06/2018 Thrombosed hemorrhoids 01/22/2013 9 Routine general medical exam ination at a health care facility 01/20/2009 12/08/2011 Overview: 01/21/09, from Dr. Saravia (retired) Routine gynecological examination 01/20/2009 12/08/2011 Overview: [facility], [facility] documented as of this encounter (statuses as of 01/17/2022) [facility] History of Past illness Narrative* Problem Noted Date Resolved Date Left carpal tunnel syndrome 12/01/201405/25 Hip pain, left 12/29/2013 06/06/2018 Low back pain 12/29/2013 06/06/2018 Thrombosed hemorrhoids 01/22/2013 9 Routine general medical exam ination at a health care facility 01/20/2009 12/08/2011 Overview: 01/21/09, from Dr. Saravia (retired) Routine gynecological examination 01/20/2009 12/08/2011 Overview: [facility] documented as of this encounter (statuses as of 01/24/2022) [facility] History of Past illness Narrative* Problem Noted Date Resolved Date Left carpal tunnel syndrome 12/01/201405/25 Hip pain, left 12/29/2013 06/06/2018 Low back pain 12/29/2013 06/06/2018 Thrombosed hemorrhoids 01/22/2013 9 Routine general medical exam ination at a health care facility 01/20/2009 12/08/2011 Overview: 01/21/09, from Dr. Saravia (retired) Routine gynecological examination 01/20/2009 12/08/2011 Overview: [facility], [facility] documented as of this encounter (statuses as of 01/24/2022) [facility] History of Past illness Narrative* Problem Noted Date Resolved Date Left carpal tunnel syndrome 12/01/201405/25 Hip pain, left 12/29/2013 06/06/2018 Low back pain 12/29/2013 06/06/2018 Thrombosed hemorrhoids 01/22/2013 9 Routine general medical exam ination at a health care facility 01/20/2009 12/08/2011 Overview: 01/21/09, from Dr. Saravia (retired) Routine gynecological examination 01/20/2009 12/08/2011 Overview: [facility], [facility] documented as of this encounter (statuses as of 01/31/2022) [facility] History of Past illness Narrative* Problem Noted Date Resolved Date Left carpal tunnel syndrome 12/01/201405/25 Hip pain, left 12/29/2013 06/06/2018 Low back pain 12/29/2013 06/06/2018 Thrombosed hemorrhoids 01/22/2013 9 Routine general medical exam ination at a health care facility 01/20/2009 12/08/2011 Overview: 01/21/09, from Dr. Saravia (retired) Routine gynecological examination 01/20/2009 12/08/2011 Overview: [facility], [facility] documented as of this encounter (statuses as of 02/01/2022) [facility] History of Past illness Narrative* Problem Noted Date Resolved Date Left carpal tunnel syndrome 12/01/201405/25 Hip pain, left 12/29/2013 06/06/2018 Low back pain 12/29/2013 06/06/2018 Thrombosed hemorrhoids 01/22/2013 9 Routine general medical exam ination at a health care facility 01/20/2009 12/08/2011 Overview: 01/21/09, from Dr. Saravia (retired) Routine gynecological examination 01/20/2009 12/08/2011 Overview: [facility], [facility] documented as of this encounter (statuses as of 02/17/2022) [facility] History of Past illness Narrative* Problem Noted Date Resolved Date Left carpal tunnel syndrome 12/01/201405/25 Hip pain, left 12/29/2013 06/06/2018 Low back pain 12/29/2013 06/06/2018 Thrombosed hemorrhoids 01/22/2013 9 Routine general medical exam ination at a health care facility 01/20/2009 12/08/2011 Overview: 01/21/09, from Dr. Saravia (retired) Routine gynecological examination 01/20/2009 12/08/2011 Overview: [facility], [facility] documented as of this encounter (statuses as of 02/21/2022) [facility] History of Past illness Narrative* Problem Noted Date Resolved Date Left carpal tunnel syndrome 12/01/201405/25 Hip pain, left 12/29/2013 06/06/2018 Low back pain 12/29/2013 06/06/2018 Thrombosed hemorrhoids 01/22/2013 9 Routine general medical exam ination at a health care facility 01/20/2009 12/08/2011 Overview: 01/21/09, from Dr. Saravia (retired) Routine gynecological examination 01/20/2009 12/08/2011 Overview: [facility], [facility] documented as of this encounter (statuses as of 03/01/2022) [facility] History of Past illness Narrative* Problem Noted Date Resolved Date Left carpal tunnel syndrome 12/01/201405/25 Hip pain, left 12/29/2013 06/06/2018 Low back pain 12/29/2013 06/06/2018 Thrombosed hemorrhoids 01/22/2013 9 Routine general medical exam ination at a health care facility 01/20/2009 12/08/2011 Overview: 01/21/09, from Dr. Saravia (retired) Routine gynecological examination 01/20/2009 12/08/2011 Overview: [facility], [facility] documented as of this encounter (statuses as of 03/21/2022) [facility] History of Past illness Narrative* Problem Noted Date Resolved Date Left carpal tunnel syndrome 12/01/201405/25 Hip pain, left 12/29/2013 06/06/2018 Low back pain 12/29/2013 06/06/2018 Thrombosed hemorrhoids 01/22/2013 9 Routine general medical exam ination at a health care facility 01/20/2009 12/08/2011 Overview: 01/21/09, from Dr. Saravia (retired) Routine gynecological examination 01/20/2009 12/08/2011 Overview: [facility], [facility] documented as of this encounter (statuses as of 03/23/2022) [facility] History of Past illness Narrative* Problem Noted Date Resolved Date Left carpal tunnel syndrome 12/01/201405/25 Hip pain, left 12/29/2013 06/06/2018 Low back pain 12/29/2013 06/06/2018 Thrombosed hemorrhoids 01/22/2013 9 Routine general medical exam ination at a health care facility 01/20/2009 12/08/2011 Overview: 01/21/09, from Dr. Saravia (retired) Routine gynecological examination 01/20/2009 12/08/2011 Overview: [facility], [facility] documented as of this encounter (statuses as of 03/28/2022) [facility] History of Past illness Narrative* Problem Noted Date Resolved Date Left carpal tunnel syndrome 12/01/201405/25 Hip pain, left 12/29/2013 06/06/2018 Low back pain 12/29/2013 06/06/2018 Thrombosed hemorrhoids 01/22/2013 9 Routine general medical exam ination at a health care facility 01/20/2009 12/08/2011 Overview: 01/21/09, from Dr. Saravia (retired) Routine gynecological examination 01/20/2009 12/08/2011 Overview: [facility], [facility] documented as of this encounter (statuses as of 03/28/2022) [facility] History of Past illness Narrative* Problem Noted Date Resolved Date Left carpal tunnel syndrome 12/01/201405/25 Hip pain, left 12/29/2013 06/06/2018 Low back pain 12/29/2013 06/06/2018 Thrombosed hemorrhoids 01/22/2013 9 Routine general medical exam ination at a health care facility 01/20/2009 12/08/2011 Overview: 01/21/09, from Dr. Saravia (retired) Routine gynecological examination 01/20/2009 12/08/2011 Overview: [facility] documented as of this encounter (statuses as of 03/30/2022) [facility] History of Past illness Narrative* Problem Noted Date Resolved Date Left carpal tunnel syndrome 12/01/201405/25 Hip pain, left 12/29/2013 06/06/2018 Low back pain 12/29/2013 06/06/2018 Thrombosed hemorrhoids 01/22/2013 9 Routine general medical exam ination at a health care facility 01/20/2009 12/08/2011 Overview: 01/21/09, from Dr. Saravia (retired) Routine gynecological examination 01/20/2009 12/08/2011 Overview: [facility], [facility] documented as of this encounter (statuses as of 03/31/2022) [facility] History of Past illness Narrative* Problem Noted Date Resolved Date Left carpal tunnel syndrome 12/01/201405/25 Hip pain, left 12/29/2013 06/06/2018 Low back pain 12/29/2013 06/06/2018 Thrombosed hemorrhoids 01/22/2013 9 Routine general medical exam ination at a health care facility 01/20/2009 12/08/2011 Overview: 01/21/09, from Dr. Saravia (retired) Routine gynecological examination 01/20/2009 12/08/2011 Overview: [facility], [facility] documented as of this encounter (statuses as of 03/31/2022) [facility] History of Past illness Narrative* Problem Noted Date Resolved Date Left carpal tunnel syndrome 12/01/201405/25 Hip pain, left 12/29/2013 06/06/2018 Low back pain 12/29/2013 06/06/2018 Thrombosed hemorrhoids 01/22/2013 9 Routine general medical exam ination at a health care facility 01/20/2009 12/08/2011 Overview: 01/21/09, from Dr. Saravia (retired) Routine gynecological examination 01/20/2009 12/08/2011 Overview: [facility], [facility] documented as of this encounter (statuses as of 04/23/2022) [facility] History of Past illness Narrative* Problem Noted Date Resolved Date Left carpal tunnel syndrome 12/01/201405/25 Hip pain, left 12/29/2013 06/06/2018 Low back pain 12/29/2013 06/06/2018 Thrombosed hemorrhoids 01/22/2013 9 Routine general medical exam ination at a health care facility 01/20/2009 12/08/2011 Overview: 01/21/09, from Dr. Saravia (retired) Routine gynecological examination 01/20/2009 12/08/2011 Overview: [facility], [facility] documented as of this encounter (statuses as of 04/27/2022) [facility] History of Past illness Narrative* Problem Noted Date Resolved Date Left carpal tunnel syndrome 12/01/201405/25 Hip pain, left 12/29/2013 06/06/2018 Low back pain 12/29/2013 06/06/2018 Thrombosed hemorrhoids 01/22/2013 9 Routine general medical exam ination at a health care facility 01/20/2009 12/08/2011 Overview: 01/21/09, from Dr. Saravia (retired) Routine gynecological examination 01/20/2009 12/08/2011 Overview: [facility], [facility] documented as of this encounter (statuses as of 05/16/2022) [facility] History of Past illness Narrative* Problem Noted Date Resolved Date Left carpal tunnel syndrome 12/01/201405/25 Hip pain, left 12/29/2013 06/06/2018 Low back pain 12/29/2013 06/06/2018 Thrombosed hemorrhoids 01/22/2013 9 Routine general medical exam ination at a health care facility 01/20/2009 12/08/2011 Overview: 01/21/09, from Dr. Saravia (retired) Routine gynecological examination 01/20/2009 12/08/2011 Overview: [facility], [facility] documented as of this encounter (statuses as of 05/20/2022) [facility] History of Past illness Narrative* Problem Noted Date Resolved Date Left carpal tunnel syndrome 12/01/201405/25 Hip pain, left 12/29/2013 06/06/2018 Low back pain 12/29/2013 06/06/2018 Thrombosed hemorrhoids 01/22/2013 9 Routine general medical exam ination at a health care facility 01/20/2009 12/08/2011 Overview: 01/21/09, from Dr. Saravia (retired) Routine gynecological examination 01/20/2009 12/08/2011 Overview: [facility], [facility] documented as of this encounter (statuses as of 05/24/2022) [facility] History of Past illness Narrative* Problem Noted Date Resolved Date Left carpal tunnel syndrome 12/01/201405/25 Hip pain, left 12/29/2013 06/06/2018 Low back pain 12/29/2013 06/06/2018 Thrombosed hemorrhoids 01/22/2013 9 Routine general medical exam ination at a health care facility 01/20/2009 12/08/2011 Overview: 01/21/09, from Dr. Saravia (retired) Routine gynecological examination 01/20/2009 12/08/2011 Overview: [facility], [facility] documented as of this encounter (statuses as of 05/31/2022) [facility] History of Past illness Narrative* Problem Noted Date Resolved Date Left carpal tunnel syndrome 12/01/201405/25 Hip pain, left 12/29/2013 06/06/2018 Low back pain 12/29/2013 06/06/2018 Thrombosed hemorrhoids 01/22/2013 9 Routine general medical exam ination at a health care facility 01/20/2009 12/08/2011 Overview: 01/21/09, from Dr. Saravia (retired) Routine gynecological examination 01/20/2009 12/08/2011 Overview: [facility], [facility] documented as of this encounter (statuses as of 06/05/2022) [facility] History of Past illness Narrative* Problem Noted Date Resolved Date Left carpal tunnel syndrome 12/01/201405/25 Hip pain, left 12/29/2013 06/06/2018 Low back pain 12/29/2013 06/06/2018 Thrombosed hemorrhoids 01/22/2013 9 Routine general medical exam ination at a health care facility 01/20/2009 12/08/2011 Overview: 01/21/09, from Dr. Saravia (retired) Routine gynecological examination 01/20/2009 12/08/2011 Overview: [facility], [facility] documented as of this encounter (statuses as of 06/06/2022) [facility] History of Past illness Narrative* Problem Noted Date Resolved Date Left carpal tunnel syndrome 12/01/201405/25 Hip pain, left 12/29/2013 06/06/2018 Low back pain 12/29/2013 06/06/2018 Thrombosed hemorrhoids 01/22/2013 9 Routine general medical exam ination at a health care facility 01/20/2009 12/08/2011 Overview: 01/21/09, from Dr. Saravia (retired) Routine gynecological examination 01/20/2009 12/08/2011 Overview: [facility], [facility] documented as of this encounter (statuses as of 06/21/2022) [facility] History of Past illness Narrative* Problem Noted Date Resolved Date Left carpal tunnel syndrome 12/01/201405/25 Hip pain, left 12/29/2013 06/06/2018 Low back pain 12/29/2013 06/06/2018 Thrombosed hemorrhoids 01/22/2013 9 Routine general medical exam ination at a health care facility 01/20/2009 12/08/2011 Overview: 01/21/09, from Dr. Saravia (retired) Routine gynecological examination 01/20/2009 12/08/2011 Overview: [facility], [facility] documented as of this encounter (statuses as of 07/18/2022) [facility] Diagnosis Systemic lupus erythematosus, unspecified SLE type, unspecified organ involvement status (HCC)- Primary Myalgia Mylagia and myositis, unspecified Encounter for long-term (current) use of high-risk medication Encounter for long-term (current) use of other medications [facility] Diagnosis Viral gastroenteritis- Primary Intestinal infection due to other organism, not elsewhere classified [facility] Diagnosis Encounter for long-term (current) use of high-risk medication- Primary Encounter for long-term (current) use of other medications [facility] Diagnosis Systemic lupus erythematosus, unspecified SLE type, unspecified organ involvement status (HCC)- Primary [facility] Systemic lupus erythematosus, unspecified SLE type, unspecified organ involvement status (HCC) documented in this encounter [facility] note* Diagnosis Sciatica of left side Sciatica documented in this encounter [facility] note* Diagnosis Encounter for screening mammogram for malignant neoplasm of breast- Primary Other screening mammogram documented in this encounter [facility] note* Diagnosis Encounter for gynecological examination (general) (routine) without abnormal findings- Primary Screening for cervical cancer Screening for malignant neoplasm of the cervix Encounter for screening for human papillomavirus (HPV) Special screening examination for human papillomavirus (HPV) Encounter for screening mammogram for breast cancer Dense breast tissue on mammogram documented in this encounter [facility] note* Diagnosis Drug-induced systemic lupus erythematosus, unspecified organ involvement status (HCC)- Primary documented in this encounter [facility] note* Diagnosis Encounter for screening mammogram for breast cancer Dense breast tissue on mammogram [facility] Diagnosis Dermatitis- Primary Contact dermatitis and other eczema, due to unspecified cause Systemic lupus erythematosus, unspecified SLE type, unspecified organ involvement status (HCC)- Primary Encounter for long-term (current) use of high-risk medication Encounter for long-term (current) use of other medications Myalgia Mylagia and myositis, unspecified documented in this encounter [facility] note* Diagnosis Drug-induced systemic lupus erythematosus, unspecified organ involvement status (HCC)- Primary [facility] Diagnosis Systemic lupus erythematosus, unspecified SLE type, unspecified organ involvement status (HCC) documented in this encounter [facility] note* Diagnosis Anxiety with depression documented in this encounter [facility] note* Diagnosis Dermatitis- Primary Contact dermatitis and other eczema, due to unspecified cause Sciatica of left side Sciatica GERD without esophagitis Esophageal reflux [facility] Diagnosis Systemic lupus erythematosus, unspecified SLE type, unspecified organ involvement status (HCC) documented in this encounter [facility] note* Diagnosis Systemic lupus erythematosus, unspecified SLE type, unspecified organ involvement status (HCC) [facility] Diagnosis Anxiety with depression documented in this encounter [facility] note* Diagnosis Systemic lupus erythematosus, unspecified SLE type, unspecified organ involvement status (HCC)- Primary Encounter for long-term (current) use of high-risk medication Encounter for long-term (current) use of other medications Myalgia Mylagia and myositis, unspecified documented in this encounter [facility] note* Diagnosis Systemic lupus erythematosus, unspecified SLE type, unspecified organ involvement status (HCC)- Primary documented in this encounter [facility] note* Diagnosis Anxiety with depression documented in this encounter [facility] note* Diagnosis Systemic lupus erythematosus, unspecified SLE type, unspecified organ involvement status (HCC)- Primary Encounter for long-term (current) use of high-risk medication Encounter for long-term (current) use of other medications documented in this encounter [facility] note* Diagnosis Systemic lupus erythematosus, unspecified SLE type, unspecified organ involvement status (HCC)- Primary documented in this encounter [facility] note* Diagnosis Elevated blood pressure reading without diagnosis of hypertension- Primary documented in this encounter [facility] note* Diagnosis Primary hypertension- Primary Unspecified essential hypertension Need for influenza vaccination Need for prophylactic vaccination and inoculation against influenza Palpitations Hip pain, left Pain in joint, pelvic region and thigh documented in this encounter [facility] note* Diagnosis Hip pain- Primary Pain in joint, pelvic region and thigh documented in this encounter [facility] note* Diagnosis Systemic lupus erythematosus, unspecified SLE type, unspecified organ involvement status (HCC)- Primary documented in this encounter [facility] note* Diagnosis Systemic lupus erythematosus, unspecified SLE type, unspecified organ involvement status (HCC)- Primary Encounter for long-term (current) use of high-risk medication Encounter for long-term (current) use of other medications documented in this encounter [facility] note* Diagnosis Atrial tachycardia (HCC)- Primary Other specified cardiac dysrhythmias documented in this encounter [facility] note* Diagnosis Systemic lupus erythematosus, unspecified SLE type, unspecified organ involvement status (HCC)- Primary documented in this encounter [facility] note* Diagnosis Palpitations- Primary Atrial tachycardia (HCC) Other specified cardiac dysrhythmias Systemic lupus erythematosus, unspecified SLE type, unspecified organ involvement status (HCC) PVC (premature ventricular contraction) Other premature beats documented in this encounter [facility] note* Diagnosis Systemic lupus erythematosus, unspecified SLE type, unspecified organ involvement status (HCC)- Primary Long-term use of Plaquenil Encounter for long-term (current) use of other medications Long-term use of immunosuppressant medication Encounter for long-term (current) use of other medications documented in this encounter [facility] note* Diagnosis Systemic lupus erythematosus, unspecified SLE type, unspecified organ involvement status (HCC)- Primary Encounter for long-term (current) use of high-risk medication Encounter for long-term (current) use of other medications documented in this encounter [facility] note* Diagnosis Systemic lupus erythematosus, unspecified SLE type, unspecified organ involvement status (HCC)- Primary documented in this encounter [facility] note* Diagnosis Mixed hyperlipidemia- Primary Primary hypertension Unspecified essential hypertension SVT (supraventricular tachycardia) (HCC) Other specified cardiac dysrhythmias Drug-induced systemic lupus erythematosus, unspecified organ involvement status (HCC) RLS (restless legs syndrome) Restless legs syndrome (RLS) Anxiety with depression Anxiety state Anxiety state, unspecified Encounter for screening mammogram for malignant neoplasm of breast Other screening mammogram Osteoarthritis of left hip, unspecified osteoarthritis type Screening for colon cancer Special screening for malignant neoplasms, colon Chronic insomnia Insomnia, unspecified documented in this encounter [facility] note* Diagnosis Osteoarthritis of left hip, unspecified osteoarthritis type documented in this encounter [facility] note* Diagnosis Screening for colon cancer Special screening for malignant neoplasms, colon documented in this encounter [facility] note* Diagnosis Systemic lupus erythematosus, unspecified SLE type, unspecified organ involvement status (HCC)- Primary documented in this encounter [facility] note* Diagnosis Anxiety with depression documented in this encounter [facility] note* Diagnosis Osteoarthritis of left hip, unspecified osteoarthritis type- Primary documented in this encounter [facility] note* Diagnosis Systemic lupus erythematosus, unspecified SLE type, unspecified organ involvement status (HCC)- Primary Encounter for long-term (current) use of high-risk medication Encounter for long-term (current) use of other medications Myalgia Mylagia and myositis, unspecified documented in this encounter [facility] note* Diagnosis Systemic lupus erythematosus, unspecified SLE type, unspecified organ involvement status (HCC)- Primary documented in this encounter [facility] note* Diagnosis Osteoarthritis of left hip, unspecified osteoarthritis type- Primary documented in this encounter [facility] note* Diagnosis Osteoarthritis of left hip, unspecified osteoarthritis type- Primary documented in this encounter [facility] note* Diagnosis Systemic lupus erythematosus, unspecified SLE type, unspecified organ involvement status (HCC)- Primary documented in this encounter [facility] note* Diagnosis Chronic insomnia Insomnia, unspecified documented in this encounter [facility] note* Diagnosis Atrial tachycardia (HCC)- Primary Other specified cardiac dysrhythmias Systemic lupus erythematosus, unspecified SLE type, unspecified organ involvement status (HCC) PVC (premature ventricular contraction) Other premature beats Palpitations documented in this encounter [facility] note* Diagnosis Systemic lupus erythematosus, unspecified SLE type, unspecified organ involvement status (HCC)- Primary documented in this encounter [facility] note* Diagnosis Systemic lupus erythematosus, unspecified SLE type, unspecified organ involvement status (HCC)- Primary Encounter for long-term (current) use of high-risk medication Encounter for long-term (current) use of other medications documented in this encounter [facility] note* Diagnosis Chronic insomnia Insomnia, unspecified documented in this encounter [facility] note* Diagnosis Primary hypertension- Primary Unspecified essential hypertension Encounter for immunization Need for other specified prophylactic vaccination against single bacterial disease RLS (restless legs syndrome) Restless legs syndrome (RLS) Paresthesia Disturbance of skin sensation Mixed hyperlipidemia SVT (supraventricular tachycardia) Other specified cardiac dysrhythmias Drug-induced systemic lupus erythematosus, 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) Major depressive disorder, recurrent episode, in partial or unspecified remission Anxiety state Anxiety state, unspecified Arthritis of hip Unspecified arthropathy, pelvic region and thigh documented in this encounter [facility] note* Diagnosis Encounter for screening mammogram for malignant neoplasm of breast Other screening mammogram documented in this encounter [facility] note* Diagnosis Special screening for malignant neoplasms, colon- Primary documented in this encounter [facility] note* Diagnosis Anxiety with depression documented in this encounter [facility] note* Diagnosis Systemic lupus erythematosus, unspecified SLE type, unspecified organ involvement status (HCC)- Primary Mixed hyperlipidemia Encounter for long-term (current) use of high-risk medication Encounter for long-term (current) use of other medications documented in this encounter [facility] for referral (narrative)* Diagnostic Procedure Only (Routine) - Authorized Specialty Diagnoses / Procedures Referred By Hanane t Referred To Contact [facility] Diagnoses Encounter for screening mammogram for malignant neoplasm of breast Procedures MIRNA SCREENING SCREENING MAMMOGRAPHY BI 2-VIEW BREAST INC CAD Rhonda Garza APRN.GRAINING OPERATOR [address] [place] [address] [facility] [address] [id number] Referral ID Status Reason Start Date Expiration Date Visits Requested Visits Authorized [id number] Authorized Auto-Generat ed Referral 09/02/2021 10/02/2022 1 1 T [facility] for referral (narrative)* Diagnostic Procedure Only (Routine) - Authorized Specialty Diagnoses / Procedures Referred By Hanane escobar Referred To Contact [facility] Diagnoses Encounter for screening mammogram for breast cancer Dense breast tissue on mammogram Procedures MIRNA SCREENING W SHARIFA SCREENING DIGITAL BREAST TOMOSYNTHESIS BI SCREENING MAMMOGRAPHY BI 2-VIEW BREAST INC Rhonda Fuller APRN.GRAINING OPERATOR [address] [place] [address] [facility] [address] [place] [phone] Referral ID Status Reason Start Date Expiration Date Visits Requested Visits Authorized [id number] Authorized Auto-Generat ed Referral 09/13/2021 10/13/2022 1 1 T [facility] for referral (narrative)* Diagnostic Procedure Only (Routine) - Closed Specialty Diagnoses / Procedures Referred By Hanane t Referred To Contact [facility] Diagnoses Encounter for screening mammogram for breast cancer Dense breast tissue on mammogram Procedures MIRNA SCREENING W SHARIFA SCREENING DIGITAL BREAST TOMOSYNTHESIS BI SCREENING MAMMOGRAPHY BI 2-VIEW BREAST INC Rhonda Fuller APRN.GRAINING OPERATOR [address] [place] [address] [facility] [address] [place] [address] Referral ID Status Reason Start Date Expiration Date V isits Requested Visits Authorized [id number] Closed Auto-Generate d Referral 09/13/2021 10/13/2022 1 1 [facility] for referral (narrative)* Diagnostic Procedure Only (Routine) - Closed Specialty Diagnoses / Procedures Referred By Contac t Referred To Contact [facility] Diagnoses Hip pain, left Procedures XR HIP GENERAL 3V PELV/AP/LAT LEFT RADEX HIP UNILATERAL WITH PELVIS 2-3 VIEWS Jus Pérez MD [address] [place] [address] Xr Imaging Referral ID Status Reason Start Date Expiration Date V isits Requested Visits Authorized [id number] Closed Auto-Generate d Referral 03/30/2022 04/29/2023 1 1 [facility] for referral (narrative)* Outpatient Procedure (Routine) - Additional Clinical Info Needed Specialty Diagnoses / Procedures Referred By Contac t Referred To Contact [facility] Diagnoses Atrial tachycardia (HCC) PVC (premature ventricular contraction) Procedures ECHO ECHO TTHRC R-T 2D W/WOM-MODE COMPL SPEC&COLR D Chon Negron MD [address] [place] [address] [facility] [address] [place] [address] Referral ID Status Reason Start Date Expiration Date Visits Requested Visits Authorized [id number] Additional Clinical Info Needed Auto-Generat ed Referral 05/30/2022 05/30/2023 1 1 * Outpatient Procedure (Routine) - Authorized Specialty Diagnoses / Procedures Referred By Contac t Referred To Contact [facility] Diagnoses Atrial tachycardia (HCC) Procedures ECG COMPLETE ECG ROUTINE ECG W/LEAST 12 LDS W/I&R Chon Negron MD [address] [place] [address] [facility] [address] [place] [address] Referral ID Status Reason Start Date Expiration Date Visits Requested Visits Authorized [id number] Authorized Auto-Generat ed Referral 05/30/2022 05/30/2023 1 1 [facility] for referral (narrative)* Diagnostic Procedure Only (Routine) - Closed Specialty Diagnoses / Procedures Referred By Contac t Referred To Contact [facility] Diagnoses Encounter for screening mammogram for malignant neoplasm of breast Procedures MIRNA SCREENING W SHARIFA SCREENING DIGITAL BREAST TOMOSYNTHESIS BI SCREENING MAMMOGRAPHY BI 2-VIEW BREAST INC CAD Jus Pérez MD [address] [place] [address] [facility] [address] [place] [phone] Referral ID Status Reason Start Date Expiration Date V isits Requested Visits Authorized [id number] Closed Auto-Generate d Referral 08/02/2022 09/01/2023 1 1 T [facility] for referral (narrative)* Outpatient Procedure (Routine) - Closed Specialty Diagnoses / Procedures Referred By Contac t Referred To Contact [facility] Diagnoses Special screening for malignant neoplasms, colon Procedures COLONOSCOPY SCREENING COLONOSCOPY FLX DX W/COLLJ SPEC WHEN PFRMD Christine Rodriguez PA-C [address] [facility] [place] [address] [facility] [address] [place] [id number] Referral ID Status Reason Start Date Expiration Date V isits Requested Visits Authorized [id number] Closed Auto-Generate d Referral 08/08/2022 08/09/2023 1 1 [facility] for visit Narrative* Diagnostic Procedure Only (Routine) - Closed Specialty Diagnoses / Procedures Referred By Contac t Referred To Contact [facility] Diagnoses Encounter for screening mammogram for breast cancer Dense breast tissue on mammogram Procedures MIRNA SCREENING W SHARIFA SCREENING DIGITAL BREAST TOMOSYNTHESIS BI SCREENING MAMMOGRAPHY BI 2-VIEW BREAST INC CAD Rhonda Garza, AUTOMOTIVE SERVICE PORTER.GRAINING OPERATOR [address] [place] [address] [facility] [address] [place] [address] Referral ID Status Reason Start Date Expiration Date V isits Requested Visits Authorized [id number] Closed Auto-Generate d Referral 09/13/2021 10/13/2022 1 1 [facility] for visit Narrative* Diagnostic Procedure Only (Routine) - Closed Specialty Diagnoses / Procedures Referred By Hanane escobar Referred To Contact [facility] Diagnoses Encounter for screening mammogram for malignant neoplasm of breast Procedures MIRNA SCREENING W SHARIFA SCREENING DIGITAL BREAST TOMOSYNTHESIS BI SCREENING MAMMOGRAPHY BI 2-VIEW BREAST INC CAD Jus Pérez MD [address] [place] [address] [facility] [address] [place] [phone] Referral ID Status Reason Start Date Expiration Date V isits Requested Visits Authorized [id number] Closed Auto-Generate d Referral 08/02/2022 09/01/2023 1 1 [facility] for visit Narrative* Outpatient Procedure (Routine) - Closed Specialty Diagnoses / Procedures Referred By Hanane escobar Referred To Contact [facility] Diagnoses Special screening for malignant neoplasms, colon Procedures COLONOSCOPY SCREENING COLONOSCOPY FLX DX W/COLLJ SPEC WHEN PFRMD Christine Rodriguez PA-C [address] [place] [address] [facility] [address] [place] [id number] Referral ID Status Reason Start Date Expiration Date V isits Requested Visits Authorized [id number] Closed Auto-Generate d Referral 08/08/2022 08/09/2023 1 1 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 Review of System There may be information available, but it has not been provided by the sender. History of Present Illness There may be information available, but it has not been provided by the sender. Medications Administered Section Inactive Administered Medications - up to 3 most recent administrations Medication Order MAR Action Action Date Dose Rate Site belimumab 866 mg in NaCl 0.9% 250 mL (BENLYSTA) 866 mg (10 mg/kg/dose 86.6 kg Treatment plan Recorded weight), INTRAVENOUS, at 250 mL/hr, Administer over 60 Minutes, ONCE, 1 dose, On Sun01/31/22 at 1430, TOTAL VOLUME - Expires: 01/31/2022 @ 2220 Protect From Light New Bag/Syringe/Bottle 01/31/2022 2:56 PM EDT 866 mg 250 mL/hr Inactive Administered Medications - up to 3 most recent administrations Medication Order MAR Action Action Date Dose Rate Site belimumab 866 mg in NaCl 0.9% 250 mL (BENLYSTA) 866 mg (10 mg/kg/dose 86.6 kg Treatment plan Recorded weight), INTRAVENOUS, at 250 mL/hr, Administer over 60 Minutes, ONCE, 1 dose, On Sun02/28/22 at 1430, Total Volume - Protect From Light New Bag/Syringe/Bottle 02/28/2022 2:41 PM EST 866 mg 250 mL/hr Inactive Administered Medications - up to 3 most recent administrations Medication Order MAR Action Action Date Dose Rate Site belimumab 903 mg in NaCl 0.9% 250 mL (BENLYSTA) 903 mg (10 mg/kg/dose 90.3 kg Treatment plan Recorded weight), INTRAVENOUS, at 250 mL/hr, Administer over 60 Minutes, ONCE, 1 dose, On 12/6/22 at 1430, Immediate use Protect From Light New Bag/Syringe/Bottle 03/28/2022 2:54 PM EST 903 mg 250 mL/hr Inactive Administered Medications - up to 3 most recent administrations Medication Order MAR Action Action Date Dose Rate Site belimumab 903 mg in NaCl 0.9% 250 mL (BENLYSTA) 903 mg (10 mg/kg/dose 90.3 kg Treatment plan Recorded weight), INTRAVENOUS, at 250 mL/hr, Administer over 60 Minutes, ONCE, 1 dose, On Sun04/25/22 at 1330, exp 1600 04/25/22 (room temp) Protect From Light New Bag/Syringe/Bottle 04/25/2022 2:02 PM EST 903 mg 250 mL/hr Inactive Administered Medications - up to 3 most recent administrations Medication Order MAR Action Action Date Dose Rate Site belimumab 930 mg in NaCl 0.9% 250 mL (BENLYSTA) 930 mg (10 mg/kg/dose 93 kg Treatment plan Recorded weight), INTRAVENOUS, at 250 mL/hr, Administer over 60 Minutes, ONCE, 1 dose, On Sun05/23/22 at 1500, Total Volume -exp 2300 05/23/22 (room temp) Protect From Light New Bag/Syringe/Bottle 05/23/2022 3:33 PM EST 930 mg 250 mL/hr Inactive Administered Medications - up to 3 most recent administrations Medication Order MAR Action Action Date Dose Rate Site belimumab 930 mg in NaCl 0.9% 250 mL (BENLYSTA) 930 mg (10 mg/kg/dose 93 kg Treatment plan Recorded weight), INTRAVENOUS, at 250 mL/hr, Administer over 60 Minutes, ONCE, 1 dose, On Sun06/20/22 at 1430, TOTAL VOLUME - Expires: 06/20/22 @ 2230 Protect From Light New Bag/Syringe/Bottle 06/20/2022 2:59 PM EST 930 mg 250 mL/hr Inactive Administered Medications - up to 3 most recent administrations Medication Order MAR Action Action Date Dose Rate Site belimumab 930 mg in NaCl 0.9% 250 mL (BENLYSTA) 930 mg (10 mg/kg/dose 93 kg Treatment plan Recorded weight), INTRAVENOUS, at 250 mL/hr, Administer over 60 Minutes, ONCE, 1 dose, On Sun07/18/22 at 1430, Total Volume 250 mls exp immediate use (room temp) Protect From Light New Bag/Syringe/Bottle 07/18/2022 2:45 PM EDT 930 mg 250 mL/hr Inactive Administered Medications - up to 3 most recent administrations Medication Order MAR Action Action Date Dose Rate Site belimumab 930 mg in NaCl 0.9% 250 mL (BENLYSTA) 930 mg (10 mg/kg/dose 93 kg Treatment plan Recorded weight), INTRAVENOUS, at 250 mL/hr, Administer over 60 Minutes, ONCE, 1 dose, On Sun08/15/22 at 1400, Total Volume - exp immediate use (room temp) Protect From Light New Bag/Syringe/Bottle 08/15/2022 2:26 PM EDT 930 mg 250 mL/hr Inactive Administered Medications - up to 3 most recent administrations Medication Order MAR Action Action Date Dose Rate Site belimumab 916 mg in NaCl 0.9% 250 mL (BENLYSTA) 916 mg (10 mg/kg/dose 91.6 kg Treatment plan Recorded weight), INTRAVENOUS, at 250 mL/hr, Administer over 60 Minutes, ONCE, 1 dose, On Sun10/10/22 at 1400, Total Volume exp immediate use (room temp) Protect From Light New Bag/Syringe/Bottle 10/10/2022 2:16 PM EDT 916 mg 250 mL/hr Inactive Administered Medications - up to 3 most recent administrations Medication Order MAR Action Action Date Dose Rate Site belimumab 916 mg in NaCl 0.9% 250 mL (BENLYSTA) 916 mg (10 mg/kg/dose 91.6 kg Treatment plan Recorded weight), INTRAVENOUS, at 250 mL/hr, Administer over 60 Minutes, ONCE, 1 dose, On Sun11/07/22 at 1330, Total Volume - exp immediate use (room temp) Protect From Light New Bag/Syringe/Bottle 11/07/2022 2:29 PM EDT 916 mg 250 mL/hr Inactive Administered Medications - up to 3 most recent administrations Medication Order MAR Action Action Date Dose Rate Site belimumab 916 mg in NaCl 0.9% 250 mL (BENLYSTA) 916 mg (10 mg/kg/dose 91.6 kg Treatment plan Recorded weight), INTRAVENOUS, at 250 mL/hr, Administer over 60 Minutes, ONCE, 1 dose, On Sun12/11/22 at 1430, Total Volume - exp immediate use (room temp) Protect From Light New Bag/Syringe/Bottle 12/11/2022 2:35 PM EDT 916 mg 250 mL/hr Inactive Administered Medications - up to 3 most recent administrations Medication Order MAR Action Action Date Dose Rate Site belimumab 916 mg in NaCl 0.9% 250 mL (BENLYSTA) 916 mg (10 mg/kg/dose 91.6 kg Treatment plan Recorded weight), INTRAVENOUS, at 250 mL/hr, Administer over 60 Minutes, ONCE, 1 dose, On Sun02/05/23 at 1430, Total Volume - exp immediate use (room temp) Protect From Light New Bag/Syringe/Bottle 02/05/2023 3:06 PM EDT 916 mg 250 mL/hr Inactive Administered Medications - up to 3 most recent administrations Medication Order MAR Action Action Date Dose Rate Site diphenhydrAMINE 12.5-50 mg injection (BENADRYL) 12.5-50 mg, INTRAVENOUS, DIRECTED, Starting on Sun10/03/22 at 1130, Until Sun10/03/22 at 1529, DOSING DIRECTED BY PHYSICIAN FOR PROCEDURAL SEDATION ONLY, Intraprocedure Given 10/03/2022 11:18 AM EDT 50 mg lactated ringers iv infusion 30 mL/hr, INTRAVENOUS, CONTINUOUS, Starting on Sun10/03/22 at 1030, Until Sun10/03/22 at 1144, Preprocedure New Bag/Syringe/Deja le 10/03/2022 10:09 AM EDT 30 mL/hr 30 mL/hr Hand, Right meperidine (PF) 12.5-100 mg injection (DEMEROL) 12.5-100 mg, INTRAVENOUS, DIRECTED, Starting on Sun10/03/22 at 1130, Until Sun10/03/22 at 1529, DOSING DIRECTED BY PHYSICIAN FOR PROCEDURAL SEDATION ONLY, Intraprocedure Given by LIP 10/03/2022 11:15 AM EDT 25 mg Inactive Administered Medications - up to 3 most recent administrations Medication Order MAR Action Action Date Dose Rate Site belimumab 916 mg in NaCl 0.9% 250 mL (BENLYSTA) 916 mg (10 mg/kg/dose 91.6 kg Treatment plan Recorded weight), INTRAVENOUS, at 250 mL/hr, Administer over 60 Minutes, ONCE, 1 dose, On Sun03/06/23 at 1400, TOTAL VOLUME - Expires: 03/06/23 @ 2145 Protect From Light New Bag/Syringe/Bottle 03/06/2023 2:19 PM EST 916 mg 250 mL/hr Inactive Administered Medications - up to 3 most recent administrations Medication Order MAR Action Action Date Dose Rate Site belimumab 916 mg in NaCl 0.9% 250 mL (BENLYSTA) 916 mg (10 mg/kg/dose 91.6 kg Treatment plan Recorded weight), INTRAVENOUS, at 250 mL/hr, Administer over 60 Minutes, ONCE, 1 dose, On Sun04/03/23 at 1330, Total Volume - exp immediate use (room temp) Protect From Light New Bag/Syringe/Bottle 04/03/2023 2:09 PM EST 916 mg 250 mL/hr Reason for Referral Specialty Diagnoses / Procedures Referred By Hanane t Referred To Contact [facility] Diagnoses Hip pain Procedures CONSULT TO PHYSICAL THERAPY PHYSICAL THERAPY EVALUATION HIGH COMPLEX 45 MINS Jus Pérez MD [address] [place] [address] [facility] [address] [place] [address] Referral ID Status Reason Start Date Expiration Date Visits Requested Visits Authorized [id number] Pending Review Auto-Generat ed Referral 03/31/2022 03/31/2023 1 1 Specialty Diagnoses / Procedures Referred By Hanane t Referred To Contact Cardiology Diagnoses Atrial tachycardia (HCC) Procedures CONSULT TO CARDIOLOGY OFFICE/OUTPATIENT [facility] 60-74 MINUTES Jus Pérez MD [address] [place] [address] Referral ID Status Reason Start Date Expiration Date Visits Requested Visits Authorized [id number] Pending Review PCP Requested Referral 04/26/2022 04/26/2023 1 1 Specialty Diagnoses / Procedures Referred By Hanane t Referred To Contact General Surgery Diagnoses Screening for colon cancer Procedures CONSULT TO GENERAL SURGERY OFFICE/OUTPATIENT [facility] 60-74 MINUTES Jus Pérez MD [address] [place] [address] Referral ID Status Reason Start Date Expiration Date Visits Requested Visits Authorized [id number] Authorized PCP Requested Referral 08/02/2022 08/02/2023 1 1 Specialty Diagnoses / Procedures Referred By Contac t Referred To Contact [facility] Diagnoses Osteoarthritis of left hip, unspecified osteoarthritis type Procedures CONSULT TO PHYSICAL THERAPY PHYSICAL THERAPY EVALUATION HIGH COMPLEX 45 MINS Jus Pérez MD [address] [place] [address] [facility] [address] [place] [address] Referral ID Status Reason Start Date Expiration Date Visits Requested Visits Authorized [id number] Authorized Auto-Generat ed Referral 08/02/2022 11/20/2022 1 1 Specialty Diagnoses / Procedures Referred By Contac t Referred To Contact [facility] Diagnoses Encounter for screening mammogram for malignant neoplasm of breast Procedures MIRNA SCREENING W SHARIFA SCREENING DIGITAL BREAST TOMOSYNTHESIS BI SCREENING MAMMOGRAPHY BI 2-VIEW BREAST INC CAD Jus Pérez MD [address] [place] [address] [facility] [address] [place] [address] Referral ID Status Reason Start Date Expiration Date Visits Requested Visits Authorized [id number] Authorized Auto-Generat ed Referral 08/02/2022 09/01/2023 1 1 Specialty Diagnoses / Procedures Referred By Contac t Referred To Contact PHYSICAL THERAPY Diagnoses Osteoarthritis of left hip, unspecified osteoarthritis type Procedures PT REHAB FOLLOW UP ORDER THERAPEUTIC EXERCISES RE, EA 15 MIN. Jus Pérez MD [address] [place] [address] Pt [facility] [address] [place] [address] Referral ID Status Reason Start Date Expiration Date Visits Requested Visits Authorized [id number] Pending Review PCP Requested Referral Auto-Generate d Referral 08/10/2022 11/08/2022 1 1 Specialty Diagnoses / Procedures Referred By Contac t Referred To Contact Orthopedics Diagnoses Arthritis of hip Procedures CONSULT TO ORTHOPAEDICS OFFICE/OUTPATIENT [facility] MDM 60-74 MINUTES Jus Pérez MD [address] [place] [address] Referral ID Status Reason Start Date Expiration Date Visits Requested Visits Authorized [id number] Pending Review PCP Requested Referral 3 02/06/2024 1 1 Additional Source Comments INFORMATION SOURCE (unrecogn ized section and content) DATE CREATED AUTHOR AUTHOR'S ORGANIZ ATION 12/17/2019 [facility] DATE CREATED AUTHOR AUTHOR'S ORGANIZ ATION 06/11/2022 [facility] DATE CREATED AUTHOR AUTHOR'S ORGANIZ ATION 05/09/2023 [facility] Reason for Visit (unrecogniz ed section and content) Specialty Diagnoses / Procedures Referred By Contac t Referred To Contact PHYSICAL THERAPY Diagnoses Osteoarthritis of left hip, unspecified osteoarthritis type Procedures PT REHAB FOLLOW UP ORDER THERAPEUTIC EXERCISES RE, EA 15 MIN. Jus Pérez MD [address] [place] [address] Pt [facility] [address] [place] [address] Referral ID Status Reason Start Date Expiration Date Visits Requested Visits Authorized [id number] Authorized PCP Requested Referral Auto-Generate d Referral 08/11/2022 11/10/2022 8 8 Reason Comments PT Progress Note Reason Comments Non-Chemotherapy Treatment Specialty Diagnoses / Procedures Referred By Contac t Referred To Contact Diagnoses Systemic lupus erythematosus, unspecified SLE type, unspecified organ involvement status (HCC) Procedures BELIMUMAB INJECTION Fawn Son, [employer].GRAINING OPERATOR [address] [place] [address] [facility] [address] [place] [address] Referral ID Status Reason Start Date Expiration Date V isits Requested Visits Authorized [id number] Waiting for Response 01/05/2022 08/23/2022 99 99 Reason Comments Chemotherapy Treatment Referral ID Status Reason Start Date Expiration Date V isits Requested Visits Authorized [id number] Authorized 01/05/2022 08/23/2022 99 99 Reason For Visit Description Start Date Postop - subsequent visit Preliminary reason f or visit data, not yet signed by the author as of lower back post Laminectomy L4 laminectomy L4-L5 removal of intracanal extradural lesion synovial cyst fusion L4-L5 instrumentation on 06/18/2018 Reason Comments SLE Reason Comments Telemedicine Reason Comments Treatment Planning Reason Onset Date Comments SPP Inflammatory Conditions - Treatment Referral 08/22/2021 Ben[facility]sta Insurance Authorization 08/22/2021 [place]) Insurance Authorization 08/22/2021 [place] appro joao (secondary) Reason Onset Date Comments Refill Request 08/23/2021 Reason Comments Refill Request Reason Comments Appointment Reason Comments Yearly Exam Reason Comments Benefits Investigation Specialty Diagnoses / Procedures Referred By Contramonita t Referred To Contact Hematology/Oncology / HEMATOLOGY/ONCOLOGY Diagnoses benlysta injection Procedures 1 [place] [address] [place] [address] [facility] [address] [place] [address] Referral ID Status Reason Start Date Expiration Date V isits Requested Visits Authorized [id number] Pending Review 09/15/2021 11/14/2021 1 1 Reason Comments Refill Request Reason Comments Acute Visit Reason Onset Date Comments SPP Inflammatory Conditions - No-go 11/10/2021 Benlysta Insurance Authorization 11/10/2021 MUNIR on fi le Reason Onset Date Comments Refill Request 11/14/2021 Reason Onset Date Comments Refill Request 12/02/2021 Reason Comments Rash Right buttock-same a s had before used mometasone on it but took quite awhile to go away. Follow Up Reason Onset Date Comments Refill Request 12/08/2021 Reason Onset Date Comments Refill Request 12/11/2021 Reason Comments Other Referral ID Status Reason Start Date Expiration Date V isits Requested Visits Authorized [id number] Authorized 01/05/2022 04/22/2022 99 99 Reason Comments Results Opened In Error Reason Onset Date Comments Blood Pressure Follow up Left Hip Pain X 2 months Immunizations 03/30/2022 Flu vaccination Reason Comments Results Reason Comments Results Reason Comments New Patient Feels like her heart is beating out of her chest and neck. Happens often throughout the week. Usually when lying down or her anxiety is high Specialty Diagnoses / Procedures Referred By Contac t Referred To Contact Cardiology Diagnoses Atrial tachycardia (HCC) Procedures CONSULT TO CARDIOLOGY OFFICE/OUTPATIENT [facility] 60-74 MINUTES Jus Pérez MD [address] [place] [address] Referral ID Status Reason Start Date Expiration Date Visits Requested Visits Authorized [id number] Pending Review PCP Requested Referral 04/26/2022 04/26/2023 1 1 Reason Comments [facility] Specialist - Other Referral ID Status Reason Start Date Expiration Date V isits Requested Visits Authorized [id number] Pending Review 01/05/2022 08/23/2022 99 99 Reason Comments Follow Up Reason Comments PT Eval Specialty Diagnoses / Procedures Referred By Contac t Referred To Contact [facility] Diagnoses Osteoarthritis of left hip, unspecified osteoarthritis type Procedures CONSULT TO PHYSICAL THERAPY PHYSICAL THERAPY EVALUATION HIGH COMPLEX 45 MINS Jsu Pérez MD [address] [place] [address] [facility] [address] [place] [address] Referral ID Status Reason Start Date Expiration Date V isits Requested Visits Authorized [id number] Closed Auto-Generate d Referral 08/02/2022 11/20/2022 1 1 Reason Comments Consult colonoscopy Specialty Diagnoses / Procedures Referred By Contac t Referred To Contact General Surgery Diagnoses Screening for colon cancer Procedures CONSULT TO GENERAL SURGERY OFFICE/OUTPATIENT [facility] 60-74 MINUTES Jus Pérez MD [address] [place] [address] Referral ID Status Reason Start Date Expiration Date V isits Requested Visits Authorized [id number] Closed PCP Requested Referral 08/02/2022 08/02/2023 1 1 Reason Onset Date Comments Refill Request 08/17/2022 Reason Comments Insurance Authorization Referral ID Status Reason Start Date Expiration Date V isits Requested Visits Authorized [id number] Authorized 01/05/2022 02/14/2023 99 99 Reason Comments Follow Up Six month follow up. Referral ID Status Reason Start Date Expiration Date V isits Requested Visits Authorized [id number] Authorized 01/05/2022 11/08/2023 24 24 Reason Comments Abstract Reason Onset Date Comments Refill Request 01/10/2023 Reason Comments 6 Month Exam Specialty Diagnoses / Procedures Referred By Contac t Referred To Contact Family Medicine / FAMILY MEDICINE Diagnoses 6 month follow up Procedures 4C EST Jus Pérez MD [address] [place] [address] Jus Pérez MD [address] [place] [address] Referral ID Status Reason Start Date Expiration Date Visits Re quested Visits Authorized [id number] Closed 02/06/2023 04/22/2023 1 1 Reason Onset Date Comments Refill Request 02/19/2023 Referral ID Status Reason Start Date Expiration Date V isits Requested Visits Authorized [id number] Authorized 01/05/2022 11/08/2023 23 23 Reason Onset Date Comments Refill Request 03/11/2023 Specialty Diagnoses / Procedures Referred By Contac t Referred To Contact Diagnoses MEDICAL APPTS Procedures MEDICAL APPTS Self [facility] [place] [address] Referral ID Status Reason Start Date Expiration Date Visits Requested Visits Authorized [id number] Authorized Patient Cleared - Qualified 100% FAS 03/23/2023 06/21/2023 99 99 Source Comments (unrecognize d section and content) In the event this informatio n is protected by the Federal Confidentiality of Alcohol and Drug Abuse Patient Records regulations: The Federal rules restrict any use of the information to criminally investigate or prosecute any alcohol or drug abuse patient.[facility] the event this information is protected by the Federal Confidentiality of Alcohol and Drug Abuse Patient Records regulations: The Federal rules restrict any use of the information to criminally investigate or prosecute any alcohol or drug abuse patient.[facility] the event this information is protected by the Federal Confidentiality of Alcohol and Drug Abuse Patient Records regulations: The Federal rules restrict any use of the information to criminally investigate or prosecute any alcohol or drug abuse patient.[facility] the event this information is protected by the Federal Confidentiality of Alcohol and Drug Abuse Patient Records regulations: The Federal rules restrict any use of the information to criminally investigate or prosecute any alcohol or drug abuse patient.[facility] the event this information is protected by the Federal Confidentiality of Alcohol and Drug Abuse Patient Records regulations: The Federal rules restrict any use of the information to criminally investigate or prosecute any alcohol or drug abuse patient.[facility] HospitalIn the event this information is protected by the Federal Confidentiality of Alcohol and Drug Abuse Patient Records regulations: The Federal rules restrict any use of the information to criminally investigate or prosecute any alcohol or drug abuse patient.[facility] HospitalIn the event this information is protected by the Federal Confidentiality of Alcohol and Drug Abuse Patient Records regulations: The Federal rules restrict any use of the information to criminally investigate or prosecute any alcohol or drug abuse patient.[facility] HospitalIn the event this information is protected by the Federal Confidentiality of Alcohol and Drug Abuse Patient Records regulations: The Federal rules restrict any use of the information to criminally investigate or prosecute any alcohol or drug abuse patient.[facility] HospitalIn the event this information is protected by the Federal Confidentiality of Alcohol and Drug Abuse Patient Records regulations: The Federal rules restrict any use of the information to criminally investigate or prosecute any alcohol or drug abuse patient.[facility] HospitalIn the event this information is protected by the Federal Confidentiality of Alcohol and Drug Abuse Patient Records regulations: The Federal rules restrict any use of the information to criminally investigate or prosecute any alcohol or drug abuse patient.[facility] HospitalIn the event this information is protected by the Federal Confidentiality of Alcohol and Drug Abuse Patient Records regulations: The Federal rules restrict any use of the information to criminally investigate or prosecute any alcohol or drug abuse patient.[facility] HospitalIn the event this information is protected by the Federal Confidentiality of Alcohol and Drug Abuse Patient Records regulations: The Federal rules restrict any use of the information to criminally investigate or prosecute any alcohol or drug abuse patient.[facility] HospitalIn the event this information is protected by the Federal Confidentiality of Alcohol and Drug Abuse Patient Records regulations: The Federal rules restrict any use of the information to criminally investigate or prosecute any alcohol or drug abuse patient.[facility] HospitalIn the event this information is protected by the Federal Confidentiality of Alcohol and Drug Abuse Patient Records regulations: The Federal rules restrict any use of the information to criminally investigate or prosecute any alcohol or drug abuse patient.[facility] HospitalIn the event this information is protected by the Federal Confidentiality of Alcohol and Drug Abuse Patient Records regulations: The Federal rules restrict any use of the information to criminally investigate or prosecute any alcohol or drug abuse patient.[facility] HospitalIn the event this information is protected by the Federal Confidentiality of Alcohol and Drug Abuse Patient Records regulations: The Federal rules restrict any use of the information to criminally investigate or prosecute any alcohol or drug abuse patient.[facility] HospitalIn the event this information is protected by the Federal Confidentiality of Alcohol and Drug Abuse Patient Records regulations: The Federal rules restrict any use of the information to criminally investigate or prosecute any alcohol or drug abuse patient.[facility] HospitalIn the event this information is protected by the Federal Confidentiality of Alcohol and Drug Abuse Patient Records regulations: The Federal rules restrict any use of the information to criminally investigate or prosecute any alcohol or drug abuse patient.[facility] HospitalIn the event this information is protected by the Federal Confidentiality of Alcohol and Drug Abuse Patient Records regulations: The Federal rules restrict any use of the information to criminally investigate or prosecute any alcohol or drug abuse patient.[facility] HospitalIn the event this information is protected by the Federal Confidentiality of Alcohol and Drug Abuse Patient Records regulations: The Federal rules restrict any use of the information to criminally investigate or prosecute any alcohol or drug abuse patient.[facility] HospitalIn the event this information is protected by the Federal Confidentiality of Alcohol and Drug Abuse Patient Records regulations: The Federal rules restrict any use of the information to criminally investigate or prosecute any alcohol or drug abuse patient.[facility] HospitalIn the event this information is protected by the Federal Confidentiality of Alcohol and Drug Abuse Patient Records regulations: The Federal rules restrict any use of the information to criminally investigate or prosecute any alcohol or drug abuse patient.[facility] HospitalIn the event this information is protected by the Federal Confidentiality of Alcohol and Drug Abuse Patient Records regulations: The Federal rules restrict any use of the information to criminally investigate or prosecute any alcohol or drug abuse patient.[facility] HospitalIn the event this information is protected by the Federal Confidentiality of Alcohol and Drug Abuse Patient Records regulations: The Federal rules restrict any use of the information to criminally investigate or prosecute any alcohol or drug abuse patient.[facility] HospitalIn the event this information is protected by the Federal Confidentiality of Alcohol and Drug Abuse Patient Records regulations: The Federal rules restrict any use of the information to criminally investigate or prosecute any alcohol or drug abuse patient.[facility] HospitalIn the event this information is protected by the Federal Confidentiality of Alcohol and Drug Abuse Patient Records regulations: The Federal rules restrict any use of the information to criminally investigate or prosecute any alcohol or drug abuse patient.[facility] HospitalIn the event this information is protected by the Federal Confidentiality of Alcohol and Drug Abuse Patient Records regulations: The Federal rules restrict any use of the information to criminally investigate or prosecute any alcohol or drug abuse patient.[facility] HospitalIn the event this information is protected by the Federal Confidentiality of Alcohol and Drug Abuse Patient Records regulations: The Federal rules restrict any use of the information to criminally investigate or prosecute any alcohol or drug abuse patient.[facility] HospitalIn the event this information is protected by the Federal Confidentiality of Alcohol and Drug Abuse Patient Records regulations: The Federal rules restrict any use of the information to criminally investigate or prosecute any alcohol or drug abuse patient.[facility] HospitalIn the event this information is protected by the Federal Confidentiality of Alcohol and Drug Abuse Patient Records regulations: The Federal rules restrict any use of the information to criminally investigate or prosecute any alcohol or drug abuse patient.[facility] HospitalIn the event this information is protected by the Federal Confidentiality of Alcohol and Drug Abuse Patient Records regulations: The Federal rules restrict any use of the information to criminally investigate or prosecute any alcohol or drug abuse patient.[facility] HospitalIn the event this information is protected by the Federal Confidentiality of Alcohol and Drug Abuse Patient Records regulations: The Federal rules restrict any use of the information to criminally investigate or prosecute any alcohol or drug abuse patient.[facility] HospitalIn the event this information is protected by the Federal Confidentiality of Alcohol and Drug Abuse Patient Records regulations: The Federal rules restrict any use of the information to criminally investigate or prosecute any alcohol or drug abuse patient.[facility] HospitalIn the event this information is protected by the Federal Confidentiality of Alcohol and Drug Abuse Patient Records regulations: The Federal rules restrict any use of the information to criminally investigate or prosecute any alcohol or drug abuse patient.[facility] HospitalIn the event this information is protected by the Federal Confidentiality of Alcohol and Drug Abuse Patient Records regulations: The Federal rules restrict any use of the information to criminally investigate or prosecute any alcohol or drug abuse patient.[facility] HospitalIn the event this information is protected by the Federal Confidentiality of Alcohol and Drug Abuse Patient Records regulations: The Federal rules restrict any use of the information to criminally investigate or prosecute any alcohol or drug abuse patient.[facility] HospitalIn the event this information is protected by the Federal Confidentiality of Alcohol and Drug Abuse Patient Records regulations: The Federal rules restrict any use of the information to criminally investigate or prosecute any alcohol or drug abuse patient.[facility] HospitalIn the event this information is protected by the Federal Confidentiality of Alcohol and Drug Abuse Patient Records regulations: The Federal rules restrict any use of the information to criminally investigate or prosecute any alcohol or drug abuse patient.[facility] HospitalIn the event this information is protected by the Federal Confidentiality of Alcohol and Drug Abuse Patient Records regulations: The Federal rules restrict any use of the information to criminally investigate or prosecute any alcohol or drug abuse patient.[facility] HospitalIn the event this information is protected by the Federal Confidentiality of Alcohol and Drug Abuse Patient Records regulations: The Federal rules restrict any use of the information to criminally investigate or prosecute any alcohol or drug abuse patient.[facility] HospitalIn the event this information is protected by the Federal Confidentiality of Alcohol and Drug Abuse Patient Records regulations: The Federal rules restrict any use of the information to criminally investigate or prosecute any alcohol or drug abuse patient.[facility] HospitalIn the event this information is protected by the Federal Confidentiality of Alcohol and Drug Abuse Patient Records regulations: The Federal rules restrict any use of the information to criminally investigate or prosecute any alcohol or drug abuse patient.[facility] [facility] HospitalIn the event this information is protected by the Federal Confidentiality of Alcohol and Drug Abuse Patient Records regulations: The Federal rules restrict any use of the information to criminally investigate or prosecute any alcohol or drug abuse patient.[facility] HospitalIn the event this information is protected by the Federal Confidentiality of Alcohol and Drug Abuse Patient Records regulations: The Federal rules restrict any use of the information to criminally investigate or prosecute any alcohol or drug abuse patient.[facility] HospitalIn the event this information is protected by the Federal Confidentiality of Alcohol and Drug Abuse Patient Records regulations: The Federal rules restrict any use of the information to criminally investigate or prosecute any alcohol or drug abuse patient.[facility] HospitalIn the event this information is protected by the Federal Confidentiality of Alcohol and Drug Abuse Patient Records regulations: The Federal rules restrict any use of the information to criminally investigate or prosecute any alcohol or drug abuse patient.[facility] HospitalIn the event this information is protected by the Federal Confidentiality of Alcohol and Drug Abuse Patient Records regulations: The Federal rules restrict any use of the information to criminally investigate or prosecute any alcohol or drug abuse patient.[facility] HospitalIn the event this information is protected by the Federal Confidentiality of Alcohol and Drug Abuse Patient Records regulations: The Federal rules restrict any use of the information to criminally investigate or prosecute any alcohol or drug abuse patient.[facility] HospitalIn the event this information is protected by the Federal Confidentiality of Alcohol and Drug Abuse Patient Records regulations: The Federal rules restrict any use of the information to criminally investigate or prosecute any alcohol or drug abuse patient.[facility] HospitalIn the event this information is protected by the Federal Confidentiality of Alcohol and Drug Abuse Patient Records regulations: The Federal rules restrict any use of the information to criminally investigate or prosecute any alcohol or drug abuse patient.[facility] HospitalIn the event this information is protected by the Federal Confidentiality of Alcohol and Drug Abuse Patient Records regulations: The Federal rules restrict any use of the information to criminally investigate or prosecute any alcohol or drug abuse patient.[facility] HospitalIn the event this information is protected by the Federal Confidentiality of Alcohol and Drug Abuse Patient Records regulations: The Federal rules restrict any use of the information to criminally investigate or prosecute any alcohol or drug abuse patient.[facility] HospitalIn the event this information is protected by the Federal Confidentiality of Alcohol and Drug Abuse Patient Records regulations: The Federal rules restrict any use of the information to criminally investigate or prosecute any alcohol or drug abuse patient.[facility] HospitalIn the event this information is protected by the Federal Confidentiality of Alcohol and Drug Abuse Patient Records regulations: The Federal rules restrict any use of the information to criminally investigate or prosecute any alcohol or drug abuse patient.[facility] HospitalIn the event this information is protected by the Federal Confidentiality of Alcohol and Drug Abuse Patient Records regulations: The Federal rules restrict any use of the information to criminally investigate or prosecute any alcohol or drug abuse patient.[facility] HospitalIn the event this information is protected by the Federal Confidentiality of Alcohol and Drug Abuse Patient Records regulations: The Federal rules restrict any use of the information to criminally investigate or prosecute any alcohol or drug abuse patient.[facility] HospitalIn the event this information is protected by the Federal Confidentiality of Alcohol and Drug Abuse Patient Records regulations: The Federal rules restrict any use of the information to criminally investigate or prosecute any alcohol or drug abuse patient.[facility] HospitalIn the event this information is protected by the Federal Confidentiality of Alcohol and Drug Abuse Patient Records regulations: The Federal rules restrict any use of the information to criminally investigate or prosecute any alcohol or drug abuse patient.[facility] HospitalIn the event this information is protected by the Federal Confidentiality of Alcohol and Drug Abuse Patient Records regulations: The Federal rules restrict any use of the information to criminally investigate or prosecute any alcohol or drug abuse patient.[facility] HospitalIn the event this information is protected by the Federal Confidentiality of Alcohol and Drug Abuse Patient Records regulations: The Federal rules restrict any use of the information to criminally investigate or prosecute any alcohol or drug abuse patient.[facility] HospitalIn the event this information is protected by the Federal Confidentiality of Alcohol and Drug Abuse Patient Records regulations: The Federal rules restrict any use of the information to criminally investigate or prosecute any alcohol or drug abuse patient.[facility] HospitalIn the event this information is protected by the Federal Confidentiality of Alcohol and Drug Abuse Patient Records regulations: The Federal rules restrict any use of the information to criminally investigate or prosecute any alcohol or drug abuse patient.[facility] HospitalIn the event this information is protected by the Federal Confidentiality of Alcohol and Drug Abuse Patient Records regulations: The Federal rules restrict any use of the information to criminally investigate or prosecute any alcohol or drug abuse patient.[facility] HospitalIn the event this information is protected by the Federal Confidentiality of Alcohol and Drug Abuse Patient Records regulations: The Federal rules restrict any use of the information to criminally investigate or prosecute any alcohol or drug abuse patient.[facility] HospitalIn the event this information is protected by the Federal Confidentiality of Alcohol and Drug Abuse Patient Records regulations: The Federal rules restrict any use of the information to criminally investigate or prosecute any alcohol or drug abuse patient.[facility] HospitalIn the event this information is protected by the Federal Confidentiality of Alcohol and Drug Abuse Patient Records regulations: The Federal rules restrict any use of the information to criminally investigate or prosecute any alcohol or drug abuse patient.[facility] HospitalIn the event this information is protected by the Federal Confidentiality of Alcohol and Drug Abuse Patient Records regulations: The Federal rules restrict any use of the information to criminally investigate or prosecute any alcohol or drug abuse patient.[facility] HospitalIn the event this information is protected by the Federal Confidentiality of Alcohol and Drug Abuse Patient Records regulations: The Federal rules restrict any use of the information to criminally investigate or prosecute any alcohol or drug abuse patient.[facility] HospitalIn the event this information is protected by the Federal Confidentiality of Alcohol and Drug Abuse Patient Records regulations: The Federal rules restrict any use of the information to criminally investigate or prosecute any alcohol or drug abuse patient.[facility] HospitalIn the event this information is protected by the Federal Confidentiality of Alcohol and Drug Abuse Patient Records regulations: The Federal rules restrict any use of the information to criminally investigate or prosecute any alcohol or drug abuse patient.[facility] HospitalIn the event this information is protected by the Federal Confidentiality of Alcohol and Drug Abuse Patient Records regulations: The Federal rules restrict any use of the information to criminally investigate or prosecute any alcohol or drug abuse patient.[facility] HospitalIn the event this information is protected by the Federal Confidentiality of Alcohol and Drug Abuse Patient Records regulations: The Federal rules restrict any use of the information to criminally investigate or prosecute any alcohol or drug abuse patient.[facility] HospitalIn the event this information is protected by the Federal Confidentiality of Alcohol and Drug Abuse Patient Records regulations: The Federal rules restrict any use of the information to criminally investigate or prosecute any alcohol or drug abuse patient.[facility] HospitalIn the event this information is protected by the Federal Confidentiality of Alcohol and Drug Abuse Patient Records regulations: The Federal rules restrict any use of the information to criminally investigate or prosecute any alcohol or drug abuse patient.[facility] HospitalIn the event this information is protected by the Federal Confidentiality of Alcohol and Drug Abuse Patient Records regulations: The Federal rules restrict any use of the information to criminally investigate or prosecute any alcohol or drug abuse patient.[facility] HospitalIn the event this information is protected by the Federal Confidentiality of Alcohol and Drug Abuse Patient Records regulations: The Federal rules restrict any use of the information to criminally investigate or prosecute any alcohol or drug abuse patient.[facility] HospitalIn the event this information is protected by the Federal Confidentiality of Alcohol and Drug Abuse Patient Records regulations: The Federal rules restrict any use of the information to criminally investigate or prosecute any alcohol or drug abuse patient.[facility] HospitalIn the event this information is protected by the Federal Confidentiality of Alcohol and Drug Abuse Patient Records regulations: The Federal rules restrict any use of the information to criminally investigate or prosecute any alcohol or drug abuse patient.[facility] HospitalIn the event this information is protected by the Federal Confidentiality of Alcohol and Drug Abuse Patient Records regulations: The Federal rules restrict any use of the information to criminally investigate or prosecute any alcohol or drug abuse patient.[facility] HospitalIn the event this information is protected by the Federal Confidentiality of Alcohol and Drug Abuse Patient Records regulations: The Federal rules restrict any use of the information to criminally investigate or prosecute any alcohol or drug abuse patient.[facility] HospitalIn the event this information is protected by the Federal Confidentiality of Alcohol and Drug Abuse Patient Records regulations: The Federal rules restrict any use of the information to criminally investigate or prosecute any alcohol or drug abuse patient.[facility] HospitalIn the event this information is protected by the Federal Confidentiality of Alcohol and Drug Abuse Patient Records regulations: The Federal rules restrict any use of the information to criminally investigate or prosecute any alcohol or drug abuse patient.[facility] HospitalIn the event this information is protected by the Federal Confidentiality of Alcohol and Drug Abuse Patient Records regulations: The Federal rules restrict any use of the information to criminally investigate or prosecute any alcohol or drug abuse patient.[facility] HospitalIn the event this information is protected by the Federal Confidentiality of Alcohol and Drug Abuse Patient Records regulations: The Federal rules restrict any use of the information to criminally investigate or prosecute any alcohol or drug abuse patient.[facility] HospitalIn the event this information is protected by the Federal Confidentiality of Alcohol and Drug Abuse Patient Records regulations: The Federal rules restrict any use of the information to criminally investigate or prosecute any alcohol or drug abuse patient.[facility] HospitalIn the event this information is protected by the Federal Confidentiality of Alcohol and Drug Abuse Patient Records regulations: The Federal rules restrict any use of the information to criminally investigate or prosecute any alcohol or drug abuse patient.[facility] HospitalIn the event this information is protected by the Federal Confidentiality of Alcohol and Drug Abuse Patient Records regulations: The Federal rules restrict any use of the information to criminally investigate or prosecute any alcohol or drug abuse patient.[facility] HospitalIn the event this information is protected by the Federal Confidentiality of Alcohol and Drug Abuse Patient Records regulations: The Federal rules restrict any use of the information to criminally investigate or prosecute any alcohol or drug abuse patient.[facility] Care Teams (unrecognized sec tion and content) Director Title Relationship Specialty Start Date End Date Jus Pérez MD [address] [place] [address] PCP - General Family Practice 12/15/11 Director Title Relationship Specialty Start Date End Date Jus Pérez MD [facility] [place] [address] PCP - General Family Practice 12/15/11 Director Title Relationship Specialty Start Date End Date Jus Pérez MD [address] [place] [address] PCP - General Family Practice 12/15/11 Director Title Relationship Specialty Start Date End Date Jus Pérez MD [facility] [place] [address] PCP - General Family Practice 12/15/11 Director Title Relationship Specialty Start Date End Date Jus Pérez MD [address] [place] [address] PCP - General Family Practice 12/15/11 Director Title Relationship Specialty Start Date End Date Jus Pérez MD [address] [facility] [place] [address] PCP - General Family Practice 12/15/11 Director Title Relationship Specialty Start Date End Date Jus Pérez MD [address] [facility] [place] [address] PCP - General Family Practice 12/15/11 Director Title Relationship Specialty Start Date [place] Date Jus [place] [address] [place] [address], [place] [address] PCP - General Family Practice 12/15/11 Director Title Relationship Specialty Start Date End Date Jus Pérez MD [address] [facility] [place] [address] PCP - General Family Practice 12/15/11 Director Title Relationship Specialty Start Date End Date Jus Pérez MD [address] [facility] [place] [address] PCP - General Family Practice 12/15/11 Director Title Relationship Specialty Start Date End Date Jus Pérez MD [address] [facility] [place] [address] PCP - General Family Practice 12/15/11 Director Title Relationship Specialty Start Date End Date Jus Pérez MD [address] [facility] [place] [address] PCP - General Family Practice 12/15/11 Director Title Relationship Specialty Start Date End Date Jus Pérez MD [address] [facility] [place] [address] PCP - General Family Practice 12/15/11 Director Title Relationship Specialty Start Date End Date Jus Pérez MD [address] [facility] [place] [address] PCP - General Family Practice 12/15/11 Director Title Relationship Specialty Start Date End Date Jus Pérez MD [address] [facility] [place] [address] PCP - General Family Practice 12/15/11 Director Title Relationship Specialty Start Date End Date Jus Pérez MD [address] [facility] [place] [address] PCP - General Family Practice 12/15/11 Director Title Relationship Specialty Start Date End Date Jus Pérez MD [address] [facility] [place] [address] PCP - General Family Practice 12/15/11 Director Title Relationship Specialty Start Date End Date Jus Pérez MD [address] [facility] [place] [address] PCP - General Family Medicine 12/15/11 Director Title Relationship Specialty Start Date End Date Jus Pérez MD [address] [facility] [place] [address] PCP - General Family Medicine 12/15/11 Director Title Relationship Specialty Start Date End Date Jus Pérez MD [address] [facility] [place] [address] PCP - General Family Medicine 12/15/11 Director Title Relationship Specialty Start Date End Date Jus Pérez MD [address] [facility] [place] [address] PCP - General Family Medicine 12/15/11 Director Title Relationship Specialty Start Date End Date Jus Pérez MD [address] [facility] [place] [address] PCP - General Family Medicine 12/15/11 Director Title Relationship Specialty Start Date End Date Jus Pérez MD [address] [facility] [place] [address] PCP - General Family Medicine 12/15/11 Director Title Relationship Specialty Start Date End Date Jus Pérez MD [address] [facility] [place] [address] PCP - General Family Medicine 12/15/11 Director Title Relationship Specialty Start Date End Date Jus Pérez MD [address] [facility] [place] [address] PCP - General Family Medicine 12/15/11 Director Title Relationship Specialty Start Date End Date Jus Pérez MD [address] [facility] [address] PCP - General Family Medicine 12/15/11 Director Title Relationship Specialty Start Date End Date Jus Pérez MD [address] [facility] [address] PCP - General Family Medicine 12/15/11 Director Title Relationship Specialty Start Date End Date Jus Pérez MD [address] [facility] [address] PCP - General Family Medicine 12/15/11 Director Title Relationship Specialty Start Date End Date Jus Pérez MD [address] [facility] [place] [address] PCP - General Family Medicine 12/15/11 Director Title Relationship Specialty Start Date End Date Jus Pérez MD [address] [facility] [place] [address] PCP - General Family Medicine 12/15/11 Director Title Relationship Specialty Start Date End Date Jus Pérez MD [address] [facility] [address] PCP - General Family Medicine 12/15/11 Director Title Relationship Specialty Start Date End Date Jus Pérez MD [address] [facility] [place] [address] PCP - General Family Medicine 12/15/11 Director Title Relationship Specialty Start Date End Date Jus Pérez MD [address] [facility] [address] PCP - General Family Medicine 12/15/11 Director Title Relationship Specialty Start Date End Date Jus Pérez MD [address] [facility] [address] PCP - General Family Medicine 12/15/11 Director Title Relationship Specialty Start Date End Date Jus Pérez MD [address] [facility] [place] [address] PCP - General Family Medicine 12/15/11 Director Title Relationship Specialty Start Date End Date Jus Pérez MD [address] [facility] [address] PCP - General Family Medicine 12/15/11 Director Title Relationship Specialty Start Date End Date Jus Pérez MD [address] [facility] [address] PCP - General Family Medicine 12/15/11 Director Title Relationship Specialty Start Date End Date Jus Pérez MD [address] [facility] [address] PCP - General Family Medicine 12/15/11 Director Title Relationship Specialty Start Date End Date Jus Pérez MD [address] [facility] [place] [address] PCP - General Family Medicine 12/15/11 Director Title Relationship Specialty Start Date End Date Jus Pérez MD [address] [facility] [address] PCP - General Family Medicine 12/15/11 Director Title Relationship Specialty Start Date End Date Jus Pérez MD [address] [facility] [address] PCP - General Family Medicine 12/15/11 Director Title Relationship Specialty Start Date End Date Jus Pérez MD [address] [facility] [address] PCP - General Family Medicine 12/15/11 Director Title Relationship Specialty Start Date End Date Jus Pérez MD [address] [facility] [address] PCP - General Family Medicine 12/15/11 Director Title Relationship Specialty Start Date End Date Jus Pérez MD [address] [facility] [address] PCP - General Family Medicine 12/15/11 Director Title Relationship Specialty Start Date End Date Jus Pérez MD [address] [facility] [address] PCP - General Family Medicine 12/15/11 Director Title Relationship Specialty Start Date End Date Jus Pérez MD [address] [facility] [address] PCP - General Family Medicine 12/15/11 Director Title Relationship Specialty Start Date End Date Jus Pérez MD [address] [facility] [place] [address] PCP - General Family Medicine 12/15/11 Director Title Relationship Specialty Start Date End Date Jus Pérez MD [address] [facility] [place] [address] PCP - General Family Medicine 12/15/11 Director Title Relationship Specialty Start Date End Date Jus Pérez MD [address] [facility] [place] [address] PCP - General Family Medicine 12/15/11 Director Title Relationship Specialty Start Date End Date Jus Pérez MD [address] [place] [address] PCP - General Family Medicine 12/15/11 Director Title Relationship Specialty Start Date End Date Jus Pérez MD [address] [place] [address] PCP - General Family Medicine 12/15/11 Director Title Relationship Specialty Start Date End Date Jus Pérez MD [address] [place] [address] PCP - General Family Medicine 12/15/11 Director Title Relationship Specialty Start Date End Date Jus Pérez MD [address] [place] [address] PCP - General Family Medicine 12/15/11 Director Title Relationship Specialty Start Date End Date Jus Pérez MD [address] [place] [address] PCP - General Family Medicine 12/15/11 Director Title Relationship Specialty Start Date End Date Jus Pérez MD [address] [place] [address] PCP - General Family Medicine 12/15/11 Director Title Relationship Specialty Start Date End Date Jus Pérez MD [address] [place], [place] [address] PCP - General Family Medicine 12/15/11 Director Title Relationship Specialty Start Date End Date Jus Pérez MD [address] [place], [place] [address] PCP - General Family Medicine 12/15/11 Director Title Relationship Specialty Start Date End Date Jus Pérez MD [address] [place] [address] PCP - General Family Medicine 12/15/11 Director Title Relationship Specialty Start Date End Date Jus Pérez MD [address] [place] [address] PCP - General Family Medicine 12/15/11 Director Title Relationship Specialty Start Date End Date Jus Pérez MD [address] [place], [place] [address] PCP - General Family Medicine 12/15/11 FOR RECORDS PERTAINING TO PATIENTS WHO ARE OR HAVE BEEN ENROLLED IN A CHEMICAL DEPENDENCY/SUBSTANCEABUSE PROGRAM, SOME INFORMATION MAY BE OMITTED. This clinical summary was aggregated from multiple sources. Caution should be exercised in using it in the provision of clinical care. This summary normalizes information from multiple sources, and as a consequence, information in this document may materially change the coding, format and clinical context of patient data. In addition, data may be omitted in some cases. CLINICAL DECISIONS SHOULD BE BASED ON THE PRIMARY CLINICAL RECORDS. [facility] [employer] [facility]. provides no warranty or guarantee of the accuracy or completeness of information in this document.
--- NOTE | 2023-05-17 10:47 | PCM.OP.PRO ---
Procedure Report Date of Procedure: 05/17/23 Assessment & Plan Assessment/Plan (1) Osteoarthritis of left hip: QUALIFIERS: Osteoarthritis type: unspecified Qualified Code(s): M16.12 - Unilateral primary osteoarthritis, left hip PLAN: PROCEDURE: Fluoroscopic Guided left hip injection ORDERING PROVIDER: Lisset Rivers PA-C INDICATION: Female, 47 years old. Osteoarthritis of the left hip. PROVIDER: GOLDEN May PROCEDURE: CONSENT: The risks, benefits, and alternatives to the procedure were explained to the patient. The specific risks of bleeding, infection, and neurovascular injury were detailed and accepted. Witnessed informed consent was obtained. TECHNIQUE: The left hip access site was prepped and draped in sterile fashion. 2% Lidocaine was administered subcutaneously for local anesthesia. A 22-gauge spinal needle was positioned under radiographic fluoroscopic localization. Approximately 2 cc of Isovue 300 instilled for localization purposes. Medication was then injected. MEDICATIONS: 12 mg of Celestone and 3 ml of 1% lidocaine. The spinal needle was removed, and a dressing was applied. The patient tolerated the procedure well without any immediate complications. IMPRESSION: Successful fluoroscopic guided left hip injection. Procedures Radiology Radiology Xray Procedures: Inj Asp major Joint - Hip, Knee
== END | disposition home or self-care (01) ==
LOC: RAD 08:32
PROVIDERS: PCP Family Medicine; Referring Provider Physician Assistant; Visit Provider Physician Assistant
DX: M16.12 Unilateral primary osteoarthritis, left hip (principal)
CPT/HCPCS: 20610; 77002; Q9967; J0702

== ENCOUNTER 2023-07-17 09:27 | Emergency (ER) | payer OTHER, SELFPAY ==
[2023-07-17 09:28] VITALS: BP 144/77; PULSE 105; RESP 18; TEMP 36.6; O2SAT 98; BMI 31.4
--- NOTE | 2023-07-17 09:40 | EDS_ITS ---
HPI History of Present Illness Chief Complaint: Flank Pain Detail of Chief Complaint: Back pain Informant: patient Onset/Context/Timing Current Severity: 10/30 Narrative Narrative: Patient presents with back pain that woke her up last evening in the [place]. She denies injury. Also started with a cough yesterday and fever and bodyaches. She denies urinary symptoms. Patient went to urgent care and was told she had blood in her urine and to get evaluated for kidney stones. Patient has history of SLE as well as history of anxiety and depression. She has had prior back fusion 5 years ago. She denies any paresthesias or weakness to the extremities or pain radiating down her legs. [facility] Medical History (Updated 07/17/23 @ 11:[address] Nigel Naranjo, ) Anxiety Depression SLE (systemic lupus erythematosus) Home Medications belimumab 200 mg/mL subcutaneous auto-injector (Benlysta) 1 ea subcut FR 10/12/21 [History Last Taken Unknown] cyclobenzaprine 10 mg tablet 0.5 tab PO QHS PRN Sleep 10/12/21 [History Last Taken Unknown] hydroxychloroquine 200 mg tablet 1.5 tab PO DAILY 10/12/21 [History Last Taken 07/16/23] hydroxyzine pamoate 25 mg capsule 25 mg PO 4X/DAY PRN Anxiety 10/12/21 [History Last Taken Unknown] multivit with minerals-iron 18 mg-folic ac 400 mcg-vit K 25 mcg tablet (One Daily Women's) 1 tab PO DAILY 10/12/21 [History Last Taken 07/16/23] oxaprozin 600 mg tablet 2 tab PO DAILY 10/12/21 [History Last Taken 07/16/23] oxybutynin chloride 10 mg tablet,extended release 24 hr 1 tab PO DAILY 10/12/21 [History Last Taken 07/16/23] venlafaxine 150 mg capsule,extended release 24 hr 150 cap PO DAILY 10/12/21 [History Last Taken 07/16/23] gabapentin 300 mg capsule 300 mg PO QHS 07/17/23 [History Last Taken 07/16/23] metoprolol succinate 25 mg tablet,extended release 24 hr 25 mg PO DAILY 07/17/23 [History Last Taken 07/16/23] Allergy/AdvReac Type Severity Reaction Status Date / Time No Known Allergies Allergy Verified 07/17/23 09:28 Surgical History (Updated 07/17/23 @ 09:48 by Fabiola Wellington) H/O spinal fusion Social History Smoking Status: Current every day smoker tobacco type: cigarettes ROS ROS ED Review of Systems ROS Unobtainable: other Constitutional Constitutional ED: Reports fever(s) and lethargy; Denies chills, sweats or weight loss Eyes Eyes: Denies blurry vision, change in vision or diplopia ENT ENT ED: Denies rhinorrhea or sore throat Cardiovascular Cardiovascular: Denies chest pain, orthopnea or racing heartbeat Respiratory/Chest Respiratory/Chest: Reports cough; Denies dyspnea, dyspnea on exertion, orthopnea or sputum Gastrointestinal Gastrointestinal: Denies abdominal pain, diarrhea, nausea or vomiting Genitourinary Genitourinary ED: Denies dysuria, hematuria or urinary frequency Musculoskeletal Musculoskeletal: Reports arthralgias, back pain and myalgias; Denies neck pain Integumentary Denies abscess, Abrasions or rash Neurologic Neurologic: Denies headache(s) or weakness Psychiatric Psychiatric: Denies anxiety, depression or suicidal thoughts Endocrine Endocrinology: Denies polydipsia, polyphagia or polyuria Hematologic/Lymphatic Hematologic/Lymphatic: Denies easy bleeding, easy bruising or lymphadenopathy Allergic/Immunologic Allergic/Immunologic ED: Denies mouth swelling, tongue swelling or urticaria EXAM Physical Exam Const Vital Signs: 07/17/23 09:28 07/17/23 09:47 07/17/23 09:28 Temperature 97.8 F 97.8 F Temperature Source Temporal Temporal Pulse Rate 105 H 105 H Respiratory Rate 18 18 Respiratory Pattern Normal Blood Pressure 144/77 H 144/77 H Blood Pressure Mean 99 99 Pulse Ox 98 98 Oxygen Delivery Method Room Air Room Air 07/17/23 10:30 Temperature 98.2 F Temperature Source Temporal Pulse Rate 91 Respiratory Rate 18 Respiratory Pattern Blood Pressure 106/67 Blood Pressure Mean 80 Pulse Ox 95 Oxygen Delivery Method Room Air Positive well nourished and well developed General Appearance ED: well developed and NAD HEENT Reports TM's clear and moist mucous membranes normocephalic and atraumatic; Negative for trauma or tenderness Tympanic Membrane ED: Yes TM's clear Eyes PERRL and EOMs intact bilaterally General Eye ED: Negative for pale conjunctiva or scleral icterus Neck no lymphadenopathy, supple and no JVD General: Negative for tenderness Chest Wall inspection of chest normal and palpation of chest normal Chest: Negative for tenderness Resp normal respiratory effort and clear to auscultation bilaterally Effort and Inspection: Negative for respiratory distress or pain with movement Auscultation: Negative for rhonchi, wheezes or diminished lung sounds Cardio regular rate, regular rhythm, S1 normal heart sound, S2 normal heart sound and no murmurs Peripheral Pulses: pulses 2+ throughout GI normal to inspection, nondistended, normoactive bowel sounds, soft to palpation, non-tender, non-distended and no masses Back/Spine no CVA tenderness and no thoracic nor lumbar tenderness Back/Spine Narrative: Mild diffuse tenderness over the lumbar paraspinal musculature bilaterally. She has no bony tenderness on exam. Old lumbar spine incision healed well. Negative straight leg raises. Extremity normal to inspection General Extremety ED: Negative for edema General Extremity: Negative for edema Neuro oriented x3, CN's II-XII intact bilaterally, no sensory deficits noted and gait normal Sensorium / Orientation: awake, alert, oriented to person, oriented to place and oriented to time Motor Exam: strength 5/5 throughout and strength abnormal Psych mental status grossly normal Skin no rashes or lesions noted and no wounds MDM MDM MDM Narrative Medical decision making narrative: Patient presents with back/flank pain as well as cough. IV line established. She was given Toradol. CBC with differential count of 4.7 hemoglobin 12.6 and platelet count of 244. Chemistries unremarkable. LFTs were normal. Urinalysis showed microscopic blood of 10-25 RBCs but no signs of infection. CT flank obtained was negative for kidney stones or any other acute process. She was tested for COVID flu and RSV and she was positive for influenza A. Patient does not want to do Tamiflu after discussing risk benefits. She states that she already takes too many medications. Lab Data Attestation: I reviewed the patient's lab results. Labs: Laboratory Results - last 24 hr 07/17/23 07/17/23 10:00 10:40 WBC 4.7 RBC 4.15 L Hgb 12.6 Hct 37.5 MCV 90.4 MCH 30.4 MCHC 33.6 RDW Std Deviation 44.0 H RDW Coeff of Larry 13.3 Plt Count 244 MPV 9.3 Immature Gran % (Auto) 0.200 Neut % (Auto) 66.6 Lymph % (Auto) 12.4 L Whitley % (Auto) 15.4 H Eos % (Auto) 4.1 Baso % (Auto) 1.3 H Absolute Neuts (auto) 3.1 Absolute Lymphs (auto) 0.58 L Nucleated RBC % 0 Sodium 137 Potassium 3.8 Chloride 104 Carbon Dioxide 24.0 Anion Gap 9 BUN 11 Creatinine 0.72 Estim Creat Clear Calc 106.85 Est GFR (MDRD) Af Amer 111 Est GFR (MDRD) Non-Af 92 BUN/Creatinine Ratio 15.3 Glucose 93 Calcium 9.1 Urine Color Yellow Urine Clarity Sl. Cloudy Urine pH 6.0 Ur Specific Maxwell 1.010 Urine Protein Negative Urine Glucose (UA) Normal Urine Ketones Negative Urine Occult Blood 150 H Urine Nitrite Negative Urine Bilirubin Negative Urine Urobilinogen Normal Ur Leukocyte Esterase Negative Urine RBC 10-25 SEEN Urine WBC 0 SEEN Ur Squamous Epith Cells 0-5 SEEN Urine Bacteria 0 SEEN Urine Mucus 0 SEEN Radiography Diagnostic Testing: Clinical Impression(s) from Imaging Studies Abdomen/Pelvis CT 07/17/23 10:41 IMPRESSION: Normal unenhanced CT of the abdomen and pelvis. Electronically Signed: Ravindra Yan MD at 11:11 EDT , Discharge Plan Triage Chief Complaint: Flank Pain ED Provider: Nigel Naranjo Dx/Rx/DC Orders Clinical Impression: Influenza A, Back pain Instructions: ED Influenza (Adult), ED Back and Neck Pain, General Prescriptions: No Action cyclobenzaprine 10 mg tablet 0.5 tab PO QHS PRN (Reason: Sleep) Patient Comments: TAKE 1/2 TABLET BY MOUTH AT BEDTIME NEEDED oxybutynin chloride 10 mg tablet extended release 24hr 1 tab PO DAILY Patient Comments: TAKE 1 TABLET BY MOUTH EVERY DAY venlafaxine 150 mg capsule,extended release 24hr 150 cap PO DAILY Patient Comments: TAKE 1 CAPSULE BY MOUTH EVERY DAY hydroxychloroquine 200 mg tablet 1.5 tab PO DAILY Patient Comments: TAKE 1 AND 1/2 TABLETS BY MOUTH ONCE DAILY oxaprozin 600 mg tablet 2 tab PO DAILY Patient Comments: TAKE 2 TABLETS BY MOUTH EVERY DAY One Daily Women's 18 mg iron-400 mcg-25 mcg Tablet 1 tab PO DAILY Benlysta 200 mg/mL auto-injector 1 ea SUBCUT FR Hold Instructions: waiting for medication; has not started yet hydroxyzine pamoate 25 MG capsule 25 mg PO 4X/DAY PRN (Reason: Anxiety) gabapentin 300 mg capsule 300 mg PO QHS metoprolol succinate 25 mg tablet extended release 24 hr 25 mg PO DAILY Primary Care Provider: Jus Gage Referrals: Jus Gage MD [Primary Care Provider] - 5-7 Days Disposition Disposition: Home, Self Care
[2023-07-17] MEDS: Ketorolac 30 MG/ML Syringe IV (09:51)
[2023-07-17] MEDS: 0.9% Normal Saline (1000mL) 1,000 ML 150 ML IV (09:51)
[2023-07-17 10:09] LABS: Absolute Lymphocyte Count 0.58 X10^3/uL (0.83-4.51); Absolute Neutrophil Count 3.1 X10^3/uL (2.0-7.7); Basophil# 0.06 X10^3/uL; Basophil% 1.3 % (0-1); Eosinophil# 0.19 X10^3/uL; Eosinophils% 4.1 % (0-5); Hematocrit 37.5 % (37-47); Hemoglobin 12.6 g/dL (12.0-15.0); Lymphocyte # 0.58 X10^3/ul (0.83-4.51); Lymphocyte % 12.4 % (19-41); Mean Corp Hgb Conc 33.6 g/dL (32-36); Mean Corpuscular Hgb 30.4 pg (27.0-32.0); Mean Corpuscular Volume 90.4 fL (81-99); Mean Platelet Vol. 9.3 fl (6.2-12.0); Monocyte# 0.72 X10^3/uL; Monocyte% 15.4 % (0-10); NRBC Flagged by Analyzer 0 % (0-5); Neutrophil # 3.11 X10^3/uL (2.7-7.7); Neutrophil % 66.6 % (47-70); POSITIVE DIFFERENTIAL YES; Platelet Count 244 K/mm3 (150-450); RBC Distribution Width CV 13.3 % (11.6-14.6); Red Blood Count 4.15 M/mm3 (4.2-5.4); White Blood Count 4.7 K/mm3 (4.4-11.0)
[2023-07-17 10:21] LABS: Anion Gap 9 (5-15); BUN 11 mg/dL (7-18); BUN/Creat Ratio 15.3 RATIO (10-20); Calcium,Total 9.1 mg/dL (8.5-10.1); Chloride 104 mmol/L (98-107); Creatinine, Serum 0.72 mg/dL (0.55-1.02); EST Glomerular Filtration Rate 92 mL/min (>60); Est Glom Filt Rate - Afr Amer 111 mL/min (>60); Estimated Creatinine Clearance 106.85 ml/min; Glucose 93 mg/dL (74-106); Potassium 3.8 mmol/L (3.5-5.1); Sodium Level 137 mmol/L (136-145)
[2023-07-17 10:30] VITALS: BP 106/67; PULSE 91; RESP 18; TEMP 36.8; O2SAT 95
--- NOTE | 2023-07-17 10:41 | CT_ITS ---
STUDY: CT ABDOMEN AND PELVIS WITHOUT CONTRAST REASON FOR EXAM: Female, 47 years old. Right flank pain RADIATION DOSAGE (If Supplied By Facility): CTDIvol = ( 12.67 ) mGy, DLP = ( 611.30 ) mGycm TECHNIQUE: Transaxial images were obtained from the dome of the diaphragm to the symphysis pubis without oral contrast, and without intravenous contrast. Sagittal and coronal images were reconstructed. Individualized dose optimization techniques were used for this CT. COMPARISON: None. FINDINGS: The visualized lung bases are unremarkable. The visualized portions of the heart are within normal limits. Normal liver. Normal gallbladder and extrahepatic biliary system. There are multiple benign calcified granulomata of the spleen. Normal pancreas. Normal bilateral adrenal glands. Normal right kidney. Normal left kidney. Normal visualized stomach. Normal small intestine. Normal colon. The appendix is visualized and appears normal. There is scattered atherosclerotic calcification of the abdominal aorta, without a demonstrated aneurysm. Normal inferior vena cava. Normal retroperitoneum. Normal urinary bladder. Normal abdominal wall. Evidence of prior interpedicular screw and brooklynn fixation at the L4-L5 level. Grade 2 anterior listhesis of L5 on S1. Beam hardening artifact is seen at the surgical site. CT/Abdomen/Pelvis without Cont IMPRESSION: Normal unenhanced CT of the abdomen and pelvis. Electronically Signed: Ravindra Yan MD at 11:11 EDT ,
[2023-07-17 10:54] LABS: Bacteria 0 SEEN /hpf (None Seen); Mucous, Urine 0 SEEN /hpf (<or=2+); White Blood Cells 0 SEEN /hpf (0-5)
[2023-07-17 11:00] LABS: Color, Urine Yellow (Yellow); Glucose, Dipstick Normal (Normal); Ketone-Dipstick Negative (Negative); Leukocyte Esterase-Dipstick Negative /ul (Negative); Nitrite-Dipstick Negative (Negative); Occult Blood-Urine 150 /ul (Negative); Protein-Dipstick Negative (Negative); Urine Bilirubin Dipstick Negative (Negative); Urine Clarity Sl. Cloudy (Clear); Urine Urobilinogen Normal (Normal)
[2023-07-17 11:11] LABS: Red Blood Cells-Urine 10-25 SEEN /hpf (0-5); Squamous Epithelial Cells - UA 0-5 SEEN /hpf (5-10)
[2023-07-17 11:33] VITALS: BP 109/78; PULSE 84; RESP 14; TEMP 36.6; O2SAT 98
== END 2023-07-17 11:34 | disposition home or self-care (01) ==
PROVIDERS: Emergency Provider Emergency Medicine; PCP Family Medicine; Visit Provider Emergency Medicine
DX: J10.1 Influenza due to other identified influenza virus with other respiratory manifestations (principal); F17.210 Nicotine dependence, cigarettes, uncomplicated; M54.9 Dorsalgia, unspecified; F41.9 Anxiety disorder, unspecified; Z79.899 Other long term (current) drug therapy; F32.A Depression, unspecified
CPT/HCPCS: 74176; 80048; 81001; 85025; 87631; 96361; 96374; 99285; A4216

== ENCOUNTER 2024-04-21 16:53 | Emergency (ER) | payer OTHER, SELFPAY ==
[2024-04-21 16:54] VITALS: BP 174/94; PULSE 108; RESP 18; TEMP 36.6; O2SAT 99; BMI 33.0
[2024-04-21 20:54] VITALS: BP 141/51; PULSE 82; RESP 16; O2SAT 95
--- NOTE | 2024-04-21 22:53 | EX.ED.GENINJ ---
HPI History of Present Illness Chief Complaint: Other, Pain/Inj Narrative Narrative: Patient is a 48-year-old female with past medical history of anxiety, depression, lupus, thrombosed hemorrhoid who presents to the emergency department with a chief complaint of thrombosed hemorrhoid. Patient states that yesterday she noted that she had significant pain in her rectal region. States that she tried to follow-up with the surgeon that she went to the last time this happened and they were unable to have her evaluated today therefore she came here for further evaluation management. Patient states that she has been using [id number] topical medications. [facility] Medical History Depression SLE (systemic lupus erythematosus) Anxiety Home Medications ?Medication ?Instructions ?Recorded ?Last Taken ?Type belimumab 200 mg/mL subcutaneous 1 ea subcut FR 10/12/21 Unknown History auto-injector (Benlysta) cyclobenzaprine 10 mg tablet 0.5 tab PO QHS PRN Sleep 10/12/21 Unknown History hydroxychloroquine 200 mg tablet 1.5 tab PO DAILY 10/12/21 07/16/23 History hydroxyzine pamoate 25 mg capsule 25 mg PO 4X/DAY PRN Anxiety 10/12/21 Unknown History multivit with minerals-iron 18 1 tab PO DAILY 10/12/21 07/16/23 History mg-folic ac 400 mcg-vit K 25 mcg tablet (One Daily Women's) oxaprozin 600 mg tablet 600 mg PO DAILY 10/12/21 07/16/23 History oxybutynin chloride 10 mg 1 tab PO DAILY 10/12/21 07/16/23 History tablet,extended release 24 hr venlafaxine 150 mg 150 cap PO DAILY 10/12/21 07/16/23 History capsule,extended release 24 hr gabapentin 300 mg capsule 300 mg PO QHS 07/17/23 07/16/23 History metoprolol succinate 25 mg 25 mg PO DAILY 07/17/23 07/16/23 History tablet,extended release 24 hr albuterol sulfate 90 mcg/actuation 2 puff inhalation Q4H PRN PRN 04/21/24 Unknown History aerosol inhaler wheezing desvenlafaxine succinate 50 mg 50 mg PO DAILY 04/21/24 Unknown History tablet,extended release 24 hr nystatin 100,000 unit/gram topical 1 applic topical 4X/DAY 04/21/24 Unknown History powder (Klayesta) Allergy/AdvReac Type Severity Reaction Status Date / Time fentanyl AdvReac Mild Other Verified 04/21/24 17:02 Surgical History H/O spinal fusion Social History Smoking Status: Current every day smoker tobacco type: cigarettes ROS ROS ED ROS Narrative Constitutional: Denies any fevers, chills, headaches Abdomen: Complains of concern for thrombosed hemorrhoid as noted above denies any abdominal pain vomiting or diarrhea : Denies any urinary symptoms Neurological: Denies any numbness, weakness, tingling Musculoskeletal: Denies any back pain Skin: Denies any rashes or lesions EXAM Physical Exam Narrative Exam Narrative: General: Patient lying in bed rest comfortably did not appear to be in acute distress Head: Atraumatic, normocephalic Abdomen: Soft, nondistended, nontender to palpation Rectal: Patient has evidence of a thrombosed hemorrhoid this is early but is firm in nature Extremities: +5/5 strength noted in the bilateral lower extremities, no pedal edema on exam Neurological: Patient following commands knew that she was at [facility] years 2023 Skin: Warm, dry, intact Const Vital Signs: 04/21/24 16:54 04/21/24 20:19 04/21/24 20:54 Temperature 98 F Temperature Source Oral Pulse Rate 108 H 82 Respiratory Rate 18 16 Respiratory Pattern Normal Blood Pressure 174/94 H 141/51 H Blood Pressure Mean 120 81 Pulse Ox 99 95 Oxygen Delivery Method Room Air Room Air MDM MDM MDM Narrative Medical decision making narrative: Patient is a 48-year-old female who presented to the emerged part with a chief complaint of rectal pain. Patient once again has evidence of thrombosed hemorrhoid on exam. Patient will have this I&D did and will be advised to perform sitz bath's and use stool softeners. She was advised to follow-up with the general surgery team that performed the last 1. She was encouraged return with worsening symptoms or concerns. She is agreeable this plan all question concerns answered she is discharged home in stable condition. Procedure note Timeout protocol was performed prior to initiating procedure. The area was prepped and draped in the usual, sterile manner. The site was anesthetized with 1% percent lidocaine without epinephrine using anal block for total of 8 cc. A elliptical incision incision was made and the thrombosed hemorrhoid clot burden was expressed.. Bleeding was minimal. Packing none Follow-up: The patient tolerated procedure well without complications. Standard postprocedure care is explained and return precautions were given. Discharge Plan Triage Chief Complaint: Other, Pain/Inj ED Provider: Sidney Hobbs Dx/Rx/DC Orders Clinical Impression: External hemorrhoid, thrombosed Prescriptions: No Action cyclobenzaprine 10 mg tablet 0.5 tab PO QHS PRN (Reason: Sleep) Patient Comments: TAKE 1/2 TABLET BY MOUTH AT BEDTIME NEEDED oxybutynin chloride 10 mg tablet extended release 24hr 1 tab PO DAILY Patient Comments: TAKE 1 TABLET BY MOUTH EVERY DAY venlafaxine 150 mg capsule,extended release 24hr 150 cap PO DAILY Patient Comments: TAKE 1 CAPSULE BY MOUTH EVERY DAY hydroxychloroquine 200 mg tablet 1.5 tab PO DAILY Patient Comments: TAKE 1 AND 1/2 TABLETS BY MOUTH ONCE DAILY oxaprozin 600 mg tablet 600 mg PO DAILY Patient Comments: TAKE 2 TABLETS BY MOUTH EVERY DAY One Daily Women's 18 mg iron-400 mcg-25 mcg Tablet 1 tab PO DAILY Benlysta 200 mg/mL auto-injector 1 ea SUBCUT FR hydroxyzine pamoate 25 MG capsule 25 mg PO 4X/DAY PRN (Reason: Anxiety) gabapentin 300 mg capsule 300 mg PO QHS metoprolol succinate 25 mg tablet extended release 24 hr 25 mg PO DAILY nystatin [Klayesta] 100,000 unit/gram powder 1 applic topical 4X/DAY albuterol sulfate 90 mcg/actuation HFA aerosol inhaler 2 puff inhalation Q4H PRN PRN (Reason: wheezing) desvenlafaxine succinate 50 mg tablet extended release 24 hr 50 mg PO DAILY Primary Care Provider: Jus Gage Referrals: Jus Gage MD [Primary Care Provider] - Activity Restrictions/Additional Instructions: Ensure you are doing sitz bath's at home especially after every bowel movement. Follow-up with the general surgeon that you followed with last time. Return with worsening symptoms or concerns. Use stool softeners MiraLAX [id number]. Print Language: Zambian Disposition Disposition: Home, Self Care
[2024-04-21 23:16] VITALS: BP 140/51; TEMP 36.7
[2024-04-21] MEDS: Lidocaine 1% (20 ml mdv) 20 ML Vial 10 ML INFILT (23:16)
== END 2024-04-21 23:18 | disposition home or self-care (01) ==
PROVIDERS: Emergency Provider Emergency Medicine; PCP Family Medicine; Visit Provider Emergency Medicine
DX: K64.5 Perianal venous thrombosis (principal); M32.9 Systemic lupus erythematosus, unspecified; F41.9 Anxiety disorder, unspecified; F32.A Depression, unspecified; F17.210 Nicotine dependence, cigarettes, uncomplicated; Z79.899 Other long term (current) drug therapy
CPT/HCPCS: 99282